=== PATIENT | female | born 1940 ===

== ENCOUNTER 2017-09-24 07:41 | Inpatient (IN) | payer MEDICARE, OTHER ==
[~2017-09-24] VITALS: Ht 167.6 cm; Wt 65.8 kg
[2017-09-24] MEDS ORDERED: ALPRAZOLAM0.25 MG PO (08:02)
[2017-09-24] MEDS ORDERED: PANTOPRAZOLE SO40 MG PO (08:02)
[2017-09-24] MEDS ORDERED: METOPROLOL TART25 MG PO (08:02)
--- NOTE | 2017-09-24 09:11 | NUR ---
MED REC COMPLETE WITH PHARMACY REFILL HISTORY.
--- NOTE | 2017-09-24 11:06 | NUR ---
patient admitted to the medical floor with c/o right foot ulceration stage 3 and reddness to the right leg from the right knee down. patient is alert and oriented and on ra when she arrived. this patient is able to move herself from the stretcher to the bed without any assistance. brennan is intact upon arrival.
--- NOTE | 2017-09-24 11:36 | NUR ---
MRI SCREENING FORM FILLED OUT AND FAXED TO IMAGING AT THIS TIME
--- NOTE | 2017-09-24 12:00 | NUR ---
PATIENT'S RIGHT FOOT DRESSED WITH XEROFOAM AND KERLIX. PATIENT TOLERATED WRAPPING HER FOOT WELL NO C/O PAIN.
--- NOTE | 2017-09-24 12:13 | NUR ---
patient sitting up in bed eating, patient ready for mri, tech waiting for lunch to be finished and will take her for the scan.
--- NOTE | 2017-09-24 14:01 | NUR ---
IV ABX HUNG AND RUNNING, PATIENT ARRIVED BACK FROM MRI, SHE IS SITTING UP IN BED READING SHE DENIES ANY PAIN OR NEEDS AT THIS TIME.
--- NOTE | 2017-09-24 16:03 | EKG ---
[facility] [address] [place], [place] [address] Signed Normal sinus rhythm Right bundle branch block Abnormal ECG No previous ECGs available Confirmed by DOTTY JAY MD ([id number]) on 09/24/2017 4:03:14 PM Electronically Signed By: DOTTY JAY MD 09/24/17 1603 PATIENT NAME: FAY CARRANZA MARIAMA Electrocardiogram DATE OF : 42 PHYSICIAN: DOTTY JAY MD REPORT #: [id number] REPORT IS CONFIDENTIAL AND NOT TO BE RELEASED WITHOUT AUTHORIZATION
--- NOTE | 2017-09-24 16:51 | NUR ---
DALTON Soria/Linda SOCIAL WORK THERAPIST IN TO SPEAK WITH THE PATIENT AT THIS TIME
--- NOTE | 2017-09-24 17:29 | NUR ---
DOCTOR TOBAR IN THE ROOM, DEBRIDMENT OF THE LEFT FOOT DONE AT THIS TIME AT BEDSIDE, PATIENT REPORTS NO PAIN WITH DEBRIDMENT. CMS INTACT AND DRESSING PLACED BACK ON THE FOOT. PATIENT TOLERATED THE DRESSING CHANGE WELL.
--- NOTE | 2017-09-24 17:30 | NUR ---
PATIENT WAS ADMITTED THIS AM FROM THE ER WITH A STAGE 3 PRESSURE SORE TO THE BOTTOM OF HER LEFT FOOT. SHE WAS GIVEN IV ABX FLAGYL AND VANCOMYACIN. 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 SHE HAS A MCNEAL CURRENTLY AND IS ON RA. SHE IS A TWO PERSON ASSIST UP TO THE BEDSIDE COMMODE IF SHE NEEDS TO HAVE A BM. AT HOME SHE USES TWO CANES TO AMBULATE. SHE IS ALERT AND ORIENTED AND COOPERATIVE.
--- NOTE | 2017-09-24 19:10 | NUR ---
RECIEVED BEDSIDE REOPRT FORM DAY SHIFT RN. PT IN BED WITH AT BEDSIDE. D5 1/2NS WITH 20KCL INFUSING AT 100ML/HR. MCNEAL CATH IN PLACE. PT REORTS NO PAIN AT THIS TIME. DRESSING ON LEFT FOOT C/D/I. FOOT PUMP IN PLACE ON RIGHT FOOT. LEGS ELEVATED ON PILLOW. REFRESHED WATER. REPORTS NO OTHER NEEDS AT THIS TIME.
--- NOTE | 2017-09-24 21:20 | NUR ---
PT REQUESTED SLEEPING AIDE. REPORTED TO DR JAY. NEW ORDERS RECIEVED.
--- NOTE | 2017-09-24 22:43 | NUR ---
VITALS AND I&OS DONE AND CHARTED. FRESH WATER GIVEN. HELPED HER FROM THE BSC TO THE BED. CLEANED OUT COMMODE. VERY SMALL BM. BEDSIDE TABLE AND CALL LIGHT WITHIN REACH.
--- NOTE | 2017-09-24 23:58 | NUR ---
PT REPORTED A BURNING FEELING IN EPIGASTRIC REGION. GAVE CRACKERS AND MILK TO SEE IF THAT HELPS. WILL CONT TO MONITOR. CALL LIGHT WITHIN REACH.
--- NOTE | 2017-09-25 01:15 | NUR ---
PATIENT HAD LARGE AMOUNT OF EMESIS X3. CONTACTED. NEW ORDERS FOR PRN ZOFRAN AND PHENERGAN RECEIVED. VERIFIED USING READ BACK METHOD.
--- NOTE | 2017-09-25 01:45 | NUR ---
PT REPORTS EPIGASTRIC 3/10 PAIN AND EMISIS X3 REPORTED FROM RAN LUJAN. 4MG ZOFRAN AND 0.5 MG DILAUDID GIVEN.
--- NOTE | 2017-09-25 02:01 | NUR ---
VITALS AND I&OS DONE AND CHARTED. BEDSIDE TABLE AND CALL LIGHT WITHIN REACH. PT NEEDS NOTHING ELSE AT THIS TIME.
--- NOTE | 2017-09-25 04:36 | NUR ---
PT REPORTED PAIN 3/10 IN EPIGASTRIC REGION. DILAUDID 0.5 GIVENIV. NEW BAG FLUIDS HUNG. CALL LIGHT WITHIN REACH. REPORTS NO OTHER NEEDS AT THIS TIME.
--- NOTE | 2017-09-25 05:19 | NUR ---
PT WOKE MANY TIMES THROUGHOUT THE NIGHT. TESSALON PERLS FOR COUGH. PT REPORTED THIS UPSET HER STOMACH. MAALOX GIVEN @ 0013. PT REPORTED THIS DID NOT RELIEVE SYMPTOMS. LARGE EMISIS X3. ZOFRAN GIVEN @ 0140. PRN DILAUDID FOR WPIGASTRIC PAIN 07/25. LAST GIVEN AT 0430. XRAY SHOWED OSTEOMYLITIS. IN FOOT. VANCO AND FLAGYL. NEW ORDER FOR SONATA FOR SLEEP. SCD ON RIGHT FOOT. PICC LINE CONSULT TODAY. DR TOBAR WILL BE IN TO SEE PT. D5 1/2NS W/ 20KCL INFUSING @ 100ML/HR. PT HAS BEED NPO OF MIDNIGHT. ELIZABET IN PLACE O/U QS. VANCO TROUGH @ 1130 TODAY. PLAN FOR SURGERY TODAY.
--- NOTE | 2017-09-25 06:16 | NUR ---
VITALS AND I&OS DONE AND CHARTED. GARGAGES EMPTIED. ROOM CLEANED UP. BEDSIDE TABLE AND CALL LIGHT WITHIN REACH.
--- NOTE | 2017-09-25 07:10 | NUR ---
BEDSIDE HANDOFF REPORT RECEIVED FROM GLOVE PAIRER RN. PT RESTING INBED. PT REQUESTING ANTI NAUSEA MEDICATIONS. DISCUSSED PLAN OF CARE FOR THE DAY. PT DENIES OTHER NEEDS AT THIS TIME.
--- NOTE | 2017-09-25 07:30 | NUR ---
PATIENT IN BED. BOARD UPDATED, ROOM TIDIED. CALL LIGHT IN REACH. PATIENTS HAS NO NEEDS ATT.
--- NOTE | 2017-09-25 07:45 | NUR ---
PT REQUESTING ANTINAUSEA AND PAIN MEDICATION, GIVEN 4MG IV ZOFRAN AND 0.5 MG IV DILAUDID. PT ON ROOM AIR, LUNG SOUNDS CLEAR. PT NPO FOR PROCEDURE, BOWEL TONES ACTIVE, GIVEN SMALL SIP OF WATER WITH MORNING MEDICATIONS. IV INFUSING AT 100 ML/HR TO LEFT AC, IV FLAGYL INFUSING. PT WITH LEFT FOOT ULCER, DRESSING IN PLACE, REDNESS TO LEFT LOWER LEG, 1+ EDEMA, PULSE FAINT, CAP REFILL 2 SECONDS, LEG ELEVATED. DISCUSSED PLAN OF CARE AND WHAT TO EXPECT FOR SURGERY. PT DENIES OTHER NEEDS AT THIS TIME.
--- NOTE | 2017-09-25 09:23 | NUR ---
PT RESTING IN BED. CONTINUES TO HAVE PAIN TO EPIGASTRIC REGION, GIVEN PEPCID ORDERED. PO POTASSIUM AND IV MAGNESIUM GIVEN. PT OFFERED WARM PACK, DECLINED. DISCUSSED PAIN MEDICATION. PT DENIES OTHER NEEDS AT THIS TIME.
--- NOTE | 2017-09-25 10:45 | NUR ---
PT NAUSEATED, GIVEN 12.5 MG IV PROMETHAZINE. LIFE SCIENCES MANAGER TO BEDSIDE FOR PICC LINE VERIFICATION. PT DNIES OTHER NEEDS AT THIS TIME.
--- NOTE | 2017-09-25 11:20 | NUR ---
VITALS DONE. DEYSI FROM CCU IS IN WITH PATIENT. CALL LIGHT IN REACH
--- NOTE | 2017-09-25 11:30 | NUR ---
VANCO TROUGH DRAWN FROM PICC LINE. PT DENIES OTHER NEEDS AT THSI TIME.
--- NOTE | 2017-09-25 11:36 | NUR ---
PICC INSERTION NOTE: ASKED BY DR. JAY TO EVALUATE PATIENT FOR POTENIAL PICC LINE INSERTION. AFTER DISCUSSING WITH PHYSICAN AND REVIEWING THE CHART, THE PATIENT WAS INTERVIEWED. PATIENT EXPRESSED TO THAT SHE HAS A HISTORY OF LYMPH NODE REMOVAL ON HER RIGHT SIDE AND WISHES TO NOT USE THE RIGHT SIDE FOR ANY IV ACCESS. NO ABSOLUTE CONTRAINDICATIONS WERE IDENTIFIED, OTHER THAN AVOIDING THE RIGHT SIDE. PATIENT WAS ABLE TO SIGN THE CONSENT FORM FOR PICC INSERTION. PATIENT'S LEFT UPPER ARM WAS EVALUTED AND BOTH THE BASILIC AND BRACHIAL VEINS WERE EASILY IDENTIFIED. THEY BOTH APPROXIMATED TO BE GREATER THAN 8 BY [employer]. THE BRACHIAL WAS INDEED THE LARGER OF THE TWO VEINS. AFTER FOLLOWING CDC RECOMMENDED GUIDELINES FOR STERILE TECHNIQUE, THE PATIENT'S BASILIC VEIN WAS ATTEMPTED FIRST. UNABLE TO THREAD AN IV CATHETER INTO THIS VEIN. THE BRACHIAL VEIN WAS THEN ACCESSED WITHOUT DIFFICULTY AND BRISK, DARK, NONPULSATILE BLOOD RETURN WAS EVIDENT. THE GUIDEWIRE, INTRODUCER, AND PICC LINE ALL WERE ADVANCED WITHOUT DIFFICULTY. THE [employer] MAGNET GUIDE WAS UTILIZED AND SHOWED APPROPRIATE TIP LOCATION ON THE SCREEN. A CHEST XRAY WAS TAKEN. AFTER DISCUSSING WITH DR. MATA, THE PICC WAS PULLED BACK 3 CM AND A REPEAT CHEST XRAY WAS OBTAINED. REPORT GIVEN TO LE CARVAJAL. PATIENT TOLERATED THIS PROCEDURE VERY WELL AND ENCOURAGED TO ASK QUESTIONS AT ANY TIME ABOUT HER PICC LINE.
--- NOTE | 2017-09-25 11:40 | NUR ---
ADMINISTERED 4MG ZOFRAN PER RN REQUEST. PT STATES HER ABDOMINAL PAIN IS MAKING HER NAUSEOUS. READJUSTED LEG ON PILLOWS.
--- NOTE | 2017-09-25 11:49 | NUR ---
DR MATA CALLED AND STATED THE PICC LINE PLACEMENT WAS FINE. CALLED CCU TO ALERT ANTONIA JO TELL LE CARVAJAL
--- NOTE | 2017-09-25 13:10 | NUR ---
VANCO INFUSING INTO L PICC LINE. PT CONTINUES TO COMPLAIN OF PAIN AND NAUEAS, SLIGHTLY IMPROVED. PT DENIES OTHER NEEDS AT THIS TIME. UPDATED ON SURGERY AND PLAN OF CARE.
--- NOTE | 2017-09-25 14:00 | NUR ---
PT TO OR WITH RN RADHA. MIGUEL INFUSING ON PUMP, EDD SENT WITH RN.
--- NOTE | 2017-09-25 15:30 | NUR ---
PATIENT IN SURGERY, ROOM TIDIED, GARBAGE EMPTIED
--- NOTE | 2017-09-25 16:23 | NUR ---
09/25/17 1623 Polly Bryson 1613 PATIENT ARRIVES TO PACU AWAKE, BUT DROWSY. RESTING QUIETLY WITH EYES CLOSED OFF/ON. RESP EVEN AND UNLABORED, ROOM AIR ON ARRIVAL. C/O CHRONIC ABD PAIN, NOT UNCHANGED FROM ADMISSION. RT AT BEDSIDE FOR EKG.
--- NOTE | 2017-09-25 17:24 | NUR ---
PT RECEIVED FROM PACU. PT COMPLAINT OF PAIN TO RUQ OF ABD, TENDER TO PALPATE. VSS. PT ON ROOM AIR, LUNG SOUNDS CLEAR, O2 SATS 97%. PT DENIES NAUSEA. PT WITH DRESSING TO LEFT FOOT, CAP REFILL 2 SECONDS, PULSE FAINTLY PALPABLE THROUGH DRESSING. RIGHT FOOT PULSE STRONG. PT WITH MCNEAL, DRAINING LIGHT YELLOW URINE. IV FLUIDS INFUSING D5 1/2NS +20K AT 100 ML/HR. FAMILY AT BEDSIDE. MD CALLED ABOUT RIGHT UPPER QUADRANT PAIN, TELEPHONE ORDER FOR ULTRASOUND, PT TO BE NPO UNTIL AFTER ULTRASOUND IN AM.
--- NOTE | 2017-09-25 18:17 | NUR ---
PT RESTING IN BED. VSS. O2 SATS 99%. CAP REFILL 2 SECONDS TO LEFT FOOT. DISCUSSED PLAN OF CARE FOR TONIGHT AND TOMORROW ULTARSOUND. PT DENIES OTHER NEEDS AT THIS TIME.
--- NOTE | 2017-09-25 18:20 | NUR ---
PT WENT FOR SURGERY ON LEFT FOOT ULCER, RECEIVED BACK TO FLOOR AT 1605. PICC LINE PLACED TO LEFT ARM. PT WITH RUQ PAIN, NAUSEA/VOMITING, ABD ULTRASOUND PLANNED FOR TOMORROW MORNING. PT WITH LEFT FOOT ELEVTAED, DRESSING CDI, CAP REFILL 2 SECONDS. D5 1/2 NS +20K INFUSING AT 100 ML/HR, VANCO AND FLAGYL. MCNEAL CATH, QS.
--- NOTE | 2017-09-25 18:34 | NUR ---
PATIENT BACK FROM SURGERY, SLEEPING IN BED. IN ROOM. MCNEAL EMPTIED. CALL LIGHT IN REACH, DENIES ANY NEEDS AT THI TIME
--- NOTE | 2017-09-25 20:06 | NUR ---
recieved bedside report from day shift. rn. pt is in bed with right foot elevasted on pillow. dressing is c/d/i, scd on right foot. d5 1/2 nc @ 100 infusing in left upper arm picc line. pt reports pain 4/10 in RUQ. dilaudid 0.5 administered. reports no other needs at this time. call light wtihin reach.
--- NOTE | 2017-09-25 21:14 | NUR ---
HOUSE PRINCIPAL REPORTED LOW GRADE TEMP OF 99.5 ORALLY. RECHECKED TEMP. WAS 97.9. NO INTERVENTION NEEDED. CALL LIGHT WITHIN REACH.
--- NOTE | 2017-09-25 22:21 | NUR ---
PT CALLED REPORTING ABD PAIN OF 2/10. PT RESPIRATONS WERE INCREASED TO 20 HEART RATE AT 110. OXYGEN AT 94% ON RA. PT SKIN TEMP FELT WARM. DECIDED TO TAKE AN ORAL TEMP AND IT WAS 99.8. REMOVED PT BLANKETS, GAVE 650MG TYLENOL, DECREASED ROOM TEMP. HELPED REPOSITION PT. CALL LIGHT WITHIN REACH.
--- NOTE | 2017-09-25 22:24 | EKG ---
[facility] [address] [place] [address] Signed Normal sinus rhythm Left axis deviation Right bundle branch block Abnormal ECG When compared with ECG of 24-SEP-2017 08:23, No significant change was found Confirmed by DOTTY JAY MD ([id number]) on 09/25/2017 10:23:59 PM Electronically Signed By: DOTTY JAY MD 09/25/17 2224 PATIENT NAME: FAY CARRANZA MARIAMA Electrocardiogram DATE OF : 42 PHYSICIAN: DOTTY JAY MD REPORT #: [id number] REPORT IS CONFIDENTIAL AND NOT TO BE RELEASED WITHOUT AUTHORIZATION
--- NOTE | 2017-09-25 23:22 | NUR ---
TEMP TAKEN PER REQUEST OF LE MOORE
--- NOTE | 2017-09-25 23:28 | NUR ---
RECHECKED PT TEMP. TEMP WAS 98.0. CALL LIGHT WITHIN REACH. HEART RATE 98. PT APPEARS TO BE SLEEPING WITH EYES CLOSED. RESPIRATIONS ARE EQUAL AND NONLABORED.
--- NOTE | 2017-09-26 01:31 | NUR ---
VITALS AND I&OS DONE AND CHARTED. BEDSIDE TABLE AND CALL LIGHT WITHIN REACH. PT NEEDS NOTHING ELSE AT THIS TIME.
--- NOTE | 2017-09-26 04:00 | NUR ---
PT APPEARS TO BE SLEEPING WITH EYES CLOSED. O2 SATURATIONS 96% ON RA. RESPIRATIONS EQUAL AND NONLABORED. HEART RATE IS 88. FLUIDS INFUSING. ;EFT LEG ELEVATED ON PILLOWS. RIGHT FOOT PUMP IN PLACE. CALL LIGHT WITHIN REACH.
--- NOTE | 2017-09-26 05:00 | NUR ---
PT REPORTS PAIN 3/10 IN ABDOMEN. PRN PAIN MEDICATION GIVEN. PT REPOSITIONED IN BED. LEVELS ELEVATED ON PILLOW. FLUIDS INFUSING. PT IS NPO STATUS AT THIS TIME. RESPIRATIONS ARE EQUAL AND NONLABORED. HEART RATE IS 90 AND O2 SAT 97% ON RA. CALL LIGHT WITHIN REACH.
--- NOTE | 2017-09-26 05:25 | NUR ---
PT SLEPT THROUGHOUT THE NIGHT. CMS INTACT ON LEFT FOOT. CAP REFILL <3 SEC. PT REPORTS EPIGASTRIC PAIN. PRM DILAUDID. D5 1/2 NS W/20K INFUSING. FLAGYL AND VANCO. SONATA FOR BEDTIME. PICC IN LEFT UPPER ARM. ANTIBIOTIC BEADS FOR WOUND. NO N/V. PLAN FOR ULTRASOUND @ 0900. CONT PULSE OX IN PLACE. MCNEAL QS OUTPUT.
--- NOTE | 2017-09-26 06:13 | NUR ---
VITALS AND I&OS DONE AND CHARTED. BEDSIDE TABLE AND CALL LIGHT WITHIN REACH.
--- NOTE | 2017-09-26 08:31 | NUR ---
PATIENT 2 PERSON ASSIST UP TO THE COMMODE TO HAVE A BM.
--- NOTE | 2017-09-26 09:45 | NUR ---
US COMPLETED, OK'D WATER TO BE GIVEN WITH MEDICATION. PATIENT HAS NO C/O PAIN AT THIS TIME. PATIENT IS ALERT AND ORIENTED AT THIS TIME.
--- NOTE | 2017-09-26 09:57 | NUR ---
PT IS RESTING IN BED WITH CALL LIGHT IN REACH PT DID NOT NEED ANYTHING AT THE MOMENT
--- NOTE | 2017-09-26 10:19 | NUR ---
PATIENT'S I AND O COMPLETE, IV ABX HUNG AND RUNNING.
--- NOTE | 2017-09-26 10:20 | NUR ---
Spoke with MD about orders for eval following surgery with pt. Decided it was best to hold at this time due to non-weight bearing status. Will wait for new orders prior to beginning therapy.
--- NOTE | 2017-09-26 12:30 | NUR ---
PATIENT NPO AT THIS TIME FOR MRI TONIGHT AT 1800. PATIENT NOT TOLERATING CLEAR LIQUIDS VERY WELL AT THIS TIME.
--- NOTE | 2017-09-26 14:26 | NUR ---
IV ABX HUNG AND RUNNING, I AND O AND VITALS TAKEN, DOCTOR MISTY NOTIFIED OF LOW URINE OUTPUT AT THIS TIME. PATIENT'S URINE WAS CLOWDY AND DARK BROWN COLORED ONLY 50 MLS OUT IN THE LAST 4 HOURS.
--- NOTE | 2017-09-26 15:00 | NUR ---
PATIENT C/O 3/10 RUQ PAIN, PATIENT GIVEN 0.5MG OF DILAUDID IV AT THIS TIME. NORMAL SALINE BOLUS STARTED AT THIS TIME
--- NOTE | 2017-09-26 17:31 | NUR ---
PATIENT 2 PERSON ASSIST TO THE COMMODE TO ATTEMPT TO HAVE A BM, NO SUCCESS, PATIENT BACK TO BED. SHE REMAINS NPO FOR HER MRI THIS EVENING. SHE HAS RUQ PAIN THAT SHE IS NOT IN NEED OF IV PAIN MEDICATION FOR AT THIS TIME. PATIENT REMAINS ON RA WITH SATURATIONS AT 98%
--- NOTE | 2017-09-26 17:41 | NUR ---
PATIENT HAS C/O RUQ PAIN TODAY WHICH SHE HAS RECEIVED DILAUDID FOR 0.5MG IV. SHE HAS BEEN NPO MOST OF THE DAY DUE TO AN US THIS AM WHICH SHOWED A THICKNING OF THE GALLBLADDER AND GALLSTONES. SHE IS GOING DOWN FOR AN MRI NOW OF THE GALLBLADDER AND THE COMMONBILE DUCT. HER LEFT FOOT DRESSING WAS CHANGED THIS AM BY DOCTOR TOBAR. HE WILL COME IN TOMMORROW TO CHANGE THE DRESSING. SHE IS NON WEIGHT BEARING ON THAT FOOT. THE DRESSING IS CDI AT THIS TIME AND CMS IS INTACT. PATIENT HAS NO C/O PAIN IN THAT FOOT. DOCTOR PUGA IS NOW CONSULTING ON THE PATIENT FOR HER GALLBLADDER PAIN.
--- NOTE | 2017-09-26 19:15 | NUR ---
BEDSIDE REPORT RECEIVED FROM OFFGOING RN. PT LYING IN BED, DENIES NEEDS AT THIS TIME. CALL LIGHT WITHIN REACH.
--- NOTE | 2017-09-26 19:59 | NUR ---
PT ASSESSMENT COMPLETE. PT REPORTS PAIN 3/10 TO RUQ, STATES THAT THIS IS TOLERABLE. DENIES NAUSEA, AND SLIGHT SOB DUE TO STUFFY NOSE. LUNG SOUNDS CLEAR WITH DIMINISHED BASES. DRESSING TO L FOOT C/D/I. CMS INTACT TO BLES. BLE'S ELEVATED ON PILLOWS. PT REQUESTS ICE WATER. PROVIDED. PT DENIES OTHER NEEDS AT THIS TIME. CALL LIGHT WITHIN REACH.
--- NOTE | 2017-09-26 22:14 | NUR ---
SCHEDULED VANCO ADMINISTERED. PT REPORTS HAVING TROUBLE SLEEPING, REQUESTS SLEEP AID. PT ALSO REPORTS PAIN, 4/10 TO ABD. PRN DILAUDID ADMINISTERED. PT SITTING UP IN BED WATCHING TV. DENIES OTHER NEEDS AT THIS TIME. CALL LIGHT WITHIN REACH.
--- NOTE | 2017-09-26 22:58 | NUR ---
PATIENT CALLED WANTS THE DRAPE CLOSE STATED TRYING TO FALL ASLEEP.
--- NOTE | 2017-09-26 23:45 | NUR ---
PT RESTING IN BED WITH EYES CLOSED. RESPIRATIONS EVEN AND UNLABORED. RR 16. PT SNORING AUDIBLY. PT APPEARS TO BE SLEEPING. CALL LIGHT WITHIN REACH.
--- NOTE | 2017-09-27 01:08 | NUR ---
PT UTILIZES CALL LIGHT, REQUESTS MEDICATION FOR PAIN. REPORTS PAIN "GETTING UP TO A 4" IN HER RUQ. PRN DILAUDID ADMINISTERED. PT REQUESTS MORE WATER, PROVIDED. DENIES OTHER NEEDS, CALL LIGHT WITHIN REACH.
--- NOTE | 2017-09-27 02:22 | NUR ---
PT ASSESSMENT COMPLETE. ASSESSMENT UNCHANGED FROM PREVIOUS. DRESSING TO L FOOT C/D/I, CMS INTACT TO BLE'S. PT REPORTS PAIN WELL CONTROLLED AT THIS TIME. CONTINUES TO RATE PAIN 3/10. PT DENIES OTHER NEEDS AT THIS TIME. CALL LIGHT WITHIN REACH.
--- NOTE | 2017-09-27 05:55 | NUR ---
PT AWAKE OFF AND ON THROUGHOUT SHIFT. DILAUDID FOR PAIN X 3 TO RUQ. DRESSING TO L FOOT C/D/I, TO BE CHANGED BY DR. TOBAR TODAY. PT IS TO BE NON-WEIGHT BEARING TO L FOOT. CMS INTACT BILATERALLY. PT HAS BEEN NPO SINCE 030 FOR SURGERY TODAY. CONSENT FORM ON CHART. 2PA TO BSC. PICC LINE. VANCO, FLAGYL AND LEVAQUIN.
--- NOTE | 2017-09-27 07:29 | CONS ---
[facility] [address] [place], [place] [address] Signed DATE OF CONSULTATION: 09/26/2017 REFERRING PHYSICIAN: Merced Mcginnis MD CHIEF COMPLAINT: Right upper quadrant abdominal pain. HISTORY OF PRESENT ILLNESS: Fay is a 77-year-old female, who unfortunately, fell off a horse and had a spinal cord injury when she was in her early 20s. She recovered from that pretty well, but her neurosurgeons told her it could show up later in life. Sure enough 2-1/2 years ago, she started having numbness in her feet, and neurogenic bladder. She is now doing self catheterization. She spends rai in [place] with her , and follows along with a log manager in [place]. She ,apparently, had just a tiny little hole in her foot. When she came back from [place] she talked about buying a new pair of boots to help support her ankles, and now she has significant ulcer on her left foot with osteomyelitis of the metatarsal head. She had to have that debrided, I think it was 2 days ago by our log manager. In the meantime, the nurse tells me she has had right upper quadrant abdominal pain, nausea, and anorexia since admission. It has continued obviously. So, an ultrasound was ordered and it shows gallstones with the gallbladder wall a little bit thick at 3.1 mm and the common bile duct is slightly increased in diameter at 6.7 mm. Consequently, I was asked to see her as a general surgeon on-call. PAST MEDICAL HISTORY: Spinal cord injury after falling from a horse in her early 20s. She has peripheral neuropathy, and a neurogenic bladder the last 2-1/2 years, requiring self catheterization, hypertension, right breast cancer, anxiety, insomnia, peripheral edema, restless legs syndrome, osteoarthritis, and gastroesophageal reflux disease. PAST SURGICAL HISTORY: Bilateral knee and hip replacements with ceramic prostheses. Bilateral tubal ligation. She has some screws I believe in her spine. She had a right breast lumpectomy, and an open appendectomy. SOCIAL HISTORY: She quit smoking back in 1980. She has a drink a couple of times a day. She is to Bill at #[phone]. Her only daughter is a respiratory therapist. They prefer the [facility]. She does use a cane to ambulate Dr. Theo Wick is her primary care provider. Dr. Jonah Leonard is her log manager. FAMILY HISTORY: Dad had an AL. Mom had thyroid disease. Electronically Signed By: POORNIMA PUGA MD 09/27/17 0729 PATIENT NAME: FAY CARRANZA [facility] CONSULTATION DATE OF : 42 REPORT #: [id number] PHYSICIAN: POORNIMA PUGA MD PCP: THEO WICK DO REPORT IS CONFIDENTIAL AND NOT TO BE RELEASED WITHOUT AUTHORIZATION [address] [address] Signed REVIEW OF SYSTEMS: Fay had 10 systems reviewed, and really nothing new to add that I did not include in the above. She seems to have actually a pretty good memory. ALLERGIES: 1. Penicillin. 2. Sulfa. 3. Codeine. 4. Hydrocodone. 5. Hydrocortisone. 6. Oxycodone. 7. Propoxyphene. MEDICATIONS: 1. Metoprolol. 2. Alprazolam. 3. Protonix. 4. Aspirin. 5. Gabapentin. 6. Mometasone. 7. Zofran. 8. Torsemide. 9. Zyrtec. PHYSICAL EXAMINATION: VITAL SIGNS: Her blood pressure is 138/58, heart rate 87, respiratory rate 18, temperature is 98.2. She is 91% on room air. She is 5 feet 6 inches, and weighs 65 kg. GENERAL: On exam Fay is a 77-year-old female, lying supine in her hospital bed. She does not appear systemically ill or toxic. She is not jaundiced. LUNGS: Generally clear to auscultation. HEART: Regular rhythm. ABDOMEN: Generally soft and flat, and she does point to the right upper quadrant, but she had pain medications, so it is hard to know on exam. LABORATORY DATA: Her white count was 6.1, but after surgery went up to 18.1, hemoglobin 11.8, mean cell volume is 100, neutrophils 85. Her sodium was 128, potassium 3.2, BUN 3, creatinine 0.4, glucose 142, magnesium is 1.6, total bilirubin 0.4, AST 24, ALT 42, alkaline phosphatase 63, albumin is 2.7, and her calcium is 8. In the ED, the urine culture shows a lactose ceo & board director, and the wound culture shows gram-positive cocci. The EKG showed normal sinus rhythm. RADIOGRAPHIC STUDIES: Electronically Signed By: POORNIMA PUGA MD 09/27/17 0729 PATIENT NAME: FAY CARRANZA [facility] CONSULTATION DATE OF : 42 REPORT #: [id number] PHYSICIAN: POORNIMA PUGA MD PCP: THEO WICK DO REPORT IS CONFIDENTIAL AND NOT TO BE RELEASED WITHOUT AUTHORIZATION [address], [place] [address] Signed Ultrasound of the right upper quadrant shows the gallstones with a gallbladder wall at 3.1 mm and common bile duct at 6.7 mm. She had an MRI of her foot today that is pending. ASSESSMENT AND PLAN: Fay is a 77-year-old female, who presents with a foot ulcer, and probably some colonization to the urine. She has been on Levaquin, vancomycin and Flagyl. In addition, she probably has some level of [id number] cholecystitis, cholelithiasis. I had a long discussion with Fay, and I have known Fay, and her Felipe for years. She told me if the gallbladder needs to come out, she would rather get it done sooner, or rather than later. Unfortunately, Felipe is not here currently, but he will be here in the morning. I have already got one of the gallbladder surgery, and I think I will be with Fay in the morning. Recheck the sodium, and talk to her , and hopefully we will be able to get her gallbladder out tomorrow. She has expressed understanding and agrees to the above plan. Poornima Puga MD ALB/MODL /[id number] cc: OSMANI Ayala DO Andrew L Bower, MD Copies: JONAH LEONARD DPM, KENT DO BOWER, ANDREW L MD ~ Electronically Signed By: POORNIMA PUGA MD 09/27/17 0729 PATIENT NAME: FAY CARRANZA [facility] CONSULTATION DATE OF : 42 REPORT #: [id number] PHYSICIAN: POORNIMA PUGA MD PCP: THEO WICK DO REPORT IS CONFIDENTIAL AND NOT TO BE RELEASED WITHOUT AUTHORIZATION
--- NOTE | 2017-09-27 07:35 | NUR ---
RECEIVED REPORT FROM NIEVES LUJAN. WHITE BOARD UPDATED. PATIENT AWAKE WITH AT BEDSIDE. PLAN FOR SURGERY TODAY. NPO AFTER 0300 TODAY. VANCO TROUGH PLANNED FOR 1330 THIS AFTERNOON.
--- NOTE | 2017-09-27 08:15 | NUR ---
PATIENT IN BED, READING GALLBLADDER LEAFLET. IN ROOM. ROOM TIDIED, GARBAGE EMPTIED. CALL LIGHT INREACH
--- NOTE | 2017-09-27 09:15 | NUR ---
PATIENT IN BED, IN RM. THIS MID LEVEL DEVELOPER WIPED PATIENT DOWN FOR SURGERY (FRONT AND BACK) GOWN CHANGED, CALL LIGHT IN REACH
--- NOTE | 2017-09-27 10:07 | NUR ---
DR APODACA IN TO ASSESS PATIENT AFTER ORTHOSTATIC VITAL SIGNS TAKEN. RUQ ABDOMINAL PAIN. RR 28. O2 SATS 91-96%. NO LIGHT HEADEDNESS WITH STANDING.
--- NOTE | 2017-09-27 14:02 | NUR ---
PATIENT UP IN BED, FAMILY IN ROOM. PATIENT IN GOOD SPIRITS, VITALS AND I/OS DONE AND RECORDED. MCNEAL EMPTIED, URINE DARK IN COLOR. CALL LIGHT IN REACH NO OHTER NEEDS
--- NOTE | 2017-09-27 16:40 | NUR ---
PATIENT UP IN CHAIR, FAMILY IN ROOM. FRESH ICE WATER GIVEN, CHAIR ALARM ON, CALL LIGHT IN REACH
--- NOTE | 2017-09-27 17:53 | NUR ---
PATIENT SITTING UP IN BED, CLEAR LIQUID DINNER ON TABLE NEXT TO HER. VITALS AND I/OS RECORDED. IS GONE FOR THE NIGHT. PATIENT REPORTS SHE HEARS MUSIC PLAYING EVERY SO OFTEN, UPON FURTHER LISTENING, THIS STILL WORKER HELPER FOUND OUT SHE WAS HEARING THE IV PUMP. PATIENT REPORTS "THIS [facility] HAS A WONDERFUL CREW WORKING HERE, VERY FRIENDLY AND HELPFUL" CALL LIGHT IN REACH, NO OTHER NEEDS
--- NOTE | 2017-09-27 18:28 | NUR ---
LEFT FOOT DRESSING CHANGED BY DR TOBAR THIS MORNING. WILL BE IN TOMORROW MORNING AGAIN. CHRONIC COUGH. TACHYPNEA. AUDITORY WHEEZING HEARD. CLEAR LUNGS. MCNEAL-- LOW UO. 2PA FWW. NWB LEFT FOOT. NS 3% @ 26ML/HR. FLAGYL/CEFEPIME. NA-BICARB RIDER TODAY. NEW LABS TONIGHT AT 2200. CALL DR APODACA WHEN LAB RESULTS BACK. ALSO NOTIFY HIM OF URINE OUTPUT AT THAT TIME. DILAUDID Q3P-- PT LIKE CLOCKWORK TO ASK FOR IT. NPO AT MIDNIGHT. POSSIBLE GALLBLADDER SURGERY TOMORROW. INDRA PICC LINE INFUSING IVF. NS BOLUS TODAY. ENCOURAGE OOB FOR MEALS TOMORROW.
--- NOTE | 2017-09-27 19:31 | NUR ---
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 Aware of NPO status after midnight for am surgery. No c/o pain at this time
--- NOTE | 2017-09-27 21:24 | NUR ---
MEDICATED WITH SONATA 5MG PO C/O INSOMNIA AND DILAUDID 0.5MG C/O ABD PAIN. IN BED WATCHING TV, DRY, NON PRODUCTIVE COUGH NOTED.
--- NOTE | 2017-09-27 22:03 | NUR ---
LAB HERE TO DRAW BLOOD, PROCEDURE EXPLAINED, PT COOPERATIVE. F/C EMPTIED OF 180CC MEDIUM YELLOW COLORED URINE. WILL CALL DR APODACA WHEN LAB RESULTS AVAILABLE
--- NOTE | 2017-09-27 23:07 | NUR ---
DR APODACA NOTIFIED OF LAB RESULTS NA 128 AND THE REST OF ABNORMAL LABS, F/C OUTPUT OF 180CC/4H, PT SOUNDING WHEEZE BUT LUNGS CLEAR BILAT WITH DIMINISHED SOUNDS AT BASES BILAT. "CONTINUE IV FLUID AT SAME RATE OF 26CC/HR, ENCOURAGE PT TO USE INCENTIVE SPIROMETER AND CDB,"
--- NOTE | 2017-09-28 02:05 | NUR ---
PT RESTING COMFORTABLE, EYES CLOSED, SNORING, NO RESP DISTRESS, NO WHEEZING, NO C/O PAIN. LEFT FOOT ELEVATED, DRESSING CDI, IVF-FLAGYL ABX INFUSING W/O PROBLEMS. PICC LINE LEFT ARM INTACT/PATENT
--- NOTE | 2017-09-28 02:48 | NUR ---
AWAKE, C/O ABD PAIN, NO N/V, MEDICATED WITH DILAUDID 0.5MG IV . LEFT LEG ELEVATED WITH PILLOWS, DRESSING CDI. WARM SKIN, ABLE TO GIGLE TOES. F/C EMPTIED OF 250CC, DARK YELLOW URINE, KAVITA CARE DONE. PT NPO FOR AM PROCEDURE
--- NOTE | 2017-09-28 06:05 | NUR ---
PT HAS BEEN MEDICATED X3 WITH DILAUDID 0.5MG IV WITH GOOD PAIN RELIEF. SONATA FOR INSOMNIA GIVEN AT HER REQUESTS, MILDLY EFFECTIVE. SLEPT A TOTAL 3-4 HOUNRS INTERMITENTLY THIS SHIFT. ANXIOUS ABOUT UPCOMING ABD SURGERY. REASSURED. CALMER. LEFT FOOT DRESSING INTACT, ELEVATED WITH PILLOWS, FOOT PUMPS ON R LEG. PT HAS BEEN NPO SINCE MIDNIGHT, IVF INFUSING W/O PROBLEMS. PICC LINE LARM PATENT. HEPARIN FLUSH NOT DONE PT HAS CONTINUES IV FLUID INFUSING. LABS DRAWN LAST NIGHT AT 2200, NA 128, DR APODACA NOTIFIED
--- NOTE | 2017-09-28 07:06 | OR ---
[facility] [address] [place], [place] [address] Signed DATE OF OPERATION: 09/25/2017 SURGEON: Maynor Leonard DPM PREOPERATIVE DIAGNOSES: 1. Diabetic ulcer with infection, left foot. 2. Osteomyelitis, left foot. POSTOPERATIVE DIAGNOSES: 1. Diabetic ulcer with infection, left foot. 2. Osteomyelitis, left foot. OPERATING SURGEON: Maynor Leonard DPM. POWER PLANT MANAGER: Lucy Fuentes CRNA. ANESTHESIA: Local block, left foot with IV sedation. SPECIMEN TO PATHOLOGY: Bone of left 5th metatarsal and aerobic and anaerobic cultures from the bone of left 5th metatarsal. PROCEDURE: Debridement of soft tissue and bone to the ulcer site, left 5th metatarsal base. DESCRIPTION OF PROCEDURE: The patient was brought to the operating room and placed on the table in the supine position. Anesthesia Department administered IV sedation after which a local block was given to the left foot using a total of 10 mL 1:1 mixture 0.5% ropivacaine plain and 2% lidocaine plain. The left leg and foot were then prepped and draped in the usual sterile manner and an Esmarch was used for hemostasis. Attention was then directed to the ulcer site plantar left 5th metatarsal base. An incision was made from the most superior aspect of the ulcer lateral/plantar left foot and extending distally about 2.5 cm and proximally about 1.5 cm. The incisions were full-thickness and extended deep to bone reflecting soft tissues dorsally and plantarly to expose the 5th metatarsal. Using sharp and blunt dissection, soft tissues were freed from the 5th metatarsal and the remaining portion of 5th metatarsal removed in toto. This included about a 3 cm Electronically Signed By: MAYNOR LEONARD DPM 09/28/17 0706 PATIENT NAME: FAY CARRANZA OPERATIVE REPORT DATE OF : 42 REPORT #: [id number] PHYSICIAN: MAYNOR LEONARD DPM PCP: ANNE WICK DO REPORT IS CONFIDENTIAL AND NOT TO BE RELEASED WITHOUT AUTHORIZATION [facility] [address], [place] [address] Signed section of the 5th metatarsal base. The remainder of the 5th metatarsal had been removed several years ago. The bone of the 5th metatarsal base was noted to be soft and mushy and there appeared to be turbid drainage from a crush area to the 5th metatarsal base caused by the forceps. The rongeur was then used to obtain a bone sample for culture from this site. Aerobic and anaerobic cultures were obtained from the bone of the 5th metatarsal base. With the 5th metatarsal base removed, the soft tissues to the area were inspected for necrotic tissue and any necrotic or exposed tendon at this site, which was then resected with hand instrumentation. The surgical site was then irrigated with copious amounts of normal saline. A small amount of additional debridement performed. The incision areas closed with 3-0 nylon monofilament suture. Then, the surgical site dressed with antibiotic beads placed into the wound, which contained vancomycin and tobramycin. Wound was also packed with half-inch plain Nu Gauze soaked in a dilute Betadine solution. Then the wound site dressed with Adaptic, dry gauze, Flexicon, ABD pad, and Coban for mild compression. INTRAOPERATIVE COMPLICATIONS: The patient experienced an intraoperative arrhythmia, which was managed by anesthesia. ESTIMATED BLOOD LOSS: Less than 5 mL. Note, circulation remained intact to the left foot as evidenced by immediate hyperemia with removal of the Esmarch. Maynor Leonard DPM DFB/MODL /[id number] Copies: ~ Electronically Signed By: MAYNOR LEONARD DPM 09/28/17 0706 PATIENT NAME: SHIRA CARRANZAJORIE MARIAMA OPERATIVE REPORT DATE OF : 42 REPORT #: [id number] PHYSICIAN: MAYNOR LEONARD DPM PCP: ANNE WICK DO REPORT IS CONFIDENTIAL AND NOT TO BE RELEASED WITHOUT AUTHORIZATION
--- NOTE | 2017-09-28 07:30 | NUR ---
hand off report taken. pt reports 4/10 pain that is incrasing. see mar for medication given. pt reading book. at bedside. bed rails up. call ligth within reach.
--- NOTE | 2017-09-28 07:42 | NUR ---
PATIENT RESTING IN BED. PATIENT WASHED HANDS AND FACE WITH WARM WASH CLOTH. ORAL CARE SET UP FOR PATIENT, PATIENT STATED SHE DIDN'T NEED TO BRUSH TEETH BECAUSE SHE HASN'T EATEN ANYTHING. CALL LIGHT IN REACH. NO OTHER NEEDS AT THIS TIME.
--- NOTE | 2017-09-28 08:49 | NUR ---
MORNING ASSESSMENT AND MEDICATIONS DUE. THIS RN TO BEDSIDE. 3% NS DC'D, THIS RN SPOKE WITH MD R/T NPO STATUS MORNING MEDICATIONS AND FLUID ORDERS. HOSPITALIST STATES NO IV FLUIDS AT THIS TIME. DR. PUGA STATES GIVE MORNING MEDICATIONS AND THEN RETURN TO NPO STATUS. MEDICATIONS GIVEN ORDERED (SEE MAR). ASSESSMENT DONE. PT ASSISTED UP TO CHAIR, 2 PERSON, FWW ASSIST. PT CALLING TO UPDATE HIM ON PLAN OF CARE. NO ADDITIONAL REQUESTS OR COMPLAINTS AT THIS TIME. CALL LIGHT WITHIN REACH. LEGS ELEVATED.
--- NOTE | 2017-09-28 09:18 | NUR ---
PATIENT SITTING UP IN BEDSIDE RECLINER. LINENS CHANGED. PATIENT DISCUSSED HAVING A BED BATH LATER. CLEAN GOWN AND BED BATH WIPES SET UP IN BATHROOM. CALL LIGHT IN REACH. NO OTHER NEEDS AT THIS TIME.
--- NOTE | 2017-09-28 10:17 | NUR ---
PATIENT SITTING UP IN BEDSIDE RECLINER, FEET ELEVATED WITH PILLOW. CATH CARE PERFORMED BY THIS RESOURCING CONSULTANT. PATIENT REQUESTED TO CHANGE GOWN AFTER SURGERY WIPE DOWN. CALL LIGHT IN REACH. NO OTHER NEEDS AT THIS TIME.
--- NOTE | 2017-09-28 11:00 | NUR ---
2PA FROM CHAIR TO BED. LEGS ELEVATED. SCD ON RIGHT FOOT PUMPING. HEAD ELEVATED. TOLERATED WELL. NON WEIGHT BEARING LEFT LEG DONE FAIRLY WELL.
--- NOTE | 2017-09-28 11:10 | NUR ---
PT CALL LIGHT ON. PT REPORTS 4/10 PAIN AND WOULD LIKE PAIN MEDICATION. PAIN MEDICATION GIVEN ORDERED. PICC LINE CONTINUES TO NOT GIVE BLOOD RETURN. PICC LINE STATES TO ALLOW ABX TO FINISH AND THEN TRY ALTAPLASE. PT VISITING WITH HAND BLOCKER. NO REQUESTS OR COMPLAINTS AT THIS TIME. CALL LIGHT WITHIN REACH.
--- NOTE | 2017-09-28 11:33 | NUR ---
PATIENT RESTING IN BED, REQUESTED TO HAVE CURTAINS CLOSED SO SHE COULD TAKE A NAP PRIOR TO HER OPERATION. CALL LIGHT IN REACH. GLYCERIN SWABS PROVIDED. NO OTHER NEEDS AT THIS TIME.
--- NOTE | 2017-09-28 12:01 | NUR ---
THIS RN TO ROOM TO CHECK ON PT. PT CONTINUES TO REPORT 4/10 PAIN BUT STATES IT IS PROBABLY BECUSE OF "WORRY." PT IS ON PHONE TALKING WITH [employer] WITH HUSBANDS HELP. PT STATE SHE HAS NO ADDITIONAL QUESTIONS OR CONCERNS. PT ADVISED TO TAKE SOME TIME TO REST. LIGHTS DIMMED. DOOR CLOSED FOR MINIMAL SOUND. CALL LIGHT WITHIN REACH.
--- NOTE | 2017-09-28 13:11 | NUR ---
THIS RN TO BEDSIDE. IV ABX COMPLETE. NO BLOOD RETURN NOTED FROM PICC LINE. ALTAPLASE GIVEN. IV FLUIDS HUNG BUT NOT STARTED, WILL START AFTER ALTAPLASE PROTOCOL. PT RESTING IN BED. WANTS TO "TAKE A NAP." NO ADDITIONAL REQUESTS OR COMPLAINTS AT THIS TIME. BED RAILS UP. CALL LIGHT WITHIN REACH.
--- NOTE | 2017-09-28 13:26 | NUR ---
PATIENT RESTING IN BED, EYES CLOSED, LIGHTS OFF. FAMILY IN ROOM. CALL LIGHT IN REACH. NO OTHER NEEDS AT THIS TIME.
--- NOTE | 2017-09-28 13:36 | NUR ---
THIS RN TO BEDSIDE WITH MD FOR ROUNDS. PT CONTINUES TO REST. PICC LINE CHECKED. ALTAPLASE REMOVAL ATTEMPTED. UNSUCESSFUL. PT VERBALIZES UNDERSTANDING OF CONTINUED WAIT TIME. AT BEDSIDE. CALL LIGHT WITHIN REACH. BED RAILS UP.
--- NOTE | 2017-09-28 13:41 | NUR ---
STOPPED BY PT'S RM FOR A MOMENT. SHE INVITED ME IN, AND I FOUND HER TO BE PLEASANT, ORIENTED AND ALERT. SHE SEEMED TO STILL HAVE HER SENSE OF HUMOR IN- TACT. HEADED TO SURGERY LATER TODAY FOR JENNIE SURGERY. EXTENDED A BLESSING, WILL CONTINUE TO FOLLOW NEEDED
--- NOTE | 2017-09-28 14:16 | NUR ---
PATIENT APPEARS SWEATY, RESPIRATIONS HIGH. PATIENT STATES PAIN IS AT A 5. PATIENT SITTING UP IN BED, CALL LIGHT IN REACH. FAMILY IN ROOM. RN NOTIFIED.
--- NOTE | 2017-09-28 14:39 | NUR ---
THIS RN TO ROOM TO ASSESS PICC LINE. 30 MIN EARLY ON CHECK R/T ABX THAT ARE DUE AND PT REPORT OF PAIN AND DESIRE FOR PAIN MEDICATION. PICC LINE ASSESSED, NO BLOOD RETURN NOTED. STATES HE WOULD LIKE TO PROCEED WITH USE OF PICC LINE AFTER CONSULTING PICC LINE RN. LE JO CALLED. DEYSI STATES TO FLUSH ALTAPLASE IN THROUGH LINE AND PROCEED WITH USE STATED BY .
--- NOTE | 2017-09-28 14:51 | NUR ---
THIS RN TO PT ROOM. PICC LINE FLUSHED DIRECTED, NO BLOOD RETURN NOTED. PAIN MEDICATION GIVEN. IV FLUIDS RESTARTED (SEE MAR). MEDICATIONS GIVEN. PT WATCHING TV. NO ADDITIONAL REQUESTS OR COMPLAINTS AT THIS TIME. CALL LIGHT WITHIN REACH. AT BEDSIDE.
--- NOTE | 2017-09-28 15:58 | NUR ---
PATIENT GIVEN ICE PACK WITH RN'S PERMISSION, COLD WASH CLOTH GIVEN TO PATIENT TO HELP WITH PAIN. PATIENT CALL LIGHT IN REACH. NO OTHER NEEDS AT THIS TIME.
--- NOTE | 2017-09-28 16:12 | NUR ---
THIS SOURCE WATER PROTECTION SPECIALIST ASSISTED PATIENT WITH PRE-OPERATION CLEANSE. PATIENT RESTING IN BED. CALL LIGHT IN REACH. NO OTHER NEEDS AT THIS TIME.
--- NOTE | 2017-09-28 16:36 | NUR ---
MD CALLED R/T PTS INCREASE IN PAIN AND RR OF 20-24 BPM. MD STATES TO GIVEN ADDITIONAL 1MG DILAUDID IF NEEDED AND PROCEED WITH PRE-OP ORDERS. NO ADDITIONAL ORDERS AT THIS TIME.
--- NOTE | 2017-09-28 16:49 | NUR ---
PATIENT PREPARING FOR SURGERY, PRE-OPERATIVE CLEANSE ALREADY COMPLETE. CALL LIGHT IN REACH. NO OTHER NEEDS AT THIS TIME.
--- NOTE | 2017-09-28 16:54 | NUR ---
PT OFF FLOOR TO SURGERY AT 1654.
--- NOTE | 2017-09-28 17:57 | NUR ---
PT HERE FOR CELLULITIS OF THE LEFT FOOT. DR OCAMPO INVOLVED. BANDAGE IN PLACE. NON WEIGHT BEARING ON LEFT FOOT. TRANSFERS TO COMODE AND CHAIR WITH FWW AND 1PA. RIGHT UPPER QUADRANT PAIN BEGAN ON THURSDAY, PT TO SURGERY TODAY FOR LAP JENNIE. PAIN DIFFICULT TO CONTROL TODAY. PRN DILAUDID GIVEN. CHRONIC MCNEAL IN PLACE. 3% NS DC'D TODAY, CONTINUE TO MONITOR ELECTORLYTES. PICC LINE NOT GIVEN BLOOD RETURN. ALTAPLASE, CATHFLO DONE PER PROTOCOL. STILL NO BLOOD RETURN. MD AND PICC LINE RN AWARE. SONATA FOR SLEEP. 1200 ML FLUID RESTRICTION. USES CALL LIGHT APPROPRIATLY.
--- NOTE | 2017-09-28 19:33 | NUR ---
09/28/171932 Maria Dolores Shah 1915: PT IS WHEELED INTO PACU ACCOMPANIED BY DON DARLING AND OR NURSES. PT DOES NOT AROUSE TO VERBAL SITMULI. SHE HAS AN ORAL AIRWAY IN PLACE.
--- NOTE | 2017-09-28 21:46 | NUR ---
PT TO ROOM 130 FROM PACU AT 2014. PT AWAKE, DROWSY, CONFUSED TO ALL EXCEPT SELF. REMOVING O2, TRYING TO GET OOB, REQUIRING FREQUENT REMINDERS. 1:1 STAFF AT BEDSIDE UNTIL CURRENTLY. ALSO AT BEDSIDE. O2 OFF AND PT SPO2 GREATER THAN 92%. REINFORCED MILAGRO DRAINS X2 ON RLQ ABD. LEAKING SEROUS FLUID. GOWN CHANGED. ELEVATED L FOOT ON PILLOW, DSG INTACT WRAPPED WITH COBAN. FOOT SCD ON OTHER LEG. BLOOD NOW RETURNING IN PICC LINE IN L ARM. FLUSHED WITH 20ML NS AND STARTED IVF. BED ALARM ON PT. RAILS UP X4. PT UNABLE TO EXPLAIN USE OF CALL LIGHT.
--- NOTE | 2017-09-29 01:17 | NUR ---
REPOSITIONED PT TO R SIDE. PT MORE ALERT, ORIENTED TO PLACE. PT DID HS CARES, BRUSHED TEETH. OFFERED SIPS OF WATER. TOLERATING WELL. NO NAUSEA. SCOPE SITES ON ABD CDI COVERED WITH TAPE. DRESSING REINFORCED WITH GAUZE ON RLQ ABD, SERO-SANGUINOUS DRAINAGE. LEAKING. PT DENIES PAIN. HAD USE I.S. UP TO 1250. DEMONSTRATED CALL LIGHT USE. BED ALARM ON FOR PRECAUTION.
--- NOTE | 2017-09-29 02:54 | NUR ---
PT AWAKES WHEN ENTER ROOM. ASKS WHERE SHE IS. EXPLAINED. NO NEEDS AT THIS TIME.
--- NOTE | 2017-09-29 06:30 | OR ---
[facility] [address], [place] [address] Signed DATE OF OPERATION: 09/28/2017 SURGEON: Poornima Puga MD PREOPERATIVE DIAGNOSIS: Acute cholecystitis with cholelithiasis. POSTOPERATIVE DIAGNOSIS: Acute cholecystitis with cholelithiasis (severe). PROCEDURES: 1. Diagnostic laparoscopy with placement of drains x2, with the lateral drain inside the gallbladder and the medial drain outside the gallbladder. 2. Cultures of the gallbladder bile. ESTIMATED BLOOD LOSS: None. FINDINGS: Fay does have some mild cirrhosis to her liver. It is very stiff and short and high up underneath the rib cage. We were unable to move the liver to any significant degree. In addition, she had an ileus of her colon as it came by her infected gallbladder and the omentum also was quite indurated. Consequently, even with our fan retractor, we could only get down about 2/3r[address] the way down the gallbladder area. The area of the neck in the triangle of Calot was unbelievably inflamed and extremely indurated. We had a very narrow window to work between the transverse colon and the edge of the liver. Also, Fay is moderately sick from her gallbladder and her sodium was low, so she received a large amount of normal saline in the last few days and she basically has anasarca, and her gallbladder wall was very edematous and there was very little room inside her abdomen to work even with pharmacologic paralysis. Consequently, we elected to place a drain through the top of her gallbladder and held in place with 0 Vicryl suture, and a 2nd drain we placed on the inferior area of the gallbladder and brought that out through the lateral side of her abdomen. We did require extra trocars, the fan retractor and an extra nurse. In addition, the procedure went almost 2 full hours. This is more than double to our normal surgery. Consequently, her procedure was prolonged and difficult. INDICATIONS: Fay is a 77-year-old female, who unfortunately had a horse accident when she was in her 20s and had a spinal cord injury. It had healed, but the neurosurgeon told her it Electronically Signed By: POORNIMA PUGA MD 09/29/17 0630 PATIENT NAME: FAY CARRANZA MARIAMA OPERATIVE REPORT DATE OF : 42 REPORT #: [id number] PHYSICIAN: POORNIMA PUGA MD PCP: ANNE WICK DO REPORT IS CONFIDENTIAL AND NOT TO BE RELEASED WITHOUT AUTHORIZATION [facility] [address] [place], [place] [address] Signed could come back later in life and sure enough the last couple of years. She has had trouble with neurogenic bladder and requires self catheterization. In addition, she has developed peripheral neuropathy and really has no feeling in her feet. She had bought some new leather boots to try to help support her ankles and developed an ulcer over the left 5th metatarsal. In addition, she was having upper abdominal pain and her brought her into the emergency room. Our abrasives sales representative had resected the part of the left 5th metatarsal and cleaned up that wound, and she had been on antibiotics. In the meantime, she was having continued right upper quadrant abdominal pain with anorexia and nausea. An ultrasound had been ordered and it showed gallstones with a 3.1 mm gallbladder wall and her common bile duct was ever so slightly dilated at 6.7 mm. In addition, her sodium level was low and she continued to receive normal saline with slow but sure improvement in her sodium levels. She is also mildly anemic. Amazingly, her liver function tests were not particularly concerning. In fact, the total bilirubin was 0.4 and alkaline phosphatase was 63, ALT was 42, and AST was 24. Her white count had taken jump even on antibiotics and so cefepime had been added to her antibiotic regimen. She did have an MRCP of the abdomen and it showed the gallstones and the common bile duct around 9 mm in diameter, but otherwise was negative, particularly no evidence of any stone within the common bile duct. She did have just a little bit of nodularity to the surface of the liver. Again, we continued to resuscitate her and our Anesthesia Team felt her sodium was high enough and we could bring her down to the operating room. I had met with Fay and her multiple times. I have known them actually for quite a few years. I explained to Fay these gallbladders are often extremely difficult and about 3% of the time we have to convert to an open procedure. We were little hesitant for that knowing Fay's overall functional status and her current situation. They do understand there is risk of surgery including, but not limited to, bleeding, infection, scarring, change in contour of the skin, damage to bowel, damage to main bile duct, and incisional hernias, as well other unforeseen comorbidities. She and her expressed understanding and wished to proceed. PROCEDURE NOTE: Fay was taken into the operating room and placed in the supine position under general endotracheal tube anesthesia. It was very clear to all of us in the room that she has basically [id number] full-body anasarca. Even under pharmacologic paralysis, her abdominal wall was firm, very little pliability in her abdominal whatsoever. She was already on preoperative antibiotics and subcutaneous heparin. SCDs were utilized. She had a Briceño catheter in place. She was prepped and draped in the usual sterile fashion. We went ahead and placed our supraumbilical Jorge trocar under direct visualization. We could see immediately we had very little room between the anterior abdominal wall and the rib cage and her bowel. The colon coming past the infected gallbladder showed a localized ileus. It was quite dilated. It took a few minutes with blunt to separate the omentum from the edge of the liver and the gallbladder with our blunt retractor having placed a 5 mm trocar through the subxiphoid Electronically Signed By: POORNIMA PUGA MD 09/29/17 0630 PATIENT NAME: FAY CARRANZA OPERATIVE REPORT DATE OF : 42 REPORT #: [id number] PHYSICIAN: POORNIMA PUGA MD PCP: ANNE WICK DO REPORT IS CONFIDENTIAL AND NOT TO BE RELEASED WITHOUT AUTHORIZATION [facility] [address] [place], [place] [address] Signed area. Her liver did show some nodularity as well. It was also very stiff. We could barely move her liver. We finally introduced an additional 5 mm mid epigastric port and we transferred our camera over to that port and then we placed our 10 mm fan retractor into the abdomen through this on trocar, and we were able to push some of the colon and omentum down and out of the way, but only about 2/3rds of the gallbladder could be exposed. The bottom 1/3rd was unbelievably indurated and firm and inflamed. We did not feel proceeding laparoscopically or through an open procedure was going to be merited. Her gallbladder and liver edge were actually several ribs up underneath the rib costal margin. Consequently, it is a little bit difficult to reach as well. After some consideration, we decided to drain her gallbladder laparoscopically and come back when she is in an unimproved state both physiologically and medically. I went ahead and used our laparoscopic needle drivers and placed #0 Vicryl pursestring suture through the top of the gallbladder. We cauterized a hole through the top of the gallbladder and brought in a 7 mm flat Jorg Ea drain that we cut short, and we were able to place that into the gallbladder itself and then tied down the pursestring suture to help hold it in place. A second 7 mm flat Jorge A drain was cut to length and also brought in the abdomen through our trocars and then placed on the inferior edge of the gallbladder between the gallbladder and the liver and the mesocolon. Both of these drains came out the right side of the abdomen. The drain inside the gallbladder was lateral. The drain outside the gallbladder was medial. They were held in place at the level of the skin with interrupted 2-0 nylon sutures. We had a large amount of green bilious fluid come in with the bulb suction with thick fibrinous material. We went ahead and emptied that, and then took cultures and sent that off to the lab. After this, the area was irrigated and suctioned out until clear. All the trocars were removed along with the Jorge trocar. The fascia of the supraumbilical trocar site was closed with interrupted dijysl-rv-tvsue and simple 0 Vicryl sutures. Even then we had almost no room between her fascia and the omentum and the bowel. We had to hold it down out away with second DeBakey forceps. After this, local anesthetic was injected into all trocar sites. Each trocar site was irrigated and suctioned out until clear. The skin and dermis of each trocar site were then closed with interrupted 3-0 subcuticular Monocryl sutures. Dry gauze and tape were then applied. Fay was then awakened from her anesthesia, extubated in the OR, and taken to recovery room in stable condition. Poornima Puga MD ALB/MODL /[id number] Electronically Signed By: POORNIMA PUGA MD 09/29/17 0630 PATIENT NAME: FAY CARRANZA MARIAMA OPERATIVE REPORT DATE OF : 42 REPORT #: [id number] PHYSICIAN: POORNIMA PUGA MD PCP: ANNE WICK DO REPORT IS CONFIDENTIAL AND NOT TO BE RELEASED WITHOUT AUTHORIZATION [address] [address] Signed cc: MD Maynor Doran DPM Kent Walker, DO Copies: POORNIMA PUGA MD, DANIEL F DPM WALKER, KENT DO ~ Electronically Signed By: POORNIMA PUGA MD 09/29/17 0630 PATIENT NAME: FAY CARRANZA MARIAMA OPERATIVE REPORT DATE OF : 42 REPORT #: [id number] PHYSICIAN: POORNIMA PUGA MD PCP: ANNE WICK DO REPORT IS CONFIDENTIAL AND NOT TO BE RELEASED WITHOUT AUTHORIZATION
--- NOTE | 2017-09-29 08:12 | NUR ---
PATIENT RESTING IN BED, FAMILY IN ROOM. PATIENT GIVEN WARM WASH CLOTH TO WASH HANDS AND FACE. PATIENT CALL LIGHT IN REACH, NO OTHER NEEDS AT THIS TIME.
--- NOTE | 2017-09-29 09:08 | NUR ---
IN TO GIVE PT MORNING MEDICATIONS. PT REFUSED MIRILAX, STATING THAT IT GIVES HER CRAMPS. GIVEN MORE APPLE JUICE
--- NOTE | 2017-09-29 09:56 | NUR ---
CALL TO DR PUGA TO TRANSFER PT TO MED SURG. SPOKE TO OR CHARGE NURSE DR PUGA IN SURGERY, SHE STATES PER DR PUGA WE MAY TRANSFER.
--- NOTE | 2017-09-29 10:15 | NUR ---
REPORT TO ASHLEY RN
--- NOTE | 2017-09-29 10:23 | NUR ---
PT TRANSFERED TO MEDICAL FLOOR IN BED, PT REPORTS FEELING BETTER THAT SHE IS MOVING.
--- NOTE | 2017-09-29 10:35 | NUR ---
PT TRANFERED FROM CCU TO ROOM 113 AT 1020 AM, REPORT OBTAINED FROM RAMSEY LUJAN. PT COOPERATIVE WITH ASSESSMENT. PICC LINE LEFT AC INTACT, PATENT. ABX AND IVF INFUSING. ABD DRESSING CDI, 4 LAP SITES COVERED WITH GAUZE AND SURGICAL TAPE. YENY, TENDER TO TOUCH, BURPING, PASSING GAS, NO BM YET. LEFT FOOT DRESSING CDI, ELEVATED. GENERALIZED +1, NONPITTING EDEMA PRESENT, AA&O . REORINTED TO ROOM, POST OP PROCEDURES, 2PERSON ASSIST AND FWW, NWB LEFT FOOT. NO C/O PAIN OR N/V, ON CLEAR LIQUIDS
--- NOTE | 2017-09-29 11:56 | NUR ---
RN IN ROOM
--- NOTE | 2017-09-29 12:30 | NUR ---
PT AWAKE, ATE 1005 OF CLEAR LIQUID DIET, TOLERATED WELL. VISITING WITH FAMILY, NO C/O PAIN OR N/V AT THIS TIME, F/C PATENT DRAINING DARK YELLOW URINE, 2JP SITES PATENT WITH SANGUINEOUS DRAINAGE
--- NOTE | 2017-09-29 12:57 | NUR ---
C/o 5/10 abd pain abd pain, medicated with Ultram 50mg po. abd dressing cdi. passing gas. no bm. watching tv, at bedside
--- NOTE | 2017-09-29 13:08 | NUR ---
DR APODACA AT BEDSIDE EXAMINING PT, PT COOPERATIVE
--- NOTE | 2017-09-29 13:52 | NUR ---
PT LAYING UP IN BED, ALERT AND APPLYING LOTION TO FACE. PT TRIED TO EXPLAIN TO ME HER SURGERY, SEEMED VERY CONFUSED, GOT A LITTLE FRUSTRATED TRYING TO EXPLAIN. PT MENTIONED ALSO THAT SHE IS TO BE MOVED TO [facility] LATER TODAY. ASKED PT IF SHE WOULD LIKE THE FOREST MANAGEMENT PROFESSOR TO VISIT. SHE SAID SHE IS NOT READY YET. SHE HAS NOT BEEN TO [place]ASS IN QUITE A WHILE DUE TO HER HEALTH. SHE STATED FOR ME TO ASK HER TOMORROW. WILL FOLLOW THROUGH. PT REQUESTED PRAYER FROM ME.
--- NOTE | 2017-09-29 14:13 | NUR ---
- RT here examining pt. Received 30mEq potassium po and dulc supp (r) lbm 09/24, procedure explained . pt cooperative
--- NOTE | 2017-09-29 15:02 | NUR ---
PATIENT RELAXING IN BED. MCNEAL DRAINED. GARBAGE EMPTIED. NO OTHER NEEDS AT THIS TIME.
--- NOTE | 2017-09-29 15:31 | NUR ---
MILAGRO SITES X2 SPONGES SATURATED WITH SANGUINEOUS AND BROWN DRAINAGE, GAUZE CHANGED AND FRESH GAUZE AND ABD APPLIED. MILAGRO#1 PATENT, DRAINING SANGUINEOUS DRAINAGE, #2 DRAINING BROWN DRAINAGE. BOTH EMPTIED OF 20CC DRAINAGE. PROCEDURE EXPLAINED, STATED UNDERSTANDING. BURPING AND PASSING GAS, NO RESULTS FROM SUPPOSSITORY GIVEN EARLIER. F/C PATENT,
--- NOTE | 2017-09-29 18:04 | NUR ---
PT AWAKE, WAS MEDICATED X1 WITH ULTRAM 50MG PO C/O ABD PAIN, EFFECTIVE. ON ROOM AIR, CLEAR LUNGS, ABD SLIGHTLY DISTENDED, TENDER, 4 LAP SITES COVERED WTIH GAUZE AND SURGICAL TAPE, HAS 2 MILAGRO #1 WITH SANGUINEOUS DRAINAGE AND #2 WITH BROWN DRAINAGE, PATENT. F/C PATENT DRAINING DARK YELLOW URINE. LEFT FOOT ELEVATED WITH PILLOWS DRESSING CDI. +1 EDEMA. PICC LINE LEFT ARM PATENT, SL AT THIS TIME, NO C/O N/V, TOLERATING CLEAR LIQUIDS
--- NOTE | 2017-09-29 19:07 | NUR ---
IN ROOM FOR REPORT, PT IS AWAKE IN BED AND DENIES NEEDS AT THIS TIME.
--- NOTE | 2017-09-29 19:56 | NUR ---
PATIENT SITTING UP IN BED. PATIENT STATES PAIN LEVEL IS A 5 OUT OF 10. PATIENT REQUESTING PAIN MEDICATION. RN NOTIFIED. CALL LIGHT WITHIN REACH. NO OTHER NEEDS AT THIS TIME.
--- NOTE | 2017-09-29 21:05 | NUR ---
PT IS AWAKE IN BED, ALL EVENING MEDICATIONS GIVEN. PT STATES HER ABD PAIN IS 5/10 AND ULTRAM WAS GIVEN. SOME DRAINAGE NOTED FROM ABD DRESSING AND EXTRA PAD ADDED AT THIS TIME. PT STATES SHE HAS POOR BALANCE AND USES CANES AT HOME. PT DENIES FURTHER NEEDS AT THIS TIME.
--- NOTE | 2017-09-29 23:24 | NUR ---
PT IS RESTING WITH EYES CLOSED, RESPIRATIONS ARE EVEN AND NONLABORED. CALL LIGHT IS WITHIN REACH.
--- NOTE | 2017-09-30 00:42 | NUR ---
PATIENT HAD LOOSE XL BOWEL MOVEMENT. LE TEIXEIRA AND I CLEANED, DID MCNEAL CARE. PATIENT STATED WILL BE UP FOR A WHILE AND READ. CALL LIGHT IS WITHIN REACH. NO OTHER NEEDS AT THE MOMENT.
--- NOTE | 2017-09-30 01:14 | NUR ---
PT WAS REQESTING MORE SLEEP AIDS, ADVISED PT THAT WE DO NOT HAVE ANYTHING ELSE TO GIVE HER. PT IS AWAKE READING IN BED.
--- NOTE | 2017-09-30 03:02 | NUR ---
PT IS AWAKE IN BED, DENIES NEEDS AT THIS TIME.
--- NOTE | 2017-09-30 03:50 | NUR ---
PT IS RESTING WITH EYES CLOSED, RESPIRATIONS ARE EVEN AND NONLABORED. CALL LIGHT IS WITHIN REACH.
--- NOTE | 2017-09-30 05:55 | NUR ---
IN ROOM TO GIVE PAIN MEDICATIONS AND DRAW BLOOD FOR LAB. PT HAS FRESH ICEWATER AT BEDSIDE AND DENIES FURTHER NEEDS.
--- NOTE | 2017-09-30 07:30 | NUR ---
reinforced abd on arnoldo sites. patient has clear drainage that is draining from sites. active bs. pts lungs are clear. patient does report a consistant productive cough. dr. patel was just in room to dress l foot. patient tolerated dressing change well. currently rating overall pain 3 or 4.
--- NOTE | 2017-09-30 09:44 | NUR ---
nurse student in room to give bed bath and do morning cares. patient tolerating well.
--- NOTE | 2017-09-30 11:09 | NUR ---
pateint requesting pain pill. stating 08/25. one tramadol given po. family at bedside.
--- NOTE | 2017-09-30 13:38 | NUR ---
ROUNDED WITH DR. APODACA. PATIENT THEN ASSISTED BACK TO BED. KAVITA CARE DONE. CHANGED ATTENDS. PATIENT JPS DRAINED. ACTIVE BS. LUNGS CLEAR. PATIENT CONTINUES TO HAVE PRODUCTIVE COUGH.
--- NOTE | 2017-09-30 13:40 | NUR ---
DR. PUGA ROUNDSYBIL IN ROOM.
--- NOTE | 2017-09-30 14:42 | NUR ---
PT SITTING UP IN BED, FILING HER FINGERNAILS. SHE SEEMS ALERT AND ORIENTED. PT MENTIONED THAT DR HAD JUST BEEN IN AND MENTIONED SOON SWELLING GOES DOWN, SURGERY WILL BE SCHEDULED. EXTENDED A BLESSING, WILL FOLLOW NEEDED
--- NOTE | 2017-09-30 15:18 | NUR ---
ROUNDED WITH DR. PUGA. NEW ORDERS PLACED IN COMPUTER.
--- NOTE | 2017-09-30 15:34 | NUR ---
patient had a total of 1850mls out of brennan cath. urine has become a light yellow. patient is talking with brother. tolerating well.
--- NOTE | 2017-09-30 16:35 | NUR ---
PATIENT REQUESTING PAIN PILL. PAIN 4-5/10. TRAMADOL GIVEN. PATIENT SITTING UP IN BED TALKING WITH BROTHER. PLAN TO MOVE TO EDGE OF BED FOR DINNER. PATIENT CONTINUES TO HAVE GREAT UOP. URINE IS LIGHT IN COLOR.
--- NOTE | 2017-09-30 17:25 | NUR ---
REINFORCED MILAGRO DRESSING. PATIENT HAD SIGNIFICANT DRAINAGE AT MILAGRO SITES. SET UP FOR DINNER ON EDGE OF BED. PATIENT HAS LOWER LEGS ELEVATED
--- NOTE | 2017-09-30 17:41 | NUR ---
DRESSING ON L LOWER LEG CHANGED BY DR. OCAMPO THIS AM. JPS X 2 ON ABD. PATIENTS HAVING SIGNIFICANT DRAINAGE AT SITES. ABD/ DRESSING APPLIED TO EACH SITE TO ASSIST WITH DRAINAGE. PATIENT HAS HAD LOOSE STOOL. HOLD STOOL SOFTENERS. WORKED WITH PT TODAY. NON WT BEARING ON L LEG. TWO ASSIST WITH WALKER. TRAMADOL FOR PAIN MEDICATION. PLAN TO KEEP MILAGRO FOR 4-6 WEEKS.
--- NOTE | 2017-09-30 19:50 | NUR ---
LEFT FOOT DRESSING DCI, ELEVATED WITH PILLOWS, PT HAS NEUROPATHY, TOES PINK, WARM, ABLE TO GIGGLE TOES. UNABLE TO ASSESS SENSATION. ABD LAP SITES, WITH DERMABOND, EDGES WELL APPROX, PINK-RED EDGES, 2 MILAGRO SITES DRAINING SS AND BROWN DRAINAGE. L ARM PICC LINE PATENT. F/C PATENT. PT DENIES C/O PAIN A THIS TIME. USING IS, TOLERATING FULL LIQUID DIET
--- NOTE | 2017-09-30 20:18 | NUR ---
ALBINA WALDEN CHARGE. ASHLEY RN IN THE ROOM. PATIENT IS RESTING IN BED. PATIENT DENIES ANY COMMENTS, QUESTIONS, OR CONCERNS. CALL LIGHT IN REACH.
--- NOTE | 2017-09-30 22:35 | NUR ---
WATCHING TV, NO C/O PAIN, LEFT LEG ELEVATED, NO C/O ABD PAIN
--- NOTE | 2017-09-30 22:41 | NUR ---
APPLIED LOTION ON RIGHT FOOT PER PATIENT'S REQUEST.
--- NOTE | 2017-09-30 23:09 | NUR ---
medicated with sonata 5mg po c/o insomnia, awake reading a book
--- NOTE | 2017-10-01 01:58 | NUR ---
up to bsc, had m size dark brown bm. f/c patent. [id number] patent, serous drainage at insertion site x2 present. medicated with Ultram 50mg c/o 5/10 abd pain. Coop with assessment, used 2 person assist and fww, weak gait, pivot to tranfer. L foot dressing cdi.
--- NOTE | 2017-10-01 04:26 | NUR ---
Currently resting, eyes closed, snoring lightly, no s/sx distress, Left foot elevated with pillows, f/c patent, [email or web address] patent. Insertions site dressing saturated wtih serous drainage. Dressing changed
--- NOTE | 2017-10-01 06:05 | NUR ---
Pt currently resting, eyes closed, PICC line left arm intact. Abd lap incision edges well approx, dry, [address], patent, draining serous drainage at insertions site, dressing changed 3x this shift. procedure explained, pt cooperative. f/c patent. Pt received 1x Lasiz 20mg IV. Left foot dressing intact. Pt is NWB Left foot. Pt up to bsc x1, has m liquid/soft bm. red jaamal area, lotion applied. Back to bed, using 2SBA and FWW. tolerated fair, unsteady gait present. Medicated 1X with Sonata for insomnia and with Ultram 50mg per c/o abd pain. passing gas, had bm. Tolerating full liquid diet w/o problems
--- NOTE | 2017-10-01 08:53 | NUR ---
PATIENT UP IN BED, PATIENT IN GOOD SPIRITS THIS MORNING. PATIENT SET UP FOR AM CARE, WASHCLOTH AND TOOTHBRUSH SUPPLIES. CALLL IGHT IN REACH
--- NOTE | 2017-10-01 09:00 | NUR ---
PATIENT SITTING UP IN BED, APPEARS TO HAVE GREENISH/BROWN DRAINAGE FROM MILGARO TUBES. DR. PUGA AWARE. ADMINISTERED ULTRAM SECONDARY TO PATIENT ANTICIPATION OF WORKING WITH PHYSICAL THERAPY. BOWEL TONES ACTIVE THROUGHOUT, CONTINUES TO HAVE LOOSE STOOL. NO COMPLAINTS OF N/V. LUNG SOUND CLEAR PATIENT USING IS WELL. MCNEAL DRAINING WELL, CATHETER CARE PROVIDED.
--- NOTE | 2017-10-01 10:30 | NUR ---
PATIENT WATCHING TV N BED, VITALS AND I/OS RECORDED. MCNEAL EMPTIED, GARBAGE EMPTIED. CALL LIGHT IN REACH
--- NOTE | 2017-10-01 11:52 | NUR ---
DOCTOR AMADOU LEFT A NOTE TODAY FOR D/C PLANNING TO HAVE HOME HEALTH FOLLOW UP WITH THE PATIENT AT THE TIME OF D/C FOR WOUND CARE OF THE LEFT FOOT. SHE IS FROM [facility] [place] AND HE WAS NOT SURE WHAT WAS AVAILABLE THERE?
--- NOTE | 2017-10-01 13:00 | NUR ---
NEW ORDERS FOR MAG RIDERS AND PO POTASSIUM. PATIENT TOLERATING WELL. UP WORKING WITH PHYSICAL THERAPY. CONTINUES TO HAVE LOOSE STOOL, 2 PERSON ASSIST TO BSC. PICC LINE DRAWING BACK BLOOD, AND FLUSHING WELL.
--- NOTE | 2017-10-01 13:37 | NUR ---
JUST WANTED TO TOUCH BASES WITH PT. SHE WAS SITTING UP IN BED, WAVED AND TOLD ME SHE WAS OK. WILL CONTINUE TO FOLLOW
--- NOTE | 2017-10-01 15:26 | NUR ---
PATIENT BACK FROM PT, SITTING IN CHAIR. VITALS AND I/OS RECORDED. DIETARY IN FOR DINNER AND BREAKFAST ORDER. MCNEAL EMPTIED. LINENS CHANGED. CALL LIGHT IN REACH
--- NOTE | 2017-10-01 17:54 | NUR ---
PATIENT IN CHAIR, FINISHED WITH DINNER. MCNEAL EMPTIED, URINE WAS LIGHT YELLOW IN COLOR. VITALS AND I/OS RECORDED CALL LIGHT IN REACH NO OHTER NEEDS
--- NOTE | 2017-10-01 18:05 | NUR ---
PATIENT UP WITH PHYSICAL THERAPY TODAY. DR. PUGA ROUNDED, NOTED DRAINS MUST STAY SECONDARY TO GREENISH/BROWNISH FLUID IN JPS AND TO CONTINUE TO MONITOR. K RIDER AND MAG RIDER ADMINISTERED TODAY. PICC LINE DRAWS BACK BLOOD AND FLUSHES WELL. PAIN WELL CONTROLLED WITH ULTRAM. DR. GUNTER IN TO DO DRSG CHANGES DAILY. VS STABLE. AFEBRILE.
--- NOTE | 2017-10-01 19:01 | NUR ---
2 PERSON ASSIST WITH LE LEONARD FROM CHAIR TO BED, USING FWW. CALL LIGHT AND PHONE IN REACH
--- NOTE | 2017-10-01 20:00 | NUR ---
RECEIVED REPORT AT 1900, FOUND PTIN BED WITH AT BEDSIDE. PT SEEMED TO BE IN GOOD SPIRITS. PT DENIED PAIN OR OTHER NEEDS AT THAT TIME.
--- NOTE | 2017-10-01 20:00 | NUR ---
V/S ARE WDL, PICC-LINE DRAWS BACK BLOOD WITHOUT ANY DIFFICULTY, PT STILL DENIES PAIN, DRESSING ON LEFT FOOT IS C/D/I, CAP-REFILL IS <3SEC ON BOTH FEET. URINE OUTPUT IS ADEQUATE, PO INTAKE IS ADEQUATE. LAP- SITES ARE WDL, MILAGRO DRAINS #1 AND #2 STILL HAVE SOME DRAINAGE PRESENT. PT IS TOLERATING REGULAR DIET WELL. ALL LOBES ARE CLEAR, ABD SOUNDS ARE PRESENT. NO NEW COCNERNS AT THIS TIME.
--- NOTE | 2017-10-02 | NUR ---
PT IS SLEEPING AT THIS TIME.
--- NOTE | 2017-10-02 01:47 | NUR ---
LE MOORE AND I HELPED PT TO THE BSC. SHE WILL SIT FOR AWHILE AND CALL WHEN SHE IS READY. CALL LIGHT WITHIN REACH.
--- NOTE | 2017-10-02 02:03 | NUR ---
PT AT THIS TIME IS SITTING ON BSC. PT REQUESTED TRAMADOL WHICH WILL BE GIVEN SHORTLY. ALL LOBES ARE CLEAR, ABD SOUNDS ARE PRESENT. FOOT DRESSING IS C/D/I. THERE ARE NO CHANGES IN STATUS FOR THIS PT. WILL LOOK AT MILAGRO DRAINS SHORTLY.
--- NOTE | 2017-10-02 03:01 | NUR ---
PICC-LINE DRESSING HAS BEEN CHANGED AT 0250.
--- NOTE | 2017-10-02 04:00 | NUR ---
PT IS SLEEPING AT THIS TIME.
--- NOTE | 2017-10-02 06:02 | NUR ---
V/S ARE WDL, PICC-LINE DRESSING CHANGE WAS DONE AT 0350 APPROX. PICC-LINE HAS BLOOD RETURN AND AT THIS TIME IS HEPARIN LOCKED. PT IS NPO SINCE 0600. LAP SITED ON ABD ARE WDL, MILAGRO DRAINS ARE WDL, #1 HAD 20ML SEROUSSANG. OUT THIS SHIFT. DRAIN #2 HAD 25ML BILE OUT THIS SHIFT. DRESSING ON LEFT FOOT IS C/D/I, CMS IS < 3SEC. PT ALSO HAD A BM. URINE OUTPUT IS ADEQUATE AND SO IS PO INTAKE. PT ONLY NEEDED TRAMADOL 50MG PRN X1 THIS SHIFT.
--- NOTE | 2017-10-02 06:26 | NUR ---
VITALS DONE AND CHARTED. BEDSIDE TABLE AND CALL LIGHT WITHIN REACH. PT NEEDS NOTHING AT THIS TIME.
--- NOTE | 2017-10-02 07:40 | NUR ---
PATIENT UP IN BED, IN ROOM. BREAKFAST BROUGHT IN. ROOM TIDIED, GARBAGE EMPTIED. IN EARLY TO VISIT WITH DR. ASHLIE SWEENEY IN REACH
--- NOTE | 2017-10-02 09:42 | NUR ---
PATIENT SITTING UP IN BED BRUSHING TEETH, IV ANTIBIOTICS INFUSING. PICC LINE FLUSHES WELL AND DRAWS BACK BLOOD. PATIENT CONFUSED WITH POC, WILL ADVOCATE FOR PATIENT TO HAVE CARE CONFERENCE. NO COMPLAINTS OF PAIN AT THIS TIME, PATIENT DOING LEG EXERCISES IN BED, STATES " I WANT BE READY TO WORK HARD WHEN THEY COME". FULL BODY ASSESMENT DONE.
--- NOTE | 2017-10-02 09:57 | NUR ---
PATIENT UP IN BED, VITALS AND I/OS RECORDED. MCNEAL EMPTIED, GOWN CHANGED. P/T IN TO DISCUSS THERAPY. CALL LIGHT IN REACH
--- NOTE | 2017-10-02 10:08 | NUR ---
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 PER CONCERNS OF LIVING ENVIRONMENT WITH PATIENT MEDICAL CONDITION, PATIENT STATES " I HAVE NO PLANS TO GO TO A [facility]".
--- NOTE | 2017-10-02 10:46 | NUR ---
PATIENT DOING THERAPY WITH PT MONTY IN ROOM. THIS CARDIOVASCULAR OR NURSE USED WIPES AND CHANGD ATTENDS. PATEINT STOOD WITH FWW FOR 5+ MIN AND THEN TO CHAIR, LEGS ELEVATED. PARTIAL LINEN CHANGE. CALL LIGHT IN REACH
--- NOTE | 2017-10-02 14:03 | NUR ---
PATIENT SITTING UP IN CHAIR, IN ROOM. VITALS AND I/OS CHARTED. DALTON IN TO TALK WITH PATIENT AND . MCNEAL EMPTIED. CALL LIGHT IN REACH
--- NOTE | 2017-10-02 16:10 | NUR ---
PATIENT IN BED VISITING WITH AND FRIEND, FRIEND HAS HER INFANT GREAT GRANSON IN WELL NO NEEDS AT THIS TIME
--- NOTE | 2017-10-02 17:07 | NUR ---
GOT PATIENT MORE ICE WATER.
--- NOTE | 2017-10-02 18:00 | NUR ---
PATIENT UP IN RECLINER THROUGHOUT DAY, WORKED WITH PHYSICAL THERAPY TRANSFERING. PATIENT TOLERATED ACTIVIEY WELL. PLAN FOR DR. TOBAR TO MAKE A FOAM PLATFORM SO PATIENT CAN BARE WEIGHT. PLAN TO SWINGBED TOMORROW AND WHEN CLAUDY ARRIVES FROM [place] TO GO HOME WITH HER. DRSG TO FOOT C/D/I. MILAGRO DRAINS HAVE DECREASED OUTPUT. VS STABLE. PAIN WELL CONTROLLED WITH ULTRAM.
--- NOTE | 2017-10-02 18:52 | NUR ---
2 PERSON ASSIST WITH LE LEONARD FROM CHAIR TO BED. PATIENT TOLLERATED WELL. DRAINS AND MCNEAL EMPTIED. VITALS AND I/OS CHARTED. CALL LIGHT IN REACH PATIENT DENIES ANY NEEDS AT THIS TIME
--- NOTE | 2017-10-02 20:00 | NUR ---
RECEIVED REPORT AT 1900, FOUND PT IN BED ON THE PHONE WITH FAMILY. PT SEEMED IN GOOD SPIRITS OVERALL.
--- NOTE | 2017-10-02 20:31 | NUR ---
ROUNDED CHARGE. PATIENT IS RESTING IN BED READING. PATIENT DENIES ANY COMMENTS, QUESTIONS, OR CONCERNS. NO NEEDS NOTED. CALL LIGHT IN REACH.
--- NOTE | 2017-10-02 22:00 | NUR ---
V/S ARE WDL, PT DENIES PAIN, LEFT FOOT DRESSING IS C/D/I. LAP-SITES ARE C/D, MILAGRO DRAINS X2 WITH NO OUTPUT SO FAR. ABD SOUNDS ARE PRESENT. URINE OUTPUT IS ADEQUATE. PICC-LINE DRAWS BACH BLOOD.
--- NOTE | 2017-10-03 | NUR ---
PT AT THIS TIME IS SLEEPING. NO NEW CONCERNS AT THIS TIME.
--- NOTE | 2017-10-03 02:00 | NUR ---
AT THIS TIME PT IS AWAKE IN BED READING HER BOOK. PT DENIES PAIN AND N/V, ABD SOUNDS ARE PRESENT, CMS ON LEFT FOOT IS INTACT, DRESSING ON LEFT FOOT IS C/D/I. BOTH MILAGRO DRAINS SO FAR HAVE NO SIGNIFICANT OUTPUT. URINE OUTPUT IS ADEQUATE. NO NEW CONCERNS AT THIS TIME.
--- NOTE | 2017-10-03 02:45 | NUR ---
PT AT THIS TIME IS HEP-LOCKED. PT HAS EDEMA BELOW HER PICC LINE INSERTION SITE. INSERTION SITE ITSELF IS STILL 28 INCHES WHICH IS THE SAME ON INSERTION DATE. PICC-LINE ALSO HAS GOOD BLOOD RETURN. I WILL KEEP MONITORING THE EDEMA. PT AT THIS TIME IS AWAKE IN BED READING.
--- NOTE | 2017-10-03 04:04 | NUR ---
PT IS SLEEPING AT THIS TIME.
--- NOTE | 2017-10-03 06:16 | NUR ---
V/S ARE WDL, PT DENIED PAIN ALL NIGHT. ABD SOUNDS ARE PRESENT. BOTH MILAGRO DRAINS HAD NO OUTPUT THIS SHIFT. LAP-SITES ARE WDL. LEFT FOOT DRESSING IS C/D/I, CMS IS INTACT WELL. INTAKE AND OUTPUT ARE ADEQUATE. AT AROUND 0345 I NOTICED THAT HER LEFT ARM HAD EDEMA PRESENT BELOW PICC-LINE SITE. PICC DOES DRAW BACK BLOOD AND IS CURRENTLY HEP-LOCKED. INSERTION-SITE CIRCUMFERENCE IS STILL 28 INCHES WHICH IS THE SAME AT TIME OF INSERTION. WILL CALL IN REGARDS TO TIS ISSUE.
--- NOTE | 2017-10-03 06:38 | NUR ---
MD APODACA WAS CALLED IN REGARDS TO EDEMA BELOW PICC-LINE INSERTION SITE. HE WILL EXAMEN HER ARM.
--- NOTE | 2017-10-03 09:02 | NUR ---
PT IN BED AWAKE. SET UP FOR BRK. AM CARE. PICKED UP ROOM
--- NOTE | 2017-10-03 14:16 | NUR ---
PATIENT DISCHARGED TO SWINGBED INPATIENT.
== END 2017-10-03 13:40 | disposition swing bed (61) | DRG 504 ==
LOC: ED 07:41 → CCU 09:02 → MS 09:02 → CCU 09-28 19:18 → MS 09-28 19:18 → CCU 09-28 19:18 → MS 09-29 10:20
PROVIDERS: Podiatrist Foot Surgery; ADMIT Internal Medicine
PROC: 02HV33Z Insertion of Infusion Device into Superior Vena Cava, Percutaneous Approach (ICD-10-PCS; 2017-09-25)
PROC: 0QBP0ZZ Excision of Left Metatarsal, Open Approach (ICD-10-PCS; principal; 2017-09-25 10:30)
PROC: 0F9440Z Drainage of Gallbladder with Drainage Device, Percutaneous Endoscopic Approach (ICD-10-PCS; 2017-09-28)
DX: M86.8X7 Other osteomyelitis, ankle and foot (principal); L97.422 Non-pressure chronic ulcer of left heel and midfoot with fat layer exposed; L03.116 Cellulitis of left lower limb; K80.00 Calculus of gallbladder with acute cholecystitis without obstruction; E87.2 Acidosis; K56.7 Ileus, unspecified; E87.1 Hypo-osmolality and hyponatremia; B95.61 Methicillin susceptible Staphylococcus aureus infection as the cause of diseases classified elsewhere; Z16.35 Resistance to multiple antimicrobial drugs; I49.9 Cardiac arrhythmia, unspecified; N31.9 Neuromuscular dysfunction of bladder, unspecified; G62.9 Polyneuropathy, unspecified; B95.2 Enterococcus as the cause of diseases classified elsewhere; K21.9 Gastro-esophageal reflux disease without esophagitis; E83.42 Hypomagnesemia; E87.6 Hypokalemia; K74.60 Unspecified cirrhosis of liver; V80.010S Animal-rider injured by fall from or being thrown from horse in noncollision accident, sequela; T14.8XXS Other injury of unspecified body region, sequela; I10 Essential (primary) hypertension; F41.9 Anxiety disorder, unspecified; G47.00 Insomnia, unspecified; G25.81 Restless legs syndrome; R60.0 Localized edema; Z87.891 Personal history of nicotine dependence; Z79.82 Long term (current) use of aspirin; Z79.899 Other long term (current) drug therapy; Z88.5 Allergy status to narcotic agent; Z88.0 Allergy status to penicillin; Z88.2 Allergy status to sulfonamides; Z88.8 Allergy status to other drugs, medicaments and biological substances
CPT/HCPCS: 00840; 01482; 36415; 36569; 71045; 73630; 73723; 74181; 76705; 80048; 80053; 80076; 80202; 81001; 83036; 83605; 83735; 83930; 83935; 84100; 84484; 84550; 85025; 85610; 85730; 87040; 87070; 87075; 87077; 87088; 87184; 87186; 87205; 88304; 88311; 93005; 93010; 94762; 97110; 97162; 97163; 97166; 97530; 97535; A9579; C1713; C1751; J0330; J0360; J0692; J1100; J1170; J1650; J1885; J1956; J2250; J2405; J2550; J2704; J2710; J2795; J2997; J3010; J3370; J3475; J7030; J7040; J7050; J7120

== ENCOUNTER 2017-10-03 13:40 | Inpatient (IN) | payer MEDICARE, OTHER ==
[~2017-10-03] VITALS: Ht 167.6 cm; Wt 145.0 kg
[~2017-10-03 13:40] MED LIST: ALPRAZOLAM0.25 MG PO; METOPROLOL TART25 MG PO; PANTOPRAZOLE SO40 MG PO
--- NOTE | 2017-10-03 15:32 | NUR ---
PATIENT DISCHARGED TO [facility]. IS NOW ABLE TO BEAR WEIGHT ON LEFT SIDE WITH TRANSFERS. PATIENT STANDING STRONG. NEW ORDER TO DC PICC LINE, AND PLAN TO REMOVE MCNEAL CATHETER IN THE MORNING. CALL LIGHT IN REACH. PATIENT VERBALIZES UNDERSTANDING WITH POC.
--- NOTE | 2017-10-03 19:04 | NUR ---
PICC LINE DC'D, PRESSURE DRESSING APPLIED. PATIENT TOLERATED WELL. CATH INTACT. UP TO [facility] [place], HAS HAD 2 LARGE BM THIS EVENING. PATIENT REFUSED SEN[place]OT. NOW SWING BED. PLAN TO DISCHARGE ON POSSIBLY THURSDAY.
--- NOTE | 2017-10-03 19:31 | NUR ---
IN ROOM FOR REPORT, PT IS AWAKE IN BED. SHE DENIES ANY NEEDS AT THIS TIME. CALL LIGHT IS WITHIN REACH.
--- NOTE | 2017-10-03 20:19 | NUR ---
CALLED DR APODACA BECAUSE PT STATES THAT TYLENOL DOES NOT HELP WITH PAIN. RECEIVED VERBAL ORDERS FOR TRAMADOL.
--- NOTE | 2017-10-03 21:50 | NUR ---
IN ROOM TO ASSESS PT AND GIVE EVENING MEDICATIONS. PT REPORTS PAIN AT 3/10 BT WOULD LIKE TO HOLD OFF ON ULTRAM AT THIS TIME. BOTH JPS ARE STILL DRAINING FLUIDS. PT'S INCISIONS ARE WELL APROXIMATED. PT DENIES FURTHER NEEDS AT THIS TIME.
--- NOTE | 2017-10-04 00:17 | NUR ---
PT IS RESTING WITH EYES CLOSED, REPIRATIONS ARE EVEN AND NONLABORED. CALL LIGHT IS WITHIN REACH.
--- NOTE | 2017-10-04 01:56 | NUR ---
PT IS RESTING WITH EYES CLOSED, RESPIRATIONS ARE EVEN AND NONLABORED. CALL LIGHT IS WITHIN REACH.
--- NOTE | 2017-10-04 03:12 | NUR ---
PT IS RESTING WITH EYES CLOSED, RESPIRATIONS ARE EVEN AND NONLABORED. CALL LIGHT IS WITHIN REACH.
--- NOTE | 2017-10-04 05:46 | NUR ---
HELPED PT TO THE COMMODE AND BACK TO BED.
--- NOTE | 2017-10-04 05:54 | NUR ---
PT SLEPT WELL THROUGH THE NIGHT. SHE IS A 2PA WITH FWW, NONWEIGHT BEARING MUCH POSSIBLE ON LEFT FOOT. SHE ENDED UP NOT REQUIRING ULTRAM LAST NIGHT SHE SLEPT AFTER HS SONATA. IV IS ELIZABET GILL DC THIS AM AND SHE WILL STRAIGHT CATH.
--- NOTE | 2017-10-04 09:45 | NUR ---
PATIENT TRANSFERING BSC WELL. NO COMPLAINTS OF PAIN, STANDING STRONG WITH WALKER. PATIENT STATES " I AM READY TO GO HOME AND DETERMINED TO DO THIS" BACK TO BED, READING BOOK. FULL BODY ASSESMENT DONT. NO COMPLAINTS OF PAIN. VS STABLE.
--- NOTE | 2017-10-04 10:38 | NUR ---
PATIENT RESTING IN BED WATCHING TV. PATIENT WASHED HANDS AND FACE AND ORAL CARE. PATIENT REFUSED A SHOWER AT THIS TIME BUT AGREED TO SHOWER TOMORROW. CALL BUTTON IN REACH. NO OTHER NEEDS AT THIS TIME.
--- NOTE | 2017-10-04 13:00 | NUR ---
BLADDER SCANED PATIENT AT 345ML. ORDER TO STRAIGHT CATH PATIENT. USING STERILE TECHNIQUE STRAIGHT CATH PATIENT. RN IN ROOM TO ASSIST. PATIENT TOLERATED WELL. 250CC DARK URINE DRAINED. WHILE STRAIGHT CATHING PATIENT NOTICED REDDNESS TO KAVITA AREA WHITE DISCHARGE PRESENT WHILE PLACING STRAIGHT CATH. NOTIFIED PATIENTS PRIMARY RN.
--- NOTE | 2017-10-04 18:36 | NUR ---
CHANGED DRESSING TO LEFT FOOT PER DR. TOBAR'S WRITTEN ORDER. WOUND APPEARS TO BE IMPROVING, SMALL AMOUNT OF SEROSANGUINIOUS DRAINAGE TO ABD PAD. ELIZABET BAIG'Yang THIS MORNING, PATIENT STRAIGHT CATH WITH SOME ASSISTANCE. BROUGHT IN HOME SUPPLIES, PLANS TO STRAIGHT CATH AGAIN AT 1930. LARGE LOOSE BMS THROUGHOUT DAY, HOLD STOOL SOFTENERS. PATIENT STBY TO BSC, STANDING STRONG. PLAN TO DISCHARGE HOME OR THURSDAY.
--- NOTE | 2017-10-04 19:07 | NUR ---
IN ROOM FOR REPORT, PT IS AWAKE IN BED AND DENIES NEEDS AT THIS TIME. CALL LIGHT IS WITHIN REACH.
--- NOTE | 2017-10-04 19:10 | NUR ---
IN ROOM FOR REPORT, PT IS AWAKE IN BED AND DENIES NEEDS AT THIS TIME. CALL LIGHT IS WITHIN REACH.
--- NOTE | 2017-10-04 20:51 | NUR ---
VITALS DONE AND CHARTED. BEDSIDE TABLE AND CALL LIGHT WITHIN REACH. PT NEEDS NOTHING ELSE AT THIS TIME.
--- NOTE | 2017-10-04 21:33 | NUR ---
ASSESSED PT AND ADMINISTERED MEDICATIONS. HELPED PT GET SET UP TO SELF CATH AND SHE VOIDED, PT ALSO HAD A BM. WAS NOT ABLE TO VISUALIZE ANY VAGINAL DISCHARGE AT THIS TIME BECAUSE PT JUST WIPED HERSELF. WILL CHECK LATER TO SEE IF SHE NEEDS A YEAST SUPPOSITORY. PT STATES WHEN SHE GETS YEAST INFECTIONS SHE TAKES A PILL BUT COULD NOT TELL ME THE NAME OF IT. SHE ALSO STATES HER LEFT ARM ITCHES AND SHE USES A CREAM AT HOME THAT STARTS WITH CA BUT COULD NOT REMEMBER THE NAME. PT STATE HYDROCORTISONE CREAM MAKES HER RASHES WORSE.
--- NOTE | 2017-10-04 23:41 | NUR ---
SPOKE WITH DR APODACA ABOUT PT'S RASH AND THAT THE PT STATES HYDROCORTISONE MAKES HER RASHES WORSE. PT IS NOT COMPLAINING OF ITCHING AT THIS TIME SO WE WILL DEAL WITH IT TOMORROW. ALSO ADVISED HIM THAT I WAS NOT ABLE TO VISUALIZE ANY VAGINAL DC. PT IS RESTING AT THIS TIME WITH EYES CLOSED, CALL LIGHT IS WITHIN REACH.
--- NOTE | 2017-10-05 01:30 | NUR ---
PT IS RESTING WITH EYES CLOSED, RESPIRATIONS ARE EVEN AND NONLABORED. CALL LIGHT IS WITHIN REACH.
--- NOTE | 2017-10-05 03:05 | NUR ---
PT IS RESTING WITH EYES CLOSED, RESPIRATIONS ARE EVEN AND NONLABORED. CALL LIGHT IS WITHIN REACH.
--- NOTE | 2017-10-05 05:00 | NUR ---
HELPED PT TO THE COMMODE TO ATTEMPT A BM AND STRAIGHT CATH. ALSO EMPTIED MILAGRO DRAINS. PT DENIES FURTHER NEEDS AT THIS TIME.
--- NOTE | 2017-10-05 06:29 | NUR ---
PT SLEPT WELL THROUGH MOST OF THE NIGHT AND HAS VOIDED QS VIA STRAIGHT CATH. SHE PIVOTS TO THE COMMODE WITH 1PA AND FWW. THE DRESSING ON HER LEFT FOOT IS CDI. PT REPORTED NO PAIN THROUGH THE NIGHT. MILAGRO DRAIN 1 PUT OUT 5 MLS SEROSANGUINOUS FLUID AND MILAGRO 2 DRAINED 10 MLS OF GREEN FLUID. PLAN IS TO DC ON OR .
--- NOTE | 2017-10-05 06:51 | NUR ---
IN ROOM TO ADMINISTER PROTONIX, PT WOULD LIKE THE TIME CHANGED TO 5AM AND HAS NOT BEEN ABLE TO GET IT CORRECTED. WILL PASS ALONG TO DAY SHIFT TO SEE IF IT CAN GET CORRECTED.
--- NOTE | 2017-10-05 08:20 | NUR ---
PATIENT SITTING UP ON BEDSIDE. PATIENT PERFORMED ORAL CARE AND STATES SHE ALREADY WASHED HER HANDS AND FACE. PATIENT AGREED TO A SHOWER AT A LATER TIME. PATIENT RESTING IN BED. SCD ON, FEET ELEVATED, CALL LIGHT IN REACH. NO OTHER NEEDS AT THIS TIME.
--- NOTE | 2017-10-05 08:49 | NUR ---
MORNING ASSESSMENT AND MEDICATIONS DUE. THIS RN TO BEDSIDE. PT RESTING IN BED WATCHING TV. PT REPORTS EATING 1/2 HER BREAKFAST. ENSURE PROVIDED. PT REPORTS 4/10 PAIN AND WOULD LIKE HER PAIN MEDICATIONS. MEDICATIONS GIVEN (SEE MAR). ASSESSMENT DONE. PT STATES SHE WOULD LIKE TO SHOWER TODAY. DRESSING CHANGE PLANNED FOR AFTER SHOWER. PT CONTINUES WATCHING TV. CALL LIGHT WITHIN REACH. BED RAILS UP.
--- NOTE | 2017-10-05 10:42 | NUR ---
NOTIFICATION FAX SENT TO [facility] OP FOR SWG BED IN ROOM 113.
--- NOTE | 2017-10-05 11:40 | NUR ---
PT FINISHED WITH SHOWER. UPPER CUTTER OUT CALLED THIS RN TO ROOM TO EXAMINE SKIN, FEET, AND WOUND. DRESSING REMOVED FROM FOOT WOUND. 3CM CIRCULAR SERIOUS ANGUNOUS DRAINAGE NOTED ON ABD PAD. WOUND MEASURES 2.5CM FROM 12'OCLOCK TO 6 O'CLOCK POSITIONS AND 1.5 CM FROM 3-9 O'CLOCK POSISITONS. WOUND CLEANED WITH CLORAHEXADINE. FOOT NOTED TO BE PLEELING DRY SKIN FROM TOES TO MID ANKLE. CAPILARY REFILL IS GREATER THAN 3 SECONDS. NEW DRESSING APPLIED PER MD ORDER ADAPTIC, DRY GUZE AND KERLIXAND COBAN. PT STATES DRESSING DOES NOT FEEL TOO TIGHT. RIGHT FOOT NOTED TO HAVE CAPILLARY REFILL ALSO GREATER THAN 3 SECONDS. PT RESTING IN CHAIR. NO REQUESTS OR COMPLAINTS. PT REPORTS 2/10 PAIN THAT IS "GETTING BETTER." DRAINS RESECURED TO GOWN, MINIMAL DRAINAGE NOTED AT THIS TIME. PT RESTING IN CHAIR. CALL LIGHT WITHIN REACH. PT STATES SHE HAS NO ADDITIONAL REQUESTS OR COMPLAINTS AT THIS TIME.
--- NOTE | 2017-10-05 11:49 | NUR ---
THIS CHURN OPERATOR ASSISTED PATIENT UP TO BEDSIDE COMMODE. PATIENT PERFORMED STRAIGHT CATHETER PROCEDURE. THIS CHURN OPERATOR ASSISTED PATIENT UP TO SHOWER CHAIR AND IN TO SHOWER. PATIENT COMPLAINS OF ITCHINESS IN GROIN AREA. THIS CHURN OPERATOR NOTICED A RASH IN AREA, RN NOTIFIED. PATIENT PERFORMED PERICARE AND SKINCARE, THIS CHURN OPERATOR ASSISTED WHEN NECESSARY. PATIENT CONCERNED ABOUT ADHESIVE TAPE CAUSING A SKIN BREAKDOWN. ADHESIVE TAPE REMOVED AND AREA THOROUGHLY CLEANED. PATIENT BACK IN BEDSIDE RECLINER WITH CLEAN GOWN. LINENS CHANGED. THIS CHURN OPERATOR NOTICED POOR CIRCULATION ON PATIENTS RIGHT FOOT, RN NOTIFIED. RN IN ROOM CHANGING WOUND DRESSING. PATIENTS FEET ELEVATED. PATIENTS LUNCH ON BEDSIDE TABLE. CALL LIGHT IN REACH. NO OTHER NEEDS AT THIS TIME.
--- NOTE | 2017-10-05 13:31 | NUR ---
ENTERED PT'S RM TO FIND P.T. IN CONSULTING WITH PT. SHE WAS SITTING IN CHAIR, LEGS UP. PT WAS PLEASANT, APPEARED TO BE COMFORTABLE. I EXTENDED A BLESSING, WILL CONTINUE TO FOLLOW
--- NOTE | 2017-10-05 17:40 | NUR ---
EVENING MEDICATIONS DUE. THIS RN TO BEDSIDE. PT FINSIHING WITH DINNER. ENSURE PROVIDED FOR PT. MEDICATION GIVEN. PT RATES PAIN AT 3/10 AND STATES THAT IT IS TOLERABLE FOR HER AT THIS TIME. PT STATES SHE HAS NO REQUESTS OR COMPLAINTS AT THIS TIME. PT ASKED IF SHE NEEDS ANY ASSISTANCE WITH HER STRAIGHT CATH. PT STATES "NO" AND THAT SHE DOES NOT NEED TO USE THE CATHERTER AT THIS TIME. SHE PLANS TO USE CATHETER "ONE MORE TIME THIS EVENING, A LITTLE LATER." BED RAILS UP. CALL [facility] WITHIN REACH.
--- NOTE | 2017-10-05 18:30 | NUR ---
PT HERE ON SWING BED TO REGAIN STRENGH. 1-2P/SBA, FWW. REGULAR DIET, POOR APPITITE, PROVIDE ENSURE WITH MEALS. KERRIE ARAUJO FOR KAVITA AREA. NEUROGENIC BLADDER, PT STRAIGHT CATH'S HER SELF WITH SUPPLIES FROM HOME. NON WEIGHT BEARING ON THE LEFT FOOT. DAILY DRESSING CHANGES. USES CALL LIGHT APPROPRIATLY.
--- NOTE | 2017-10-05 18:52 | NUR ---
HONING MACHINE OPERATOR TOOL NOTIFED THIS RN THAT PT HAS SMALL REDDENED AREA AT TOP OF GLUETEAL CLEFT. THIS RN TO BEDSIDE. AREA ASSESSED. AREA RED WITH SMALL START OF SKIN BREAKDOWN. ALLEVYN APPLIED. PT STATES SHE IS TIRED AND READY FOR BED SOON. PT STATES SHE HAS NO REQUESTS OR COMPLAINTS AT THIS TIME. CALL LIGHT WITHIN REACH.
--- NOTE | 2017-10-05 21:06 | NUR ---
PT IS AWAKE IN BED, DENIES NEEDS AT THIS TIME.
--- NOTE | 2017-10-05 23:10 | NUR ---
ADMINISTERED MEDICATIONS AND ASSESSED PT. THE DRESSING ON HER LEFT FOOT IS CDI. NYSTATIN WAS APPLIED TO PERIAREA AND RIGHT INNER THIGH. NEW ALLEVYN WAS APPLIED TO SMALL SPOT ON GLUTEOUS. PT REPORTS THAT ANOTHER NURSE HELPED HER TO THE COMMODE AND SHE STRAIGHT CATHED TO URINATE. SHE IS READY FOR BED WITH A WARM BLANKET AND DENIES FURTHER NEEDS AT THIS TIME.
--- NOTE | 2017-10-06 00:29 | NUR ---
PT IS RESTING WITH EYES CLOSED, RESPIRATIONS ARE EVEN AND NONLABORED. CALL LIGHT IS WITHIN REACH.
--- NOTE | 2017-10-06 00:46 | NUR ---
PATIENT CALLED TO USE THE BEDSIDE COMMODE. 1 PA USING WALKER. PATIENT IS BACK IN BED. CALL LIGHT WITHIN REACH.
--- NOTE | 2017-10-06 03:18 | NUR ---
PT IS RESTING WITH EYES CLOSED, RESPIRATIONS ARE EVEN AND NONLABORED. CALL LIGHT IS WITHIN REACH.
--- NOTE | 2017-10-06 05:30 | NUR ---
PT WOKE AND CALLED, HELPED HER TO THE COMMODE SO SHE COULD STRAIGHT CATH. ADMINISTERED PROTONIX. PT WILL CALL WHEN SHE IS READY TO GET OFF THE COMMODE.
--- NOTE | 2017-10-06 08:58 | NUR ---
MORNING ASSESSMENT AND MEDICATIONS DUE. THIS RN TO BEDSIDE. PT UP AT EDGE OF BED FINISHING BREAKFAST. PT REPORTS NEEDING A NEW "BANDAGE ON HER BOTTOM." PT UP WITH FWW. GLUTEAL CLEFT ASSESSED. ALLEVYN APPLIED. PT NOTED TO BE INCONTONANT OF STOOL. PT TRANFERED TO COMODE. DEPENDS CHANGED. GLUTEAL CLEFT CLEANSED AND BARRIER CREAM APPLIED. PT UP TO CHAIR. WARM BLANKET PROVIDED. ASSESSMENT DONE. MEDICATION GIVEN (SEE MAR), STOOL SOFTENER HELED. NYSTATIN POWDER APPLIED. PT BELONGINGS AT BEDSIDE. PT STATES SHE HAS NO REQUESTS OR COMPLAINTS AT THIS TIME. CALL LIGHT WITHIN REACH.
--- NOTE | 2017-10-06 10:12 | NUR ---
THIS RN CALLED DR. TOBAR REGARDING DRESSING CHANGE ORDER AND STATE OF PACKING MATERIAL IN WOUND. MD STATES TO REMOVE PACKING AT THIS TIME AND DRESS WOUND ORDERED WITHOUT PACKING MATERIAL. DR TOBAR WOULD LIKE A FOLLOW UP APPOINTMENT UPON DISCHARGE OF PT AND STATE IF PT IS NOT DISCHARGED BY THURSDAY THEN TO CALL HIM BACK AT WHICH TIME HE WILL UPDATE DRESSING CHANGE ORDERS. CHARGE NURSE NOTIFIED OF CHANGES.
--- NOTE | 2017-10-06 10:30 | NUR ---
THIS RN TO BEDSIDE FOR DRESSING CHANGE. OLD DRESSING REMOVED. 3CM BY 2CM BROWN YELLOW DRAINAGE NOTED ON ABD PAD. PACKING NOTED TO BE SATURATED AND RED/BROWN IN COLOR. MD CALLED REGARDING PACKING (SEE OTHER NURESE NOTED). PACKING REMOVED PER MD ORDER. WOUND BED SLOUGH REMOVED WITH DEBRISOFT PAD. AFTER DEBRIESOFT 1CM MARGIN OF WOUND FROM 5 O'CLOCK TO 2 O'CLOCK NOTED TO HAVE GRANULATING TISSUE. 2-5'OCLOCK NOTED TO BE BROWN/BLACK. CENTER OF WOUND REMAINS WHITE WITH SLOUGH THAT DID NOT REMOVE WITH DEBRISOFT. WOUND MEASURED 3.5CM FROM 12-9 O'CLOCK AND 2.5 CM FROM 3-9 O'CLOCK. 0.5 CM MARGAIN AROUND WOUND CLEAR/WHITE IN APPEARANCE AND DRY, EDGES CURLED IN TOWARD WOUND. WOUND CLEANSED WITH CHLORAHEXADINE GLUCONATE. DRESSING APPLIED PER MD ORDER WITH ADAPTIC, DRY GAZUE, ABD PAD, KERLIX AND COBAN. PT STATES DRESSING "FEELS GOOD." FOAM PAD LEFT IN PLACE DURING DRESSING CHANGE. PT DENIES PAIN WITH DRESSING CHANGE AND NOW REPORTS 2/10 PAIN IN HER ABDOMEN. PHYSICAL THERAPY ARRIVED AT BEDSIDE. PT WORKING WITH PHYSICAL THERAPY. NO REQUESTS OR COMPLAINTS AT THIS TIME.
--- NOTE | 2017-10-06 11:10 | NUR ---
PATIENT SITTING ON EDGE OF BED FOR LUNCH. FRESH ICE WATER GIVEN. NO OTHER NEEDS AT THIS TIME.
--- NOTE | 2017-10-06 15:30 | NUR ---
PT CALL LIGHT ON. PT REQUESTS ASSISTANCE OFF OF COMODE. PT ABLE TO VOID 400 ML OF MIXED LIQUID STOOL AND URINE. PT TRANSFERED BACK TO BED WITH FWW AND 1 PERSON STAND BY ASSIST. PT TOLEARATED TRANSFER WELL. PT REPORTS 2/10 PAIN THAT IS TOLERABLE. CALL LIGHT WITHIN REACH. BED RAILS UP.
--- NOTE | 2017-10-06 16:37 | NUR ---
THIS RN TO ROOM TO CHECK ON PT. PT WORKING WITH OCCUPATIONAL THERAPY. PT REPORTS "GETTING BETTER." NO REQUESTS OR COMPLAINTS AT THIS TIME.
--- NOTE | 2017-10-06 17:17 | NUR ---
THIS RN TO BEDSIDE TO CHECK ON PT. DINNER ARRIVES. PT REPORTS 4/10 PAIN AND REQUESTS PAIN MEDICATION. SEE MAR FOR MEDICATION GIVEN. PT REFUESE SENNA R/T CONTINUED LOOSE BOWEL MOVEMENTS. PT ASSISTED UP TO EDGE OF BED FOR DINNER. PT STATE SHE HAS NO ADDITIONAL REQUESTS OR COMPLAINTS AT THIS TIME. CALL LIGHT WITHIN REACH.
--- NOTE | 2017-10-06 17:45 | NUR ---
PT HERE ON SWING BED FOR DECONDITIONING. REGULAR DIET WITH STRAWBERRY ENSURES TO ENHANCE NUTRITION. 1P/SBA, FWW. LOOSE BMS TODAY, SENNA AND MIRALAX HELD. MILAGRO DRAINS REMAIN IN PLACE AFTER LAP JENNIE, DRAINAGE DECREASING. PT STRAIGHT CATHS SELF PRN. NON WT BEARING ON LEFT SIDE R/T FOOT ULCER. DAILY DRESSING CHANGES, DONE TODAY. PRN TRAMADOL FOR PAIN. ALLEVYN ON GLUTEAL CLEFT FOR SKIN BREAKDOWN. PHYSICAL THERAPY AND OT INVOLVED.
--- NOTE | 2017-10-06 19:15 | NUR ---
RECEIVED REPORT FROM CHARITY CARTER RN. PT AWAKE, READING BOOK WITH CALL LIGHT WITHIN REACH.
--- NOTE | 2017-10-06 21:00 | NUR ---
PT UP TO COMMODE TO STRAIGHT CATH WITH EMT ASSISTANCE. PT REQUESTED A SLEEPING PILL TO COME NEAR 2200. CALL LIGHT WITH REACH.
--- NOTE | 2017-10-06 21:32 | NUR ---
ASSISTED PATIENT FROM BEDSIDE COMMODE TO BED USING WALKER. SCD ON. CALL LIGHT WITHIN REACH. ICE WATER REFILLED. NO OTHER NEEDS AT THIS TIME.
--- NOTE | 2017-10-06 22:20 | NUR ---
ASSESSMENT COMPLETED. LEFT FOOT DRESSING CDI, CMS ADEQUATE. VFP ON R FOOT, LT ELEVATED. SONATA GIVEN, PT HAS NO OTHER NEEDS AT THIS TIME. CALL [facility] WITHIN REACH.
--- NOTE | 2017-10-07 02:00 | NUR ---
PT LAYING ON BACK, EYES CLOSED, RESP EVEN UNLABORED.
--- NOTE | 2017-10-07 07:43 | NUR ---
PATIENT RESTING IN BED. PATIENT STATES SHE ALREADY WASHED HER HANDS AND FACE AND WOULD LIKE A SHOWER AFTER BREAKFAST. PATIENT CALL LIGHT IN REACH. NO OTHER NEEDS AT THIS TIME.
--- NOTE | 2017-10-07 08:04 | NUR ---
PT SITTING ON BEDSIDE FROM BEDSIDE COMMODE 1PA W/FWW. TOLERATED MOVEMENT WELL. BREAKFAST SETUP. CALL LIGHT IN REACH.
--- NOTE | 2017-10-07 08:30 | NUR ---
PT AWAKE IN BED WORKING ON AM CARES. STATES SHE ATE ALL OF HER BREAKFAST ALREADY AND IS "DOING GOOD." DENIES PAIN AT THIS TIME BUT STATES SHE WOULD LIKE SOME PAIN MEDICATION BEFORE SHE GETS UP TO SHOWER AND DO PHYSICAL THERAPY. DENIES NAUSEA OR OTHER CONCERNS. MILAGRO DRAINS IN PLACE, SITES WNL. LEFT FOOT DRESSING CDI, GOOD CMS. NO IV SITE. PT ALERT AND ORIENTED. CALL LIGHT WITHIN REACH.
--- NOTE | 2017-10-07 09:38 | NUR ---
THIS ADULT EDUCATION PROFESSIONAL ASSISTED PATIENT UP TO SHOWER. PAATIENT PERFORMED PERICARE AND SKINCARE. THIS ADULT EDUCATION PROFESSIONAL NOTICED PATIENT HAS RED IRRITATION AND ITCHINESS JUST ABOVE BELLY BUTTON. RN NOTIFIED. PATIENTS RIGHT FOOT APPEARS TO HAVE POOR CIRCULATION, PATIENT STATES YESTERDAY THE SCD'S WERE NOT APPLIED FREQUENTLY. RN NOTIFIED. SCDS ON RIGHT FOOT. PATIENTS FEET ELEVATED. PATIENT CALL LGIHT IN REACH. NO OTHER NEEDS AT THIS TIME.
--- NOTE | 2017-10-07 10:10 | NUR ---
PT WORKING WITH OCCUPATIONAL THERAPIST, ALBERTA WELL. NO NEEDS OR CONCERNS AT THIS TIME.
--- NOTE | 2017-10-07 10:53 | NUR ---
PATIENT WORKING WITH OCCUPATIONAL THERAPIST. CALL LIGHT IN REACH, FAMILY IN ROOM. NO OTHER NEEDS AT THIS TIME.
--- NOTE | 2017-10-07 12:23 | NUR ---
PATIENT SITTING UP ON SIDE OF BED, EATING LUNCH. CALL LIGHT IN REACH. NO OTHER NEEDS AT THIS TIME.
--- NOTE | 2017-10-07 12:57 | NUR ---
PT RESTING IN BED. STATES SHE JUST GOT BACK TO BED AFTER EATING LUNCH. DENIES PAIN OR OTHER NEEDS OR CONCERNS AT THIS TIME. STATES "I'M GONNA TRY TO TAKE A NAP." CALL LIGHT WITHIN REACH.
--- NOTE | 2017-10-07 13:45 | NUR ---
THIS UTILITY AGENT ASSISTED PATIENT TO SET UP FOR STRAIGHT CATHETER. PATIENT PERFOREMD STRAIGHT CATH. PATIENT BACK IN BED, FEET ELVATED, SCDS ON. CALL LIGHT IN REACH. NO OTHER NEEDS AT THIS TIME.
--- NOTE | 2017-10-07 13:53 | NUR ---
PT RESTING IN BED, EYES CLOSED, RESP EVEN AND UNLABORED.
--- NOTE | 2017-10-07 16:25 | NUR ---
PT SITTING UP IN BED AWAKE, VISITING WITH AND DAUGHTER. DENIES NEEDS OR CONCERNS AT THIS TIME. CALL LIGHT WITHIN REACH.
--- NOTE | 2017-10-07 17:04 | NUR ---
PATIENT RESTING IN BED VISITING WITH FAMILY. CALL LIGHT IN REACH, NO OTHER NEEDS AT THIS TIME.
--- NOTE | 2017-10-07 18:21 | NUR ---
THIS MILITARY SOURCE OPERATIONS SPECIALIST ASSISTED PATIENT UP TO BEDSIDE COMMODE, PATIENT DID A STRAIGHT CATH HERSELF. THIS MILITARY SOURCE OPERATIONS SPECIALIST NOTICED REDNESS ON PATIENTS BOTTOM, BARRIER CREAM AND SKINCARE APPLIED. PATIENT BACK TO BED, RESTING, LEGS ELEVATED, SCD ON RIGHT FOOT. FRESH ICEWATER AT BEDSIDE TABLE. NO OTHER NEEDS AT THIS TIME.
--- NOTE | 2017-10-07 18:30 | NUR ---
PT IN BED RESTING AT THIS TIME. STATES "THE AID HELPED ME USE THE TOILET A LITTLE WHILE AGO, I'M DOING FINE." MARK LIGHT WITHIN REACH.
--- NOTE | 2017-10-07 19:05 | NUR ---
SHIFT REPORT RECEIVED. PATIENT APPEARED TO BE SLEEPING BUT WAS WOKEN BY A PHONE CALL. SHE DENIED NEEDS AT THIS TIME. CALL LIGHT IN REACH.
--- NOTE | 2017-10-07 21:00 | NUR ---
EVENING MEDS GIVEN PER ORDER. PATIENT IS AAOX4. DENIES PAIN. APPETITE IMPROVING. NO NAUSEA. ABD MILDLY DISTENDED, PATIENT STATES NORMAL. BOWEL SOUNDS ACTIVE. LUNGS ARE CLEAR. PATIENT HAS PRODUCTIVE COUHG WITH YELLOW/WHITE SPUTUM. DRESSING ON LEFT FOOT IS C/D/I. CHANGED ON DAYSHIFT. FOOT PUMP ON RIGHT FOOT. SKIN IS DRY. LOTION APPLIED. NYSTATIN APPLIED TO INNER THIGHS, AREA IS RED WITH TOP LAYER OF SKIN MISSING IN SOME AREAS. ALYVEN ON RIGHT BUTTOCK CHANGED TO BIGGER SIZE. COCCYX AREA IS RED. EDUCATED PATIENT ON REPOSITIONING FREQUENTLY TO RELIEVE PRESSURE. PLACED PILLOW UNDER LEFT HIP FOR NOW.
--- NOTE | 2017-10-07 21:30 | NUR ---
ASSISTED PATIENT UP TO THE BS, 1PA W/FWW. PATIENT TOLERATED WELL, TOE TOUCH ON LEFT SIDE. PATIENT SELF-CATHED AND HAD MEDIUM SOFT/LOOSE BM. MILAGRO DRAINS WERE EMPITED, VERBAL EDUCATION DEMONSTRATED ON DRAIN CARE. DRAIN 1 HAS MINIMAL SEROSANGUENOUS DRAINAGE. DRAIN 2 HAD MODERATE AMOUNT OF BILE GREEN DRAINAGE. PATIENT ASSISTED BACK TO BED. ENSURE AND WARM BLANKET PROVIDED. TURNED PATIENT TO ONE SIDE TO REDUCE PRESSURE. CALL LIGHT IN REACH.
--- NOTE | 2017-10-07 23:00 | NUR ---
PATIENT RESTING IN BED. APPEARS TO BE SLEEPING SOUNDLY. RR 16. CALL LIGHT IN REACH.
--- NOTE | 2017-10-08 05:17 | NUR ---
PATIENT SLEPT MOST OF THE SHIFT. INCONTINENT OF STOOL X1. SELF CATH, OUTPUT QS. NO PAIN. DRESSING ON LEFT FOOT CDI. LOWER EXTREMITIES ELEVATED WHILE IN BED. TURN Q2H TO REDUCE PRESSURE ON COCCYX. AREA APPEARS RED, BUT BLANCHABLE. SMALL OPEN AREA ON RIGHT GLUTE COVERED BY ALYVEN. PATIENT TRANSFERED TO [facility] [facility] W/FWW. NO IV. APPETITE IMPROVED, DRINKING ENSURES.
--- NOTE | 2017-10-08 08:10 | NUR ---
UPON INITIAL ASSESSMENT THE PATIENT IS SITTING AT THE SIDE OF THE BED EATING BREAKFAST. PT STATES HER DAUGHTER WILL BE HERE TODAY AND SHE WILL BE THE ONE HELPING HER AT HOME. CALL LIGHT IS WITHIN REACH, NO FURTHER REQUEST AT THIS TIME.
--- NOTE | 2017-10-08 08:52 | NUR ---
0745 THIS MORNING REMOVED THE PILLOWS BEHIND HER BACK. GOT HER NEW ICE WATER. NOW IS SITTING UP ON SIDE OF HER BED EATING HER BREAKFAST.
--- NOTE | 2017-10-08 08:54 | NUR ---
PT HAD LARGE LOOSE BOWEL MOVEMENT, HELD SENNA AND MIRLAX.
--- NOTE | 2017-10-08 09:04 | NUR ---
DRESSING ON PT'S COCCYX WAS SOILED, REDRESSED WITH SMALLER ALLEVYN ON SKIN TEAR ON LEFT SIDE AND APPLIED BARRIER CREAM TO REDDENED AREAS. PT ENCOURAGED TO TURN REGULARLY IN BED.
[2017-10-08] MEDS ORDERED: METRONIDAZOLE500 MG PO (09:57)
[2017-10-08] MEDS ORDERED: DOXYCYCLINE HY100 MG PO (09:59)
--- NOTE | 2017-10-08 10:00 | NUR ---
IN ROOM TO CHECK ON PATIENT, LAYING COMFORTABLY IN BED, STATES SHE IS "SO HAPPY TO GO HOME." RESTING COMFORTABLY. CALL LIGHT WITHIN REACH. NO FURTHER NEEDS AT THIS TIME.
--- NOTE | 2017-10-08 12:05 | NUR ---
PATIENT IN BED, FAMILY IN ROOM. LE LUI AND YOVANNY IN DISCUSSING D/C ORDERS. VITALS AND I/OS CHARTED. CALL LIGHT IN REACH
--- NOTE | 2017-10-08 12:56 | NUR ---
CHART NOTES INCLUDING FACESHEET, ORDERS AND DIRECTIONS ON WOUND CARE BY DR TOBAR, H AND P, DC SUMMARY AND PACKET, WOUND ASSESSMENT, PT AND OT EVAL AND NOTES SENT TO [facility]. TALKED WITH DUDLEY REGARDING THIS. RECIEVED A FAX CONFIRMATION.
--- NOTE | 2017-10-08 13:06 | NUR ---
DC'D INSTRUCTIONS GIVEN TO PATIENT AND FAMILY MEMBER. ALL QUESTIONS GIVEN AT THIS TIME. PATIENT AND FAMILY UNDERSTAND AT THIS POINT. PT IS TO BE NWB ON LEFT FOOT, TO TAKE ABX'S DIRECTED, TO CAMP COUNSELOR MEDICATIONS AT [facility], AND ALL OF THE PT MANY FOLLOW-UP APPOINTMENTS. ALSO PT WAS GIVEN NUMBER FOR HOME HEALTH AND PHYSICAL THERAPY DUE TO THEY WILL ALSO BE FOLLOWING UP WITH THE PATIENT.
--- NOTE | 2017-10-08 13:16 | NUR ---
PT LEFT VIA W/C WITH ALL PERSONAL BELONGINGS AND FAMILY, AND NEICE.
== END 2017-10-08 13:26 | disposition home health service (06) | DRG 556 ==
LOC: MS 13:40
PROVIDERS: ADMIT Internal Medicine
DX: M62.81 Muscle weakness (generalized) (principal); L97.929 Non-pressure chronic ulcer of unspecified part of left lower leg with unspecified severity; K21.9 Gastro-esophageal reflux disease without esophagitis; I10 Essential (primary) hypertension; N31.9 Neuromuscular dysfunction of bladder, unspecified; T14.8XXS Other injury of unspecified body region, sequela; Z79.899 Other long term (current) drug therapy; Z88.5 Allergy status to narcotic agent; Z88.0 Allergy status to penicillin; Z88.2 Allergy status to sulfonamides; Z88.8 Allergy status to other drugs, medicaments and biological substances; Z98.890 Other specified postprocedural states
CPT/HCPCS: 97110; 97162; 97165; 97530; 97535; J1650

== ENCOUNTER 2019-03-30 07:45 | Observation (INO) | payer MEDICARE, OTHER ==
[~2019-03-30] VITALS: Ht 167.6 cm; Wt 65.8 kg
--- OUTSIDE RECORDS SUMMARY | ~2019-03-30 | XMS | Encounter Summary ---
Demographics + + + | Address | [address] | | | [place] [address] | + + + | Home Phone | | + + + | Preferred Language | Unknown | + + + | Marital Status | | + + + | Synagogue Affiliation | CAT | + + + | Race | White | + + + | Ethnic Group | Not or | + + + Author + + + | Author | [facility] | + + + | Organization | [facility] | + + + | Address | Unknown | + + + | Phone | Unavailable | + + + Support + + +---------+ + | Name | Relationship | Address | Phone | + + +---------+ + | Jeronimo Ortega | ECON | Unknown | | + + +---------+ + Care Team Providers + +------+ + | Care Firer Helper Name | Role | Phone | + +------+ + PCP | Unavailable | + +------+ + Encounter Details +--------+ + + + + | Date | Type | Department | Care Team | Description | +--------+ + + + + | 10/08/ | Procedure - | UNKNOWN DEPARTMENT | Other, Faculty | EEG | | 1999 | | [facility] | [phone] | | | | Transcribed | [address] | | | | | | [place], [place] | | | | | | [address] | | | +--------+ + + + + Social History + +-------+ +--------+------+ | Tobacco Use | Types | Packs/Day | Years | Date | | | | | Used | | + +-------+ +--------+------+ | Never Assessed | | | | | + +-------+ +--------+------+ + + + | Sex Assigned at | Date Recorded | | | | + + + | Not on file | | + + + + + + + | Job Start Date | Occupation | Industry | + + + + | Not on file | Not on file | Not on file | + + + + + + + + | Travel History | Travel Start | Travel End | + + + + + + | No recent travel history available. | + + documented as of this encounter Progress Notes Other, Faculty - 10/09/1999 12:00 AM PDTAssociated Order(s): EEG ROUTINE CLINICAL NEUROPHYSIOLOGY INTRAOPERATIVE EVOKED POTENTIAL REPORT DATE OR RECORDING: October 09, 1999 NEUROPHYSIOLOGY NUMBER: [id number] DETAIL: Intraoperative somatosensory evoked potentials were performed during spine surgery for kyphosis. Induction anesthesia included sufentanil, sodium thiopental, and cisatracurium. Maintenance anesthesia was begun with 0.8% isoflurane, intermittent boluses of fentanyl, and nitrous oxide. Following 7 Hz, approximately 40-mA stimulation of the posterior tibial nerves at the ankles, there were reproducible popliteal fossa potentials with latencies of approximately 10 ms. The cervical spine wave forms were often not present due to somewhat high electrical noise level. Cortical wave forms were low in amplitude, with low signal/noise ratios with latencies ranging from approximately 47-50 ms. The wave forms are definitely better following the administration of neuromuscular-blocking agents which were done intermittently during the case. There were no significant changes in the evoke potentials during the surgical procedure. IMPRESSION: Normal intraoperative posterior tibial nerve somatosensory evoked potentials bilaterally. Alfred Keene M.D. MELVI YODER [id number] / [id number] / [id number] / [id number] documented in this encou er Plan of Treatment Not on filedocumented as of this encounter Procedures + +--------+ + + + | Procedure Name | Priori | Date/Time | Associated Diagnosis | Comments | | | ty | | | | + +--------+ + + + | EEG ROUTINE | | 10/09/1999 | | Results for this | | | | 12:00 AM | | procedure are in the | | | | PDT | | results section. | + +--------+ + + + documented in this encounter Results EEG ROUTINE (10/09/1999 12:00 AM PDT) + + | Procedure Note | + + | Other, Faculty - 10/09/1999 12:00 AM PDT | | CLINICAL NEUROPHYSIOLOGY | | | | INTRAOPERATIVE EVOKED POTENTIAL REPORT | | | | DATE OR RECORDING: October 09, 1999 | | | | NEUROPHYSIOLOGY NUMBER: [id number] | | | | DETAIL: Intraoperative somatosensory evoked potentials were performed | | during spine surgery for kyphosis. Induction anesthesia included | | sufentanil, sodium thiopental, and cisatracurium. Maintenance anesthesia | | was begun with 0.8% isoflurane, intermittent boluses of fentanyl, and | | nitrous oxide. Following 7 Hz, approximately 40-mA stimulation of the | | posterior tibial nerves at the ankles, there were reproducible popliteal | | fossa potentials with latencies of approximately 10 ms. The cervical spine | | wave forms were often not present due to somewhat high electrical noise | | level. Cortical wave forms were low in amplitude, with low signal/noise | | ratios with latencies ranging from approximately 47-50 ms. The wave forms | | are definitely better following the administration of | | neuromuscular-blocking agents which were done intermittently during the | | case. There were no significant changes in the evoke potentials during the | | surgical procedure. | | | | IMPRESSION: Normal intraoperative posterior tibial nerve somatosensory | | evoked potentials bilaterally. | | | | | | | | | | Alfred Keene M.D. | | | | MELVI / HS | | [id number] / [id number] / [id number] / [id number] | | | | | | | | [id number] | | | + + documented in this encounter Visit Diagnoses Not on filedocumented in this encounter"
--- OUTSIDE RECORDS SUMMARY | ~2019-03-30 | XMS | Encounter Summary ---
Demographics + + + | Address | [address] | | | [place] [address] | + + + | Home Phone | | + + + | Preferred Language | Unknown | + + + | Marital Status | | + + + | Sikh Affiliation | CAT | + + + | Race | White | + + + | Ethnic Group | Not or | + + + Author + + + | Organization | Unknown | + + + | Address | Unknown | + + + | Phone | Unavailable | + + + Support + + +---------+ + | Name | Relationship | Address | Phone | + + +---------+ + | Jeronimo Ortega | ECON | Unknown | | + + +---------+ + Care Team Providers + +------+ + | Care Sorting Machine Operator Name | Role | Phone | + +------+ + PCP | Unavailable | + +------+ + Encounter Details +--------+ + + + + | Date | Type | Department | Care Team | Description | +--------+ + + + + | 08/19/ | Results | | Other, Faculty | | | 2000 | Only | | [phone] | | +--------+ + + + + [...] + + documented as of this encounter Plan of Treatment Not on filedocumented as of this encounter Procedures + +--------+ + + + | Procedure Name | Priori | Date/Time | Associated Diagnosis | Comments | | | ty | | | | + +--------+ + + + | BLOOD GASES, VENOUS | Urgent | 10/12/1999 | | Results for this | | - LAB | | 6:20 AM | | procedure are in the | | | | PDT | | results section. | + +--------+ + + + | CHEST, 1 VIEW, | Routin | 10/12/1999 | | Results for this | | PORTABLE | e | 5:21 AM | | procedure are in the | | | | PDT | | results section. | + +--------+ + + + | CALCIUM, IONIZED, | Routin | 10/11/1999 | | Results for this | | WHOLE BLOOD | e | 4:30 AM | | procedure are in the | | | | PDT | | results section. | + +--------+ + + + | BLOOD GASES, | Urgent | 10/11/1999 | | Results for this | | ARTERIAL - LAB | | 4:30 AM | | procedure are in the | | | | PDT | | results section. | + +--------+ + + + | COAG MASTER PANEL | Urgent | 10/10/1999 | | Results for this | | | | 12:00 PM | | procedure are in the | | | | PDT | | results section. | + +--------+ + + + | INR | Urgent | 10/10/1999 | | Results for this | | | | 12:00 PM | | procedure are in the | | | | PDT | | results section. | + +--------+ + + + | APTT (ACT. PART. | Urgent | 10/10/1999 | | Results for this | | THROMBO TIME) | | 12:00 PM | | procedure are in the | | | | PDT | | results section. | + +--------+ + + + | COAG MASTER PANEL | Urgent | 10/09/1999 | | Results for this | | | | 10:32 PM | | procedure are in the | | | | PDT | | results section. | + +--------+ + + + | COAGULOPATHY PANEL | Urgent | 10/09/1999 | | Results for this | | (INR,APTT,FIBRINOGEN | | 10:32 PM | | procedure are in the | | ) | | PDT | | results section. | + +--------+ + + + | BLOOD GASES, VENOUS | Urgent | 10/09/1999 | | Results for this | | - LAB | | 10:32 PM | | procedure are in the | | | | PDT | | results section. | + +--------+ + + + | CALCIUM, IONIZED, | Urgent | 10/09/1999 | | Results for this | | WHOLE BLOOD | | 6:46 PM | | procedure are in the | | | | PDT | | results section. | + +--------+ + + + | BLOOD GASES, VENOUS | Urgent | 10/09/1999 | | Results for this | | - LAB | | 6:46 PM | | procedure are in the | | | | PDT | | results section. | + +--------+ + + + | COAG MASTER PANEL | Urgent | 10/09/1999 | | Results for this | | | | 4:10 PM | | procedure are in the | | | | PDT | | results section. | + +--------+ + + + | COAGULOPATHY PANEL | Urgent | 10/09/1999 | | Results for this | | (INR,APTT,FIBRINOGEN | | 4:10 PM | | procedure are in the | | ) | | PDT | | results section. | + +--------+ + + + | MRI L-SPINE, 3 SEQ, | Routin | 08/20/1999 | | Results for this | | [facility] | e | 8:00 AM | | procedure are in the | | | | PDT | | results section. | + +--------+ + + + documented in this encounter Results BLOOD GASES, VENOUS (10/12/1999 6:20 AM PDT) + +-------+ + + + | Component | Value | Ref Range | Performed | Pathologist | | | | | At | Signature | + +-------+ + + + | PAT TEMP | 37.4 | Degree C | [facility] | | | VENOUS | | | DEPARTMENT | | | | | | OF | | | | | | PATHOLOGY | | + +-------+ + + + | FIO2 VENOUS | .25 | | [facility] | | | | | | DEPARTMENT | | | | | | OF | | | | | | PATHOLOGY | | + +-------+ + + + | PH VENOUS | 7.39 | 7.35 - 7.45 | [facility] | | | | | | DEPARTMENT | | | | | | OF | | | | | | PATHOLOGY | | + +-------+ + + + | PCO2 VENOUS | 43 | 35 - 50 mmHg | [facility] | | | | | | DEPARTMENT | | | | | | OF | | | | | | PATHOLOGY | | + +-------+ + + + | PO2 VENOUS | 40 | 30 - 55 mmHg | [facility] | | | | | | DEPARTMENT | | | | | | OF | | | | | | PATHOLOGY | | + +-------+ + + + | BASE EXCESS | 0.6 | | [facility] | | | VENOUS | | | DEPARTMENT | | | | | | OF | | | | | | PATHOLOGY | | + +-------+ + + + | HCO3 VENOUS | 25 | 22 - 28 mmol/L | [facility] | | | | | | DEPARTMENT | | | | | | OF | | | | | | PATHOLOGY | | + +-------+ + + + | TOTAL CO2 | 26 | 23 - 29 mmol/L | [facility] | | | VENOUS | | | DEPARTMENT | | | | | | OF | | | | | | PATHOLOGY | | + +-------+ + + + | O2 SAT, | 73.4 | % | [facility] | | | VENOUS | | | DEPARTMENT | | | | | | OF | | | | | | PATHOLOGY | | + +-------+ + + + + + | Specimen | + + | | + + + + + | Narrative | Performed At | + + + | Ordered by BRUCE BENITEZ Venous Blood Gas Blood Gas | [facility] | | results corrected for patient's temp when available | DEPARTMENT OF | | | PATHOLOGY | + + + + + + + + | Performing | Address | City/State/Zipcode | Phone Number | | Organization | | | | + + + + + | [facility] DEPARTMENT OF | [address] | [place] [address] | | | PATHOLOGY | [address] | | | + + + + + | [facility] | [address] | [place] [address] | | | PATHOLOGY | [address] | | | + + + + + CHEST, 1 VIEW, PORTABLE (10/12/1999 5:21 AM PDT) + + + + + + | Component | Value | Ref Range | Performed | Pathologist | | | | | At | Signature | + + + + + + | CHEST, 1 | Radiologist 1: JAMAL | | | | | Dina BINGHAM, | | | | | PORTABLE | M.D.-Radiologist 2: | | | | | | ANANT LI | | | | | | M.DBuddyPORTABLE CHEST: | | | | | | 10/12/1999 at 0500 | | | | | | Dictated 10/12/1999 | | | | | | COMPARISON: Comparison | | | | | | is made with prior | | | | | | study of 10/11/1999 | | | | | | [id number]. FINDINGS: | | | | | | Posterior | | | | | | thoracolumbar spine | | | | | | fusion hardware is noted | | | | | | andappears intact. | | | | | | There has been | | | | | | interval improvement in | | | | | | the bilateralpleural | | | | | | effusions with | | | | | | persistence of a minimal | | | | | | basilar | | | | | | leftatelectasis. The | | | | | | endotracheal tube, right | | | | | | internal jugular | | | | | | centralvenous catheter, | | | | | | and feeding tube are | | | | | | unchanged in position. | | | | | | IMPRESSION: Interval | | | | | | improvement in the | | | | | | bibasilar pleural | | | | | | effusions anddevelopment | | | | | | of minimal left basilar | | | | | | linear atelectasis. | | | | | | END OF IMPRESSION: | | | | + + + + + + + + | Specimen | + + | | + + + + + | Narrative | Performed At | + + + | Ordered by ONEL BE | | + + + + +---------+ + + | Performing | Address | City/State/Zipcode | Phone Number | | Organization | | | | + +---------+ + + | [facility] DEPARTMENT OF | | | | | RADIOLOGY | | | | + +---------+ + + CALCIUM, IONIZED, WHOLE BLOOD (10/11/1999 4:30 AM PDT) + + + + + + | Component | Value | Ref Range | Performed | Pathologist | | | | | At | Signature | + + + + + + | DUANE ICA, | 1.08 (L) | 1.14 - 1.32 | [facility] | | | WHOLE BLD | | mmol/L | DEPARTMENT | | | | | | OF | | | | | | PATHOLOGY | | + + + + + + | PH, WHOLE | 7.42 | | [facility] | | | BLOOD | | | DEPARTMENT | | | | | | OF | | | | | | PATHOLOGY | | + + + + + + | CALC ICA, | 1.10 (L) | 1.14 - 1.28 | [facility] | | | WHOLE BLD | | mmol/L | DEPARTMENT | | | | | | OF | | | | | | PATHOLOGY | | + + + + + + + + | Specimen | + + | | + + + + + | Narrative | Performed At | + + + | Ordered by OLGA MARTIN JR. Ionized Calcium, Whole Blood | [facility] | | | DEPARTMENT OF | | | PATHOLOGY | + + + + + + + + | Performing | Address | City/State/Zipcode | Phone Number | | Organization | | | | + + + + + | [facility] DEPARTMENT OF | [address] [place] [address] | [place] [address] | | | PATHOLOGY | [address] | | | + + + + + | [facility] DEPARTMENT OF | [address] [facility] | [place] [address] | | | PATHOLOGY | [address] | | | + + + + + BLOOD GASES, ARTERIAL (10/11/1999 4:30 AM PDT) + + + + + + | Component | Value | Ref Range | Performed | Pathologist | | | | | At | Signature | + + + + + + | PAT TEMP | 38.3 | Degree C | [facility] | | | ARTERIAL | | | DEPARTMENT | | | | | | OF | | | | | | PATHOLOGY | | + + + + + + | FIO2 | .25 | | [facility] | | | ARTERIAL | | | DEPARTMENT | | | | | | OF | | | | | | PATHOLOGY | | + + + + + + | PH ARTERIAL | 7.42 | 7.37 - 7.44 | [facility] | | | | | | DEPARTMENT | | | | | | OF | | | | | | PATHOLOGY | | + + + + + + | PCO2 | 32 | 32 - 43 mmHg | [facility] | | | ARTERIAL | | | DEPARTMENT | | | | | | OF | | | | | | PATHOLOGY | | + + + + + + | PO2 | 120 (H) | 72 - 104 mmHg | [facility] | | | ARTERIAL | | | DEPARTMENT | | | | | | OF | | | | | | PATHOLOGY | | + + + + + + | BASE EXCESS | -2.9 | | [facility] | | | ARTERIAL | | | DEPARTMENT | | | | | | OF | | | | | | PATHOLOGY | | + + + + + + | HCO3 | 20 (L) | 21 - 27 mmol/L | [facility] | | | ARTERIAL | | | DEPARTMENT | | | | | | OF | | | | | | PATHOLOGY | | + + + + + + | TOTAL CO2 | 21 (L) | 22 - 28 mmol/L | [facility] | | | ARTERIAL | | | DEPARTMENT | | | | | | OF | | | | | | PATHOLOGY | | + + + + + + | O2 SAT, | 99.1 (H) | 92.0 - 98.0 % | [facility] | | | ARTERIAL | | | DEPARTMENT | | | | | | OF | | | | | | PATHOLOGY | | + + + + + + + + | Specimen | + + | | + + + + + | Narrative | Performed At | + + + | Ordered by OLGA MARTIN JR. Arterial Blood Gas | [facility] | | Blood Gas results corrected for patient's temp when available | DEPARTMENT OF | | | PATHOLOGY | + + + + + + + + | Performing | Address | City/State/Zipcode | Phone Number | | Organization | | | | + + + + + | [facility] | [address] [facility] | [place] [address] | | | PATHOLOGY | [address] | | | + + + + + | [facility] | [address] [facility] | [place] [address] | | | PATHOLOGY | [address] | | | + + + + + PROTHROMBIN TIME (10/10/1999 12:00 PM PDT) + + + + + + | Component | Value | Ref Range | Performed | Pathologist | | | | | At | Signature | + + + + + + | INR | 1.16 (H)Comment: | 0.98 - 1.08 INR | [facility] | | | | PT INR Therapeutic | | DEPARTMENT | | | | ranges for full | | OF | | | | anticoagulation: | | PATHOLOGY | | | | INR for | | | | | | Venous Thromboembolism | | | | | | | | | | | | (2.0-3.0)INR | | | | | | INR for most | | | | | | patients with mech. | | | | | | valves (2.5-3.5)INR | | | | + + + + + + + + | Specimen | + + | | + + + + + | Narrative | Performed At | + + + | Ordered by BRUCE BENITEZ | [facility] | | | DEPARTMENT OF | | | PATHOLOGY | + + + + + + + + | Performing | Address | City/State/Zipcode | Phone Number | | Organization | | | | + + + + + | [facility] DEPARTMENT OF | [address] | [place] [address] | | | PATHOLOGY | [address] | | | + + + + + | [facility] DEPARTMENT OF | [address] | [place] [address] | | | PATHOLOGY | [address] | | | + + + + + APTT (ACT. PART. THROMBO TIME) (10/10/1999 12:00 PM PDT) + + + + + + | Component | Value | Ref Range | Performed | Pathologist | | | | | At | Signature | + + + + + + | APTT | 28.8Comment: | 27.0 - 35.0 | [facility] | | | | APTT Therapeutic Range | seconds | DEPARTMENT | | | | | | OF | | | | | | PATHOLOGY | | | | (70-110)sec | | | | | | Heparin levels | | | | | | of 0.35-0.7 U/mL | | | | + + + + + + + + | Specimen | + + | | + + + + + | Narrative | Performed At | + + + | Ordered by BRUCE BENITEZ | [facility] | | | DEPARTMENT OF | | | PATHOLOGY | + + + + + + + + | Performing | Address | City/State/Zipcode | Phone Number | | Organization | | | | + + + + + | [facility] DEPARTMENT OF | [facility] [facility] | [place] [address] | | | PATHOLOGY | [address] | | | + + + + + | [facility] DEPARTMENT OF | [address] [facility] | [place] [address] | | | PATHOLOGY | [address] | | | + + + + + COAG MASTER PANEL (10/10/1999 12:00 PM PDT) + + + + + + | Component | Value | Ref Range | Performed | Pathologist | | | | | At | Signature | + + + + + + | INR | 1.16 (H)Comment: | 0.98 - 1.08 INR | [facility] | | | | PT INR Therapeutic | | DEPARTMENT | | | | ranges for full | | OF | | | | anticoagulation: | | PATHOLOGY | | | | INR for | | | | | | Venous Thromboembolism | | | | | | | | | | | | (2.0-3.0)INR | | | | | | INR for most | | | | | | patients with mech. | | | | | | valves (2.5-3.5)INR | | | | + + + + + + | APTT | 28.8Comment: | 27.0 - 35.0 | [facility] | | | | APTT Therapeutic Range | seconds | DEPARTMENT | | | | | | OF | | | | | | PATHOLOGY | | | | (70-110)sec | | | | | | Heparin levels | | | | | | of 0.35-0.7 U/mL | | | | + + + + + + + + | Specimen | + + | | + + + + + | Narrative | Performed At | + + + | Ordered by BRUCE BENITEZ | [facility] | | | DEPARTMENT OF | | | PATHOLOGY | + + + + + + + + | Performing | Address | City/State/Zipcode | Phone Number | | Organization | | | | + + + + + | [facility] DEPARTMENT OF | [address] | [place] [address] | | | PATHOLOGY | [address] | | | + + + + + | [facility] DEPARTMENT OF | [address] | [place] [address] | | | PATHOLOGY | [address] | | | + + + + + COAGULOPATHY PANEL (10/09/1999 10:32 PM PDT) + + + + + + | Component | Value | Ref Range | Performed | Pathologist | | | | | At | Signature | + + + + + + | INR | 1.02Comment: | 0.98 - 1.08 INR | [facility] | | | | PT INR Therapeutic | | DEPARTMENT | | | | ranges for full | | OF | | | | anticoagulation: | | PATHOLOGY | | | | INR for | | | | | | Venous Thromboembolism | | | | | | | | | | | | (2.0-3.0)INR | | | | | | INR for most | | | | | | patients with mech. | | | | | | valves (2.5-3.5)INR | | | | + + + + + + | APTT | 20.3 (L)Comment: | 27.0 - 35.0 | [facility] | | | | APTT Therapeutic | seconds | DEPARTMENT | | | | Range | | OF | | | | | | PATHOLOGY | | | | (70-110)sec | | | | | | Heparin levels | | | | | | of 0.35-0.7 U/mL | | | | + + + + + + | FIBRINOGEN | 145 (L) | 180 - 380 mg/dL | [facility] | | | LEVEL | | | DEPARTMENT | | | | | | OF | | | | | | PATHOLOGY | | + + + + + + + + | Specimen | + + | | + + + + + | Narrative | Performed At | + + + | Ordered by BRUCE BENITEZ | [facility] | | | DEPARTMENT OF | | | PATHOLOGY | + + + + + + + + | Performing | Address | City/State/Zipcode | Phone Number | | Organization | | | | + + + + + | [facility] DEPARTMENT OF | [address] | [place] [address] | | | PATHOLOGY | [address] | | | + + + + + | [facility] DEPARTMENT OF | [address] | [place] [address] | | | PATHOLOGY | [address] | | | + + + + + [employer] MASTER PANEL (10/09/1999 10:32 PM PDT) + + + + + + | Component | Value | Ref Range | Performed | Pathologist | | | | | At | Signature | + + + + + + | INR | 1.02Comment: | 0.98 - 1.08 INR | [facility] | | | | PT INR Therapeutic | | DEPARTMENT | | | | ranges for full | | OF | | | | anticoagulation: | | PATHOLOGY | | | | INR for | | | | | | Venous Thromboembolism | | | | | | | | | | | | (2.0-3.0)INR | | | | | | INR for most | | | | | | patients with mech. | | | | | | valves (2.5-3.5)INR | | | | + + + + + + | APTT | 20.3 (L)Comment: | 27.0 - 35.0 | [facility] | | | | APTT Therapeutic | seconds | DEPARTMENT | | | | Range | | OF | | | | | | PATHOLOGY | | | | (70-110)sec | | | | | | Heparin levels | | | | | | of 0.35-0.7 U/mL | | | | + + + + + + | FIBRINOGEN | 145 (L) | 180 - 380 mg/dL | [facility] | | | LEVEL | | | DEPARTMENT | | | | | | OF | | | | | | PATHOLOGY | | + + + + + + + + | Specimen | + + | | + + + + + | Narrative | Performed At | + + + | Ordered by BRUCE BENITEZ | [facility] | | | DEPARTMENT OF | | | PATHOLOGY | + + + + + + + + | Performing | Address | City/State/Zipcode | Phone Number | | Organization | | | | + + + + + | [facility] DEPARTMENT OF | [facility] | [place] [address] | | | PATHOLOGY | [address] | | | + + + + + | [facility] DEPARTMENT OF | [facility] | [place] [address] | | | PATHOLOGY | [address] | | | + + + + + BLOOD GASES, VENOUS (10/09/1999 10:32 PM PDT) + + + + + + | Component | Value | Ref Range | Performed | Pathologist | | | | | At | Signature | + + + + + + | PAT TEMP | See cmnt | Degree C | [facility] | | | VENOUS | | | DEPARTMENT | | | | | | OF | | | | | | PATHOLOGY | | + + + + + + | FIO2 VENOUS | See cmnt | | [facility] | | | | | | DEPARTMENT | | | | | | OF | | | | | | PATHOLOGY | | + + + + + + | PH VENOUS | See cmnt | 7.35 - 7.45 | [facility] | | | | | | DEPARTMENT | | | | | | OF | | | | | | PATHOLOGY | | + + + + + + | PCO2 VENOUS | See cmnt | 35 - 50 mmHg | [facility] | | | | | | DEPARTMENT | | | | | | OF | | | | | | PATHOLOGY | | + + + + + + | PO2 VENOUS | See cmnt | 30 - 55 mmHg | [facility] | | | | | | DEPARTMENT | | | | | | OF | | | | | | PATHOLOGY | | + + + + + + | BASE EXCESS | See cmnt | | [facility] | | | VENOUS | | | DEPARTMENT | | | | | | OF | | | | | | PATHOLOGY | | + + + + + + | HCO3 VENOUS | See cmnt | 22 - 28 mmol/L | [facility] | | | | | | DEPARTMENT | | | | | | OF | | | | | | PATHOLOGY | | + + + + + + | TOTAL CO2 | See cmnt | 23 - 29 mmol/L | [facility] | | | VENOUS | | | DEPARTMENT | | | | | | OF | | | | | | PATHOLOGY | | + + + + + + | O2 SAT, | See cmnt | % | [facility] | | | VENOUS | | | DEPARTMENT | | | | | | OF | | | | | | PATHOLOGY | | + + + + + + + + | Specimen | + + | | + + + + + | Narrative | Performed At | + + + | Ordered by BRUCE BENITEZ Venous Blood Gas Blood Gas | [facility] | | results corrected for patient's temp when available CLOTTED | DEPARTMENT OF | | *Corrected* 10/09/99 22:41 PATIENT TEMP.,VENOUS: 36.5 >> | PATHOLOGY | | see cmnt *Corrected* 10/09/99 22:41 FIO2,VENOUS: .30 >> | | | see cmnt | | + + + + + + + + | Performing | Address | City/State/Zipcode | Phone Number | | Organization | | | | + + + + + | [facility] DEPARTMENT OF | [address] | [place] [address] | | | PATHOLOGY | [address] | | | + + + + + | [facility] DEPARTMENT OF | [address] | [place] [address] | | | PATHOLOGY | [address] | | | + + + + + BLOOD GASES, VENOUS (10/09/1999 6:46 PM PDT) + + + + + + | Component | Value | Ref Range | Performed | Pathologist | | | | | At | Signature | + + + + + + | PAT TEMP | 35.6 | Degree C | [facility] | | | VENOUS | | | DEPARTMENT | | | | | | OF | | | | | | PATHOLOGY | | + + + + + + | FIO2 VENOUS | .30 | | [facility] | | | | | | DEPARTMENT | | | | | | OF | | | | | | PATHOLOGY | | + + + + + + | PH VENOUS | 7.26 (L) | 7.35 - 7.45 | [facility] | | | | | | DEPARTMENT | | | | | | OF | | | | | | PATHOLOGY | | + + + + + + | PCO2 VENOUS | 39 | 35 - 50 mmHg | [facility] | | | | | | DEPARTMENT | | | | | | OF | | | | | | PATHOLOGY | | + + + + + + | PO2 VENOUS | 33 | 30 - 55 mmHg | [facility] | | | | | | DEPARTMENT | | | | | | OF | | | | | | PATHOLOGY | | + + + + + + | BASE EXCESS | -8.9 | | [facility] | | | VENOUS | | | DEPARTMENT | | | | | | OF | | | | | | PATHOLOGY | | + + + + + + | HCO3 VENOUS | 18 (L) | 22 - 28 mmol/L | [facility] | | | | | | DEPARTMENT | | | | | | OF | | | | | | PATHOLOGY | | + + + + + + | TOTAL CO2 | 19 (L) | 23 - 29 mmol/L | [facility] | | | VENOUS | | | DEPARTMENT | | | | | | OF | | | | | | PATHOLOGY | | + + + + + + | O2 SAT, | 67.5 | % | [facility] | | | VENOUS | | | DEPARTMENT | | | | | | OF | | | | | | PATHOLOGY | | + + + + + + + + | Specimen | + + | | + + + + + | Narrative | Performed At | + + + | Ordered by BRUCE BENITEZ Venous Blood Gas Blood Gas | [facility] | | results corrected for patient's temp when available | DEPARTMENT OF | | | PATHOLOGY | + + + + + + + + | Performing | Address | City/State/Zipcode | Phone Number | | Organization | | | | + + + + + | [facility] DEPARTMENT OF | [address] [facility] | [place] [address] | | | PATHOLOGY | [address] | | | + + + + + | [facility] OF | [address] [facility] | [place] [address] | | | PATHOLOGY | [address] | | | + + + + + CALCIUM, IONIZED, WHOLE BLOOD (10/09/1999 6:46 PM PDT) + + + + + + | Component | Value | Ref Range | Performed | Pathologist | | | | | At | Signature | + + + + + + | DUANE ICA, | 1.10 (L) | 1.14 - 1.32 | [facility] | | | WHOLE BLD | | mmol/L | DEPARTMENT | | | | | | OF | | | | | | PATHOLOGY | | + + + + + + | PH, WHOLE | 7.26 | | [facility] | | | BLOOD | | | DEPARTMENT | | | | | | OF | | | | | | PATHOLOGY | | + + + + + + | CALC ICA, | 1.00 (L) | 1.14 - 1.28 | [facility] | | | WHOLE BLD | | mmol/L | DEPARTMENT | | | | | | OF | | | | | | PATHOLOGY | | + + + + + + + + | Specimen | + + | | + + + + + | Narrative | Performed At | + + + | Ordered by BRUCE BEINTEZ Ionized Calcium, Whole Blood | [facility] | | | DEPARTMENT OF | | | PATHOLOGY | + + + + + + + + | Performing | Address | City/State/Zipcode | Phone Number | | Organization | | | | + + + + + | [facility] DEPARTMENT OF | [address] | [place] [address] | | | PATHOLOGY | [address] | | | + + + + + | [facility] DEPARTMENT OF | [address] [facility] | [place] [address] | | | PATHOLOGY | [address] | | | + + + + + COAGULOPATHY PANEL (10/09/1999 4:10 PM PDT) + + + + + + | Component | Value | Ref Range | Performed | Pathologist | | | | | At | Signature | + + + + + + | INR | 1.30 (H)Comment: | 0.98 - 1.08 INR | [facility] | | | | PT INR Therapeutic | | DEPARTMENT | | | | ranges for full | | OF | | | | anticoagulation: | | PATHOLOGY | | | | INR for | | | | | | Venous Thromboembolism | | | | | | | | | | | | (2.0-3.0)INR | | | | | | INR for most | | | | | | patients with mech. | | | | | | valves (2.5-3.5)INR | | | | + + + + + + | APTT | 27.2Comment: | 27.0 - 35.0 | [facility] | | | | APTT Therapeutic Range | seconds | DEPARTMENT | | | | | | OF | | | | | | PATHOLOGY | | | | (70-110)sec | | | | | | Heparin levels | | | | | | of 0.35-0.7 U/mL | | | | + + + + + + | FIBRINOGEN | 117 (*) | 180 - 380 mg/dL | [facility] | | | LEVEL | | | DEPARTMENT | | | | | | OF | | | | | | PATHOLOGY | | + + + + + + + + | Specimen | + + | | + + + + + | Narrative | Performed At | + + + | Ordered by BRUCE ELI [id number] fib Phoned | [facility] | | | DEPARTMENT OF | | | PATHOLOGY | + + + + + + + + | Performing | Address | City/State/Zipcode | Phone Number | | Organization | | | | + + + + + | [facility] DEPARTMENT OF | [address] | [place] [address] | | | PATHOLOGY | [address] | | | + + + + + | [facility] DEPARTMENT OF | [address] | [place] [address] | | | PATHOLOGY | [address] | | | + + + + + COAG MASTER PANEL (10/09/1999 4:10 PM PDT) + + + + + + | Component | Value | Ref Range | Performed | Pathologist | | | | | At | Signature | + + + + + + | INR | 1.30 (H)Comment: | 0.98 - 1.08 INR | [facility] | | | | PT INR Therapeutic | | DEPARTMENT | | | | ranges for full | | OF | | | | anticoagulation: | | PATHOLOGY | | | | INR for | | | | | | Venous Thromboembolism | | | | | | | | | | | | (2.0-3.0)INR | | | | | | INR for most | | | | | | patients with mech. | | | | | | valves (2.5-3.5)INR | | | | + + + + + + | APTT | 27.2Comment: | 27.0 - 35.0 | [facility] | | | | APTT Therapeutic Range | seconds | DEPARTMENT | | | | | | OF | | | | | | PATHOLOGY | | | | (70-110)sec | | | | | | Heparin levels | | | | | | of 0.35-0.7 U/mL | | | | + + + + + + | FIBRINOGEN | 117 (*) | 180 - 380 mg/dL | [facility] | | | LEVEL | | | DEPARTMENT | | | | | | OF | | | | | | PATHOLOGY | | + + + + + + + + | Specimen | + + | | + + + + + | Narrative | Performed At | + + + | Ordered by BRUCE BENITEZ [id number] fib Phoned | [facility] | | | DEPARTMENT OF | | | PATHOLOGY | + + + + + + + + | Performing | Address | City/State/Zipcode | Phone Number | | Organization | | | | + + + + + | [facility] DEPARTMENT OF | [address] [facility] | [place] [address] | | | PATHOLOGY | [address] | | | + + + + + | [facility] DEPARTMENT OF | [address] [facility] | [place] [address] | | | PATHOLOGY | [address] | | | + + + + + MRI L-SPINE, 3 SEQ, (08/20/1999 8:00 AM PDT) + + + + + + | Component | Value | Ref Range | Performed | Pathologist | | | | | At | Signature | + + + + + + | MRI | Radiologist 1: ETHAN, | | | | | L-SPINE, 3 | MELANIE Sifuentes, | | | | | KANE, | M.D.-Radiologist 2: [facility] | | | | | | [facility] HUFFLUMBAR SPINE | | | | | | MAGNETIC RESONANCE | | | | | | IMAGIN08/20/1999 | | | | | | Dictated 08/21/1999 | | | | | | CLINICAL HISTORY: | | | | | | "Rule out compression | | | | | | or radiculopathy." | | | | | | Thepatient with mid | | | | | | and lower back pain, and | | | | | | bilateral thigh pain | | | | | | andweakness. Past | | | | | | medical history includes | | | | | | treated breast cancer | | | | | | andspinal cord injury in | | | | | | 1963. COMPARISON: | | | | | | Correlation was made | | | | | | with computerized | | | | | | tomographymyelogram of | | | | | | the thoracic and lumbar | | | | | | spine (08/02/1999). | | | | | | TECHNIQUE: Noncontrast | | | | | | sagittal and axial T1 | | | | | | and fast spin echo | | | | | | [id number] sequences were | | | | | | applied. FINDINGS: As | | | | | | observed on prior study, | | | | | | there is a | | | | | | wedge-shapedcompression | | | | | | fracture of the L1 | | | | | | vertebral body without | | | | | | significantincreased T2 | | | | | | signal. The L1 | | | | | | vertebral displaying 70% | | | | | | loss of anteriorheight | | | | | | and approximately 25% | | | | | | loss of posterior | | | | | | height. | | | | | | Minimaldisplacement of | | | | | | the L1 posterior | | | | | | vertebral body wall into | | | | | | the centralspinal canal | | | | | | is noted, though this | | | | | | does not result in | | | | | | significantcentral | | | | | | spinal canal stenosis. | | | | | | The lumbar spine | | | | | | curvature andalignment | | | | | | remain within normal | | | | | | limits. The bone | | | | | | marrow signal | | | | | | isdiffusely | | | | | | heterogeneous, though | | | | | | within normal limits for | | | | | | the patient'dorothy. The | | | | | | conus medullaris ends | | | | | | at the T12-L1 level. | | | | | | No abnormalintrathecal | | | | | | or epidural mass is | | | | | | identified on the | | | | | | non-enhanced study. The | | | | | | patient is status post | | | | | | laminectomy and | | | | | | posterior fusion from | | | | | | theT12 level to the L2 | | | | | | level. There is no | | | | | | significant disc bulge | | | | | | orspinal stenosis at the | | | | | | L1-2 and L2-3 levels. | | | | | | At the L3-4 level, there | | | | | | is a mild broad-based | | | | | | right posterolateraldisc | | | | | | bulge, which does not | | | | | | result in significant | | | | | | spinal stenosis. As on | | | | | | prior study, bilateral | | | | | | facet degenerative | | | | | | changes are present | | | | | | atthe L4-5 and L5-S1 | | | | | | levels without | | | | | | significant central | | | | | | spinal canalcompromise | | | | | | of neural foraminal | | | | | | stenosis. No definite | | | | | | neural foraminalstenosis | | | | | | is identified from the | | | | | | L1-2 level to the L5-S1 | | | | | | level. IMPRESSION: 1. | | | | | | Previous L1 vertebral | | | | | | body compression | | | | | | fracture, | | | | | | withoutsignificant | | | | | | narrowing of the central | | | | | | spinal canal. 2. No | | | | | | significant neural | | | | | | foraminal stenosis or | | | | | | central spinal | | | | | | canalnarrowing in the | | | | | | lumbar spine. Mild | | | | | | degenerative changes are | | | | | | noted atthe lower | | | | | | lumbar spine. 3. | | | | | | Status post | | | | | | laminectomy and | | | | | | posterior fusion from | | | | | | the T12 level toL2 | | | | | | level. END OF | | | | | | IMPRESSION: | | | | + + + + + + + + | Specimen | + + | | + + + + + | Narrative | Performed At | + + + | Ordered by ROBB MONACO M.D. | | + + + + +---------+ + + | Performing | Address | City/State/Zipcode | Phone Number | | Organization | | | | + +---------+ + + | [facility] DEPARTMENT OF | | | | | RADIOLOGY | | | | + +---------+ + + documented in this encounter Visit Diagnoses Not on filedocumented in this encounter
--- OUTSIDE RECORDS SUMMARY | ~2019-03-30 | XMS | Encounter Summary ---
Demographics + + + | Address | [address] | | | [place] [address] | + + + | Home Phone | | + + + | Preferred Language | Unknown | + + + | Marital Status | | + + + | Pentecostal Affiliation | CAT | + + + | Race | White | + + + | Ethnic Group | Not or | + + + Author + + + | Author | [facility] | + + + | Organization | [facility] | + + + | Address | Unknown | + + + | Phone | Unavailable | + + + Support + + +---------+ + | Name | Relationship | Address | Phone | + + +---------+ + | Jeronimo Ortega | ECON | Unknown | | + + +---------+ + Care Team Providers + +------+ + | Care Keypunch Operator Name | Role | Phone | + +------+ + PCP | Unavailable | + +------+ + Encounter Details +--------+ + + + + | Date | Type | Department | Care Team | Description | +--------+ + + + + | 02/18/ | Results | Orthopaedics at | Marc Granados MD | | | 2003 | Only | [facility] [address] | [address] | | | | | [address] | [place], | | | | | Mailcode: PV430 | [place] [address] | | | | | [facility] | | | | | | [place], [place] | | | | | | [address] | | | | | | [phone] | | | +--------+ + + + [...] | + +--------+ + + + | X-RAY KNEE 3 VIEWS | Routin | 02/19/2004 | | Results for this | | LEFT | e | 1:37 PM | | procedure are in the | | | | PDT | | results section. | + +--------+ + + + documented in this encounter Results KNEE 3 VIEWS LEFT (02/19/2004 1:37 PM PDT) + + + + + + | Component | Value | Ref Range | Performed | Pathologist | | | | | At | Signature | + + + + + + | KNEE 3 | Radiologist 1: STEFANIE, | | | | | VIEWS LEFT | Williams NEGROLEFT KNEE - | | | | | | THREE VIEWS INCLUDING | | | | | | PATELLAR VIEWS: | | | | | | 02/19/2004 Dictated | | | | | | 02/19/2004 FINDINGS: | | | | | | There is moderate | | | | | | narrowing of the medial, | | | | | | lateral, | | | | | | andpatellofemoral | | | | | | compartments. Spurring | | | | | | is present on the | | | | | | tibial spineand the | | | | | | patella. No definite | | | | | | joint effusion is seen. | | | | | | Mild spurring is seen on | | | | | | the medial and lateral | | | | | | margins of the | | | | | | rightpatella on the | | | | | | patellar views. | | | | | | IMPRESSION: 1. | | | | | | Moderately severe | | | | | | arthropathy involving | | | | | | all three compartments | | | | | | ofthe left knee. This | | | | | | has the appearance of | | | | | | degenerative joint | | | | | | disease. 2. Mild right | | | | | | patellofemoral | | | | | | degenerative change on | | | | | | the patellarview. | | | | | | END OF IMPRESSION: | | | | + + + + + + + + | Specimen | + + | | + + + +---------+ + + | Performing | Address | City/State/Zipcode | Phone Number | | Organization | | | | + +---------+ + + | [facility] DEPARTMENT OF | | | | | RADIOLOGY | | | | + +---------+ + + documented in this encounter Visit Diagnoses Not on filedocumented in this encounter"
--- OUTSIDE RECORDS SUMMARY | ~2019-03-30 | XMS | Encounter Summary ---
Demographics + + + | Address | [address] | | | [place] [address] | + + + | Home Phone | | + + + | Preferred Language | Unknown | + + + | Marital Status | | + + + | Cheondoism Affiliation | 1041 | + + + | Race | Unknown | + + + | Ethnic Group | Unknown | + + + Author + + + | Author | [facility] | | | and [place] | + + + | Organization | [facility] | | | and [place] | + + + | Address | Unknown | + + + | Phone | Unavailable | + + + Support + + +---------+ + | Name | Relationship | Address | Phone | + + +---------+ + | Jeronimo Ortega | ECON | Unknown | | + + +---------+ + Care Team Providers + +------+ + | Care Apprentice Jockey Name | Role | Phone | + +------+ + PCP | Unavailable | + +------+ + Encounter Details +--------+ + + + + | Date | Type | Department | Care Team | Description | +--------+ + + + + | 04/06/ | Hospital | [facility] | | | | 1991 - | Encounter | [facility] | | | | | | [facility] [address] | | | | 05/15/ | | [place] | | | | 1991 | | [address] | | | | | | [phone] | | | +--------+ + + + [...] Not on filedocumented as of this encounter Visit Diagnoses Not on filedocumented in this encounter"
--- OUTSIDE RECORDS SUMMARY | ~2019-03-30 | XMS | Encounter Summary ---
Demographics + + + | Address | [address] | | | [place] [address] | + + + | Home Phone | | + + + | Preferred Language | Unknown | + + + | Marital Status | | + + + | Alevism Affiliation | CAT | + + + | Race | White | + + + | Ethnic Group | Not or | + + + Author + + + | Author | [facility] | + + + | Organization | [facility] | + + + | Address | Unknown | + + + | Phone | Unavailable | + + + Support + + +---------+ + | Name | Relationship | Address | Phone | + + +---------+ + | Jeronimo Ortega | ECON | Unknown | | + + +---------+ + Care Team Providers + +------+ + | Care Learning Developer Name | Role | Phone | + +------+ + PCP | Unavailable | + +------+ + Encounter Details +--------+ + + + + | Date | Type | Department | Care Team | Description | +--------+ + + + + | 11/02/ | Procedure - | [facility] | Record, Operation | Operative Report | | 1997 | | [place] [address] [address] | | | | | Transcribed | [address] | | | | | | Mailcode: [place] | | | | | | [facility] | | | | | | [facility]aling, [address] | | | | | | [place], [place] | | | | | | [address] | | | | | | [phone] | | | +--------+ + + + [...] | + +--------+ + + + | OPERATION RECORD | | 11/02/1997 | | Results for this | | | | 12:00 AM | | procedure are in the | | | | PDT | | results section. | + +--------+ + + + documented in this encounter Results OPERATION RECORD (11/02/1997 12:00 AM PDT) + + | Procedure Note | + + | 11/02/1997 12:00 AM [facility] | | [facility] | | [address] [place] [id number] | | [facility] | | | | OPERATION RECORD | | | | Med Rec No.: [id number] Date: 11/02/97 | | | | Name: Lindsey Ortega | | | | | | ATTENDING SURGEON: | | Marc Granados M.D. | | Professor, Department of | | Orthopaedics and Rehabilitation | | CRM DEVELOPER(S): | | Sathya Ramirez M.D. | | Resident, Orthopedics | | PREOPERATIVE DIAGNOSIS: Degenerative arthritis, right hip. | | | | POSTOPERATIVE DIAGNOSIS(ES): Degenerative arthritis, right hip. | | | | OPERATION(S) PERFORMED: Total hip arthroplasty, right. | | | | SPECIMEN(S) REMOVED: None. | | | | ANESTHESIA: General endotracheal anesthesia. | | | | INDICATIONS: Lindsey is a 59-year-old female who is | | status post a left total hip arthroplasty | | and has developed [id number] | | medial joint space narrowing on the right side over the last year. She is | | quite incapacitated by this pain and has been indicated for total hip | | arthroplasty. | | | | PROCEDURE: The patient was placed supine on the | | operating table where a general anesthetic | | was given. She was then placed in a | | lateral decubitus position with the [facility] patient positioner, holding her | | pelvis rigidly in place. An axillary roll was placed under her left axilla | | and all of her bony prominences were padded. The right hip was prepped and | | draped in the usual sterile fashion. A posterior Isa Langenbeck approach | | was taken to the hip, down to the capsule. The sciatic nerve was palpated | | and was retracted out of the way by tagging the insertion of the piriformis | | tendon and retracting this posteriorly. The capsule was then exposed and a | | T-type incision was made into the capsule, with the base of the T being at | | the neck of the femur. The hip was then dislocated. The head of the femur | | was then reflected approximately 1-1/2 fingerbreadths above the lesser | | trochanter. This was done using a template cutting guide. A small cut was | | made in the anterior capsule and a cobra was placed through this in order to | | retract the proximal femur anteriorly. A second cobra was placed just below | | the transverse acetabular ligament to expose the acetabulum. The capsule | | was debrided from the rim of the acetabulum. The acetabulum was then reamed | | successively up from a 53 mm reamer up to a 57. This exposed good punctate | | bleeding just below the subchondral bone in the acetabulum. Approximately | | 30 degrees of anteversion and about 60 degrees of hooding was placed into | | the reaming and also into the cup when this was placed. The spiked porous | | coated up was used to place into the acetabulum. A trial liner was placed | | and then attention was turned | | to the femur. | | | | The [employer] wheel shop supervisor was used to make the starting hole, followed by the | | canal seeker. Care was taken to stay as lateral as possible in order to | | prevent placing them stem into the varus position. The motorized reamers | | were then used to ream up to a 13 mm diameter reamer, and this was followed | | by broaching. An 18.5 fully porous coated end-grooved stem was inserted | | with just a slight amount of anteversion to the stem itself, though there is | | 15 degrees of built-in anteversion as well. The trial head and neck were | | placed and the hip was reduced and placed to full range of motion. | | | | At this point, it was noted that there was no external rotation, either in | | full extension or in flexion. Dissection was then taken anteriorly just | | below the insertion of the gluteus medius along the anterior femoral neck to | | expose the anterior joint capsule. Bovie was then used to cut through the | | joint capsule and release this completely anteriorly in order to provide | | more external rotation range of motion. There was a strong cord within the | | undersurface of the gluteus medius and this was also cut with the Bovie. | | The iliopsoas tendon was palpated and this was left intact, inserting into | | the lesser trochanter. This gave more adequate external rotation with about | | 10 degrees of external rotation in full extension and about 40 degrees of | | external rotation with the hip flexed at 90 degrees. She was able to | | internally rotate to about 70 degrees before she attempted to dislocate | | posteriorly, and this was with a neutral liner in the acetabular cup. There | | was no impingement anteriorly. A rim of bone was removed with an osteotome | | posteriorly to prevent impingement and anterior dislocation. | | | | The hip was then dislocated and the polyethylene liner and 28 mm + 5 head | | were placed and the hip was then relocated and placed through a full range | | of motion with the same exact results as above noted. The wound was then | | thoroughly irrigated. The piriformis tendon was reapproximated. A large | | Hemovac drain was placed. The wound was then closed in layers using #1 | | Vicryl for the iliotibial band and deep fascia of the gluteus followed by | | 2-0 Vicryl for subcutaneous and miranda for skin. Sterile dressing was | | applied and an abductor pillow was applied. The patient was then awakened | | and sent to Recovery in stable condition. He appeared to tolerate the | | procedure well. There were no complications evident at the time of surgery. | | Postoperative plan: The patient will be touch-down weight-bearing on that | | side postoperatively for approximately 6-8 weeks. She will receive 24 hours | | of intravenous antibiotics and physical therapy for instruction on total hip | | arthroplasty protocol. | | | | | | | | | | Sathya Ramirez M.D. | | Resident, Orthopedics | | Marc Granados M.D. | | Professor, Department of | | Orthopaedics and Rehabilitation | | DE/lv | | | | P | | | | cc: | | | + + documented in this encounter Visit Diagnoses Not on filedocumented in this encounter"
--- OUTSIDE RECORDS SUMMARY | ~2019-03-30 | XMS | Encounter Summary ---
Demographics + + + | Address | [address] | | | [place] [address] | + + + | Home Phone | | + + + | Preferred Language | Unknown | + + + | Marital Status | | + + + | Sikhism Affiliation | CAT | + + + [...] Team Providers + +------+ + | Care Manager Hotel Name | Role | Phone | + +------+ + PCP | Unavailable | + +------+ + Encounter Details +--------+ + + + + | Date | Type | Department | Care Team | Description | +--------+ + + + + | 10/06/ | H&P-Transcr | | Physical, History | Hstry & Physical | | 2000 | ibed | | & | | +--------+ + + + + [...]
--- OUTSIDE RECORDS SUMMARY | ~2019-03-30 | XMS | Encounter Summary ---
Demographics + + + | Address | [address] | | | [place] [address] | + + + | Home Phone | | + + + | Preferred Language | Unknown | + + + | Marital Status | | + + + | Methodist Affiliation | CAT | + + + [...] Team Providers + +------+ + | Care Pole Cutter Name | Role | Phone | + +------+ + PCP | Unavailable | + +------+ + Encounter Details +--------+ + + + + | Date | Type | Department | Care Team | Description | +--------+ + + + + | 08/14/ | Results | | Other, Faculty | | | 1999 | Only | | [phone] | | +--------+ + + + + [...] | + +--------+ + + + | KQC-[id number]-GXTO,SER | Routin | 08/15/1999 | | Results for this | | [facility] | e | 1:42 PM | | procedure are in the | | | | PST | | results section. | + +--------+ + + + | HOMOCYSTEINE TOTAL, | Routin | 08/15/1999 | | Results for this | | PLASMA | e | 1:42 PM | | procedure are in the | | | | PST | | results section. | + +--------+ + + + | SEDIMENTATION RATE | Routin | 08/15/1999 | | Results for this | | | e | 1:42 PM | | procedure are in the | | | | PST | | results section. | + +--------+ + + + | TSH | Routin | 08/15/1999 | | Results for this | | | e | 1:42 PM | | procedure are in the | | | | PST | | results section. | + +--------+ + + + | PROTEIN | Routin | 08/15/1999 | | Results for this | | ELECTROPHORESIS, | e | 1:42 PM | | procedure are in the | | URINE, WITH REFLEX | | PST | | results section. | | TO IMMUNOFIXATION | | | | | + +--------+ + + + | PROTEIN | Routin | 08/15/1999 | | Results for this | | ELECTROPHORESIS, | e | 1:42 PM | | procedure are in the | | SERUM, WITH REFLEX | | PST | | results section. | | TO IMMUNOFIXATION | | | | | + +--------+ + + + documented in this encounter Results PROTEIN ELECTROPHORESIS, URINE, WITH REFLEX TO IMMUNOFIXATION (08/15/1999 1:42 PM PST) + +--------+ + + + | Component | Value | Ref Range | Performed | Pathologist | | | | | At | Signature | + +--------+ + + + | REF URINE | RANDOM | hrs | | | | TIME | | | | | + +--------+ + + + | REF URINE | Spot | mL | | | | VOLUME | | | | | + +--------+ + + + | UR PROT | 14 | mg/dL | | | | CONC-UPEP | | | | | + +--------+ + + + + + | Specimen | + + | | + + + + + | Narrative | Performed At | + + + | Ordered by HAI BURT Protein Electrophoresis, Urine | | | Protein concentration <30, Test not indicated. | | + + + + + + + + | Performing | Address | City/State/Zipcode | Phone Number | | Organization | | | | + + + + + | [facility] | [address] | [place] [address] | | | LABORATORY | | | | + + + + + TSH-THYROID STIM HORMONE (08/15/1999 1:42 PM PST) + +-------+ + + + | Component | Value | Ref Range | Performed | Pathologist | | | | | At | Signature | + +-------+ + + + | TSH | 1.40 | 0.23 - 4.00 | | | | | | uIU/ml | | | + +-------+ + + + + + | Specimen | + + | | + + + + + | Narrative | Performed At | + + + | Ordered sis BURT | | + + + + + + + + | Performing | Address | City/State/Zipcode | Phone Number | | Organization | | | | + + + + + | [facility] | [address] | [place] [address] | | | LABORATORY | | | | + + + + + HOMOCYSTEINE, PLASMA, TOTAL (08/15/1999 1:42 PM PST) + + + + + + | Component | Value | Ref Range | Performed | Pathologist | | | | | At | Signature | + + + + + + | HOMOCYSTEIN | 9.6Comment: Plasma | 4.0 - 10.0 | | | | E,PLASMA,TO | total homocysteine | umol/L | | | | YAIMA | (tHcy) is a graded risk | | | | | | factor forcardiovasc- | | | | | | ular disease. The risk | | | | | | increases progressively | | | | | | with homocysteineconcen- | | | | | | tration. Maintenance of | | | | | | homocysteine levels | | | | | | below 10 umol/L | | | | | | isrecommended plasma is | | | | | | not properly | | | | | | from the cells at the | | | | | | time ofcollection. This | | | | | | test is performed | | | | | | pursuant to a licensing | | | | | | agreement | | | | | | withCompetitive | | | | | | [employer], [employer]. | | | | + + + + + + + + | Specimen | + + | | + + + + + | Narrative | Performed At | + + + | Ordered by HAI MAY | | + + + + + + + + | Performing | Address | City/State/Zipcode | Phone Number | | Organization | | | | + + + + + | [facility] | [address] | [place], [place] | | | [facility] | | [address] | | + + + + + IMC-[id number],SERUM (08/15/1999 1:42 PM PST) + +-------+ + + + | Component | Value | Ref Range | Performed | Pathologist | | | | | At | Signature | + +-------+ + + + | TOTAL | 6.9 | 6.4 - 8.0 g/dL | | | | PROTEIN, | | | | | | SERUM - | | | | | | SPEP | | | | | + +-------+ + + + + + | Specimen | + + | | + + + + + | Narrative | Performed At | + + + | Ordered by HAI BURT Protein Electrophoresis, Serum | | + + + + + + + + | Performing | Address | City/State/Zipcode | Phone Number | | Organization | | | | + + + + + | [facility] | [address] | [place] [address] | | | LABORATORY | | | | + + + + + SERUM PROTEIN ELEC (08/15/1999 1:42 PM PST) + + + + + + | Component | Value | Ref Range | Performed | Pathologist | | | | | At | Signature | + + + + + + | ALBUMIN,SER | 3.7 | 3.5 - 5.0 g/dL | | | | UM - SPEP | | | | | + + + + + + | ALPHA-1, | 0.3 | 0.2 - 0.4 g/dL | | | | SERUM - | | | | | | SPEP | | | | | + + + + + + | ALPHA-2, | 0.8 | 0.5 - 0.9 g/dL | | | | SERUM - | | | | | | SPEP | | | | | + + + + + + | BETA, SERUM | 1.1 | 0.7 - 1.3 g/dL | | | | - SPEP | | | | | + + + + + + | GAMMA, | 1.0 | 0.7 - 1.6 g/dL | | | | SERUM - | | | | | | SPEP | | | | | + + + + + + | SPEP | Normal scan. | | | | | COMMENTS | | | | | + + + + + + + + | Specimen | + + | | + + + + + | Narrative | Performed At | + + + | Ordered sis BURT Protein Electrophoresis, Serum | | + + + + + + + + | Performing | Address | City/State/Zipcode | Phone Number | | Organization | | | | + + + + + | [facility] | [address] | [place] [address] | | | LABORATORY | | | | + + + + + SEDIMENTATION RATE (08/15/1999 1:42 PM PST) + +-------+ + + + | Component | Value | Ref Range | Performed | Pathologist | | | | | At | Signature | + +-------+ + + + | SEDIMENTATI | 25 | mm/hr | [facility] | | | ON RATE | | | DEPARTMENT | | | | | | OF | | | | | | PATHOLOGY | | + +-------+ + + + + + | Specimen | + + | | + + + + + | Narrative | Performed At | + + + | Ordered by HAI BURT | [facility] | | | DEPARTMENT OF | | | PATHOLOGY | + + + + + + + + | Performing | Address | City/State/Zipcode | Phone Number | | Organization | | | | + + + + + | [facility] DEPARTMENT [facility] | [address] | [place] [address] | | | PATHOLOGY | [address] | | | + + + + + | [facility] DEPARTMENT OF | [address] | [place] [address] | | | PATHOLOGY | [address] | | | + + + + + documented in this encounter Visit Diagnoses Not on filedocumented in this encounter"
--- OUTSIDE RECORDS SUMMARY | ~2019-03-30 | XMS | Encounter Summary ---
Demographics + + + | Address | [address] | | | [place] [address] | + + + | Home Phone | | + + + | Preferred Language | Unknown | + + + | Marital Status | | + + + | Adventism Affiliation | CAT | + + + | Race | White | + + + | Ethnic Group | Not or | + + + Author + + + | Author | [facility] | + + + | Organization | [facility] | + + + | Address | Unknown | + + + | Phone | Unavailable | + + + Support + + +---------+ + | Name | Relationship | Address | Phone | + + +---------+ + | Jeronimo Ortega | ECON | Unknown | | + + +---------+ + Care Team Providers + +------+ + | Care Supervisor [employer] Name | Role | Phone | + +------+ + PCP | Unavailable | + +------+ + Encounter Details +--------+ + + + + | Date | Type | Department | Care Team | Description | +--------+ + + + + | 04/07/ | Office | [facility] | Note, Orthopedics | Progress Note | | 2004 | Visit-Trans | | Clinic | | | | cribed | | | | +--------+ + + + [...] documented as of this encounter Progress Notes Interface, Supervisor Weaving In - 12/15/2004 8:47 AM PDT [id number] 03/07/2004 04/07/2004 [id number] [facility] Clinic Date: 04/07/2004 Addendum: I spoke with Ms. Ortega today. We are going to go ahead and proceed with an MRI of the lumbosacral spine to evaluate for any possible lumbosacral radiculopathy as cause for left lateral leg pain. We will try to get that on a clinic day in the morning, then follow up with myself, and then with Dr. Granados to discuss the potential causes of her pain and what treatment options may be available. She is agreeable with this plan. Jordan Eller M.D. GRACIELA/neha P [phone] cc: documented i n this encounter Plan of Treatment Not on filedocumented as of this encounter Visit Diagnoses Not on filedocumented in this encounter"
--- OUTSIDE RECORDS SUMMARY | ~2019-03-30 | XMS | Encounter Summary ---
Demographics + + + | Address | [address] | | | [place] [address] | + + + | Home Phone | | + + + | Preferred Language | Unknown | + + + | Marital Status | | + + + | Lutheran Affiliation | CAT | + + + | Race | White | + + + | Ethnic Group | Not or | + + + Author + + + | Author | [facility] | + + + | Organization | [facility] | + + + | Address | Unknown | + + + | Phone | Unavailable | + + + Support + + +---------+ + | Name | Relationship | Address | Phone | + + +---------+ + | Jeronimo Ortega | ECON | Unknown | | + + +---------+ + Care Team Providers + +------+ + | Care Hypnotherapist Name | Role | Phone | + +------+ + PCP | Unavailable | + +------+ + Encounter Details +--------+ + + + + | Date | Type | Department | Care Team | Description | +--------+ + + + + | 11/21/ | Results | Registration [id number] | | | | 1996 | Only | [address] | | | | | | [address] Mailcode: [id number] | | | | | | [place], [place] | | | | | | [address] | | | | | | [phone] | | | +--------+ + + + [...] | + +--------+ + + + | CHEMISTRY TESTS 4 | Routin | 11/25/1996 | | Results for this | | | e | 6:00 AM | | procedure are in the | | | | PDT | | results section. | + +--------+ + + + | CBC TESTS 2 | Routin | 11/25/1996 | | Results for this | | | e | 6:00 AM | | procedure are in the | | | | PDT | | results section. | + +--------+ + + + | CHEMISTRY TESTS 4 | Routin | 11/24/1996 | | Results for this | | | e | 10:00 PM | | procedure are in the | | | | PDT | | results section. | + +--------+ + + + | CHEMISTRY TESTS 4 | Routin | 11/24/1996 | | Results for this | | | e | 6:00 AM | | procedure are in the | | | | PDT | | results section. | + +--------+ + + + | CBC TESTS 2 | Routin | 11/24/1996 | | Results for this | | | e | 6:00 AM | | procedure are in the | | | | PDT | | results section. | + +--------+ + + + | CBC TESTS 2 | Routin | 11/24/1996 | | Results for this | | | e | 5:30 AM | | procedure are in the | | | | PDT | | results section. | + +--------+ + + + | CHEMISTRY TESTS 4 | Routin | 11/23/1996 | | Results for this | | | e | 6:00 AM | | procedure are in the | | | | PDT | | results section. | + +--------+ + + + | CBC TESTS 2 | Routin | 11/23/1996 | | Results for this | | | e | 6:00 AM | | procedure are in the | | | | PDT | | results section. | + +--------+ + + + | CBC TESTS 2 | Routin | 11/21/1996 | | Results for this | | | e | 3:52 PM | | procedure are in the | | | | PDT | | results section. | + +--------+ + + + | TRANSFUSION MEDICINE | Routin | 11/21/1996 | | Results for this | | TESTS | e | 3:52 PM | | procedure are in the | | | | PDT | | results section. | + +--------+ + + + | URINALYSIS TESTS | Routin | 11/21/1996 | | Results for this | | | e | 3:52 PM | | procedure are in the | | | | PDT | | results section. | + +--------+ + + + documented in this encounter Results CBC TESTS 2 (11/25/1996 6:00 AM PDT) + + + + + + | Component | Value | Ref Range | Performed | Pathologist | | | | | At | Signature | + + + + + + | WHITE CELL | 8.3 | K/CU MM | | | | COUNT | | | | | + + + + + + | RED CELL | 2.89 (L) | M/CU MM | | | | COUNT | | | | | + + + + + + | HEMOGLOBIN | 9.8 (L) | GM/DL | | | + + + + + + | HEMATOCRIT | 28.6 (L) | % | | | + + + + + + | MCV | 98.9 (H) | FL | | | + + + + + + | MCH | 33.9 (H) | PG | | | + + + + + + | MCHC | 34.2 (H) | GM/DL | | | + + + + + + | RDW | 14.8 | % | | | + + + + + + | PLATELET | 121. (L) | K/CU MM | | | | COUNT | | | | | + + + + + + | MPV | 7.5 | FL | | | + + + + + + + + | Specimen | + + | | + + + + + + + | Performing | Address | City/State/Zipcode | Phone Number | | Organization | | | | + + + + + | [facility] | [address] | [place] [address] | | | PATHOLOGY | [address] | | | + + + + + CHEMISTRY TESTS 4 (11/25/1996 6:00 AM PDT) + + + + + + | Component | Value | Ref Range | Performed | Pathologist | | | | | At | Signature | + + + + + + | SODIUM, | 139. | mmol/l | | | | PLASMA | | | | | | (LAB) | | | | | + + + + + + | POTASSIUM, | 3.3 (L) | mmol/l | | | | PLASMA | | | | | | (LAB) | | | | | + + + + + + | CHLORIDE, | 107. | mmol/l | | | | PLASMA | | | | | | (LAB) | | | | | + + + + + + | TOTAL CO2, | 28. | mmol/l | | | | PLASMA | | | | | | (LAB) | | | | | + + + + + + | BUN, PLASMA | 5. (L) | mg/dL | | | | (LAB) | | | | | + + + + + + | CREATININE | 0.6 (L) | mg/dL | | | | PLASMA | | | | | | (LAB) | | | | | + + + + + + | GLUCOSE, | 98. | mg/dL | | | | PLASMA | | | | | | (LAB) | | | | | + + + + + + + + | Specimen | + + | | + + + + + + + | Performing | Address | City/State/Zipcode | Phone Number | | Organization | | | | + + + + + | [facility] | [address] | [place] [address] | | | PATHOLOGY | [address] | | | + + + + + CHEMISTRY TESTS 4 (11/24/1996 10:00 PM PDT) + + + + + + | Component | Value | Ref Range | Performed | Pathologist | | | | | At | Signature | + + + + + + | POTASSIUM, | 3.3 (L) | mmol/l | | | | PLASMA | | | | | | (LAB) | | | | | + + + + + + + + | Specimen | + + | | + + + + + + + | Performing | Address | City/State/Zipcode | Phone Number | | Organization | | | | + + + + + | [facility] | [address] | [place] [address] | | | PATHOLOGY | [address] | | | + + + + + CBC TESTS 2 (11/24/1996 6:00 AM PDT) + + + + + + | Component | Value | Ref Range | Performed | Pathologist | | | | | At | Signature | + + + + + + | WHITE CELL | 12.3 (H) | K/CU MM | | | | COUNT | | | | | + + + + + + | RED CELL | 2.89 (L) | M/CU MM | | | | COUNT | | | | | + + + + + + | HEMOGLOBIN | 10. (L) | GM/DL | | | + + + + + + | HEMATOCRIT | 28.3 (L) | % | | | + + + + + + | MCV | 97.7 (H) | FL | | | + + + + + + | MCH | 34.5 (H) | PG | | | + + + + + + | MCHC | 35.3 (H) | GM/DL | | | + + + + + + | RDW | 14.7 | % | | | + + + + + + | PLATELET | 104. (L) | K/CU MM | | | | COUNT | | | | | + + + + + + | MPV | 7.6 | FL | | | + + + + + + + + | Specimen | + + | | + + + + + + + | Performing | Address | City/State/Zipcode | Phone Number | | Organization | | | | + + + + + | [facility] | [address] | [place] [address] | | | PATHOLOGY | [address] | | | + + + + + CHEMISTRY TESTS 4 (11/24/1996 6:00 AM PDT) + + + + + + | Component | Value | Ref Range | Performed | Pathologist | | | | | At | Signature | + + + + + + | SODIUM, | 136. | mmol/l | | | | PLASMA | | | | | | (LAB) | | | | | + + + + + + | POTASSIUM, | 2.9 (L) | mmol/l | | | | PLASMA | | | | | | (LAB) | | | | | + + + + + + | CHLORIDE, | 104. | mmol/l | | | | PLASMA | | | | | | (LAB) | | | | | + + + + + + | TOTAL CO2, | 29. | mmol/l | | | | PLASMA | | | | | | (LAB) | | | | | + + + + + + | BUN, PLASMA | 6. | mg/dL | | | | (LAB) | | | | | + + + + + + | CREATININE | 0.6 (L) | mg/dL | | | | PLASMA | | | | | | (LAB) | | | | | + + + + + + | GLUCOSE, | 108. | mg/dL | | | | PLASMA | | | | | | (LAB) | | | | | + + + + + + + + | Specimen | + + | | + + + + + + + | Performing | Address | City/State/Zipcode | Phone Number | | Organization | | | | + + + + + | [facility] | [address] | [place] [address] | | | PATHOLOGY | [address] | | | + + + + + CBC TESTS 2 (11/24/1996 5:30 AM PDT) + + + + + + | Component | Value | Ref Range | Performed | Pathologist | | | | | At | Signature | + + + + + + | HEMATOCRIT | 29. (L) | % | | | + + + + + + + + | Specimen | + + | | + + + + + + + | Performing | Address | City/State/Zipcode | Phone Number | | Organization | | | | + + + + + | [facility] | [address] | [place] [address] | | | PATHOLOGY | [address] | | | + + + + + CBC TESTS 2 (11/23/1996 6:00 AM PDT) + + + + + + | Component | Value | Ref Range | Performed | Pathologist | | | | | At | Signature | + + + + + + | WHITE CELL | 8.2 | K/CU MM | | | | COUNT | | | | | + + + + + + | RED CELL | 2.09 (L) | M/CU MM | | | | COUNT | | | | | + + + + + + | HEMOGLOBIN | 7.5 (L) | GM/DL | | | + + + + + + | HEMATOCRIT | 21.4 (L) | % | | | + + + + + + | MCV | 102.2 (H) | FL | | | + + + + + + | MCH | 36. (H) | PG | | | + + + + + + | MCHC | 35.2 (H) | GM/DL | | | + + + + + + | RDW | 10.8 (L) | % | | | + + + + + + | PLATELET | 113. (L) | K/CU MM | | | | COUNT | | | | | + + + + + + | MPV | 7.5 | FL | | | + + + + + + + + | Specimen | + + | | + + + + + + + | Performing | Address | City/State/Zipcode | Phone Number | | Organization | | | | + + + + + | [facility] | [address] | [place] [address] | | | PATHOLOGY | [address] | | | + + + + + CHEMISTRY TESTS 4 (11/23/1996 6:00 AM PDT) + + + + + + | Component | Value | Ref Range | Performed | Pathologist | | | | | At | Signature | + + + + + + | SODIUM, | 136. | mmol/l | | | | PLASMA | | | | | | (LAB) | | | | | + + + + + + | POTASSIUM, | 3.4 (L) | mmol/l | | | | PLASMA | | | | | | (LAB) | | | | | + + + + + + | CHLORIDE, | 102. | mmol/l | | | | PLASMA | | | | | | (LAB) | | | | | + + + + + + | TOTAL CO2, | 30. (H) | mmol/l | | | | PLASMA | | | | | | (LAB) | | | | | + + + + + + | BUN, PLASMA | 5. (L) | mg/dL | | | | (LAB) | | | | | + + + + + + | CREATININE | 0.6 (L) | mg/dL | | | | PLASMA | | | | | | (LAB) | | | | | + + + + + + | GLUCOSE, | 116. (H) | mg/dL | | | | PLASMA | | | | | | (LAB) | | | | | + + + + + + + + | Specimen | + + | | + + + + + + + | Performing | Address | City/State/Zipcode | Phone Number | | Organization | | | | + + + + + | [facility] | [address] | [place] [address] | | | PATHOLOGY | [address] | | | + + + + + TRANSFUSION MEDICINE TESTS (11/21/1996 3:52 PM PDT) + + + + + + | Component | Value | Ref Range | Performed | Pathologist | | | | | At | Signature | + + + + + + | ABO GROUP | O | | | | + + + + + + | RH TYPE | POS | | | | + + + + + + | ANTIBODY | NEGATIVE | | | | | SCREEN | | | | | + + + + + + + + | Specimen | + + | | + + + + + + + | Performing | Address | City/State/Zipcode | Phone Number | | Organization | | | | + + + + + | [facility] | [address] | [place] [address] | | | PATHOLOGY | [address] | | | + + + + + URINALYSIS TESTS (11/21/1996 3:52 PM PDT) + + + + + + | Component | Value | Ref Range | Performed | Pathologist | | | | | At | Signature | + + + + + + | UA, DIPSTK | PATIENT UNABLE TO LEAVE | | | | | ONLY - | SPECIMEN | | | | | HEADER | | | | | + + + + + + + + | Specimen | + + | | + + + + + + + | Performing | Address | City/State/Zipcode | Phone Number | | Organization | | | | + + + + + | [facility] | [address] | [place] [address] | | | PATHOLOGY | [address] | | | + + + + + CBC TESTS 2 (11/21/1996 3:52 PM PDT) + + + + + + | Component | Value | Ref Range | Performed | Pathologist | | | | | At | Signature | + + + + + + | WHITE CELL | 7.1 | K/CU MM | | | | COUNT | | | | | + + + + + + | RED CELL | 4.03 | M/CU MM | | | | COUNT | | | | | + + + + + + | HEMOGLOBIN | 14.2 | GM/DL | | | + + + + + + | HEMATOCRIT | 41.7 | % | | | + + + + + + | MCV | 103.5 (H) | FL | | | + + + + + + | MCH | 35.3 (H) | PG | | | + + + + + + | MCHC | 34.1 (H) | GM/DL | | | + + + + + + | RDW | 11.1 (L) | % | | | + + + + + + | PLATELET | 200. | K/CU MM | | | | COUNT | | | | | + + + + + + | MPV | 7.2 (L) | FL | | | + + + + + + + + | Specimen | + + | | + + + + + + + | Performing | Address | City/State/Zipcode | Phone Number | | Organization | | | | + + + + + | [facility] | [address] | [place] [address] | | | PATHOLOGY | [address] | | | + + + + + documented in this encounter Visit Diagnoses Not on filedocumented in this encounter"
--- OUTSIDE RECORDS SUMMARY | ~2019-03-30 | XMS | Encounter Summary ---
Demographics + + + | Address | [address] | | | [place] [address] | + + + | Home Phone | | + + + | Preferred Language | Unknown | + + + | Marital Status | | + + + | Pentecostalism Affiliation | CAT | + + + | Race | White | + + + | Ethnic Group | Not or | + + + Author + + + | Author | [facility] | + + + | Organization | [facility] | + + + | Address | Unknown | + + + | Phone | Unavailable | + + + Support + + +---------+ + | Name | Relationship | Address | Phone | + + +---------+ + | Jeronimo Ortega | ECON | Unknown | | + + +---------+ + Care Team Providers + +------+ + | Care Pool Lifeguard Name | Role | Phone | + +------+ + PCP | Unavailable | + +------+ + Encounter Details +--------+ + + + + | Date | Type | Department | Care Team | Description | +--------+ + + + + | 07/16/ | Results | Orthopaedics at | Marc Granados MD | | | 1998 | Only | [facility] [address] | [address] | | | | | [address] | [place], | | | | | Mailcode: [id number] | [place] [address] | | | | | [facility] | | | | | | [place], [place] | | | | | | [address] | | | | | | [phone] | | | +--------+ + + + [...] | + +--------+ + + + | HIP, 2 VIEWS | Routin | 07/16/1998 | | Results for this | | | e | 9:50 AM | | procedure are in the | | | | PST | | results section. | + +--------+ + + + documented in this encounter Results HIP, 2 VIEWS (07/16/1998 9:50 AM PST) + + + + + + | Component | Value | Ref Range | Performed | Pathologist | | | | | At | Signature | + + + + + + | HIP, 2 | Radiologist 1: | | | | | VIEWS | HANK SUH, | | | | | | M.D.FRONTAL AND ROLLOUT | | | | | | LATERAL VIEWS OF THE | | | | | | BILATERAL HIPS: | | | | | | 07/16/98 [id number] hours. | | | | | | Dictated: | | | | | | 07/18/98 HISTORY: | | | | | | Pain. COMPARISON: | | | | | | Comparison is made with | | | | | | frontal view of the | | | | | | pelvis done 1997 | | | | | | and two views of the | | | | | | right hip done | | | | | | January 1998. | | | | | | FINDINGS: The patient is | | | | | | seen to be status post | | | | | | bilateral total | | | | | | hiparthroplasty | | | | | | previously. No change | | | | | | in alignment is seen of | | | | | | the righthip prosthesis | | | | | | (which is approximately | | | | | | 20 percent | | | | | | uncoveredsuperolaterally | | | | | | ). No new lucency is | | | | | | seen surrounding the | | | | | | prosthesisto suggest | | | | | | loosening or infection. 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 The | | | | | | left total hip | | | | | | arthroplasty is | | | | | | unchanged in appearance | | | | | | also, withno evidence of | | | | | | loosening, infection or | | | | | | acute bony | | | | | | fracture.Heterotopic | | | | | | ossification is seen | | | | | | lateral to the hip | | | | | | joint. Old | | | | | | healedfracture is seen | | | | | | of the inferior pubic | | | | | | ramus on the left./ | | | | | | IMPRESSION: 1. No | | | | | | interval change in | | | | | | alignment of bilateral | | | | | | total hiparthroplasties | | | | | | with no evidence of | | | | | | hardware failure seen. | | | | | | 2. Mild interval | | | | | | development of | | | | | | heterotopic ossification | | | | | | seen in bothhips. END | | | | | | OF IMPRESSION: | | | | + + + + + + + + | Specimen | + + | | + + + +---------+ + + | Performing | Address | City/State/Zipcode | Phone Number | | Organization | | | | + +---------+ + + | [facility]PARTMENT OF | | | | | RADIOLOGY | | | | + +---------+ + + documented in this encounter Visit Diagnoses Not on filedocumented in this encounter"
--- OUTSIDE RECORDS SUMMARY | ~2019-03-30 | XMS | Encounter Summary ---
Demographics + + + | Address | [address] | | | [place] [address] | + + + | Home Phone | | + + + | Preferred Language | Unknown | + + + | Marital Status | | + + + | Jain Affiliation | CAT | + + + | Race | White | + + + | Ethnic Group | Not or | + + + Author + + + | Author | [facility] | + + + | Organization | [facility] | + + + | Address | Unknown | + + + | Phone | Unavailable | + + + Support + + +---------+ + | Name | Relationship | Address | Phone | + + +---------+ + | Jeronimo Ortega | ECON | Unknown | | + + +---------+ + Care Team Providers + +------+ + | Care Web Services Professional Name | Role | Phone | + +------+ + PCP | Unavailable | + +------+ + Encounter Details +--------+ + + + + | Date | Type | Department | Care Team | Description | +--------+ + + + + | 11/28/ | Discharge | Allergy Clinic at | Summary, Discharge | D/C Summary ODDS | | 1996 | Summary-Tra | [facility] [address] | | | | | nscribed | [address] | | | | | | Mailcode: [id number] | | | | | | [address] | | | | | | [place], | | | | | | [place] [address] | | | | | | [phone] | | | +--------+ + + + [...] + + documented as of this encounter Discharge Summaries Interface, Coronary Care Unit Nurse In - 07/10/2006 5:07 AM PST [address] [address] [facility] MEDICAL SUMMARY OF HOSPITALIZATION Med Rec No.: [id number] Admission Date: 11/22/96 Name: Lindsey Ortega Discharge Date: 11/28/96 STAFF PHYSICIAN: Marc Granados M.D. Professor, Orthopedics and Rehabilitation PRINCIPAL FINAL DIAGNOSIS: Degenerative joint disease, bilateral hips. ADDITIONAL DIAGNOSIS(ES): None. PRINCIPAL PROCEDURE: Left total hip replacement. ADDITIONAL PROCEDURE(S): None. 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 She has had progressing osteoarthritis in both hips, left greater than right, increasing especially over the last year, with a pain now limiting her daily activities significantly. She presents for total hip arthroplasty at this time of her left hip. PAST MEDICAL HISTORY: Significant for: 1. Spinal injury in 1963. 2. Breast carcinoma in 1993. HOSPITAL COURSE: The patient was admitted to the hospital on 11/22/96, to the Orthopedic Service, where she was taken to the operative suite and underwent a left total hip arthroplasty by Dr. Granados. She tolerated this procedure well, without complication. She was transferred to the floor in a stable condition. The patient had an uncomplicated hospital stay, notable only for a small amount of persistent serosanguinous drainage from the left hip incision on postoperative day six. The impression was that this was minimal and the patient was felt safe to be discharged to home. CONDITION ON DISCHARGE: Stable. DISPOSITION: The patient was discharged to home. DISCHARGE MEDICATION(S): Vicodin 1-2 PO q.4-6 h. p.r.n. DISCHARGE INSTRUCTION(S): Activity: Weight bear as tolerated on left lower extremity. Total hip precautions. Diet: Normal. Follow-up: Patient to follow up with Dr. Granados in the Orthopedic Outpatient Clinic in one week. Giovanni Polanco M.D. Ski Tow Operator, Surgery Marc Granados M.D. Professor, Orthopedics and Rehabilitation GMS/mdm A cc: CRISELDA KRUEGER M.D. [address] [id number] documented in this encounter Plan of Treatment Not on filedocumented as of this encounter Visit Diagnoses Not on filedocumented in this encounter"
--- OUTSIDE RECORDS SUMMARY | ~2019-03-30 | XMS | Encounter Summary ---
Demographics + + + | Address | [address] | | | [place] [address] | + + + | Home Phone | | + + + | Preferred Language | Unknown | + + + | Marital Status | | + + + | Episcopal Affiliation | CAT | + + + | Race | White | + + + | Ethnic Group | Not or | + + + Author + + + | Author | [facility] | + + + | Organization | [facility] | + + + | Address | Unknown | + + + | Phone | Unavailable | + + + Support + + +---------+ + | Name | Relationship | Address | Phone | + + +---------+ + | Jeronimo Ortega | ECON | Unknown | | + + +---------+ + Care Team Providers + +------+ + | Care Bilingual Spanish Inbound Sales Name | Role | Phone | + +------+ + PCP | Unavailable | + +------+ + Encounter Details +--------+ + + + + | Date | Type | Department | Care Team | Description | +--------+ + + + + | 02/18/ | Office | [facility] | Note, [...] as of this encounter Progress Notes Interface, Cell Tester In - 12/15/2004 7:58 AM PDT [id number] 02/19/2004 02/19/2004 [id number] [facility] Clinic Date: 02/19/2004 Fay returns, indicating that she has a recurrence of pain in the distal left femur area. In the past, I put total hips in her bilaterally, and I have done bilateral iliotibial band releases. She actually got good results from each of these procedures. She has also had surgery by Dr. James for effusion in her back. The pain that she is now reporting is on the lateral side of the distal thigh, around the knee. She reports that it is associated with some pain across her low back and some pain in her buttock area on the left side. Her virtual pathology was that of a spinal cord injury associated with fracture and she has had increased motor tone in her lower extremities, such that she walks with an abducted gait and malrotation. She now complains of tightness in her muscles, particularly her quadriceps. On examination, she has some left leg swelling that occurs on the ankle as well as the leg up to at least the knee. She, in the past, was evaluated for DVT and none was found. She has been advised to wear elastic stockings to deal with the swelling issue. Examination shows that she has good range of motion of her hips when they are flexed, and I get no sense that she is having pain coming from either hip joint. Her straight leg raising is pretty normal, and I do not get the sense that she has sciatica or sciatic nerve irritation. She has deep tendon reflexes at the knees but not at the ankles, and they are symmetrical. When she lies on her stomach and her knees are flexed, her pelvis tilts, indicating that her quadriceps are quite tight on the left side. When she lies supine, the muscles on her quadriceps are quite tight and it is very difficult to get them to loosen up. This is true bilaterally, but only on the left side does it seem to be real troublesome. When she lies on her side, I do not believe that her tensor fascia hyun is tight, as it was originally and I do not think that I can attribute her pain to a recurrence of tightness in that area. I got x-rays of her left knee and they demonstrate no abnormality, except for slight elevation of the patella that is probably due to the spasm in her left quadriceps. I do not know what the problem is, and I suggested to her that we have her see Dr. Jordan Eller to see if he has any ideas in regard to the source of her pain. It could be emanating from her back because she does have some back pain, whereas after her surgery by Dr. James, she was doing very well for a time. I do not know whether there is another explanation for her pain around the knee from a local standpoint, but I rather doubt it. In any event, I would like to have Dr. Eller evaluate her and he might consider having Dr. James take a look at her as well to see if we can sort out the cause of her discomfort. ERICK/marylin P [phone] cc: documented i n this encounter Plan of Treatment Not on filedocumented as of this encounter Visit Diagnoses Not on filedocumented in this encounter"
--- OUTSIDE RECORDS SUMMARY | ~2019-03-30 | XMS | Encounter Summary ---
Demographics + + + | Address | [address] | | | [place] [address] | + + + | Home Phone | | + + + | Preferred Language | Unknown | + + + | Marital Status | | + + + | Anabaptism Affiliation | CAT | + + + | Race | White | + + + | Ethnic Group | Not or | + + + Author + + + | Author | [facility] | + + + | Organization | [facility] | + + + | Address | Unknown | + + + | Phone | Unavailable | + + + Support + + +---------+ + | Name | Relationship | Address | Phone | + + +---------+ + | Jeronimo Ortega | ECON | Unknown | | + + +---------+ + Care Team Providers + +------+ + | Care Hand I Cutter Name | Role | Phone | + +------+ + PCP | Unavailable | + +------+ + Encounter Details +--------+ + + + + | Date | Type | Department | Care Team | Description | +--------+ + + + + | 08/11/ | Office | [facility] | Note, Outpatient | Progress Note | | 2000 | Visit-Trans | MEDICINE | Clinic | | | | cribed [...] of this encounter Progress Notes Interface, Supervisor Labor Gang In - 04/09/2006 1:09 AM PSTCLINIC DATE: 08/12/1999 [facility]TH[facility]IC CLINIC SUBJECTIVE: The patient returns. She has had persistent back pain as well as bilateral lower extremity numbness and pain. She has a sense of increased lower extremity weakness bilaterally. The numbness extends into both feet. She has undergone her EMG. There are no other new complaints of note. PHYSICAL EXAMINATION: Unchanged. 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 ASSESSMENT: Mrs. Ortega has progressive neurologic symptoms despite what should be a fixed deficit. The EMG demonstrating lower extremity radiculopathy may be due to her original fracture at the L1 level. RECOMMENDATIONS: My recommendation is for several avenues of workup. I think she needs to see a neurologist to rule out a viral or other metabolic or infectious etiology for a peripheral radiculopathy. In addition, I think she needs to undergo further evaluation of her mechanical spine. This would be in the form of a CT with reconstructions of the sacral spine including fine cuts in order to delineate the presence of the sacral fracture. Following these studies, I will have her return to clinic. She will call if further concerns arises. Roque James M.D. / [id number] / [id number] / [id number] / [id number] cc: Marc Granados M.D. [facility] A M PSTdocumented in this encounter Plan of Treatment Not on filedocumented as of this encounter Visit Diagnoses Not on filedocumented in this encounter"
--- OUTSIDE RECORDS SUMMARY | ~2019-03-30 | XMS | Encounter Summary ---
Demographics + + + | Address | [address] | | | [place] [address] | + + + | Home Phone | | + + + | Preferred Language | Unknown | + + + | Marital Status | | + + + | Sabianist Affiliation | CAT | + + + | Race | White | + + + | Ethnic Group | Not or | + + + Author + + + | Author | [facility] | + + + | Organization | [facility] | + + + | Address | Unknown | + + + | Phone | Unavailable | + + + Support + + +---------+ + | Name | Relationship | Address | Phone | + + +---------+ + | Jeronimo Ortega | ECON | Unknown | | + + +---------+ + Care Team Providers + +------+ + | Care Manager Inventory Control Name | Role | Phone | + +------+ + PCP | Unavailable | + +------+ + Encounter Details +--------+ + + + + | Date | Type | Department | Care Team | Description | +--------+ + + + + | 05/17/ | Results | Orthopaedics at | Marc Granados MD | | | 2001 | Only | [facility] [address] | [address] | | | | | [address] | [address] [place], | | | | | Mailcode: [id number] | [place] [address] | | | | | [facility] | | | | | | [place], [place] | | | | | | [address] | | | | | | [phone] | | | +--------+ + + + [...] + +--------+ + + + | X-RAY PELVIS 1 VIEW | Routin | 07/14/2002 | | Results for this | | | e | 10:51 AM | | procedure are in the | | | | PST | | results section. | + +--------+ + + + | BASIC METABOLIC SET | Routin | 05/19/2002 | | Results for this | | (NA, K, CL, TCO2, | e | 7:00 AM | | procedure are in the | | BUN, CR, GLU, CA) | | PST | | results section. | + +--------+ + + + | MAGNESIUM, PLASMA | Routin | 05/19/2002 | | Results for this | | | e | 7:00 AM | | procedure are in the | | | | PST | | results section. | + +--------+ + + + | BASIC METABOLIC SET | Routin | 05/18/2002 | | Results for this | | (NA, K, CL, TCO2, | e | 8:22 AM | | procedure are in the | | BUN, CR, GLU, CA) | | PST | | results section. | + +--------+ + + + | X-RAY PELVIS 1 VIEW | Urgent | 05/17/2002 | | Results for this | | | | 4:54 PM | | procedure are in the | | | | PST | | results section. | + +--------+ + + + | CULTURE, WOUND BACTI | Routin | 05/17/2002 | | Results for this | | & GS | e | 2:30 PM | | procedure are in the | | | | PST | | results section. | + +--------+ + + + | COAG MASTER PANEL | Urgent | 05/17/2002 | | Results for this | | | | 2:15 PM | | procedure are in the | | | | PST | | results section. | + +--------+ + + + | INR | Urgent | 05/17/2002 | | Results for this | | | | 2:15 PM | | procedure are in the | | | | PST | | results section. | + +--------+ + + + | APTT (ACT. PART. | Urgent | 05/17/2002 | | Results for this | | THROMBO TIME) | | 2:15 PM | | procedure are in the | | | | PST | | results section. | + +--------+ + + + | SURGICAL PATHOLOGY | Routin | 05/17/2002 | | Results for this | | | e | | | procedure are in the | | | | | | results section. | + +--------+ + + + | BLOOD BANK PRODUCT | Routin | 05/16/2002 | | Results for this | | | e | 3:05 PM | | procedure are in the | | | | PST | | results section. | + +--------+ + + + | BLOOD BANK PRODUCT | Routin | 05/16/2002 | | Results for this | | | e | 3:05 PM | | procedure are in the | | | | PST | | results section. | + +--------+ + + + | TYPE AND CROSSMATCH | Routin | 05/16/2002 | | Results for this | | | e | 3:05 PM | | procedure are in the | | | | PST | | results section. | + +--------+ + + + | COMPLETE METABOLIC | Routin | 05/16/2002 | | Results for this | | SET | e | 2:05 PM | | procedure are in the | | (NA,K,CL,CO2,BUN,CRE | | PST | | results section. | | AT,GLUC,CA,AST,ALT,B | | | | | | MEDHAT TOTAL,ALK | | | | | | PHOS,ALB,PROT TOTAL) | | | | | + +--------+ + + + documented in this encounter Results PELVIS 1 VIEW (07/14/2002 10:51 AM PST) + + + + + + | Component | Value | Ref Range | Performed | Pathologist | | | | | At | Signature | + + + + + + | PELVIS 1 | Radiologist 1: | | | | | VIEW | ADRIEN JONES, | | | | | | M.D.-Radiologist 2: | | | | | | ADRIEN JONES, | | | | | | M.D.PELVIS 1 VIEW: | | | | | | 07/14/2002 Dictated | | | | | | 07/14/2002 CLINICAL | | | | | | HISTORY: Follow-up | | | | | | total hip. COMPARISON: | | | | | | 05/17/2002. FINDINGS: | | | | | | A noncemented bipolar | | | | | | right hip arthroplasty | | | | | | is in | | | | | | normalpostoperative | | | | | | alignment. The overlying | | | | | | miranda and soft tissue | | | | | | drainhave been removed. | | | | | | Periosteal reaction is | | | | | | noted adjacen ttothe | | | | | | rightquadrilateral | | | | | | plate. A noncemented | | | | | | left total hip | | | | | | arthroplasty is | | | | | | alsopresent with no | | | | | | interval change in | | | | | | alignment. A healed | | | | | | left inferiorpubic ramus | | | | | | fracture is unchanged. | | | | | | There remains diffuse | | | | | | osteopenia.The | | | | | | visualized midlumbar | | | | | | fusion is incompletely | | | | | | visualized. Nohardware | | | | | | failure or loosening is | | | | | | identified. IMPRESSION: | | | | | | 1. Noncemented right | | | | | | bipolar hip arthroplasty | | | | | | in normal | | | | | | postoperativealignment. | | | | | | No hardware | | | | | | complications. 2. | | | | | | Noncemented left total | | | | | | hip arthroplasty in | | | | | | normal | | | | | | postoperativealignemnt. | | | | | | No hardware | | | | | | complications. 3. | | | | | | Healed left inferior | | | | | | pubic ramus fracture. 3. | | | | | | Midlumbar fusion | | | | | | incompletely visualized. | | | | | | END OF IMPRESSION: | | | | + + + + + + + + | Specimen | + + | | + + + +---------+ + + | Performing | Address | City/State/Zipcode | Phone Number | | Organization | | | | + +---------+ + + | [facility] | | | | | RADIOLOGY | | | | + +---------+ + + BASIC METABOLIC SET (05/19/2002 7:00 AM PST) + +---------+ + + + | Component | Value | Ref Range | Performed | Pathologist | | | | | At | Signature | + +---------+ + + + | GLUCOSE, | 150 (H) | 65 - 110 mg/dL | [facility] | | | PLASMA | | | DEPARTMENT | | | (LAB) | | | OF | | | | | | PATHOLOGY | | + +---------+ + + + | BUN, PLASMA | 4 (L) | 6 - 20 mg/dL | [facility] | | | (LAB) | | | DEPARTMENT | | | | | | OF | | | | | | PATHOLOGY | | + +---------+ + + + | CREATININE | 0.5 (L) | 0.6 - 1.1 mg/dL | [facility] | | | PLASMA | | | DEPARTMENT | | | (LAB) | | | OF | | | | | | PATHOLOGY | | + +---------+ + + + | SODIUM, | 135 (L) | 136 - 145 | [facility] | | | PLASMA | | mmol/L | DEPARTMENT | | | (LAB) | | | OF | | | | | | PATHOLOGY | | + +---------+ + + + | POTASSIUM, | 3.6 | 3.5 - 5.1 | [facility] | | | PLASMA | | mmol/L | DEPARTMENT | | | (LAB) | | | OF | | | | | | PATHOLOGY | | + +---------+ + + + | CHLORIDE, | 108 (H) | 98 - 107 mmol/L | [facility] | | | PLASMA | | | DEPARTMENT | | | (LAB) | | | OF | | | | | | PATHOLOGY | | + +---------+ + + + | TOTAL CO2, | 25 | 23 - 29 mmol/L | [facility] | | | PLASMA | | | DEPARTMENT | | | (LAB) | | | OF | | | | | | PATHOLOGY | | + +---------+ + + + | CALCIUM, | 8.0 (L) | 8.5 - 10.5 | [facility] | | | PLASMA | | mg/dL | DEPARTMENT | | | (LAB) | | | OF | | | | | | PATHOLOGY | | + +---------+ + + + + + | Specimen | + + | | + + + + + + + | Performing | Address | City/State/Zipcode | Phone Number | | Organization | | | | + + + + + | [facility] DE[facility]MENT [facility] | [address] | [place] [address] | | | PATHOLOGY | [address] | | | + + + + + | [facility] DEPARTMENT OF | [address] | [place] [address] | | | PATHOLOGY | [address] | | | + + + + + MAGNESIUM, PLASMA (05/19/2002 7:00 AM PST) + +-------+ + + + | Component | Value | Ref Range | Performed | Pathologist | | | | | At | Signature | + +-------+ + + + | MAGNESIUM,P | 2.1 | 1.8 - 2.5 mg/dL | [facility] | | | LASMA | | | DEPARTMENT | | | | | | OF | | | | | | PATHOLOGY | | + +-------+ + + + + + | Specimen | + + | | + + + + + + + | Performing | Address | City/State/Zipcode | Phone Number | | Organization | | | | + + + + + | [facility] DEPARTMENT OF | [address] | [place] [address] | | | PATHOLOGY | [address] | | | + + + + + | [facility] DEPARTMENT OF | [address] | [place] [address] | | | PATHOLOGY | [address] | | | + + + + + BASIC METABOLIC SET (05/18/2002 8:22 AM PST) + +---------+ + + + | Component | Value | Ref Range | Performed | Pathologist | | | | | At | Signature | + +---------+ + + + | GLUCOSE, | 177 (H) | 65 - 110 mg/dL | [facility] | | | PLASMA | | | DEPARTMENT | | | (LAB) | | | OF | | | | | | PATHOLOGY | | + +---------+ + + + | BUN, PLASMA | 4 (L) | 6 - 20 mg/dL | [facility] | | | (LAB) | | | DEPARTMENT | | | | | | OF | | | | | | PATHOLOGY | | + +---------+ + + + | CREATININE | 0.5 (L) | 0.6 - 1.1 mg/dL | [facility] | | | PLASMA | | | DEPARTMENT | | | (LAB) | | | OF | | | | | | PATHOLOGY | | + +---------+ + + + | SODIUM, | 135 (L) | 136 - 145 | [facility] | | | PLASMA | | mmol/L | DEPARTMENT | | | (LAB) | | | OF | | | | | | PATHOLOGY | | + +---------+ + + + | POTASSIUM, | 3.9 | 3.5 - 5.1 | [facility] | | | PLASMA | | mmol/L | DEPARTMENT | | | (LAB) | | | OF | | | | | | PATHOLOGY | | + +---------+ + + + | CHLORIDE, | 104 | 98 - 107 mmol/L | [facility] | | | PLASMA | | | DEPARTMENT | | | (LAB) | | | OF | | | | | | PATHOLOGY | | + +---------+ + + + | TOTAL CO2, | 26 | 23 - 29 mmol/L | [facility] | | | PLASMA | | | DEPARTMENT | | | (LAB) | | | OF | | | | | | PATHOLOGY | | + +---------+ + + + | CALCIUM, | 7.7 (L) | 8.5 - 10.5 | [facility] | | | PLASMA | | mg/dL | DEPARTMENT | | | (LAB) | | | OF | | | | | | PATHOLOGY | | + +---------+ + + + + + | Specimen | + + | | + + + + + + + | Performing | Address | City/State/Zipcode | Phone Number | | Organization | | | | + + + + + | [facility] | [address] | [place] [address] | | | PATHOLOGY | [address] | | | + + + + + | [facility] | [address] [place] [address] [address] | [place] [address] | | | PATHOLOGY | [address] | | | + + + + + PELVIS 1 VIEW (05/17/2002 4:54 PM PST) + + + + + + | Component | Value | Ref Range | Performed | Pathologist | | | | | At | Signature | + + + + + + | PELVIS 1 | Radiologist 1: | | | | | VIEW | ADRIEN JONES, | | | | | | M.D.-Radiologist 2: | | | | | | ADRIEN JONES, | | | | | | M.D.SINGLE VIEW OF THE | | | | | | PELVIS: 05/17/2002 | | | | | | Dictated 05/19/2002 | | | | | | COMPARISON: | | | | | | 09/06/2001. FINDINGS: | | | | | | Since the prior study, | | | | | | the right total hip | | | | | | arthroplasty hasbeen | | | | | | revised, and a bipolar | | | | | | acetabular cup has been | | | | | | placed. The | | | | | | rightfemoral component | | | | | | is unchanged. Normal | | | | | | postoperative alignment | | | | | | isnoted, and there is no | | | | | | loosening. Skin | | | | | | miranda are present. | | | | | | The lefttotal hip | | | | | | arthroplasty is | | | | | | unchanged. A healed | | | | | | left inferior pubicramus | | | | | | fracture is identified. | | | | | | IMPRESSION: 1. | | | | | | Status post revision | | | | | | of right total hip | | | | | | arthroplasty | | | | | | withplacement of bipolar | | | | | | acetabular cup in | | | | | | normal postoperative | | | | | | alignment.No hardware | | | | | | complications. 2. | | | | | | Unchanged left total | | | | | | hip arthroplasty. END | | | | | | OF IMPRESSION: | | | | + + + + + + + + | Specimen | + + | | + + + +---------+ + + | Performing | Address | City/State/Zipcode | Phone Number | | Organization | | | | + +---------+ + + | [facility] DEPARTMENT OF | | | | | RADIOLOGY | | | | + +---------+ + + CULT, WOUND BACTI & GS (05/17/2002 2:30 PM PST) + + + + + + | Component | Value | Ref Range | Performed | Pathologist | | | | | At | Signature | + + + + + + | SOURCE BODY | Right Hip | | | | | SITE | | | | | + + + + + + | CULTURE | Wound Culture | | | | | RESULT | | | | | | | Source...............: | | | | | | Right Hip RLB Gram | | | | | | Stain...........: 4+ Red | | | | | | blood cells | | | | | | | | | | | | Rare PMN's | | | | | | | | | | | | No organisms | | | | | | seen. Culture: | | | | | | Preliminary Report: | | | | | | Culture Received, No | | | | | | growth to date. | | | | | | Final Report: No | | | | | | growth after 72 hours | | | | | | Final Report | | | | + + + + + + + + | Specimen | + + | | + + + + + + + | Performing | Address | City/State/Zipcode | Phone Number | | Organization | | | | + + + + + | [facility] | [address] | [place] [address] | | | LAB-MICRO | | | | + + + + + PROTHROMBIN TIME (05/17/2002 2:15 PM PST) + + + + + + | Component | Value | Ref Range | Performed | Pathologist | | | | | At | Signature | + + + + + + | INR | 1.03Comment: | INR | [facility] | | | | [...] | valves (2.5-3.5)INR | | | | | | New INR | | | | | | Reference Ranges in | | | | | | effect 03/09/02 | | | | + + + + + + + + | Specimen | + + | | + + + + + + + | Performing | Address | City/State/Zipcode | Phone Number | | Organization | | | | + + + + + | [facility] DEPARTMENT OF | [address] | [place] [address] | | | PATHOLOGY | [address] | | | + + + + + | [facility] DEPARTMENT | [address] | [place] [address] | | | PATHOLOGY | [address] | | | + + + + + APTT (ACT. PART. THROMBO TIME) (05/17/2002 2:15 PM PST) + + + + + + | Component | Value | Ref Range | Performed | Pathologist | | | | | At | Signature | + + + + + + | APTT | 25.6 (L)Comment: | 27.0 - 35.0 | [facility] [...] | + + + + + | [facility] | [address] | [place] [address] | | | PATHOLOGY | [address] | | | + + + + + | [facility] | [facility] | [place] [address] | | | PATHOLOGY | [address] | | | + + + + + COAG MASTER PANEL (05/17/2002 2:15 PM PST) + + + + + + | Component | Value | Ref Range | Performed | Pathologist | | | | | At | Signature | + + + + + + | INR | 1.03Comment: | INR | [facility] | | | | [...] | valves (2.5-3.5)INR | | | | | | New INR | | | | | | Reference Ranges in | | | | | | effect 03/09/02 | | | | + + + + + + | APTT | 25.6 (L)Comment: | 27.0 - 35.0 | [facility] [...] | + + + + + | [facility] DEPARTMENT OF | [address] | [place] [address] | | | PATHOLOGY | [address] | | | + + + + + | [facility] DEPARTMENT OF | [address] | [place] [address] | | | PATHOLOGY | [address] | | | + + + + + SURGICAL PATHOLOGY (05/17/2002) + + + + + + | Component | Value | Ref Range | Performed | Pathologist | | | | | At | Signature | + + + + + + | SURGICAL | SOURCE OF SPECIMEN:A | | [facility] | | | PATHOLOGY | Right Hip Hardware Final | | DEPARTMENT | | | | Pathologic | | OF | | | | Diagnosis:Right hip | | PATHOLOGY | | | | hardware, excision: | | | | | | - Orthopedic | | | | | | hardware, grossly | | | | | | identified Case reviewed | | | | | | by:Angelique Celis | | | | | | /Student Danielle | | | | | | Williams Machado | | | | | | /PathologistT:05/[birth year]02/f | | | | | | I have reviewed all | | | | | | diagnostic slides and | | | | | | have edited the gross | | | | | | and/ormicroscopic | | | | | | portion of this report | | | | | | as part of my pathologic | | | | | | assessment andfinal | | | | | | diagnosis. Clinical | | | | | | History:The patient is a | | | | | | 62 year old female with | | | | | | a dislocated right hip | | | | | | prosthesis. Gross | | | | | | Description:Received is | | | | | | one specimen fresh, | | | | | | labeled | | | | | | | | | | | | right hip hardware. | | | | | | Received aretwo | | | | | | pieces of hardware. | | | | | | One fragment is a | | | | | | dome-shaped piece of | | | | | | plasticcovered with a | | | | | | layer of steel, | | | | | | measuring 5.5 x 5.5 x | | | | | | 3.5 cm. The | | | | | | secondpiece of hardware | | | | | | is a steel ball, | | | | | | measuring 2.6 cm in | | | | | | diameter. | | | | | | Togetherthese are | | | | | | grossly consistent with | | | | | | a hip prosthesis. No | | | | | | tissue issubmitted. | | | | | | Cassette Index:No tissue | | | | | | is | | | | | | submitted/BARBI/Marisol | | | | | | g Diagnostician: Prema | | | | | | Carter | | | | | | M.MissyPathologistArleni | | | | | | jairo Signed | | | | | | 05/23/2002Comment: | | | | | | SOURCE OF SPECIMEN: | | | | | | Right Hip Hardware | | | | + + + + + + + + | Specimen | + + | | + + + + + + + | Performing | Address | City/State/Zipcode | Phone Number | | Organization | | | | + + + + + | [facility] DEPARTMENT OF | [address] | [place] [address] | | | PATHOLOGY | [address] | | | + + + + + | [facility] | [address] | [place] [address] | | | PATHOLOGY | [address] | | | + + + + + BLOOD BANK PRODUCT (05/16/2002 3:05 PM PST) + + + + + + | Component | Value | Ref Range | Performed | Pathologist | | | | | At | Signature | + + + + + + | PRODUCT | WASHED LR RED CELLS | | [facility] | | | DESCRIPTION | | | DEPARTMENT | | | | | | OF | | | | | | PATHOLOGY | | + + + + + + | PRODUCT | [id number] | | [facility] | | | UNIT # | | | DEPARTMENT | | | | | | OF | | | | | | PATHOLOGY | | + + + + + + | UNIT ABO | O | | [facility] | | | | | | DEPARTMENT | | | | | | OF | | | | | | PATHOLOGY | | + + + + + + | UNIT RH | POS | | [facility] | | | | | | DEPARTMENT | | | | | | OF | | | | | | PATHOLOGY | | + + + + + + | STATUS OF | Transfused | | [facility] | | | UNIT | | | DEPARTMENT | | | [...] | + + + + + | [facility] DEPARTMENT OF | [address] | [place] [address] | | | PATHOLOGY | [address] | | | + + + + + | [facility] DEPARTMENT OF | [address] | [place] [address] | | | PATHOLOGY | [address] | | | + + + + + BLOOD BANK PRODUCT (05/16/2002 3:05 PM PST) + + + + + + | Component | Value | Ref Range | Performed | Pathologist | | | | | At | Signature | + + + + + + | PRODUCT | WASHED LR RED CELLS | | [facility] | | | DESCRIPTION | | | DEPARTMENT | | | | | | OF | | | | | | PATHOLOGY | | + + + + + + | PRODUCT | [id number] | | [facility] | | | UNIT # | | | DEPARTMENT | | | | | | OF | | | | | | PATHOLOGY | | + + + + + + | UNIT ABO | O | | [facility] | | | | | | DEPARTMENT | | | | | | OF | | | | | | PATHOLOGY | | + + + + + + | UNIT RH | POS | | [facility] | | | | | | DEPARTMENT | | | | | | OF | | | | | | PATHOLOGY | | + + + + + + | STATUS OF | Transfused | | [facility] | | | UNIT | | | DEPARTMENT | | | [...] | + + + + + | [facility] | [address] | [place] [address] | | | PATHOLOGY | [address] | | | + + + + + | [facility] | [address] | [place] [address] | | | PATHOLOGY | [address] | | | + + + + + ANTIBODY SCREEN & CROSSMATCH (05/16/2002 3:05 PM PST) + +-------+ + + + | Component | Value | Ref Range | Performed | Pathologist | | | | | At | Signature | + +-------+ + + + | ABO GROUP | O | | [facility] | | | | | | DEPARTMENT | | | | | | OF | | | | | | PATHOLOGY | | + +-------+ + + + | RH TYPE | POS | | [facility] | | | | | | DEPARTMENT | | | | | | OF | | | | | | PATHOLOGY | | + +-------+ + + + | ANTIBODY | NEG | | [facility] | | | SCREEN | | | DEPARTMENT | | | | | | OF | | | | | | PATHOLOGY | | + +-------+ + + + + + | Specimen | + + | | + + + + + | Narrative | Performed At | + + + | EXP 05/20/01 @ 0700 | [facility] | | | DEPARTMENT OF | | | PATHOLOGY | + + + + + + + + | Performing | Address | City/State/Zipcode | Phone Number | | Organization | | | | + + + + + | [facility] | [address] | [place] [address] | | | PATHOLOGY | [address] | | | + + + + + | [facility] | [address] | [place] [address] | | | PATHOLOGY | [address] | | | + + + + + COMP METABOLIC SET (05/16/2002 2:05 PM PST) + +---------+ + + + | Component | Value | Ref Range | Performed | Pathologist | | | | | At | Signature | + +---------+ + + + | GLUCOSE, | 115 (H) | 65 - 110 mg/dL | [facility] | | | PLASMA | | | DEPARTMENT | | | (LAB) | | | OF | | | | | | PATHOLOGY | | + +---------+ + + + | BUN, PLASMA | 18 | 6 - 20 mg/dL | [facility] | | | (LAB) | | | DEPARTMENT | | | | | | OF | | | | | | PATHOLOGY | | + +---------+ + + + | CREATININE | 0.8 | 0.6 - 1.1 mg/dL | [facility] | | | PLASMA | | | DEPARTMENT | | | (LAB) | | | OF | | | | | | PATHOLOGY | | + +---------+ + + + | TOTAL | 6.5 | 6.1 - 7.9 g/dL | [facility] | | | PROTEIN, | | | DEPARTMENT | | | PLASMA | | | OF | | | (LAB) | | | PATHOLOGY | | + +---------+ + + + | ALBUMIN, | 3.9 | 3.5 - 4.7 g/dL | [facility] | | | PLASMA | | | DEPARTMENT | | | (LAB) | | | OF | | | | | | PATHOLOGY | | + +---------+ + + + | CALCIUM, | 9.3 | 8.5 - 10.5 | [facility] | | | PLASMA | | mg/dL | DEPARTMENT | | | (LAB) | | | OF | | | | | | PATHOLOGY | | + +---------+ + + + | BILIRUBIN | 0.9 | 0.3 - 1.2 mg/dL | [facility] | | | TOTAL | | | DEPARTMENT | | | | | | OF | | | | | | PATHOLOGY | | + +---------+ + + + | ALK PHOS | 61 | 53 - 141 U/L | [facility] | | | | | | DEPARTMENT | | | | | | OF | | | | | | PATHOLOGY | | + +---------+ + + + | AST(SGOT) | 38 | 15 - 41 U/L | [facility] | | | | | | DEPARTMENT | | | | | | OF | | | | | | PATHOLOGY | | + +---------+ + + + | SODIUM, | 139 | 136 - 145 | [facility] | | | PLASMA | | mmol/L | DEPARTMENT | | | (LAB) | | | OF | | | | | | PATHOLOGY | | + +---------+ + + + | POTASSIUM, | 3.5 | 3.5 - 5.1 | [facility] | | | PLASMA | | mmol/L | DEPARTMENT | | | (LAB) | | | OF | | | | | | PATHOLOGY | | + +---------+ + + + | CHLORIDE, | 105 | 98 - 107 mmol/L | [facility] | | | PLASMA | | | DEPARTMENT | | | (LAB) | | | OF | | | | | | PATHOLOGY | | + +---------+ + + + | TOTAL CO2, | 26 | 23 - 29 mmol/L | [facility] | | | PLASMA | | | DEPARTMENT | | | (LAB) | | | OF | | | | | | PATHOLOGY | | + +---------+ + + + | ALT (SGPT) | 24 | 13 - 48 U/L | [facility] | | | | | | DEPARTMENT | | | | | | OF | | | | | | PATHOLOGY | | + +---------+ + + + + + | Specimen | + + | | + + + + + + + | Performing | Address | City/State/Zipcode | Phone Number | | Organization | | | | + + + + + | [facility] | [address] | [place] [address] | | | PATHOLOGY | [address] | | | + + + + + | [facility] | [address] | [place] [address] | | | PATHOLOGY | [address] | | | + + + + + documented in this encounter Visit Diagnoses Not on filedocumented in this encounter"
--- OUTSIDE RECORDS SUMMARY | ~2019-03-30 | XMS | Encounter Summary ---
Demographics + + + | Address | [address] | | | [place] [address] | + + + | Home Phone [...] | + + +---------+ + | Jeronimo Carranza | ECON | Unknown | | + + +---------+ + Care Team Providers + +------+ + | Care Barber Or Beauty Shop Manager Name | Role | Phone | + +------+ + PCP | Unavailable | + +------+ + Encounter Details +--------+ + + + + | Date | Type | Department | Care Team | Description | +--------+ + + + + | 04/17/ | Transcribed | | Dictation, Other | Transcribed | | 2000 | | | | | +--------+ + + [...] as of this encounter Progress Notes Interface, Staffing Recruiter In - 03/23/2006 5:10 AM PST [place] [address] [address] FAX [facility] [id number] April 17, 2000 Theo Atwood M.D. [address] [place] [address] RE: FAY CARRANZA MR #: [id number] DOS: 04/17/2000 Dear Theo: Thank you again for sending Ms. Carranza my way and for helping her with her postoperative course. If you would not mind seeing her on an every year or two basis, I would greatly appreciate it. At her next visit, if you could obtain AP and lateral x-rays and send them my way, I can review them and let you know how she is doing. This would save her a great deal of travel, and I think is really sufficient as she seems to be quite stable. I hope everything continues to go well for you. I greatly appreciate your help with Ms. Carranza and the other patients we have been taking care of. Sincerely, Roque James M.D. / BEBA [id number] / [id number] / [id number] / Tdocumented in this encounter Plan of Treatment Not on filedocumented as of this encounter Visit Diagnoses Not on filedocumented in this encounter"
--- OUTSIDE RECORDS SUMMARY | ~2019-03-30 | XMS | Encounter Summary ---
Demographics + + + | Address | [address] | | | [place] [address] | + + + | Home Phone | | + + + | Preferred Language | Unknown | + + + | Marital Status | | + + + | Faith Affiliation | CAT | + + + [...] Team Providers + +------+ + | Care Physical Optics Teacher Name | Role | Phone | + +------+ + PCP | Unavailable | + +------+ + Encounter Details +--------+ + + + + | Date | Type | Department | Care Team | Description | +--------+ + + + + | 11/22/ | Results | [facility] [address] | Other, Faculty | | | 1996 | Only | [address] | [phone] | | | | | [place], [place] | | | | | | [address] | | | | | | [phone] | | | +--------+ + + + [...] + | SURGICAL PATHOLOGY | Routin | 11/22/1996 | | Results for this | | | e | | | procedure are in the | | | | | | results section. | + +--------+ + + + documented in this encounter Results SURGICAL PATHOLOGY (11/22/1996) + + + + + + | Component | Value | Ref Range | Performed | Pathologist | | | | | At | Signature | + + + + + + | SURGICAL | SOURCE OF SPECIMEN: SEE | | [facility] | | | PATHOLOGY | RESULTS | | DEPARTMENT | | | | Preliminary | | OF | | | | History:CLINICAL HISTORY | | PATHOLOGY | | | | Patient Age: 56 | | | | | | year old female | | | | | | Patient with NO | | | | | | HISTORY PROVIDED | | | | | | GROSS DESCRIPTION | | | | | | Specimens received: 1 | | | | | | in formalin #1 | | | | | | LEFT HIP JOINT: | | | | | | Present is a 4.4 cm. | | | | | | in diameter femoral head | | | | | | and anadditional | | | | | | disarticulated, 1.5 cm. | | | | | | in length x 3.0 cm. in | | | | | | diameterunoriented piece | | | | | | of the femoral stem. | | | | | | The cartilaginous | | | | | | surface of thefemoral | | | | | | head is saini, smooth and | | | | | | glistening except in a | | | | | | 2.0 cm. indiameter area | | | | | | with the center at the | | | | | | tip of the femoral head | | | | | | at whichthe cartilage | | | | | | appears ulcerated and | | | | | | roughened to palpation. | | | | | | The femoralhead is | | | | | | serially sectioned and a | | | | | | sales service representative section, | | | | | | including thearea of | | | | | | roughened cartilage is | | | | | | submitted for | | | | | | decalcification in | | | | | | cassetteA. The | | | | | | disarticulated piece of | | | | | | femoral shaft is | | | | | | serially sectioned [place] | | | | | | sales service representative section | | | | | | is submitted for | | | | | | decalcification in | | | | | | cassette B. All | | | | | | tissue sections taken | | | | | | are submitted for | | | | | | microscopic | | | | | | evaluation.SML:cc | | | | | | FINAL DIAGNOSISLEFT HIP | | | | | | JOINT: CHANGES | | | | | | CONSISTENT WITH | | | | | | OSTEOARTHRITIS | | | | | | Note: In the absence | | | | | | of clinical history, the | | | | | | diagnosis is based | | | | | | ongross and/or | | | | | | histologic findings | | | | | | only. Case | | | | | | reviewed by: Eh Melissa | | | | | | Nannette Aldridge seen by: | | | | | | Gemma Fontana, | | | | | | M.D. I have reviewed | | | | | | the baca findingsof this | | | | | | case with the fellow and | | | | | | agree with the | | | | | | interpretation | | | | | | provided. / | | | | | | My electronic | | | | | | signature indicates that | | | | | | I have personally | | | | | | reviewed alldiagnostic | | | | | | slides, the gross and/or | | | | | | microscopic portion of | | | | | | thisreport and | | | | | | formulated the final | | | | | | diagnosis. | | | | + + + + + + + + | Specimen | + + | Other | + + + + + + + | Performing | Address | City/State/Zipcode | Phone Number | | Organization | | | | + + + + + | [facility] | [address] | [place] [address] | | | PATHOLOGY | [address] | | | + + + + + documented in this encounter Visit Diagnoses Not on filedocumented in this encounter"
--- OUTSIDE RECORDS SUMMARY | ~2019-03-30 | XMS | Encounter Summary ---
Demographics + + + | Address | [address] | | | [place] [address] | + + + | Home Phone | | + + + | Preferred Language | Unknown | + + + | Marital Status | | + + + | Adventist Affiliation | CAT | + + + | Race | White | + + + | Ethnic Group | Not or | + + + Author + + + | Author | [facility] | + + + | Organization | [facility] | + + + | Address | Unknown | + + + | Phone | Unavailable | + + + Support + + +---------+ + | Name | Relationship | Address | Phone | + + +---------+ + | Jeronimo Ortega | ECON | Unknown | | + + +---------+ + Care Team Providers + +------+ + | Care Assistant Athletic Trainer Name | Role | Phone | + +------+ + PCP | Unavailable | + +------+ + Encounter Details +--------+ + + + + | Date | Type | Department | Care Team | Description | +--------+ + + + + | 08/01/ | Results | Orthopaedics at | Roque James MD | | | 1999 | Only | [facility] [address] | [address] | | | | | [address] | [address] [place], [place] | | | | | Mailcode: [id number] | [address] | | | | | [facility] | | | | | | [place], [place] | | | | | | [address] | | | | | | [phone] | | | +--------+ + + + [...] + +--------+ + + + | TRANSFUSION REACTION | Routin | 10/10/1999 | | Results for this | | | e | 4:31 PM | | procedure are in the | | | | PDT | | results section. | + +--------+ + + + | COAG MASTER PANEL | Urgent | 10/10/1999 | | Results for this | | | | 3:42 AM | | procedure are in the | | | | PDT | | results section. | + +--------+ + + + | COAGULOPATHY PANEL | Urgent | 10/10/1999 | | Results for this | | (INR,APTT,FIBRINOGEN | | 3:42 AM | | procedure are in the | | ) | | PDT | | results section. | + +--------+ + + + | BLOOD GASES, VENOUS | Urgent | 10/10/1999 | | Results for this | | - LAB | | 3:42 AM | | procedure are in the | | | | PDT | | results section. | + +--------+ + + + | BLOOD GASES, | Routin | 10/09/1999 | | Results for this | | ARTERIAL - LAB | e | 10:57 PM | | procedure are in the | | | | PDT | | results section. | + +--------+ + + + | BLOOD GASES, VENOUS | Routin | 10/09/1999 | | Results for this | | - LAB | e | 10:57 PM | | procedure are in the | | | | PDT | | results section. | + +--------+ + + + | COAG MASTER PANEL | Extrem | 10/09/1999 | | Results for this | | | e | 1:00 PM | | procedure are in the | | | Emerge | PDT | | results section. | | | ncy | | | | + +--------+ + + + | INR | Extrem | 10/09/1999 | | Results for this | | | e | 1:00 PM | | procedure are in the | | | Emerge | PDT | | results section. | | | ncy | | | | + +--------+ + + + | APTT (ACT. PART. | Extrem | 10/09/1999 | | Results for this | | THROMBO TIME) | e | 1:00 PM | | procedure are in the | | | Emerge | PDT | | results section. | | | ncy | | | | + +--------+ + + + | FLUOROSCOPY, | Routin | 10/09/1999 | | Results for this | | INDEPENDENT PORT. | e | 12:40 PM | | procedure are in the | | | | PDT | | results section. | + +--------+ + + + | BLOOD BANK PRODUCT | Routin | 10/07/1999 | | Results for this | | | e | 1:30 PM | | procedure are in the | | | | PDT | | results section. | + +--------+ + + + | BLOOD BANK PRODUCT | Routin | 10/07/1999 | | Results for this | | | e | 1:30 PM | | procedure are in the | | | | PDT | | results section. | + +--------+ + + + | BLOOD BANK PRODUCT | Routin | 10/07/1999 | | Results for this | | | e | 1:30 PM | | procedure are in the | | | | PDT | | results section. | + +--------+ + + + | BLOOD BANK PRODUCT | Routin | 10/07/1999 | | Results for this | | | e | 1:30 PM | | procedure are in the | | | | PDT | | results section. | + +--------+ + + + | BLOOD BANK PRODUCT | Routin | 10/07/1999 | | Results for this | | | e | 1:30 PM | | procedure are in the | | | | PDT | | results section. | + +--------+ + + + | BLOOD BANK PRODUCT | Routin | 10/07/1999 | | Results for this | | | e | 1:30 PM | | procedure are in the | | | | PDT | | results section. | + +--------+ + + + | BLOOD BANK PRODUCT | Routin | 10/07/1999 | | Results for this | | | e | 1:30 PM | | procedure are in the | | | | PDT | | results section. | + +--------+ + + + | BLOOD BANK PRODUCT | Routin | 10/07/1999 | | Results for this | | | e | 1:30 PM | | procedure are in the | | | | PDT | | results section. | + +--------+ + + + | BLOOD BANK PRODUCT | Routin | 10/07/1999 | | Results for this | | | e | 1:30 PM | | procedure are in the | | | | PDT | | results section. | + +--------+ + + + | BLOOD BANK PRODUCT | Routin | 10/07/1999 | | Results for this | | | e | 1:30 PM | | procedure are in the | | | | PDT | | results section. | + +--------+ + + + | BLOOD BANK PRODUCT | Routin | 10/07/1999 | | Results for this | | | e | 1:30 PM | | procedure are in the | | | | PDT | | results section. | + +--------+ + + + | BLOOD BANK PRODUCT | Routin | 10/07/1999 | | Results for this | | | e | 1:30 PM | | procedure are in the | | | | PDT | | results section. | + +--------+ + + + | BLOOD BANK PRODUCT | Routin | 10/07/1999 | | Results for this | | | e | 1:30 PM | | procedure are in the | | | | PDT | | results section. | + +--------+ + + + | TYPE AND CROSSMATCH | Routin | 10/07/1999 | | Results for this | | | e | 1:30 PM | | procedure are in the | | | | PDT | | results section. | + +--------+ + + + | X-RAY SCOLI SPINE | Routin | 08/19/1999 | | Results for this | | ENTIRE 36 1 VIEW | e | 11:30 AM | | procedure are in the | | | | PDT | | results section. | + +--------+ + + + | CT T SPINE W/PRIOR | Routin | 08/02/1999 | | Results for this | | CONTRAST | e | 12:15 PM | | procedure are in the | | | | PST | | results section. | + +--------+ + + + | CT L SPINE W/PRIOR | Routin | 08/02/1999 | | Results for this | | CONTRAST | e | 12:15 PM | | procedure are in the | | | | PST | | results section. | + +--------+ + + + | X-RAY MYELOGRAM | Routin | 08/02/1999 | | Results for this | | LUMBOSACRAL | e | 11:10 AM | | procedure are in the | | | | PST | | results section. | + +--------+ + + + | X-RAY MYELOGRAM | Routin | 08/02/1999 | | Results for this | | THORACIC | e | 10:00 AM | | procedure are in the | | | | PST | | results section. | + +--------+ + + + documented in this encounter Results TRANSFUSION REACTION (10/10/1999 4:31 PM PDT) + + + + + + | Component | Value | Ref Range | Performed | Pathologist | | | | | At | Signature | + + + + + + | DATE | 10/09/99 | | [facility] | | | | | | DEPARTMENT | | | | | | OF | | | | | | PATHOLOGY | | + + + + + + | PRODUCT | Packed Red Cells Frozen | | [facility] | | | | Plasma | | DEPARTMENT | | | | | | OF | | | | | | PATHOLOGY | | + + + + + + | DONOR # | MULTIPLE UNITS | | [facility] | | | | | | DEPARTMENT | | | | | | OF | | | | | | PATHOLOGY | | + + + + + + | SYMPTOMS | Urticaria/rash | | [facility] | | | | Shock | | DEPARTMENT | | | | Swelling | | OF | | | | | | PATHOLOGY | | + + + + + + | FINDINGS | No evidence of | | [facility] | | | | hemolysisPost reaction | | DEPARTMENT | | | | ETHAN negative | | OF | | | | | | PATHOLOGY | | + + + + + + | INTERPRETAT | Probable anaphylactoid | | [facility] | | | ION | (generalized allergic) | | DEPARTMENT | | | | reaction to one or | | OF | | | | moreblood pruducts. | | PATHOLOGY | | | | Patient with atopic | | | | | | history (Pen,Sulfa | | | | | | allergic) andhistory of | | | | | | mutiple apparently | | | | | | uneventful transfusions | | | | | | in past | | | | | | underwentextensive back | | | | | | surgery 10/09/99 in the | | | | | | course of which she | | | | | | received 1500cc of blood | | | | | | from the cell saver, 4 | | | | | | units of red cells and 2 | | | | | | units of FFP. At the | | | | | | end of surgery | | | | | | generalized rash and | | | | | | edema with marked | | | | | | facialswelling and bp | | | | | | 84/42 noted--treated | | | | | | with hydro- cortisone, | | | | | | benadryl | | | | | | andphenylephrine drip. | | | | | | No abrupt decrease in bp | | | | | | intra-op and no | | | | | | majordifficulties with | | | | | | oxygenation or wheezing | | | | | | noted. Due to active | | | | | | post-opbleeding and | | | | | | thrombocytopenia | | | | | | received one apheresis | | | | | | platelet unitpost-op | | | | | | with no worsening of | | | | | | condition. Had | | | | | | received ancef | | | | | | (anti-Penantibodies | | | | | | sometimes cross-react) | | | | | | pre-op which may also | | | | | | have beenresponsible for | | | | | | her symptoms but also | | | | | | got a dose of this | | | | | | post-op with noworsening | | | | | | of symptoms. | | | | | | Likeliest diagnosis is | | | | | | of an | | | | | | idiosyncraticgeneralized | | | | | | allergic | | | | | | (anaphylactoid) reaction | | | | | | to a blood product. | | | | + + + + + + | TRANSFUSION | Subsequent red cell | | [facility] | | | RXN | products administered to | | DEPARTMENT | | | RECOMMENDAT | the patient were | | OF | | | ION | washedwithout recurrent | | PATHOLOGY | | | | reaction and would | | | | | | advise a) washing of | | | | | | cellular bloodproducts | | | | | | (red cells, platelets) | | | | | | in the future b) | | | | | | avoidance of | | | | | | bloodproducts containing | | | | | | plasma (FFP, | | | | | | cryoprecipitate, | | | | | | albumin) c) | | | | | | carefulweighing of | | | | | | risk/benefit prior to | | | | | | subseqeunt transfusion | | | | | | and d) iftransfusion | | | | | | must be given would | | | | | | premedicate with both | | | | | | benadryl (20 - 30mins | | | | | | prior) and | | | | | | corticosteroids (best | | | | | | given 3-4 hours prior) | | | | | | and haveresuscitation | | | | | | equipment available. | | | | | | Patient recovered | | | | | | fully from incidentin | | | | | | question with no | | | | | | long-term sequelae. | | | | + + + + + + | SEE | 10/09/99 | | [facility] | | | PROGRESS | | | DEPARTMENT | | | NOTES | | | OF | | | | | | PATHOLOGY | | + + + + + + | REVIEWED | Dr. Marilin Recio MD | | [facility] | | | BY: | | | DEPARTMENT | | | [...] | + + + + + | [facility] DEPARTMENT OF | [address] | [place] [address] | | | PATHOLOGY | [address] | | | + + + + + | [facility] DEPARTMENT OF | [facility] | [place] [address] | | | PATHOLOGY | [address] | | | + + + + + COAGULOPATHY PANEL (10/10/1999 3:42 AM PDT) + + + + + + | Component | Value | Ref Range | Performed | Pathologist | | | | | At | Signature | + + + + + + | INR | 1.17 (H)Comment: | 0.98 - 1.08 INR | [...] + + + + | APTT | 28.9Comment: | 27.0 - 35.0 | [facility] | [...] + + + + | FIBRINOGEN | 143 (L) | 180 - 380 mg/dL | [...] DEPARTMENT OF | [address] | [place] [address] | | | PATHOLOGY | [address] | | | + + + + + | [facility] DEPARTMENT OF | [address] | [place] [address] | | | PATHOLOGY | [address] | | | + + + + + ESN MASTER PANEL (10/10/1999 3:42 AM PDT) + + + + + + | Component | Value | Ref Range | Performed | Pathologist | | | | | At | Signature | + + + + + + | INR | 1.17 (H)Comment: | 0.98 - 1.08 INR | [facility] | | | | PT INR Therapeutic [...] + + + + | APTT | 28.9Comment: | 27.0 - 35.0 | [facility] | [...] + + + + | FIBRINOGEN | 143 (L) | 180 - 380 mg/dL | [...] | + + + + + | [facility] DEPARTMENT OF | [address] | [place] [address] | | | PATHOLOGY | [address] | | | + + + + + | [facility] | [address] | [place] [address] | | | PATHOLOGY | [address] | | | + + + + + BLOOD GASES, VENOUS (10/10/1999 3:42 AM PDT) + +--------+ + + + | Component | Value | Ref Range | Performed | Pathologist | | | | | At | Signature | + +--------+ + + + | PAT TEMP | 37.5 | Degree C | [facility] | | | VENOUS | | | DEPARTMENT | | | | | | OF | | | | | | PATHOLOGY | | + +--------+ + + + | FIO2 VENOUS | 0.30 | | [facility] | | | | | | DEPARTMENT | | | | | | OF | | | | | | PATHOLOGY | | + +--------+ + + + | PH VENOUS | 7.39 | 7.35 - 7.45 | [facility] | | | | | | DEPARTMENT | | | | | | OF | | | | | | PATHOLOGY | | + +--------+ + + + | PCO2 VENOUS | 32 (L) | 35 - 50 mmHg | [facility] | | | | | | DEPARTMENT | | | | | | OF | | | | | | PATHOLOGY | | + +--------+ + + + | PO2 VENOUS | 43 | 30 - 55 mmHg | [facility] | | | | | | DEPARTMENT | | | | | | OF | | | | | | PATHOLOGY | | + +--------+ + + + | BASE EXCESS | -5.3 | | [facility] | | | VENOUS | | | DEPARTMENT | | | | | | OF | | | | | | PATHOLOGY | | + +--------+ + + + | HCO3 VENOUS | 18 (L) | 22 - 28 mmol/L | [facility] | | | | | | DEPARTMENT | | | | | | OF | | | | | | PATHOLOGY | | + +--------+ + + + | TOTAL CO2 | 19 (L) | 23 - 29 mmol/L | [facility] | | | VENOUS | | | DEPARTMENT | | | | | | OF | | | | | | PATHOLOGY | | + +--------+ + + + | O2 SAT, | 80.4 | % | [facility] | | | VENOUS | | | DEPARTMENT | | | | | | OF | | | | | | PATHOLOGY | | + +--------+ + + + + + | Specimen | + + | | + + + + + | Narrative | Performed At | + + + | Venous Blood Gas Blood Gas results corrected for | [facility] | | patient's temp when available | DEPARTMENT OF | | | PATHOLOGY | + + + + + + + + | Performing | Address | City/State/Zipcode | Phone Number | | Organization | | | | + + + + + | [facility] DEPARTMENT OF | [address] | [place] [address] | | | PATHOLOGY | [address] | | | + + + + + | [facility] DEPARTMENT OF | [address] | [place] [address] | | | PATHOLOGY | [address] | | | + + + + + BLOOD GASES, VENOUS (10/09/1999 10:57 PM PDT) + +--------+ + + + | Component | Value | Ref Range | Performed | Pathologist | | | | | At | Signature | + +--------+ + + + | PAT TEMP | 36.5 | Degree C | [facility] | | | VENOUS | | | DEPARTMENT | | | | | | OF | | | | | | PATHOLOGY | | + +--------+ + + + | FIO2 VENOUS | .30 | | [facility] | | | | | | DEPARTMENT | | | | | | OF | | | | | | PATHOLOGY | | + +--------+ + + + | PH VENOUS | 7.36 | 7.35 - 7.45 | [facility] | | | | | | DEPARTMENT | | | | | | OF | | | | | | PATHOLOGY | | + +--------+ + + + | PCO2 VENOUS | 32 (L) | 35 - 50 mmHg | [facility] | | | | | | DEPARTMENT | | | | | | OF | | | | | | PATHOLOGY | | + +--------+ + + + | PO2 VENOUS | 32 | 30 - 55 mmHg | [facility] | | | | | | DEPARTMENT | | | | | | OF | | | | | | PATHOLOGY | | + +--------+ + + + | BASE EXCESS | -6.2 | | [facility] | | | VENOUS | | | DEPARTMENT | | | | | | OF | | | | | | PATHOLOGY | | + +--------+ + + + | HCO3 VENOUS | 18 (L) | 22 - 28 mmol/L | [facility] | | | | | | DEPARTMENT | | | | | | OF | | | | | | PATHOLOGY | | + +--------+ + + + | TOTAL CO2 | 19 (L) | 23 - 29 mmol/L | [facility] | | | VENOUS | | | DEPARTMENT | | | | | | OF | | | | | | PATHOLOGY | | + +--------+ + + + | O2 SAT, | 66.8 | % | [facility] | | | VENOUS | | | DEPARTMENT | | | | | | OF | | | | | | PATHOLOGY | | + +--------+ + + + + + | Specimen | + + | | + + + + + | Narrative | Performed At | + + + | Venous Blood Gas Blood Gas results corrected for | [facility] | | patient's temp when available | DEPARTMENT OF | | | PATHOLOGY | + + + + + + + + | Performing | Address | City/State/Zipcode | Phone Number | | Organization | | | | + + + + + | [facility] DEPARTMENT OF | [address] | [place] [address] | | | PATHOLOGY | [address] | | | + + + + + | [facility] DEPARTMENT OF | [address] | [place] [address] | | | PATHOLOGY | [address] | | | + + + + + BLOOD GASES, ARTERIAL (10/09/1999 10:57 PM PDT) + + + + + [...] + + + + | FIO2 | See cmnt | | [facility] | | | ARTERIAL | | | DEPARTMENT | | | | | | OF | | | | | | PATHOLOGY | | + + + + + + | PH ARTERIAL | See cmnt | 7.37 - 7.44 | [facility] | | | | | | DEPARTMENT | | | | | | OF | | | | | | PATHOLOGY | | + + + + + + | PCO2 | See cmnt | 32 - 43 mmHg | [facility] | | | ARTERIAL | | | DEPARTMENT | | | | | | OF | | | | | | PATHOLOGY | | + + + + + + | PO2 | See cmnt | 72 - 104 mmHg | [facility] | | | ARTERIAL | | | DEPARTMENT | | | | | | OF | | | | | | PATHOLOGY | | + + + + + + | BASE EXCESS | See cmnt | | [facility] | | | ARTERIAL | | | DEPARTMENT | | | | | | OF | | | | | | PATHOLOGY | | + + + + + + | HCO3 | See cmnt | 21 - 27 mmol/L | [facility] | | | ARTERIAL | | | DEPARTMENT | | | | | | OF | | | | | | PATHOLOGY | | + + + + + + | TOTAL CO2 | See cmnt | 22 - 28 mmol/L | [facility] | | | ARTERIAL | | | DEPARTMENT | | | | | | OF | | | | | | PATHOLOGY | | + + + + + + | O2 SAT, | See cmnt | 92.0 - 98.0 % | [facility] | | | ARTERIAL | | | DEPARTMENT | | | | | | OF | | | | | | PATHOLOGY | | + + + + + + + + | Specimen | + + | | + + + + + | Narrative | Performed At | + + + | Arterial Blood Gas Blood Gas results corrected for | [facility] | | patient's temp when available [phone] Erroneous request. | DEPARTMENT OF | | | PATHOLOGY | + + + + + + + + | Performing | Address | City/State/Zipcode | Phone Number | | Organization | | | | + + + + + | [facility] DEPARTMENT OF | [address] | [place] [address] | | | PATHOLOGY | [address] | | | + + + + + | [facility] DEPARTMENT OF | [address] | [place] [address] | | | PATHOLOGY | [address] | | | + + + + + PROTHROMBIN TIME (10/09/1999 1:00 PM PDT) + + + + + + | Component | Value | Ref Range | Performed | Pathologist | | | | | At | Signature | + + + + + + | INR | 1.34 (H)Comment: | 0.98 - 1.08 INR | [facility] | | | | PT INR Therapeutic [...] | + + + + + | [facility] DEPARTMENT OF | [address] | [place] [address] | | | PATHOLOGY | [address] | | | + + + + + | [facility] DEPARTMENT OF | [address] | [place] [address] | | | PATHOLOGY | [address] | | | + + + + + APTT (ACT. PART. THROMBO TIME) (10/09/1999 1:00 PM PDT) + + + + + [...] | + + + + + | [facility] | [address] [facility] [address] [facility] | [place] [address] | | | PATHOLOGY | [address] | | | + + + + + | [facility] | [address] [facility] [address] [facility] [address] | [place] [address] | | | PATHOLOGY | [address] | | | + + + + + PEREZ MASTER PANEL (10/09/1999 1:00 PM PDT) + + + + + + | Component | Value | Ref Range | Performed | Pathologist | | | | | At | Signature | + + + + + + | INR | 1.34 (H)Comment: | 0.98 - 1.08 INR | [...] | + + + + + | [facility] DEPARTMENT OF | [address] | [place] [address] | | | PATHOLOGY | [address] | | | + + + + + | [facility] | [address] [place] [address] [address] | [place] [address] | | | PATHOLOGY | [address] | | | + + + + + INGRIS JALLOH (10/09/1999 12:40 PM PDT) + + + + + + | Component | Value | Ref Range | Performed | Pathologist | | | | | At | Signature | + + + + + + | FLUOROSCOPY | Radiologist 1: STEFANIE, | | | | | , | Williams NEGRO IMPRESSION: | | | | | INDEPENDENT | FLUOROSCOPY SERVICES | | | | | PORT. | WERE PERFORMED UNDER THE | | | | | | DIRECTION OF | | | | | | THEORDERING PHYSICIAN. | | | | | | END OF IMPRESSION: | | | | | | | | | | | | | | | | | |END OF IMPRESSION: | | | | | | | | | | | | | | | | | | | | | | + + + + + + + + | Specimen | + + | | + + + +---------+ + + | Performing | Address | City/State/Zipcode | Phone Number | | Organization | | | | + +---------+ + + | [facility] DEPARTMENT OF | | | | | RADIOLOGY | | | | + +---------+ + + BLOOD BANK PRODUCT (10/07/1999 1:30 PM PDT) + + + + + + | Component | Value | Ref Range | Performed | Pathologist | | | | | At | Signature | + + + + + + | PRODUCT | WASHED CELLS | | [facility] | | | DESCRIPTION | | | DEPARTMENT | | | | | | OF | | | | | | PATHOLOGY | | + + + + + + | PRODUCT | [id number] | | [facility] | | | UNIT [...] DEPARTMENT OF | [address] | [place] [address] | | | PATHOLOGY | [address] | | | + + + + + | [facility] DEPARTMENT OF | [address] | [place] [address] | | | PATHOLOGY | [address] | | | + + + + + BLOOD BANK PRODUCT (10/07/1999 1:30 PM PDT) + + + + + + | Component | Value | Ref Range | Performed | Pathologist | | | | | At | Signature | + + + + + + | PRODUCT | LEUKORCD PHERESIS H | | [facility] | | | DESCRIPTION | [id number] | | DEPARTMENT | | | | | | OF | | | | | | PATHOLOGY | | + + + + + + | PRODUCT | [id number] | | [facility] | | | UNIT [...] | + + + + + | [facility] | [address] [place] [address] | [place] [address] | | | PATHOLOGY | [address] | | | + + + + + | [facility] | [address] [place] [address] | [place] [address] | | | PATHOLOGY | [address] | | | + + + + + BLOOD BANK PRODUCT (10/07/1999 1:30 PM PDT) + + + + + + | Component | Value | Ref Range | Performed | Pathologist | | | | | At | Signature | + + + + + + | PRODUCT | PLASMA FROZEN W/IN 24HRS | | [facility] | | | DESCRIPTION | | | DEPARTMENT | | | | | | OF | | | | | | PATHOLOGY | | + + + + + + | PRODUCT | [id number] | | [facility] | | | UNIT [...] + + + | STATUS OF | Released | | [facility] | | | UNIT [...] DEPARTMENT OF | [address] | [place] [address] | | | PATHOLOGY | [address] | | | + + + + + | [facility] | [address] | [place] [address] | | | PATHOLOGY | [address] | | | + + + + + BLOOD BANK PRODUCT (10/07/1999 1:30 PM PDT) + + + + + + | Component | Value | Ref Range | Performed | Pathologist | | | | | At | Signature | + + + + + + | PRODUCT | PLASMA FROZEN W/IN 24HRS | | [facility] | | | DESCRIPTION | | | DEPARTMENT | | | | | | OF | | | | | | PATHOLOGY | | + + + + + + | PRODUCT | [id number] | | [facility] | | | UNIT [...] + + + | STATUS OF | Released | | [facility] | | | UNIT [...] | + + + + + | [facility] | [address] | [place] [address] | | | PATHOLOGY | [address] | | | + + + + + | [facility] | [address] [place] [address] [address] | [place] [address] | | | PATHOLOGY | [address] | | | + + + + + BLOOD BANK PRODUCT (10/07/1999 1:30 PM PDT) + + + + + + | Component | Value | Ref Range | Performed | Pathologist | | | | | At | Signature | + + + + + + | PRODUCT | WASHED CELLS | | [facility] | | | DESCRIPTION | | | DEPARTMENT | | | | | | OF | | | | | | PATHOLOGY | | + + + + + + | PRODUCT | [id number] | | [facility] | | | UNIT [...] DEPARTMENT OF | [address] | [place] [address] | | | PATHOLOGY | [address] | | | + + + + + | [facility] DEPARTMENT OF | [address] | [place] [address] | | | PATHOLOGY | [address] | | | + + + + + BLOOD BANK PRODUCT (10/07/1999 1:30 PM PDT) + + + + + + | Component | Value | Ref Range | Performed | Pathologist | | | | | At | Signature | + + + + + + | PRODUCT | WASHED CELLS | | [facility] | | | DESCRIPTION | | | DEPARTMENT | | | | | | OF | | | | | | PATHOLOGY | | + + + + + + | PRODUCT | [id number] | | [facility] | | | UNIT [...] DEPARTMENT OF | [address] | [place] [address] | | | PATHOLOGY | [address] | | | + + + + + | [facility] DEPARTMENT OF | [address] | [place] [address] | | | PATHOLOGY | [address] | | | + + + + + BLOOD BANK PRODUCT (10/07/1999 1:30 PM PDT) + + + + + + | Component | Value | Ref Range | Performed | Pathologist | | | | | At | Signature | + + + + + + | PRODUCT | WASHED CELLS | | [facility] | | | DESCRIPTION | | | DEPARTMENT | | | | | | OF | | | | | | PATHOLOGY | | + + + + + + | PRODUCT | [id number] | | [facility] | | | UNIT [...] | + + + + + | [facility] DEPARTMENT OF | [address] [facility] | [place] [address] | | | PATHOLOGY | [address] | | | + + + + + | [facility] | [address] [facility] | [place] [address] | | | PATHOLOGY | [address] | | | + + + + + BLOOD BANK PRODUCT (10/07/1999 1:30 PM PDT) + + + + + + | Component | Value | Ref Range | Performed | Pathologist | | | | | At | Signature | + + + + + + | PRODUCT | PLASMA FROZEN W/IN 24HRS | | [facility] | | | DESCRIPTION | | | DEPARTMENT | | | | | | OF | | | | | | PATHOLOGY | | + + + + + + | PRODUCT | [id number] | | [facility] | | | UNIT [...] + + + | UNIT RH | NEG | | [facility] | | | | [...] DEPARTMENT OF | [address] | [place] [address] | | | PATHOLOGY | [address] | | | + + + + + | [facility] DEPARTMENT | [address] | [place] [address] | | | PATHOLOGY | [address] | | | + + + + + BLOOD BANK PRODUCT (10/07/1999 1:30 PM PDT) + + + + + + | Component | Value | Ref Range | Performed | Pathologist | | | | | At | Signature | + + + + + + | PRODUCT | PLASMA FROZEN W/IN 24HRS | | [facility] | | | DESCRIPTION | | | DEPARTMENT | | | | | | OF | | | | | | PATHOLOGY | | + + + + + + | PRODUCT | [id number] | | [facility] | | | UNIT [...] + + + | UNIT RH | NEG | | [facility] | | | | [...] | + + + + + | [facility] | [address] [facility] | [place] [address] | | | PATHOLOGY | MESSI MICHEL | | | + + + + + [facility] | [address] [place] [address] | [place] [address] | | | PATHOLOGY | MESSI MICHEL | | | + + + + + BLOOD BANK PRODUCT (10/07/1999 1:30 PM PDT) + + + + + + | Component | Value | Ref Range | Performed | Pathologist | | | | | At | Signature | + + + + + + | PRODUCT | PACKED CELLS | | [facility] | | | DESCRIPTION | | | DEPARTMENT | | | | | | OF | | | | | | PATHOLOGY | | + + + + + + | PRODUCT | [id number] | | [facility] | | | UNIT [...] | + + + + + | [facility] DEPARTMENT [facility] | [address] | [place] [address] | | | PATHOLOGY | [address] | | | + + + + + | [facility] DEPARTMENT OF | [address] | [place] [address] | | | PATHOLOGY | [address] | | | + + + + + BLOOD BANK PRODUCT (10/07/1999 1:30 PM PDT) + + + + + + | Component | Value | Ref Range | Performed | Pathologist | | | | | At | Signature | + + + + + + | PRODUCT | PACKED CELLS | | [facility] | | | DESCRIPTION | | | DEPARTMENT | | | | | | OF | | | | | | PATHOLOGY | | + + + + + + | PRODUCT | [id number] | | [facility] | | | UNIT [...] DEPARTMENT OF | [address] | [place] [address] | | | PATHOLOGY | [address] | | | + + + + + | [facility] DEPARTMENT OF | [address] | [place] [address] | | | PATHOLOGY | [address] | | | + + + + + BLOOD BANK PRODUCT (10/07/1999 1:30 PM PDT) + + + + + + | Component | Value | Ref Range | Performed | Pathologist | | | | | At | Signature | + + + + + + | PRODUCT | PACKED CELLS | | [facility] | | | DESCRIPTION | | | DEPARTMENT | | | | | | OF | | | | | | PATHOLOGY | | + + + + + + | PRODUCT | [id number] | | [facility] | | | UNIT [...] | + + + + + | [facility] DEPARTMENT OF | [address] | [place] [address] | | | PATHOLOGY | [address] | | | + + + + + | [facility] DEPARTMENT OF | [address] | [place] [address] | | | PATHOLOGY | [address] | | | + + + + + BLOOD BANK PRODUCT (10/07/1999 1:30 PM PDT) + + + + + + | Component | Value | Ref Range | Performed | Pathologist | | | | | At | Signature | + + + + + + | PRODUCT | PACKED CELLS | | [facility] | | | DESCRIPTION | | | DEPARTMENT | | | | | | OF | | | | | | PATHOLOGY | | + + + + + + | PRODUCT | [id number] | | [facility] | | | UNIT [...] | + + + + + | [facility] | [address] | [place] [address] | | | PATHOLOGY | [address] | | | + + + + + | [facility] DE[facility] | [address] | [place] [address] | | | PATHOLOGY | [address] | | | + + + + + ANTIBODY SCREEN & CROSSMATCH (10/07/1999 1:30 PM PDT) + +-------+ + + + | [...] Performed At | + + + | SPEC OUTDATES 10/11/99 @ 0700 | [facility] | | | DEPARTMENT OF | | | PATHOLOGY | + + + + + + + + | Performing | Address | City/State/Zipcode | Phone Number | | Organization | | | | + + + + + | [facility] DEPARTMENT OF | [address] | [place] [address] | | | PATHOLOGY | [address] | | | + + + + + | [facility] | [address] | [place] [address] | | | PATHOLOGY | [address] | | | + + + + + SCOLI SPINE ENTIRE 36 1 VIEW (08/19/1999 11:30 AM PDT) + + + + + + | Component | Value | Ref Range | Performed | Pathologist | | | | | At | Signature | + + + + + + | SCOLI SPINE | Radiologist 1: STEFANIE | | | | | ENTIRE 36 | Williams NEGROLATERAL 36" | | | | | 1 VIEW | FILM OF THE THORACIC AND | | | | | | LUMBAR SPINE: | | | | | | 08/19/99 at 1130hours. | | | | | | Dictated 08/20/99. | | | | | | FINDINGS: There is | | | | | | compression with | | | | | | anterior wedging in the | | | | | | body ofL1. There is | | | | | | loss of approximately | | | | | | 60% of the vertical | | | | | | height of thebody of L1 | | | | | | anteriorly with | | | | | | associated increase in | | | | | | the | | | | | | thoracolumbarkyphosis. | | | | | | There has also been a | | | | | | fracture through the | | | | | | body of S2 withanterior | | | | | | displacement of the | | | | | | cephalad fragment. | | | | | | There is increase | | | | | | inthe lumbar lordosis. | | | | | | Degenerative change is | | | | | | present at the L4-5 | | | | | | andL5-S1 facet joints. | | | | | | Spurring is present | | | | | | throughout the lumbar | | | | | | spine.No change is seen | | | | | | in the alignment of the | | | | | | thoracolumbar or | | | | | | lumbosacralspine since | | | | | | 05/27/99. IMPRESSION: 1. | | | | | | Chronic compression | | | | | | with anterior wedging in | | | | | | the body of L1 | | | | | | andincrease in the | | | | | | thoracic kyphosis. 2. | | | | | | Degenerative change at | | | | | | the L4-5 and L5-S1 | | | | | | facet joints. 3. | | | | | | Increase in the lumbar | | | | | | lordosis. 4. Previous | | | | | | fracture through the | | | | | | upper sacrum with | | | | | | anteriordisplacement of | | | | | | the cephalad fragment. | | | | | | 5. No change in | | | | | | alignment since | | | | | | 05/27/99. END OF | | | | | [...] | | | + +---------+ + + CT L SPINE W/PRIOR CONTRAST (08/02/1999 12:15 PM PST) + + + + + + | Component | Value | Ref Range | Performed | Pathologist | | | | | At | Signature | + + + + + + | CT L SPINE | Radiologist 1: HEBER, | | | | | W/PRIOR | ZACHARY LOVELL, | | | | | CONTRAST | MReyes-Radiologist 2: BROOKLYN, | | | | | | TYE HUFF, | | | | | | FAY | | | | | | | | | | | | THE | | | | | | FINDINGS AND | | | | | | INTERPRETATIONS HAVE | | | | | | BEEN REPORTED ON | | | | | | THEMYELOGRAM THORACIC, | | | | | | ACC# [id number], DONE ON | | | | | | 02-AUG-1999 AT 10:00. | | | | + + + + + + + + | Specimen | + + | | + + + +---------+ + + | Performing | Address | City/State/Zipcode | Phone Number | | Organization | | | | + +---------+ + + | [facility] DEPARTMENT OF | | | | | RADIOLOGY | | | | + +---------+ + + CT T SPINE W/PRIOR CONTRAST (08/02/1999 12:15 PM PST) + + + + + + | Component | Value | Ref Range | Performed | Pathologist | | | | | At | Signature | + + + + + + | CT T SPINE | Radiologist 1: HEBER, | | | | | W/PRIOR | ZACHARY LOVELL | | | | | MOISES | M.DBuddy-Radiologist 2: BROOKLYN | | | | | | TYE HUFF, | | | | | | FAY | | | | | | | | | | | | THE | | | | | | FINDINGS AND | | | | | | INTERPRETATIONS HAVE | | | | | | BEEN REPORTED ON | | | | | | THEMYELOGRAM THORACIC, | | | | | | ACC# [id number], DONE ON | | | | | | 02-AUG-1999 AT 10:00. | | | | + + + + + + + + | Specimen | + + | | + + + +---------+ + + | Performing | Address | City/State/Zipcode | Phone Number | | Organization | | | | + +---------+ + + | [facility] DEPARTMENT OF | | | | | RADIOLOGY | | | | + +---------+ + + MYELOGRAPHY LUMBOSACRAL (08/02/1999 11:10 AM PST) + + + + + + | Component | Value | Ref Range | Performed | Pathologist | | | | | At | Signature | + + + + + + | MYELOGRAPHY | Radiologist 1: HEBER, | | | | | | ZACHARY LOVELL | | | | | LUMBOSACRAL | M.D.-Radiologist 2: BROOKLYN, | | | | | | TYE HUFF, | | | | | | FAY | | | | | | | | | | | | THE | | | | | | FINDINGS AND | | | | | | INTERPRETATIONS HAVE | | | | | | BEEN REPORTED ON | | | | | | THEMYELOGRAM THORACIC, | | | | | | ACC# [id number], DONE ON | | | | | | 02-AUG-1999 AT 10:00. | | | | + + + + + + + + | Specimen | + + | | + + + +---------+ + + | Performing | Address | City/State/Zipcode | Phone Number | | Organization | | | | + +---------+ + + | [facility] | | | | | RADIOLOGY | | | | + +---------+ + + MYELOGRAPHY THORACIC (08/02/1999 10:00 AM PST) + + + + + + | Component | Value | Ref Range | Performed | Pathologist | | | | | At | Signature | + + + + + + | MYELOGRAPHY | Radiologist 1: HEBER | | | | | THORACIC | ZACHARY LOVELL | | | | | | Williams-Radiologist 2: BROOKLYN | | | | | | Williams HUFFCOMBINED | | | | | | THORACIC AND LUMBAR | | | | | | COMPUTERIZED TOMOGRAPHY | | | | | | MYELOGRAM:08/02/99 | | | | | | Dictated: 08/02/99 | | | | | | CLINICAL HISTORY: | | | | | | Osyum[age]zlyxw[age]daee[age]old | | | | | | patient who complains of | | | | | | midand lower back pain, | | | | | | with bilateral thigh | | | | | | pain and weakness. She | | | | | | alsodescribes a | | | | | | numbness radiating into | | | | | | bilateral buttocks and | | | | | | both thighs.The patient | | | | | | past medical history | | | | | | includes treated breast | | | | | | cancer,spinal cord | | | | | | injury (1963) with motor | | | | | | recovery, lumbar spine | | | | | | fusion,and bilateral | | | | | | total hip replacement | | | | | | surgeries. TECHNIQUE: | | | | | | Informed consent was | | | | | | obtained after the | | | | | | potential | | | | | | risks,benefits, and | | | | | | alternatives were | | | | | | discussed with the | | | | | | patient, whoindicated | | | | | | that she understood and | | | | | | directed us to proceed. | | | | | | Allquestions were | | | | | | answered. In the | | | | | | fluoroscopy suite, the | | | | | | patient'slower back was | | | | | | prepped and draped in | | | | | | the usual sterile | | | | | | fashion.Following | | | | | | administration of local | | | | | | Lidocaine anesthesia at | | | | | | the L4-5level, a 22 | | | | | | gauge spinal needle was | | | | | | advanced under | | | | | | fluoroscopicguidance | | | | | | into the patient thecal | | | | | | sac. This intrathecal | | | | | | location wasconfirmed | | | | | | flouroscopically. A | | | | | | total of 15 ml of | | | | | | Omnipaque 180 wasinfused | | | | | | into the spinal needle | | | | | | apparatus. The needle | | | | | | was thenremoved, and | | | | | | multiple plain film | | | | | | myelogram images were | | | | | | performed ofthe lumbar | | | | | | spine and lower thoracic | | | | | | spine. There were no | | | | | | immediatecomplications. | | | | | | The patient tolerated | | | | | | the procedure well. The | | | | | | patient was then brought | | | | | | by stretcher to the | | | | | | computerizedtomography | | | | | | imaging suite, where | | | | | | contiguous 3 mm axial | | | | | | images wereperformed | | | | | | from the T10 level to | | | | | | the S1 level, with | | | | | | sagittal andcoronal | | | | | | reconstructions. | | | | | | Additional 1 mm | | | | | | contiguous axial images | | | | | | wereperformed from the | | | | | | mid T11 level to the | | | | | | L1-2 interspace level. | | | | | | FINDINGS: Preliminary | | | | | | shaping machine tender film of the lumbar | | | | | | spine shows | | | | | | diffuseosteopenia. | | | | | | There is a | | | | | | wedge-shaped compression | | | | | | fracture of the | | | | | | P1qqpuhkxel body, with | | | | | | 70% loss of anterior | | | | | | height and 25% loss | | | | | | ofposterior height. | | | | | | There is minimal | | | | | | displacement of the | | | | | | posterior wallof the L1 | | | | | | vertebral body into the | | | | | | central spinal canal, | | | | | | although thereis no | | | | | | significant compromise | | | | | | of the central spinal | | | | | | canal at thislevel. | | | | | | The lumbar spine | | | | | | curvature and alignment | | | | | | remain within | | | | | | normallimits. At the | | | | | | T10-11 and T11-12 | | | | | | levels, there is no | | | | | | neural | | | | | | foraminalstenosis, | | | | | | central spinal canal | | | | | | narrowing, or | | | | | | significant disc bulge. | | | | | | Again, there is | | | | | | compression fracture of | | | | | | the L1 vertebral level, | | | | | | withminimal displacement | | | | | | of the posterior wall | | | | | | of the vertebral body | | | | | | intothe central canal, | | | | | | although without | | | | | | producing significant | | | | | | compromiseof the central | | | | | | spinal canal. There | | | | | | is no significant neural | | | | | | foraminalstenosis or | | | | | | central spinal canal | | | | | | narrowing at the T12-L1 | | | | | | level. Thecauda equina | | | | | | drapes over this level, | | | | | | without compression. | | | | | | Thepatient is status | | | | | | post laminectomy and | | | | | | posterior fusion from | | | | | | the [id number] to the L2 | | | | | | level. The L1-2 and the | | | | | | L2-3 levels are without | | | | | | neural foraminal | | | | | | stenosis,central spinal | | | | | | canal narrowing, or | | | | | | significant disc bulge. | | | | | | There is no significant | | | | | | osseous neural foraminal | | | | | | stenosis at theL3-4, | | | | | | L4-5, or L5-S1 levels. | | | | | | There is a mild | | | | | | broad-based | | | | | | rightposterolateral disc | | | | | | bulge at the L3-4 | | | | | | level, which does not | | | | | | result insignificant | | | | | | central spinal canal | | | | | | narrowing or neural | | | | | | foraminalstenosis. | | | | | | Bilateral facet | | | | | | degenerative changes are | | | | | | noted at the L4-5 and | | | | | | at theL5-S1 levels. | | | | | | There is no | | | | | | significant central | | | | | | spinal canal narrowingat | | | | | | the L4-5 and the L5-S1 | | | | | | level. The conus | | | | | | medullaris terminates at | | | | | | the L1-2 level, and is | | | | | | unremarkablein size and | | | | | | contour. There is no | | | | | | evidence of | | | | | | intraduralextramedullary | | | | | | mass. No epidural | | | | | | mass or fluid collection | | | | | | isidentified. Patient | | | | | | is status post | | | | | | bilateral total hip | | | | | | replacement. On image | | | | | | #66, there is | | | | | | discontinuity of the | | | | | | left lateral cortex of | | | | | | thepelvis (ilium), near | | | | | | a calcified enthsopathy | | | | | | of gluteal muscle, | | | | | | likelyrelated to | | | | | | combined osteopenia and | | | | | | degenerative change. | | | | | | IMPRESSION: 1. L1 | | | | | | vertebral body | | | | | | compression fracture, | | | | | | without | | | | | | significantcentral canal | | | | | | compromise. 2. | | | | | | Diffuse osteopenia. 3. | | | | | | Status post | | | | | | laminectomy and | | | | | | posterior fusion from | | | | | | the T12 level tothe L2 | | | | | | level. 4. Facet | | | | | | degenerative changes at | | | | | | the lower lumbar spine. | | | | | | Nosignificant neural | | | | | | foraminal stenosis or | | | | | | central spinal | | | | | | canalnarrowing. END OF | | | | | | IMPRESSION: | | | | + + + + + + + + | Specimen | + + | | + + + +---------+ + + | Performing | Address | City/State/Zipcode | Phone Number | | Organization | | | | + +---------+ + + | [facility]MENT [facility] | | | | | RADIOLOGY | | | | + +---------+ + + documented in this encounter Visit Diagnoses Not on filedocumented in this encounter
--- OUTSIDE RECORDS SUMMARY | ~2019-03-30 | XMS | Encounter Summary ---
Demographics + + + | Address | [address] | | | [place] [address] | + + + | Home Phone | | + + + | Preferred Language | Unknown | + + + | Marital Status | | + + + | Confucianist Affiliation | CAT | + + + | Race | White | + + + | Ethnic Group | Not or | + + + Author + + + | Author | [facility] | + + + | Organization | [facility] | + + + | Address | Unknown | + + + | Phone | Unavailable | + + + Support + + +---------+ + | Name | Relationship | Address | Phone | + + +---------+ + | Jeronimo Ortega | ECON | Unknown | | + + +---------+ + Care Team Providers + +------+ + | Care Grinder Setup Operator Name | Role | Phone | + +------+ + PCP | Unavailable | + +------+ + Encounter Details +--------+ + + + + | Date | Type | Department | Care Team | Description | +--------+ + + + + | 09/20/ | Office | General Internal | Note, Outpatient | Progress Note | | 1996 | Visit-Trans | Medicine [address] | Clinic | | | | [address] | [address] | | | | | | Mailcode: [id number] | | | | | | Outpatient Clinic | | | | | | [facility], [address] | | | | | | [place], [place] | | | | | | [address] | | | | | | [phone] | | | +--------+ + + + [...] as of this encounter Progress Notes Interface, Wash House Supervisor In - 07/16/2006 3:00 AM PST CLINIC DATE: 09/20/96 Dr. Gonzalez has dictated her evaluation, but a few comments are in order. Mrs. Ortega is a 56-year-old woman seen on referral from Dr. Roque Flor in [place]. She has significant neurological problems associated with spine trauma in 1965. She has had an abnormal gait pattern since that time, and is seen because of marked osteoarthritic changes in her hips. On physical examination, she has some increase in tone in her lower extremities, with very brisk reflexes at the knees. She does not have overt spasticity or clonus. The range of motion of her hips is quite unusual, with abnormality in rotation. She has mild hip flexion contractures bilaterally. She has very poor control of bowel and bladder, has some sensory changes in her feet. All of her neurologic abnormalities appear to be below the level of her trauma. She believes that her upper extremities and upper spine function perfectly normally, and the clinical findings confirm that. She has had a spine fusion by Dr. Peter Kebede, and she believes that her spine fusion is solid. She still has some back pain, but that apparently is not changing. What is changing is her ability to function and the pain around her hips. RECOMMENDATIONS: After reviewing the situation, I believe that total joint replacement is advisable A neurological evaluation will be arrnaged. There is no strong indication to do them at the same time, and one hip is much more symptomatic than the other, so we will plan to do them one at a time. She will need some additional neurologic work-up ahead of time, and will also need to be managed carefully post-op in regard to her bowel and bladder control, etc. Marc Granados M.D. Professor, Orthopedics and Rehabilitation ERICK/vanna P cc: Roque Martin M.D. [address] [place] [id number] documented in this encounter Plan of Treatment Not on filedocumented as of this encounter Visit Diagnoses Not on filedocumented in this encounter"
--- OUTSIDE RECORDS SUMMARY | ~2019-03-30 | XMS | Encounter Summary ---
Demographics + + + | Address | [address] | | | [place] [address] | + + + | Home Phone | | + + + | Preferred Language | Unknown | + + + | Marital Status | | + + + | Buddhism Affiliation | CAT | + + + [...] Team Providers + +------+ + | Care Field Producer Name | Role | Phone | + +------+ + PCP | Unavailable | + +------+ + Encounter Details +--------+ + + + + | Date | Type | Department | Care Team | Description | +--------+ + + + + | 03/07/ | Orders Only | | Lab, Vascular | | | 2004 | | | | | +--------+ + [...] | + +--------+ + + + | VASCULAR FLOW | | 03/07/2004 | | | | IMAGING, NONCARDIAC | | | | | | - VASC LAB | | | | | + +--------+ + + + documented in this encounter Visit Diagnoses Not on filedocumented in this encounter"
--- OUTSIDE RECORDS SUMMARY | ~2019-03-30 | XMS | Encounter Summary ---
Demographics + + + | Address | [address] | | | [place] [address] | + + + | Home Phone | | + + + | Preferred Language | Unknown | + + + | Marital Status | | + + + | Catholic Affiliation | CAT | + + + [...] Team Providers + +------+ + | Care Instructional Support Specialist Name | Role | Phone | + +------+ + PCP | Unavailable | + +------+ + Encounter Details +--------+ + + + + | Date | Type | Department | Care Team | Description | +--------+ + + + + | 09/19/ | Results | Orthopaedics at | Marc Granados MD | | | 1996 | Only | [facility] [address] | [address] | | | | | [address] | [address] [place] [place], | | | | | Mailcode: PV430 | [place] [address] | | | | | [facility] | | | | | | [place], [place] | | | | | | [address] | | | | | | [phone] | | | +--------+ + + + [...] | HIP, 2 VIEWS | Routin | 09/19/1996 | | Results for this | | | e | 12:41 PM | | procedure are in the | | | | PDT | | results section. | + +--------+ + + + documented in this encounter Results HIP, 2 VIEWS (09/19/1996 12:41 PM PDT) + + + + + + | Component | Value | Ref Range | Performed | Pathologist | | | | | At | Signature | + + + + + + | HIP, 2 | Radiologist 1: LEEANNE, | | | | | VIEWS | AMIE-Radiologist 2: | | | | | | ROGELIO WARD | | | | | | FAY ESTEBAN | | | | | | | | | | | | | | | | | | TWO VIEWS | | | | | | OF THE HIPS: 09/19/96 | | | | | | Dictated: 09/20/96 | | | | | | COMPARISON FILMS: | | | | | | There are no prior | | | | | | films available for | | | | | | comparison. FINDINGS: | | | | | | There is an old healed | | | | | | fracture of the left | | | | | | inferior pubicramus. | | | | | | There is bilateral | | | | | | symmetric medial joint | | | | | | space narrowing.There is | | | | | | associated acetabular | | | | | | and femoral head | | | | | | spurring andsclerosis. | | | | | | There are no other | | | | | | bony abnormalities. | | | | | | The sacroiliacjoints | | | | | | are normal. There are | | | | | | no soft tissue | | | | | | abnormalities. | | | | | | IMPRESSION: 1. | | | | | | Bilateral medial hip | | | | | | joint osteoarthritis. 2. | | | | | | Old left inferior | | | | | | pubic ramus fracture. | | | | | | END OF IMPRESSION: | | | | + + + + + + + + | Specimen | + + | | + + + +---------+ + + | Performing | Address | City/State/Zipcode | Phone Number | | Organization | | | | + +---------+ + + | [facility] | | | | | RADIOLOGY | | | | + +---------+ + + documented in this encounter Visit Diagnoses Not on filedocumented in this encounter"
--- OUTSIDE RECORDS SUMMARY | ~2019-03-30 | XMS | Encounter Summary ---
Demographics + + + | Address | [address] | | | [place] [address] | + + + | Home Phone | | + + + | Preferred Language | Unknown | + + + | Marital Status | | + + + | Latter Day Affiliation | CAT | + + + | Race | White | + + + | Ethnic Group | Not or | + + + Author + + + | Author | [facility] | + + + | Organization | [facility] | + + + | Address | Unknown | + + + | Phone | Unavailable | + + + Support + + +---------+ + | Name | Relationship | Address | Phone | + + +---------+ + | Jeronimo Ortega | ECON | Unknown | | + + +---------+ + Care Team Providers + +------+ + | Care Utilization Review Specialist Name | Role | Phone | + +------+ + PCP | Unavailable | + +------+ + Encounter Details +--------+ + + + + | Date | Type | Department | Care Team | Description | +--------+ + + + + | 05/27/ | Office | [facility] | Note, Outpatient | Progress Note | | 1999 | Visit-Trans | MEDICINE | Clinic | [...] as of this encounter Progress Notes Interface, Actuarial Science Teacher In - 04/17/2006 1:08 AM PSTCLINIC DATE: 05/27/1999 ORTHOPEDIC CLINIC SUBJECTIVE: Amanda has had bilateral hip replacements, and she is very pleased that she does not have hip pain any more. The problem is her gait. She had a traumatic injury to her spine in 1962 at which time she had a fracture she was paralyzed for a time and then gradually got better. She has had surgery on her spine. Since that time, she has had difficulty with motor control in her lower extremities, and she always has walked with her toes pointing inward. She does have pain in her back that goes into her buttocks and goes down her legs. She can walk about one block. When she develops this discomfort, she has to sit down. She has been doing some physical therapy to improve her gait and finds that if she keeps stretched out that she can walk better but she still tends to toe in to some extent. X-rays of her spine indicate that she has a fusion in the upper lumbar spine. She also has a deformity. DIAGNOSIS: Uncertain. I think she clearly has some nerve damage relating to her original injury. It would be nice to be able to document the extend of her nerve damage. I think that she may also have spinal stenosis and this is something that may be treatable. RECOMMENDATION: It is my recommendation that arrangements be made for her to see for his evaluation of her neurological and motor loss and for Dr. James to see in regard to the possibility of spinal stenosis. They live some distance away and hopefully this could be arranged on the same day. The family are very interested in pursuing this. Once those consultations have been obtain, I can then readdress the question about her gait and management of her total hips. Marc Granados M.D. ERICK / BEBA [id number] / [id number] / [id number] / C: 05/29/1999 john cc: Williams Andrade M.D. John McBee, MD [address] [place] [address], [address] [place], [place] [address]Aewshfqyweiswy signed by Interface, Actuarial Science Teacher In at 04/17/2006 1:08 AM PSTdocumented in this encounter Plan of Treatment Not on filedocumented as of this encounter Visit Diagnoses Not on filedocumented in this encounter"
--- OUTSIDE RECORDS SUMMARY | ~2019-03-30 | XMS | Encounter Summary ---
Demographics + + + | Address | [address] | | | [place] [address] | + + + | Home Phone | | + + + | Preferred Language | Unknown | + + + | Marital Status | | + + + | Mandaen Affiliation | CAT | + + + | Race | White | + + + | Ethnic Group | Not or | + + + Author + + + | Author | [facility] | + + + | Organization | [facility] | + + + | Address | Unknown | + + + | Phone | Unavailable | + + + Support + + +---------+ + | Name | Relationship | Address | Phone | + + +---------+ + | Jeronimo Ortega | ECON | Unknown | | + + +---------+ + Care Team Providers + +------+ + | Care Hat Block Bench Hand Name | Role | Phone | + +------+ + PCP | Unavailable | + +------+ + Encounter Details +--------+ + + + + | Date | Type | Department | Care Team | Description | +--------+ + + + + | 06/14/ | Office | [facility] | Note, Orthopedics | Progress Note | | 2003 | Visit-Trans | | Clinic | | [...] as of this encounter Progress Notes Interface, Pulmonary Function Technician In - 11/21/2005 1:06 AM PDTCLINIC DATE: 06/14/2002 ORTHOPEDIC CLINIC The patient called in requesting a refill of her morphine sulfate 10 mg. This was okayed per Dr. Granados, #60, 1 tablet b.i.d. p.r.n. for pain. Actually, this was mailed to the patient at home address, [address] [place] [address]. Ally Santana M.D. CB / BEBA [id number] / [id number] / [id number] / [id number] Tdocumented in this encounter Plan of Treatment Not on filedocumented as of this encounter Visit Diagnoses Not on filedocumented in this encounter"
--- OUTSIDE RECORDS SUMMARY | ~2019-03-30 | XMS | Encounter Summary ---
Demographics + + + | Address | [address] | | | [place] [address] | + + + | Home Phone | | + + + | Preferred Language | Unknown | + + + | Marital Status | | + + + | Scientologist Affiliation | CAT | + + + | Race | White | + + + | Ethnic Group | Not or | + + + Author + + + | Author | [facility] | + + + | Organization | [facility] | + + + | Address | Unknown | + + + | Phone | Unavailable | + + + Support + + +---------+ + | Name | Relationship | Address | Phone | + + +---------+ + | Jeronimo Ortega | ECON | Unknown | | + + +---------+ + Care Team Providers + +------+ + | Care Eligibility Analyst Name | Role | Phone | + +------+ + PCP | Unavailable | + +------+ + Encounter Details +--------+ + + + + | Date | Type | Department | Care Team | Description | +--------+ + + + + | 12/22/ | Office | [facility] | Note, [...] as of this encounter Progress Notes Interface, Sweatband Perforator In - 11/08/2005 1:09 AM PDTCLINIC DATE: 12/22/2002 ORTHOPEDIC CLINIC SUBJECTIVE: The patient is here for preop and consent signing. Left tight iliotibial band, she had the right done and is very happy with the results. She is otherwise relatively healthy. She has had bilateral hips done, back surgery, and a surgery for breast cancer. ALLERGIES: PENICILLIN, SULFA, OXYCODONE, ENDOCET, CODEINE, HYDROCODONE, AND PROPOXY/APAP. PREVIOUS ILLNESSES: Denied bleeding disorders. She has had past blood transfusion. She has multiple drug allergies obviously to pain medications, but she is okay for morphine sulfate and diazepam, that has been a good pain regimen for her. PHYSICAL EXAMINATION GENERAL: She is a well-developed and well-nourished female in no acute distress. LUNGS: She has clear to auscultate lungs bilaterally. HEART: Regular rate and rhythm. ABDOMEN: Soft. EXTREMITIES: Left lower extremity with intact skin. Right side with a well-healed scar at the distal lateral knee. NEUROLOGIC: Grossly intact neurologically. ASSESSMENT: A PARQ conference was held, consent was freely signed. They are staying with their [id number], . She was given instructions to the [facility] and plans on undertaking a day surgery. Again, consent was freely signed after a PARQ conference. Zaki Chandra. Marc Granados M.D. DONIS / BEBA [id number] / [id number] / [id number] / [id number] signed by Interface, Sweatband Perforator In at 11/08/2005 1:09 AM PDTdoc umented in this encounter Plan of Treatment Not on filedocumented as of this encounter Visit Diagnoses Not on filedocumented in this encounter"
--- OUTSIDE RECORDS SUMMARY | ~2019-03-30 | XMS | Encounter Summary ---
Demographics + + + | Address | [address] | | | [place] [address] | + + + | Home Phone | | + + + | Preferred Language | Unknown | + + + | Marital Status | | + + + | Episcopalian Affiliation | CAT | + + + | Race | White | + + + | Ethnic Group | Not or | + + + Author + + + | Author | [facility] | + + + | Organization | [facility] | + + + | Address | Unknown | + + + | Phone | Unavailable | + + + Support + + +---------+ + | Name | Relationship | Address | Phone | + + +---------+ + | Jeronimo aCrranza | ECON | Unknown | | + + +---------+ + Care Team Providers + +------+ + | Care Drywall Boardhanger Name | Role | Phone | + +------+ + PCP | Unavailable | + +------+ + Encounter Details +--------+ + + + + | Date | Type | Department | Care Team | Description | +--------+ + + + + | 11/21/ | Results | Orthopaedics at | Marc Granados MD | | | 1996 | Only | [facility] [address] | [address] | | | | | [address] | [place], | | | | | Mailcode: PV430 | [place] [address] | | | | | Physician's [place] | | | | | | [place], [place] | | | | | | [address] | | | | | | [phone] | | | +--------+ + + + [...] | + +--------+ + + + | FEMUR, 2 VIEWS | Routin | 01/30/1997 | | Results for this | | | e | 1:31 PM | | procedure are in the | | | | PDT | | results section. | + +--------+ + + + | PELVIS, 1 VIEW, | Urgent | 11/22/1996 | | Results for this | | PORTABLE | | 11:45 AM | | procedure are in the | | | | PDT | | results section. | + +--------+ + + + | X-RAY CHEST 2 VIEW | Priori | 11/21/1996 | | Results for this | | | ty | 4:14 PM | | procedure are in the | | | | PDT | | results section. | + +--------+ + + + documented in this encounter Results FEMUR, 2 VIEWS (01/30/1997 1:31 PM PDT) + + + + + + | Component | Value | Ref Range | Performed | Pathologist | | | | | At | Signature | + + + + + + | FEMUR, 2 | Radiologist 1: HAFSA, | | | | | VIEWS | ALEJANDRO Newman M.D. | | | | | | FAY CARRANZA | | | | | | | | | | | | | | | | | | 32 AP AND | | | | | | LATERAL VIEWS OF THE | | | | | | LEFT PROXIMAL FEMUR: | | | | | | 01/30/97 AT 1331HOURS | | | | | | Dictated: 01/31/97 | | | | | | COMPARISON: 11/22/96 | | | | | | FINDINGS: There is a | | | | | | left cementless total | | | | | | hip arthroplasty, | | | | | | theacetabular component | | | | | | is secured by at least | | | | | | two screws. | | | | | | Thecomponents are in | | | | | | expected position with | | | | | | no evidence of | | | | | | loosening. Again noted | | | | | | is a fracture of the | | | | | | left inferior pubic | | | | | | ramus. Overall, there | | | | | | has been no significant | | | | | | change since 11/22/96. | | | | | | IMPRESSION: 1. Left | | | | | | total hip arthroplasty. | | | | | | No change in alignment | | | | | | or looseningsince | | | | | | 11/22/96. 2. Left | | | | | | inferior pubic ramus | | | | | | fracture unchanged. END | | | | | | OF IMPRESSION: | | | | + + + + + + + + | Specimen | + + | | + + + +---------+ + + | Performing | Address | City/State/Zipcode | Phone Number | | Organization | | | | + +---------+ + + | [facility]MENT OF | | | | | RADIOLOGY | | | | + +---------+ + + PELVIS, 1 VIEW, PORTABLE (11/22/1996 11:45 AM PDT) + + + + + + | Component | Value | Ref Range | Performed | Pathologist | | | | | At | Signature | + + + + + + | PELVIS, 1 | Radiologist 1: JAMAL | | | | | Dina BINGHAM | | | | | PORTABLE | MReyes-Radiologist 2: | | | | | | ALEJANDRO PEREYRA M.D. | | | | | | FAY CARRANZA | | | | | | | | | | | | | | | | | | AP VIEW OF | | | | | | THE PELVIS PERFORMED ON | | | | | | 11/22/96 AT 1145 HOURS | | | | | | DICTATED ON 11/29/96 | | | | | | COMPARISON: 09/19/96 | | | | | | CLINICAL HISTORY: | | | | | | Post-surgical | | | | | | follow-up. FINDINGS: | | | | | | There has been interval | | | | | | left total hip | | | | | | arthroplasty | | | | | | withnon-cemented | | | | | | acetabular and femoral | | | | | | components. The | | | | | | componentsappear in | | | | | | expected position | | | | | | without evidence of | | | | | | loosening. Again | | | | | | demonstrated are | | | | | | degenerative changes of | | | | | | the right hip. | | | | | | IMPRESSION: 1. Left | | | | | | total hip arthroplasty | | | | | | with components in | | | | | | expected position. 2. | | | | | | Right hip | | | | | | osteoarthritis. END OF | | | | | | IMPRESSION: | | | | + + + + + + + + | Specimen | + + | | + + + +---------+ + + | Performing | Address | City/State/Zipcode | Phone Number | | Organization | | | | + +---------+ + + | [facility] DEPARTMENT OF | | | | | RADIOLOGY | | | | + +---------+ + + CHEST 2 VIEW (11/21/1996 4:14 PM PDT) + + + + + + | Component | Value | Ref Range | Performed | Pathologist | | | | | At | Signature | + + + + + + | CHEST, 2 | Radiologist 1: STEFANIE, | | | | | [place] | Williams NEGRO-Radiologist | | | | | STEREO | 2: SRUTHI WATTS | | | | | | FAY GAMBLE | | | | | | | | | | | | | | | | | | CHEST: | | | | | | 11/21/96 at 1614 hours | | | | | | Dictated: | | | | | | 11/23/96 COMPARISON | | | | | | FILMS: There are no | | | | | | prior studies available | | | | | | forcomparison. FINDINGS: | | | | | | Lungs are clear. No | | | | | | pleural effusions are | | | | | | seen.The | | | | | | cardiomediastinal | | | | | | silhouette and pulmonary | | | | | | vascularity are | | | | | | normal.Scoliosis is | | | | | | present in the thoracic | | | | | | spine. IMPRESSION: No | | | | | | active process seen. | | | | | | END OF IMPRESSION: | | | | + + + + + + + + | Specimen | + + | | + + + +---------+ + + | Performing | Address | City/State/Zipcode | Phone Number | | Organization | | | | + +---------+ + + | [facility] DE[facility]MENT OF | | | | | RADIOLOGY | | | | + +---------+ + + documented in this encounter Visit Diagnoses Not on filedocumented in this encounter"
--- OUTSIDE RECORDS SUMMARY | ~2019-03-30 | XMS | Encounter Summary ---
Demographics + + + | Address | [address] | | | [place] [address] | + + + | Home Phone | | + + + | Preferred Language | Unknown | + + + | Marital Status | | + + + | Muslim Affiliation | CAT | + + + [...] Team Providers + +------+ + | Care Qa Consultant Name | Role | Phone | + +------+ + PCP | Unavailable | + +------+ + Encounter Details +--------+ + + + + | Date | Type | Department | Care Team | Description | +--------+ + + + + | 09/06/ | Office | [facility] | Note, Outpatient | Progress Note | | 2001 | Visit-Trans | MEDICINE | Clinic | [...] as of this encounter Progress Notes Interface, Production Support Developer In - 01/22/2006 3:07 AM PDTCLINIC DATE: 09/06/2001 ORTHOPEDIC CLINIC Lindsey is seen along with her in regard to dislocation of her right hip. About 4 years ago, she had a right total hip done. About 4 years ago, she had her left total hip put in. About 3 years ago, she had her right total hip put in. It dislocated for the first time in February 2001, and she went to the hospital in [place] where Dr. Abbott replaced it. It dislocated the second time in August 2001, and it was again reduced in the Emergency Room by Dr. Farah in [place]. At the present time, she states she has a "uneasy feeling" about her hip from time to time, but she actually assumes the function pretty well most of the time. The question arises as to why she has been dislocating. The original pathology is associated with significant muscle imbalance around the hip because of her previous spine problems. She has more recently had spine surgery and has achieved a good result from that although she still has the same muscle imbalance around her hip joint that she had. Torsional features were significant problem originally. Review of x-rays were taken today show that the basic alignment of her acetabulum on the AP pelvis view is satisfactory. Shoot-through laterals were obtained, and she appears to have roughly neutral anteversion of the acetabulum within the pelvis. The femoral necks are long, and I do not think that there is any problem of impingement causing dislocation. The best explanation I can offer is that she has some muscle imbalance. She indicates that when she dislocated it was associated with significant flexion of the hip and with some internal rotation, so I think it is reasonable to believe she has been dislocating posteriorly. She has recently had a abduction brace ordered by Dr. Michele Abbott in [place] which she will be getting shortly. It is my suggestion that she wear the brace prescribed by Dr. Abbott and see how things go. Over time if she has continued episodes of dislocations, she may ask to have some kind of revision, but I think this should be followed expectantly for a time before proceeding with any further surgery. I have told her I will be pleased to see her anytime depending on their wishes. Marc Granados M.D. ERICK / [id number] / [id number] / [id number] / cc: Michele Abbott M.D. [place] [facility] Theo Atwood M.D. [address] [place] [id number] signed by Interface, Production Support Developer In at 01/22/2006 3:07 AM PDTdocumented in this encounter Plan of Treatment Not on filedocumented as of this encounter Visit Diagnoses Not on filedocumented in this encounter
--- OUTSIDE RECORDS SUMMARY | ~2019-03-30 | XMS | Encounter Summary ---
Demographics + + + | Address | [address] | | | [place] [address] | + + + | Home Phone [...] Team Providers + +------+ + | Care Resistance Brazer Name | Role | Phone | + +------+ + PCP | Unavailable | + +------+ + Encounter Details +--------+ + + + + | Date | Type | Department | Care Team | Description | +--------+ + + + + | 10/14/ | Results | | Other, Faculty | | | 1999 | Only | | [phone] | | +--------+ + + + + [...] + +--------+ + + + | X-RAY SPINE | Routin | 10/15/1999 | | Results for this | | THORACOLUMBAR 2 | e | 11:25 AM | | procedure are in the | | VIEWS | | PDT | | results section. | + +--------+ + + + | CT LUMBAR SPINE | Priori | 10/14/1999 | | Results for this | | | ty | 11:55 AM | | procedure are in the | | | | PDT | | results section. | + +--------+ + + + documented in this encounter Results SPINE THORACOLUMBAR 2 VIEWS (10/15/1999 11:25 AM PDT) + + + + + + | Component | Value | Ref Range | Performed | Pathologist | | | | | At | Signature | + + + + + + | SPINE | Radiologist 1: JAMAL, | | | | | THORACOLUMB | Quintin CARPENTER M.D. AP AND | | | | | AR 2 VIEWS | LATERAL T SPINE WITH | | | | | | BRACE: 10/15/1999 | | | | | | Dictated 07/20/2001 | | | | | | NOTE: Films are | | | | | | re-submitted for | | | | | | dictation at this time | | | | | | as a report isnot | | | | | | available in [facility]. | | | | | | HISTORY: L1 fracture. | | | | | | COMPARISON: | | | | | | Preoperative film, | | | | | | 05/27/99. FINDINGS: The | | | | | | patient is now | | | | | | postoperative posterior | | | | | | spinal fixationwith | | | | | | pedicle screws and | | | | | | paraspinal rods at T11, | | | | | | T12, L2 and L3. | | | | | | Thereare associated | | | | | | laminectomies. 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 Thehardware is | | | | | | intact. Again noted | | | | | | are degenerative facet | | | | | | changes in thelower | | | | | | lumbar spine. AP AND | | | | | | LATERAL SPINE UPRIGHT | | | | | | OUT OF BRACE: | | | | | | 11/22/1999 COMPARISON: | | | | | | 10/15/99. FINDINGS: I | | | | | | see no change in | | | | | | posterior fixation | | | | | | hardware from [id number] | | | | | | no signs of loosening | | | | | | or loss in spinal | | | | | | fixation. There | | | | | | issclerosis at the site | | | | | | of the prior L1 fracture | | | | | | consistent withhealing. | | | | | | I see no further loss | | | | | | in height or change in | | | | | | spinalalignment compared | | | | | | to the exam of | | | | | | 10/15/99. IMPRESSION: 1. | | | | | | Laminectomies and | | | | | | posterior fusion, T11-L2 | | | | | | with improved | | | | | | kyphoticdeformity at the | | | | | | level of the L1 | | | | | | compression fracture. 2. | | | | | | Initial postoperative | | | | | | films show mosque | | | | | | in height of the bodyand | | | | | | disc spaces. 3. | | | | | | Follow-up film shows | | | | | | no hardware loosening or | | | | | | change in alignment. | | | | | | END OF IMPRESSION: | | | | + + + + + + + + | Specimen | + + | | + + + + + | Narrative | Performed At | + + + | Ordered by RAKAN BIRD | | + + + + +---------+ + + | Performing | Address | City/State/Zipcode | Phone Number | | Organization | | | | + +---------+ + + | [facility] DEPARTMENT OF | | | | | RADIOLOGY | | | | + +---------+ + + CT LUMBAR SPINE (10/14/1999 11:55 AM PDT) + + + + + + | Component | Value | Ref Range | Performed | Pathologist | | | | | At | Signature | + + + + + + | CT LUMBAR | Radiologist 1: HEBER, | | | | | SPINE | ZACHARY LOVELL, | | | | | | M.DBuddy-Radiologist 2: BROOKLYN, | | | | | | DARIA M.DBuddyCT OF THE LUMBAR | | | | | | SPINE, NONCONTRAST: | | | | | | 10/14/99 Dictated: | | | | | | 10/15/99 CLINICAL | | | | | | HISTORY: Postoperative | | | | | | study in a patient with | | | | | | prior [id number] | | | | | | fracture. COMPARISON: | | | | | | Correlation was made to | | | | | | prior lumbar spine MRI | | | | | | study of08/20/99 and | | | | | | lumbar myelogram of | | | | | | 08/02/99. TECHNIQUE: | | | | | | Noncontrast 3 mm axial | | | | | | images were performed | | | | | | from the midT10 level to | | | | | | the upper L4 level. | | | | | | Sagittal and coronal | | | | | | reformattedimages were | | | | | | performed. FINDINGS: | | | | | | Metal artifacts degrade | | | | | | several images. Since | | | | | | prior studiesof | | | | | | and , there has | | | | | | been interval placement | | | | | | of orthopedicfixation | | | | | | rods and surgical screws | | | | | | at the T11, T12, L2 and | | | | | | L3 levels.The | | | | | | previously reported L1 | | | | | | compression fracture is | | | | | | still present,though the | | | | | | lumbar spine alignment | | | | | | kyphosis has been | | | | | | corrected sinceprevious | | | | | | myelogram. There has | | | | | | been surgical fusion of | | | | | | the posteriorvertebral | | | | | | elements from the T11 | | | | | | level to the L4 level. | | | | | | The surgicalscrews and | | | | | | fixation rods are | | | | | | intact, without evidence | | | | | | of adjacentlucency or | | | | | | bony erosions. There | | | | | | is no evidence of acute | | | | | | fracture. IMPRESSION: 1. 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 2. | | | | | | Prior L1 compression | | | | | | fracture, stable. END | | | | | | OF IMPRESSION: | | | | + + + + + + + + | Specimen | + + | | + + + + + | Narrative | Performed At | + + + | Ordered by RAKAN BIRD | | + + + + +---------+ [...]
--- OUTSIDE RECORDS SUMMARY | ~2019-03-30 | XMS | Encounter Summary ---
Demographics + + + | Address | [address] | | | [place] [address] | + + + | Home Phone | | + + + | Preferred Language | Unknown | + + + | Marital Status | | + + + | Hoahaoism Affiliation | CAT | + + + | Race | White | + + + | Ethnic Group | Not or | + + + Author + + + | Author | [facility] | + + + | Organization | [facility] | + + + | Address | Unknown | + + + | Phone | Unavailable | + + + Support + + +---------+ + | Name | Relationship | Address | Phone | + + +---------+ + | Jeronimo Ortega | ECON | Unknown | | + + +---------+ + Care Team Providers + +------+ + | Care Electrician Journeyman Wireman Name | Role | Phone | + +------+ + PCP | Unavailable | + +------+ + Encounter Details +--------+ + + + + | Date | Type | Department | Care Team | Description | +--------+ + + + + | 07/01/ | Office | [facility] | Note, [...] as of this encounter Progress Notes Interface, Agricultural Real Estate Agent In - 04/14/2006 3:09 AM [facility]: [facility] Mrs. Ortega is a new patient to me. She is referred by Dr. Marc Granados. In brief, I feel that the patient demonstrates symptoms and complaints consistent with lumbar spinal stenosis. These involve lower extremity pain. She also has a quite complicated history of a remote lumbar spine fracture with resulting spinal cord injury. This has partially resolved and indeed she has minimal weakness in the lower extremities, although she has had some atrophy of the right lower extremity in comparison to the left. She also has a recent history of approximately three years ago with a fall in which she suffered a pelvic fracture. It is not clear what the location of the fracture was, although this was eventually diagnosed and treated, and based on the radiographic evidence appears to have involved the pubic rami on the right. However, she does have demonstration of what appears to be a sacral burst fracture between S1 and S2 which is healed in a position of kyphosis. In addition to her lower extremity pain complaints, Amanda does demonstrate the evidence of kyphosis involving both the thoracolumbar spine as well as the upper sacral spine. The results of these kyphoses at two different levels are that she is unable to attain spinal balance in the sagittal plane. She has a sense of being thrust forward, and indeed on physical examination this is clearly the case. She does compensate with slight flexion of her hips in order to center her head over her pelvis. The balance of her neurologic exam actually demonstrates what appears to me to be 5/5 muscle strength in all motor groups of the lower extremities. Her sensory exam does demonstrate diminished sensation which is not in a clearly dermatomal pattern involving the lower extremities. However, it does seem that it is primarily a radicular pattern involving the lower lumbar and sacral nerve roots as she does have perirectal sensory loss as well. She is currently scheduled to be evaluated by Jordan Eller M.D., as well as by myself today. 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 My recommendation is for evaluation with a CT myelogram. This should extend above the fracture in the thoracic spine to approximately the T6 or T8 level to rule out the lower thoracic herniation. In addition, it should extend distally to include the entire sacrum so that we can evaluate potential compression of nerve roots at what appears to be an S1-S2 fracture as well. In addition, on her return I would like to obtain a standing AP and lateral scoliosis view to evaluate her spinal alignment, particularly in the sagittal plane. Following these studies we will reevaluate her in the clinic and determine the appropriate treatment course. Roque James M.D. / [id number] / [id number] / [id number] / [id number] cc: Vadim Zepeda M.D. [address] [place] [id number] signed by Interface, Agricultural Real Estate Agent In at 04/14/2006 3:0 9 AM PSTInterface, Agricultural Real Estate Agent In - 04/14/2006 3:09 AM PSTCLINIC DATE: 07/01/1999 ORTHOPEDIC CLINIC This is a patient of Roque James M.D. CHIEF COMPLAINT: Bilateral lower extremity numbness and ache. HISTORY OF PRESENT ILLNESS: The patient is a 59-year-old female who was injured in a horseback riding accident in 1962. She states that she landed on her tailbone and developed a spinal injury as well as paralysis. She did have paralysis of her lower extremities lasting approximately three months. She continues to have numbness of her feet bilaterally in the medial, lateral, dorsal, plantar surfaces. This has been the case since her injury in 1962. The patient underwent laminectomy and spinal fusion in 1964. She was doing well up until 1996 when she tripped over her cat and developed a pelvic fracture that was diagnosed three months later as the patient did not present to a medical facility until three months after the injury. More recently, Ms. Ortega has undergone bilateral total hip arthroplasties in 1996 and 1997. It was following the rehabilitation of her bilateral total hips that she started developing some low back pain and bilateral lower extremity numbness. This numbness starts in the lower back and goes to both gluteal regions down the lateral aspects of both the thighs to the proximal calves laterally on both sides. She reports that she has past problems with balance. She feels uncoordinated. She states that she is weak more in the right lower extremity than the left lower extremity, however, it is more than just a weakness, but rather a sense of incoordination that is most bothersome. She can walk approximately one block until she develops low back pain and the radiculopathy. She has undergone physical therapy and received instructions on back and abdominal exercises that helped with her gait, stride length, and her ability to ambulate, however have not decreased low back pain or offered a change in her lower extremity paresthesias. She has not tried chiropractic, and has not use injections. She currently uses no medications to treat her pain. She is referred by Dr. Granados for workup of possible spinal stenosis. PAST MEDICAL HISTORY 1. Neurogenic bladder. The patient has had difficulty with bladder control since her horseback riding injury in 1962. She does not require catheterization and gets brief warning prior to need to void. 2. History of breast cancer for which she underwent right lumpectomy and lymph node excision in the past. 3. History of spinal trauma as noted above. 4. History of pelvic fracture as noted above. PAST SURGICAL HISTORY 1. Spinal laminectomy and fusion in 1964. 2. Bilateral total hip arthroplasties in 1996 and 1997. 3. Breast lumpectomy and lymph node excision as noted above. CURRENT MEDICATIONS: None ALLERGIES: SULFA AND PENICILLIN WHICH RESULT IN RASH AND SHORTNESS OF BREATH. SOCIAL HISTORY: The patient lives in [place] with her , and they both are retired. The patient uses no tobacco, drinks approximately one to two drinks per day, and uses no illicit drugs. FAMILY HISTORY: Unremarkable. PHYSICAL EXAMINATION: GENERAL: Ms. Boyer is comfortable throughout her examination and does not demonstrate overt antalgic signs. BACK: Well-healed surgical scar. GENERAL POSTURE: A degree of kyphosis in forward flexion and in the lumbar/thoracolumbar region. Lumbar curve itself demonstrates increased lordosis to palpation. There is gross atrophy of the right lower extremity when compared to the left. MOTOR: Weakness in the dorsiflexion on the right compared to the left. There is weakness in bilateral hip abduction and hip adduction. Otherwise motor exam demonstrates 5/5 in all major muscle groups of bilateral lower extremities. Light touch sensation is decreased to the ankle and bilateral feet in medial, lateral, dorsal, and plantar surfaces. sensation is described as normal and symmetric bilaterally above the ankle. Straight leg raise is negative bilaterally. FEET: Clawing of lessor toes on bilateral feet. There is no clonus elicited. Toes are downgoing bilaterally. There is a degree of equinus deformity of bilateral feet. Right foot can be passively dorsiflexed to approximately neutral compared to the left foot which can be dorsiflexed 5 degrees past neutral. Radiographic examination demonstrates question of iliosacral fracture. There is an L1 compression fracture with 33 degrees of kyphosis of surrounding segments. Evidence of past laminectomy L1-L3 with fusion is noted. ASSESSMENT: This is a 56-year-old female with history of traumatic spinal and spinal cord injury approximately 37 years ago with continued neurologic problem as well as low back pain and exacerbation/new onset radiculopathy. PLAN 1. We will obtain a CT myelogram of the patient's thoracic lumbosacral spine. This would be from T10 through the sacrum. 2. We will obtain scoliosis views full spine, both AP and lateral, on next clinic visit. 3. We will followup in [facility] following aquisition of above mentioned CT myelogram. 4. A definitive plan will made at that time. 5. The patient will be seen by Dr. Jordan Eller, as well as, Dr. Granados regarding her orthopedic health. Gia Shields M.D. [facility] / [id number] / [id number] / [id number] / [id number] C: 07/15/1999 [facility] cc: Willimas Andrade M.D. John M. McBee, M.D. [address] [place] [id number] signed by Interface, Agricultural Real Estate Agent In at 04/14/2006 3:0 9 AM PSTInterface, Agricultural Real Estate Agent In - 04/14/2006 3:09 AM PSTCLINIC DATE: 07/01/1999 ORTHOPEDIC CLINIC SUBJECTIVE: Ms. Foster is referred by Dr. Granados today for evaluation of lower extremity sensory and motor deficits. She is a 59-year-old female who apparently complains of 6/10 mid back and low back pain with 4/10 right and left predominantly thigh pain and weakness. She describes a constant numbness radiating from the low back into the bilateral buttocks, lateral thighs, and the medial thighs. She states that this began approximately in 1997 and 1998, and around the time of her hip surgeries. The patient feels that the right leg is weaker than the left. She notes a "toe-in gait" which began in approximately 1996. The patient also complains of ankle and feet numbness which is also constant. This began in approximately 1963 after a spinal cord injury. The patient has complaints of urinary urgency with some stress incontinence if she cannot make it to the bathroom in time since 1962. She notes no changes in these symptoms and denies any urinary retention. Onset of the patient's symptoms is somewhat complex. The patient states that she broke the pelvis in January 1997. At that time, she noted that she began to walk "incorrectly" with the right leg turning in. She was not treated for this pelvic fracture until she was seen in approximately May,, by Dr. Granados. At that point, apparently the fracture was stable and did not need fixation. The patient had left total hip replacement in 1997, and right in 1998. At around that time, the patient states that she began to note bilateral thigh numbness. The patient states that in 1962, while horse back riding she fell off, "broke her tailbone", and was paralyzed for approximately three months. The patient notes that the strength in the lower extremity returned but the ankles and feet have been numb since that time, and in approximately 1962, the patient had what appears to be a lumbar fusion at what she thinks was theL4-L5 level. The patient was seen this morning by Dr. James. A CT myelogram has been scheduled for August 02, 1999. Diagnostically, the patient has had plain films of the lumbosacral spine. We do not have these films in the clinic today. She has not had MRI or other imaging studies. The patient has not had nerve conduction study or EMG either. Therapeutically, the patient is not currently taking any medications for her symptoms. She has been in physical therapy and is currently receiving therapy in [place] for her hip replacements. Regarding activities, in an average, week the patient is doing lower extremity resistance training and stretching exercises approximately three times per week. She also walks the stairs approximately three times per week and stretches five times per week. 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 PAST MEDICAL HISTORY 1. History of breast cancer, treated with radiation approximately 7-8 years ago. 2. Status post appendectomy. 3. Spinal cord injury 1962, with paraplegia and subsequent motor recovery. 4. Lumbar spine fusion in approximately 1965. 5. Status post left total hip replacement in 1997. 6. Status post right total hip replacement in 1998. CURRENT MEDICATIONS: None except [id number] vitamins. ALLERGIES 1. PENICILLIN WHICH CAUSES RASH AND SHORTNESS OF BREATH. 2. SULFA WHICH CAUSES PRURITUS. FAMILY HISTORY: The patient denies any significant that run in the family. REVIEW OF SYSTEMS: The patient has completed review of systems checklist which is negative except for occasional difficulty sleeping. PHYSICAL EXAMINATION: GENERAL: The patient is alert, pleasant, cooperative, and oriented. VITAL SIGNS: Blood pressure 136/70, pulse 64, respiratory rate of 14, and temperature of 98.4. Gait is markedly abnormal with knee valgus upon weightbearing and toeing in right greater than left side. She does not appear to have an antalgic gait. She does note, however, a clear Trendelenburg gait. On the right side, the patient is able to clear the foot during the spring phase although there does appear to be limited ankle dorsiflexion although not patrick footdrop. Pulses are 2+ for bilateral dorsal pedalis, 1+ for bilateral posterior tibialis. No clubbing or cyanosis is noted in the upper or lower extremities. There is no kyphosis or scoliosis present. SKIN: Within normal limits over the bilateral upper and lower extremities. There is a mid-volume and well-healed scar over the lumbar spine. Range of motion is within normal limits for the cervical spine and for the bilateral shoulders and elbows actively. No instability is noted. In the lower extremities, there is normal range of motion for passive hip and knee bilaterally. There is no varus or valgus instability at the bilateral knee joints. Lumbosacral flexibility is measured by a single inclinometer is 40 degrees of flexion, 5 degrees of extension, and 5 degrees of right and left side flexion. Strength is intact and graded at 5/5 throughout the bilateral upper extremities. Sensation is intact to pinprick throughout the bilateral upper extremities. Reflexes are 2+ for bilateral biceps, triceps, and brachioradialis. In the lower extremities, the strength is 5/5 in the left leg for ankle dorsiflexion,, great toe extension, knee extension, ankle inversion, ankle eversion, hip flexion, and hip adduction. The exception in the left lower extremity is 4/5 ankle plantar flexion. Bilateral hip abduction is graded at 4+/5. On the right lower extremity, the patient has 5/5 hip flexion, hip adduction, and knee extension. Right ankle dorsiflexion, ankle plantar flexion, great toe extension, ankle inversion, and ankle eversion are all graded at 4/5. In the bilateral lower extremities, the patient has impaired but intact sensation to pinprick over the proximal, medial, anterolateral, and posterior thighs. At approximately the level of the knees, the patient has intact sensation to pinprick circumferentially. Sensation is intact to pinprick throughout the bilateral calves. In the bilateral feet, the patient has impaired sensation to pinprick over the dorsal, medial, and lateral surfaces. Reflexes are 2+ for knee jerks in the bilateral lower extremities and absent for bilateral ankle jerks. Plantar responses are mute bilaterally. [id number] is within normal limits in the bilateral lower extremities, wvjolt-xn-ntsa is within normal limits in the bilateral upper extremities. ASSESSMENT: Impaired sensation in the bilateral lower extremities with right distal lower extremity weakness greater than left. This is complex and somewhat unclear presentation of sensory deficits. The distal lower extremity impaired sensation appears to be chronic and unchanged since the spinal cord injury of 1962; however, this stocking-type distribution is more consistent with a presentation of polyneuropathy than spinal level. These findings could represent L5-S1 chronic lesion, although the posterior calves which are S1 have intact sensation. The newer findings of bilateral proximal upper extremity impaired sensation again did not fit a specific nerve or nerveroot distribution. The weakness in the distal right lower extremity which the patient feels is new and which has altered her gait since the pelvic fracture in 1996, what appeared to be most consisted with a polyradiculopathy involving L5-S1 myotomes versus a lumbosacral plexopathy. The patient has had no reported changes in bowel or bladder function or sensation and this has been stable for many years. PLAN: At this point, I have discussed with the patient that since they are having imaging studies done on August 02, 1999, with CT myelogram, I think it would also be appropriate at that time to obtain a EMG/nerve conduction study to evaluate possible plexopathy versus polyradiculopathy versus multiple peripheral nerve entrapments or polyneuropathy. I have also discussed with the patient that depending the results of these tests and her discussions with Dr. James, her gait difficulties, and distal right lower extremity weakness may be addressed with the use of a custom ankle-foot orthosis. This can be evaluated in the future after workup is done. The patient and her appear to understand and are agreeable with the plan for EMG on the same day as CT myelogram. I will plan on seeing the patient back on August 02, 1999, for the EMG. Jordan Eller M.D. [facility] / [id number] / [id number] / [id number] / cc: Marc Granados M.D. [facility] Orthopedics and Rehabilitation Roque James M.D. [facility] Orthopedics and Rehabilitation documented in this encounter Plan of Treatment Not on filedocumented as of this encounter Visit Diagnoses Not on filedocumented in this encounter
--- OUTSIDE RECORDS SUMMARY | ~2019-03-30 | XMS | Encounter Summary ---
Demographics + + + | Address | [address] | | | [place] [address] | + + + | Home Phone | | + + + | Preferred Language | Unknown | + + + | Marital Status | | + + + | Voodoo Affiliation | CAT | + + + [...] Team Providers + +------+ + | Care Certified Respiratory Therapist Name | Role | Phone | + +------+ + PCP | Unavailable | + +------+ + Encounter Details +--------+ + + + + | Date | Type | Department | Care Team | Description | +--------+ + + + + | 01/19/ | Office | [facility] | Note, [...] documented as of this encounter Progress Notes Nannette, Production Internship In - 11/04/2005 1:08 AM PDTCLINIC DATE: 2003 ORTHOPEDIC CLINIC Lindsey is doing well following her release of the iliotibial band. Her leg is still swollen, but she finds that she can function much better, and she is delighted with her operation. I think all is well, and I will plan to see her again in about 3 months. Her wound is nicely healed. Williams Ferguson / BEBA [id number] / [id number] / [id number] / [id number] cc: Vadim Zepeda M.D. [id number] signed by Interface, Production Internship In at 11/04/2005 1:08 AM PDTHolly wright, Production Internship In - 10/31/2005 1:05 AM PDTCLINIC DATE: 2003 NON-VISIT NOTE Lindsey Ortega was in the hospital recently. She had a release of the lateral iliotibial band. This is normally a day patient-type surgery, and there is minimal blood loss associated with it. She was charged for 2 pints of blood. She indicates she actually only received part of 1 pint, and it is almost absolutely certain that she did not receive 2 pints of blood. I hope this misunderstanding can be cleared up. Williams Ferguson / BEBA [id number] / [id number] / [id number] / C: 03/10/2003 [facility] [id number] signed by Interface, Production Internship In at 10/31/2005 1:05 AM PDTdo umented in this encounter Plan of Treatment Not on filedocumented as of this encounter Visit Diagnoses Not on filedocumented in this encounter"
--- OUTSIDE RECORDS SUMMARY | ~2019-03-30 | XMS | Encounter Summary ---
Demographics + + + | Address | [address] | | | [place] [address] | + + + | Home Phone | | + + + | Preferred Language | Unknown | + + + | Marital Status | | + + + | Anabaptist Affiliation | CAT | + + + | Race | White | + + + | Ethnic Group | Not or | + + + Author + + + | Author | [facility] | + + + | Organization | [facility] | + + + | Address | Unknown | + + + | Phone | Unavailable | + + + Support + + +---------+ + | Name | Relationship | Address | Phone | + + +---------+ + | Jeronimo Ortega | ECON | Unknown | | + + +---------+ + Care Team Providers + +------+ + | Care Environmental Program Manager Name | Role | Phone | + +------+ + PCP | Unavailable | + +------+ + Encounter Details +--------+ + + + + | Date | Type | Department | Care Team | Description | +--------+ + + + + | 10/06/ | Office | [facility] | Note, [...] as of this encounter Progress Notes Interface, Rn Patient Care In - 04/04/2006 5:07 AM PSTCLINIC DATE: 10/07/1999 ORTHOPEDIC CLINIC SUBJECTIVE: Ms. Ortega returns for a preoperative workup. She is currently scheduled for osteotomy through the L1 vertebra. She is status post an L1 burst fracture with secondary neurologic injury from which she largely recovered. Subsequently, she suffered a sacral fracture and now is kyphotic at both sacrum and L1 with a secondary need for hip flexion and knee flexion to obtain upright stance. She has been quite exhausted with the muscular effort required. She desires correction of her sagittal plane alignment to allow upright stance more readily. There are no other complaints of note. I have discussed the nature of the operation as well as the indications and the risks of surgery with her in clinic today extensively. She understands the potential risk of neurologic injury, malunion, loss of correction, hardware failure, instability, as well as anesthetic risks such as heart attacks, strokes, seizure, blood clot and pulmonary embolus. We have also discussed the risk of infection, hematoma, or need for a wound exploration. She understands the nature of the operation and advised us to proceed as described. Roque James M.D. / BBEA [id number] / [id number] / [id number] / [id number] Tdocumented in this encounter Plan of Treatment Not on filedocumented as of this encounter Visit Diagnoses Not on filedocumented in this encounter"
--- OUTSIDE RECORDS SUMMARY | ~2019-03-30 | XMS | Encounter Summary ---
Demographics + + + | Address | [address] | | | [place] [address] | + + + | Home Phone | | + + + | Preferred Language | Unknown | + + + | Marital Status | | + + + | Congregation Affiliation | CAT | + + + | Race | White | + + + | Ethnic Group | Not or | + + + Author + + + | Author | [facility] | + + + | Organization | [facility] | + + + | Address | Unknown | + + + | Phone | Unavailable | + + + Support + + +---------+ + | Name | Relationship | Address | Phone | + + +---------+ + | Jeronimo Ortega | ECON | Unknown | | + + +---------+ + Care Team Providers + +------+ + | Care Assistant Professor Sculpture Name | Role | Phone | + +------+ + PCP | Unavailable | + +------+ + Encounter Details +--------+ + + + + | Date | Type | Department | Care Team | Description | +--------+ + + + + | 11/01/ | Office | General Internal | Note, Outpatient | Progress Note | | 1997 | Visit-Trans | Medicine [address] | Clinic | | | | [address] | [address] | | | | | | Mailcode: L475 | | | | | | Outpatient Clinic | | | | | | [facility], [address] | | | | | | [place], [place] | | | | | | [address] | | | | | | [phone] | | | +--------+ + + + [...] of this encounter Progress Notes Interface, Production Technologist In - 06/06/2006 7:43 AM PST CLINIC DATE: 11/01/97 Lindsey Ortega is here for pre-op meeting before surgery tomorrow. She is going to have a right total hip replacement. I anticipate putting in a small Prodigy prosthesis. We have measured the x-rays and all seems well. I discussed the plan with her and her , and I think they are all comfortable with it. She will return later today for her preop evaluation. Marc Granados M.D. Professor, Department of Orthopaedics and Rehabilitation ERICK/vanna A documented in this encounter Plan of Treatment Not on filedocumented as of this encounter Visit Diagnoses Not on filedocumented in this encounter"
--- OUTSIDE RECORDS SUMMARY | ~2019-03-30 | XMS | Encounter Summary ---
Demographics + + + | Address | [address] | | | [place] [address] | + + + | Home Phone | | + + + | Preferred Language | Unknown | + + + | Marital Status | | + + + | Confucianism Affiliation | CAT | + + + | Race | White | + + + | Ethnic Group | Not or | + + + Author + + + | Author | [facility] | + + + | Organization | [facility] | + + + | Address | Unknown | + + + | Phone | Unavailable | + + + Support + + +---------+ + | Name | Relationship | Address | Phone | + + +---------+ + | Jeronimo Carranza | ECON | Unknown | | + + +---------+ + Care Team Providers + +------+ + | Care Bodybuilder Name | Role | Phone | + +------+ + PCP | Unavailable | + +------+ + Encounter Details +--------+ + + + + | Date | Type | Department | Care Team | Description | +--------+ + + + + | 05/19/ | Documentati | Anesthesiology | Unknown . | | | 2002 | on | [address] | | | | | | [place], | | | | | | [place] [address] | | | +--------+ + + + [...] | + +--------+ + + + | ANESTHESIA/SEDATION | | 05/19/2002 | | Results for this | | | | 11:19 AM | | procedure are in the | | | | PST | | results section. | + +--------+ + + + documented in this encounter Results ANESTHESIA/SEDATION (05/19/2002 11:19 AM PST) + + + | Narrative | Performed At | + + + | Ordered by an unspecified provider. | | + + + + + | Transcriptions | + + | 05/19/2002 11:[address] [facility] Anesthesia PostOp Report | | | | Patient: FAY CARRANZA Med Rec: [id number] Sex F Bdate: 1940 | | Date/Time Data | | Entered Into [facility] | | Anesth PostOp | | Surgery Date [id number] 05/19/02 11:19 | | [id number] 10/10/99 11:04 | | Anesthesiologist ELIGIO MARTINEZ 05/19/02 11:19 | | LIANE CASTREJON 10/10/99 11:04 | | Resident Anesthesiolog ROGELIO KILPATRICK 05/19/02 11:19 | | SAPPHIRE MCKEON 10/10/99 11:04 | | Complications | | None/None Reported YES 05/24/02 16:01 | | Outcomes Information | | Satisfied with care YES 05/24/02 16:01 | | Info obtained from PATIENT 05/24/02 16:01 | | Outcome of Anesthesia NO CHANGE IN HOSPITAL COURSE 05/24/02 16:01 | | | + + documented in this encounter Visit Diagnoses Not on filedocumented in this encounter"
--- OUTSIDE RECORDS SUMMARY | ~2019-03-30 | XMS | Encounter Summary ---
Demographics + + + | Address | [address] | | | [place] [address] | + + + | Home Phone [...] Team Providers + +------+ + | Care Sled Maker Name | Role | Phone | + +------+ + PCP | Unavailable | + +------+ + Encounter Details +--------+ + + + + | Date | Type | Department | Care Team | Description | +--------+ + + + + | 05/25/ | Discharge | | Summary, Discharge | D/C Summary ODDS | | 2002 | Summary-Tra | | | | | | nscribed | | | | +--------+ + + [...] as of this encounter Discharge Summaries Interface, Acupressurist In - 11/16/2005 3:11 AM PDT [place] [address] [place] [address], [place] [address] [facility] MEDICAL SUMMARY OF HOSPITALIZATION Med Rec No: [id number] Admission Date: 05/17/2002 Name: Lindsey Ortega Discharge Date: 05/25/2002 ATTENDING PHYSICIAN:Marc Granados M.D. 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 ADDITIONAL DIAGNOSES: Not dictated. PRINCIPAL PROCEDURE: Right revision of total hip arthroplasty to bipolar prosthesis. ADDITIONAL PROCEDURES: Not dictated. REASON FOR ADMISSION: Qing Ortega is a 62-year-old female who had a total hip arthroplasty placed on the right side. She had three dislocations[address] Dr[address] Granados saw her in clinic and felt she was indicated for a revision of her total hip possibly to a bipolar prosthesis for increased stability. ALLERGIES: PENICILLIN, PROXY, CODEINE, SULFA, OXYCODONE, HYDROCODONE. MEDICATIONS: Her medications included guml-ebc-eqokofp vitamins. HOSPITAL COURSE: Patient was admitted to the hospital on May 17, 2002. She was taken to the operating room by Dr. Gomez and Dr. Granados who performed a revision of her right total hip arthroplasty to a bipolar prosthesis. This was done with a lumbosacral block with a retained catheter for pain control, and an general endotracheal anesthetic. Her blood loss was about 150 cc. There was a large bursa and scar, and her hip easily dislocated. She was stable once she was revised to the bipolar. Her postoperative plan included partial weightbearing of the right hip with a walker, posterior hip precautions and an abduction pillow. Aspirin, SCDs and early mobilization for DVT prophylaxis. She received a preoperative dose of antibiotics and antibiotics for 24 hours until her Hemovac was removed. The lumbosacral catheter was monitored by anesthesia. Her postoperative stay was uncomplicated. She was able to switch from IV pain medication to oxycodone with good pain relief and mobilized well with physical therapy. On May 21, 2002 her wound still had some mild drainage; therefore she was kept in the hospital until her wound was dry and she was mobilizing with less difficulty. On May 25, 2002, it was felt that she was stable for discharge. CONDITION ON DISCHARGE: Stable. DISPOSITION: Discharged to home. MEDICATIONS: 1. Aspirin 325 mg q.d. p.o. for three months for DVT prophylaxis. 2. MSContin for pain control. 3. MS Immediate Release for pain control. 4. Senokot for management of constipation. DISCHARGE INSTRUCTIONS: Diet: Not dictated. Activity: Posterior hip precautions, partial weightbearing. Follow up: Followup is to be with Dr. Granados in the orthopedic clinic in two weeks. Nica Gomez M.D. Marc Granados M.D. Fellow Orthopedic Surgery [id number] cc: RJ PEÑA MD [address] [place] [address] [id number] signed by Interface, Acupressurist In at 11/16/2005 3:11 AM PDTdoc umented in this encounter Plan of Treatment Not on filedocumented as of this encounter Visit Diagnoses Not on filedocumented in this encounter"
--- OUTSIDE RECORDS SUMMARY | ~2019-03-30 | XMS | Encounter Summary ---
Demographics + + + | Address | [address] | | | [place] [address] | + + + | Home Phone | | + + + | Preferred Language | Unknown | + + + | Marital Status | | + + + | Latter-Day Affiliation | CAT | + + + | Race | White | + + + | Ethnic Group | Not or | + + + Author + + + | Author | [facility] | + + + | Organization | [facility] | + + + | Address | Unknown | + + + | Phone | Unavailable | + + + Support + + +---------+ + | Name | Relationship | Address | Phone | + + +---------+ + | Jeronimo Ortega | ECON | Unknown | | + + +---------+ + Care Team Providers + +------+ + | Care Entry Level Paralegal Name | Role | Phone | + +------+ + PCP | Unavailable | + +------+ + Encounter Details +--------+ + + + + | Date | Type | Department | Care Team | Description | +--------+ + + + + | 01/30/ | Office | General Internal | Note, Outpatient | Progress Note | | 1996 | Visit-Trans | Medicine [address] | Clinic | | | | [address] | [address] | | | | | | Mailcode: L475 | | | | | | Outpatient Clinic | | | | | | [facility], [address] | | | | | | [place], [place] | | | | | | [address] | | | | | | [phone] | | | +--------+ + + + [...] as of this encounter Progress Notes Interface, Health Outcomes Liaison In - 07/04/2006 5:08 AM PST CLINIC DATE: 01/30/97 Lindsey is doing well two months since her total hip replacement. She is walking better, having less pain. She is now allowed to increase her activity level to include driving, etc. Her right hip is bothering her daily. She has occasional night pain. She takes Ultram because of the right hip. She can walk two to three blocks using her walker, and feels she could walk further if her right hip didn't hurt. I anticipate that we may replace her right hip, but I would like to wait a time. I plan to see her again in four months. We will re-x-ray her at that time in regard to both hips, and then decide whether to pursue the right hip. Up to this point her left hip has done well. She has flexion to 100 degrees, abduction of about 40 degrees, good rotation when her hip is flexed, and when her hip is extended she doesn't externally rotate well, but does internally rotate. Her gait is a very unusual gait in which she rolls her knees in as she goes through the swing phase of gait. This seems to be related to her muscle imbalance associated with her neurological problem. She feels her gait is significantly improved since her surgery, and she is very happy that the pain is gone. I will see her in four months. Marc Granados M.D. Professor, Orthopedics and Rehabilitation ERICK/vanna P cc: Roque Martin MD [address] [facility] [address] documented in this encounter Plan of Treatment Not on filedocumented as of this encounter Visit Diagnoses Not on filedocumented in this encounter"
--- OUTSIDE RECORDS SUMMARY | ~2019-03-30 | XMS | Encounter Summary ---
Demographics + + + | Address | [address] | | | [place] [address] | + + + | Home Phone | | + + + | Preferred Language | Unknown | + + + | Marital Status | | + + + | Jewish Affiliation | CAT | + + + | Race | White | + + + | Ethnic Group | Not or | + + + Author + + + | Author | [facility] | + + + | Organization | [facility] | + + + | Address | Unknown | + + + | Phone | Unavailable | + + + Support + + +---------+ + | Name | Relationship | Address | Phone | + + +---------+ + | Jeronimo Ortega | ECON | Unknown | | + + +---------+ + Care Team Providers + +------+ + | Care Grades 1 Through 5 Teacher Name | Role | Phone | + +------+ + PCP | Unavailable | + +------+ + Encounter Details +--------+ + + + + | Date | Type | Department | Care Team | Description | +--------+ + + + + | 09/19/ | Office | [facility] | Note, [...] as of this encounter Progress Notes Interface, Junior Sales Assistant In - 12/04/2005 3:06 AM PDTCLINIC DATE: 09/19/2002 ORTHOPEDIC CLINIC PREOPERATIVE HISTORY AND PHYSICAL This is a patient of Dr. Granados. SUBJECTIVE: The patient is a 62-year-old female with a history of right hip replacement with recurrent dislocation, which was apparently fixed last April 2002. She has been having pain in the right leg and palpable increased motor tone with a tight iliotibial band which was diagnosed. She is here for paperwork and consent signing to have a release of her right iliotibial band. She has had back and hip surgery bilaterally. SHE IS ALLERGIC TO PENICILLIN, SULFA, PROPOXY OXYCODONE, HYDROCODONE, AND ENDOCET. Denies previous illnesses, denies bleeding disorders, denies family history of medical problems. She takes no medications. She does not have diabetes, does not have high blood pressure, does not have asthma, no cold, flu, or temperatures recently. She was a smoker multiple years ago in the 1980s, occasional alcohol. PHYSICAL EXAMINATION GENERAL: She is a well-developed, well-nourished, thin female in no acute distress. EXTREMITIES: She does have full range of motion in the right lower extremity with intact sensation and a palpable hardness with hip flexion and knee flexion in the distal femur on the lateral aspect. NEUROLOGIC: Grossly, she is neurologically intact. DIAGNOSTIC DATA: She had no lab work done. Her EKG was done back in April 2002. Dr. Granados and Dr. Damon answered all of the patient's questions today while she was in the clinic, and she freely signed her consent after a PARQ conference was held. The patient will present to the [facility] tomorrow. She was given n.p.o. instructions and to be there at 9 a.m. for the above mentioned procedure. Zaki Chandra. Marc Granados M.D. / [id number] / [id number] / [id number] / [id number] Tdocumented in this encounter Plan of Treatment Not on filedocumented as of this encounter Visit Diagnoses Not on filedocumented in this encounter"
--- OUTSIDE RECORDS SUMMARY | ~2019-03-30 | XMS | Encounter Summary ---
Demographics + + + | Address | [address] | | | [place] [address] | + + + | Home Phone [...] Team Providers + +------+ + | Care Automobile Radio Repairer Name | Role | Phone | + +------+ + PCP | Unavailable | + +------+ + Encounter Details +--------+ + + + + | Date | Type | Department | Care Team | Description | +--------+ + + + + | 08/01/ | Office | [facility] | Note, [...] as of this encounter Progress Notes Interface, Body Sander In - 04/11/2006 5:10 AM PSTCLINIC DATE: 08/02/1999 ORTHOPEDIC CLINIC REASON FOR REFERRAL: Lower extremity strength and sensory deficit. Evaluate lumbosacral radiculopathy versus plexopathy. SUMMARY Motor nerve conduction studies: The right tibial response is normal. The right peroneal response to extensor digitorum brevis is absent. The right peroneal response to tibialis anterior is normal. The left tibial response is normal. The left peroneal response to extensor digitorum brevis is slightly low amplitude. The left peroneal response to tibialis anterior is normal. Sensory nerve conduction studies: The right sural response is normal. The right superficial peroneal response is normal. The left sural response is normal. The left superficial peroneal response is normal. Late responses: The right and left tibial F waves are normal. The left peroneal F wave is normal. Electromyography: There is no abnormal spontaneous activity. Motor unit action potential morphology, activation, and recruitment are normal in the left medial gastrocnemius. No motor unit action potentials activate the right medial gastrocnemius. Large duration, amplitude, and/or polyphasic motor unit action potentials are seen in the remainder of the muscles examined. Decreased recruitment is seen in most of the muscles examined in the right and left lower extremity. Activation is fair in the left medial gastrocnemius, which is of central origin and maybe due to pain and poor volitional effort. IMPRESSION: This is an abnormal study. 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 The asymmetrically smaller, although normal, left sural response is electrophysiologically suggestive of a left lumbosacral plexopathy. Williams Andrade / [id number] / [id number] / [id number] / [id number] cc: Roque James M.D. Orthopedics and Rehabilitation Marc Granados M.D. Orthopedics and RehabilitationElectronically signed by Interface, Body Sander In at 04/11 5:10 AM PSTdocumented in this encounter Plan of Treatment Not on filedocumented as of this encounter Visit Diagnoses Not on filedocumented in this encounter"
--- OUTSIDE RECORDS SUMMARY | ~2019-03-30 | XMS | Encounter Summary ---
Demographics + + + | Address | [address] | | | [place] [address] | + + + | Home Phone [...] + + + | Author | [facility] | + + + | Organization | [facility] | + + + | Address | Unknown | + + + | Phone | Unavailable | + + + Support + + +---------+ + | Name | Relationship | Address | Phone | + + +---------+ + | Jeronimo Ortega | ECON | Unknown | | + + +---------+ + Care Team Providers + +------+ + | Care Resource Manager Name | Role | Phone | + +------+ + PCP | Unavailable | + +------+ + Encounter Details +--------+ + + + + | Date | Type | Department | Care Team | Description | +--------+ + + + + | 11/21/ | Results | Orthopaedics at | Roque James MD | | | 1999 | Only | [facility] [address] | | | | | [address] | [address] [place], [place] | | | | | Mailcode: [id number] | [address] | | | | | [facility] | | | | | | [place], [place] | | | | | | [address] | | | | | | [phone] | | | +--------+ + + + [...] + | X-RAY SPINE | Routin | 01/17/2000 | | Results for this | | LUMBOSACRAL 4 VIEWS | e | 1:35 PM | | procedure are in the | | | | PDT | | results section. | + +--------+ + + + | X-RAY SPINE | Routin | 11/22/1999 | | Results for this | | THORACOLUMBAR 2 | e | 2:50 PM | | procedure are in the | | VIEWS | | PDT | | results section. | + +--------+ + + + documented in this encounter Results SPINE LUMBOSACRAL 4 VIEWS (01/17/2000 1:35 PM PDT) + + + + + + | Component | Value | Ref Range | Performed | Pathologist | | | | | At | Signature | + + + + + + | SPINE, | Radiologist 1: SAURABH, | | | | | LUMBOSACRAL | [facility] ALDRIDGELUMBAR SPINE, | | | | | , 4 VIEW | AP AND LATERAL | | | | | | FLEXION-EXTENSION VIEWS: | | | | | | 01/16/2001 | | | | | | Dictated 03/13/2001 | | | | | | COMPARISON: None | | | | | | available. FINDINGS: | | | | | | There is a severe | | | | | | compression deformity if | | | | | | the L1 vertebraewith | | | | | | approximately 80 percent | | | | | | loss of height. There | | | | | | is diffuseosteopenia. | | | | | | There has been a | | | | | | posterior spinal fusion | | | | | | from T11 to L3with | | | | | | paired posterior spinal | | | | | | rods spaced with pedicle | | | | | | screws at T11,T12, L2, | | | | | | and L3. There is | | | | | | degenerative disc space | | | | | | narrowing at the T10 | | | | | | through L3 disclevels. | | | | | | There are marginal | | | | | | osteophytes at these | | | | | | levels with | | | | | | bridgingosteophyte | | | | | | anteriorly at L2-3. | | | | | | The L4 and L5 disc | | | | | | spaces arerelatively | | | | | | maintained. There are | | | | | | sclerotic hypertrophic | | | | | | facet jointchanges L3 | | | | | | through S1. This | | | | | | probably narrows the | | | | | | neuroforamen at L4-5and | | | | | | L5-S1. There appears to | | | | | | have been a laminectomy | | | | | | at L2, but this is not | | | | | | adefinite finding. There | | | | | | is no evidence of | | | | | | instability of with | | | | | | flexion or extension. | | | | | | IMPRESSION: 1. Severe | | | | | | compression deformity L1 | | | | | | vertebra with posterior | | | | | | spinal rodfusion, T11 | | | | | | to L3, showing no | | | | | | evidence of instability | | | | | | with flexion | | | | | | orextension. 2. | | | | | | Degenerative disc | | | | | | space narrowing T10 | | | | | | through L3 disc levels. | | | | | | 3. Sclerotic facet | | | | | | arthropathy L3 to S1. 4. | | | | | | Diffuse osteopenia. | | | | | | END OF IMPRESSION: | | | | + + + + + + + + | Specimen | + + | | + + + +---------+ + + | Performing | Address | City/State/Zipcode | Phone Number | | Organization | | | | + +---------+ + + | [facility] DEPARTMENT OF | | | | | RADIOLOGY | | | | + +---------+ + + SPINE THORACOLUMBAR 2 VIEWS (11/22/1999 2:50 PM PDT) + + + + + [...] some | | | | | | episcopalian in height as | | | | [...] | | | | | hardware from [id number] | | | | | | no [...] | | | | | films show episcopalian | | | | | | in [...] | | + +---------+ + + | [facility] DEPARTMENT OF | | | | | RADIOLOGY | | | | + +---------+ + + documented in this encounter Visit Diagnoses Not on filedocumented in this encounter"
--- OUTSIDE RECORDS SUMMARY | ~2019-03-30 | XMS | Encounter Summary ---
Demographics + + + | Address | [address] [facility] | | | [place] [address] | + + + | Home Phone | | + + + | Preferred Language | Unknown | + + + | Marital Status | | + + + | Evangelical Affiliation | CAT | + + + | Race | White | + + + | Ethnic Group | Not or | + + + Author + + + | Author | [facility] | + + + | Organization | [facility] | + + + | Address | Unknown | + + + | Phone | Unavailable | + + + Support + + +---------+ + | Name | Relationship | Address | Phone | + + +---------+ + | Jeronimo Ortega | ECON | Unknown | | + + +---------+ + Care Team Providers + +------+ + | Care Inventory Management Specialist Name | Role | Phone | + +------+ + PCP | Unavailable | + +------+ + Encounter Details +--------+ + + + + | Date | Type | Department | Care Team | Description | +--------+ + + + + | 04/17/ | Results | Orthopaedics at | Roque James MD | | | 1999 | Only | [facility] [address] | [address] | | | | | [address] | [address] [place], [place] | | | | | Mailcode: [id number] | [address] | | | | | [facility] | | | | | | [place], [place] | | | | | | [address] | | | | | | [phone] | | | +--------+ + + + [...] + | X-RAY SPINE | Routin | 04/17/2000 | | Results for this | | LUMBOSACRAL 4 VIEWS | e | 1:30 PM | | procedure are in the | | | | PST | | results section. | + +--------+ + + + documented in this encounter Results SPINE LUMBOSACRAL 4 VIEWS (04/17/2000 1:30 PM PST) + + + + + + | Component | Value | Ref Range | Performed | Pathologist | | | | | At | Signature | + + + + + + | SPINE, | Radiologist 1: | | | | | LUMBOSACRAL | JOSÉ MIGUEL BUTLER | | | | | , 4 VIEW | SPINE AP FLEXION AND | | | | | | EXTENSION: 04/17/00. | | | | | | DICTATED 04/20/00. | | | | | | COMPARISON: Prior | | | | | | jacket is not available | | | | | | for comparison at | | | | | | thistime. DISCUSSION: | | | | | | Noted is an L1 | | | | | | vertebral body fracture. | | | | | | There has | | | | | | beenposterior | | | | | | decompression. Posterior | | | | | | onesimo and pedicle screw | | | | | | fixation isseen spanning | | | | | | T11 through L3. There | | | | | | is no evidence for | | | | | | loosening offracturing | | | | | | of the hardware. The | | | | | | alignment appears | | | | | | stable. Flexionand | | | | | | extension, there is some | | | | | | limited range of | | | | | | motion. There | | | | | | isdegenerative disc | | | | | | space narrowing at L3-4 | | | | | | with a very minimal 1 | | | | | | mmretrolisthesis of L3 | | | | | | on L4. Disc space | | | | | | narrowing is noted at | | | | | | L4-5 andL5-S1 as well. | | | | | | Bilateral facet | | | | | | arthroplasties are seen | | | | | | at this level.Initial | | | | | | note is made of | | | | | | bilateral total hip | | | | | | arthroplasties. | | | | | | IMPRESSION: 1. The | | | | | | patient is status post | | | | | | T11 through L3 posterior | | | | | | onesimo andpedicle screw | | | | | | fixation for L1 | | | | | | vertebral body fracture. | | | | | | There is noevidence | | | | | | for subluxation on | | | | | | flexion or extension. 2. | | | | | | Degenerative disc | | | | | | disease from L3 through | | | | | | S1. END OF IMPRESSION: | | | | + + + + + + + + | Specimen | + + | | + + + +---------+ + + | Performing | Address | City/State/Zipcode | Phone Number | | Organization | | | | + +---------+ + + | [facility] DEPARTMENT | | | | | RADIOLOGY | | | | + +---------+ + + documented in this encounter Visit Diagnoses Not on filedocumented in this encounter"
--- OUTSIDE RECORDS SUMMARY | ~2019-03-30 | XMS | Encounter Summary ---
Demographics + + + | Address | [address] | | | [place] [address] | + + + | Home Phone [...] + + + | Author | [facility] | + + + | Organization | [facility] | + + + | Address | Unknown | + + + | Phone | Unavailable | + + + Support + + +---------+ + | Name | Relationship | Address | Phone | + + +---------+ + | Jeronimo Ortega | ECON | Unknown | | + + +---------+ + Care Team Providers + +------+ + | Care Word Processing Operator Name | Role | Phone | + +------+ + PCP | Unavailable | + +------+ + Encounter Details +--------+ + + + + | Date | Type | Department | Care Team | Description | +--------+ + + + + | 06/04/ | Hospital | Registration [id number] | Selvin Cerda MD | | | 2005 | Activity | [facility] | [address] | | | | | Dhiraj Mailcode: [id number] | [place], | | | | | [place], [place] | [place] [address] | | | | | [address] | [phone] | | | | | [phone] | | | +--------+ + + + [...] + +--------+ + + + | CT RECONSTRUCTION | Routin | 06/04/2004 | | Results for this | | [facility] | e | 11:35 AM | | procedure are in the | | | | PST | | results section. | + +--------+ + + + | CT SPINE LUMBAR W | Routin | 06/04/2004 | | Results for this | | CONTRAST | e | 11:35 AM | | procedure are in the | | | | PST | | results section. | + +--------+ + + + | X-RAY MYELOGRAM | Routin | 06/04/2004 | | Results for this | | LUMBOSACRAL | e | 11:03 AM | | procedure are in the | | | | PST | | results section. | + +--------+ + + + | X-RAY INJ MYELOGRAM | Routin | 06/04/2004 | | Results for this | | NON C1 OR C2 | e | 11:03 AM | | procedure are in the | | | | PST | | results section. | + +--------+ + + + documented in this encounter Results CT RECONSTRUCTION SAGITAL (06/04/2004 11:35 AM PST) + + + + + + | Component | Value | Ref Range | Performed | Pathologist | | | | | At | Signature | + + + + + + | CT | Radiologist 1: VICENTA | | | | | MUSTAPHA | SELVIN Herrera, | | | | | ION HONEY | M.D.-Radiologist 2: | | | | | | CHRIS SANTAMARIA | | | | | | MYELOGRAM WITH CT LUMBAR | | | | | | CT WITH SAGITTAL AND | | | | | | CORONALREFORMATIONS: | | | | | | 1.18.2004 COMPARISON(S): | | | | | | CT lumbar myelogram | | | | | | 3..1999. CLINICAL | | | | | | HISTORY/INDICATION(S): | | | | | | Low back pain, with | | | | | | radiculopathysymptoms. | | | | | | TECHNIQUE: PARQ was | | | | | | held with the patient. | | | | | | The patient | | | | | | waspositioned in the | | | | | | prone position on the | | | | | | fluoroscopy table | | | | | | andprepped and draped in | | | | | | a sterile fashion. 5 | | | | | | cc of local | | | | | | anesthetic(1% lidocaine) | | | | | | was given at the | | | | | | injection site. A 22 | | | | | | gauge needlewas used to | | | | | | perform lumbar puncture | | | | | | at the L4-5 level. | | | | | | Afterreturn of clear | | | | | | CSF, approximately 15 cc | | | | | | of Omnipaque 180 | | | | | | wereinjected | | | | | | intrathecally under | | | | | | fluoroscopic | | | | | | observation. | | | | | | Nocomplications were | | | | | | encountered. | | | | | | Fluroscopic spot | | | | | | radiographs | | | | | | wereobtained, and the | | | | | | patient was then sent to | | | | | | CT scanner for | | | | | | imagingof the lumbar | | | | | | spine. Axial images | | | | | | from level of the mid | | | | | | [id number] the sacrum | | | | | | were performed with | | | | | | axial 3 mm images | | | | | | andsagittal and coronal | | | | | | reformatted images | | | | | | reviewed. Staff | | | | | | physician, Dr. Cerda, | | | | | | was present during the | | | | | | criticalportions of the | | | | | | procedure. FINDINGS: | | | | | | MYELOGRAM: There is a | | | | | | chronic-appearing | | | | | | compression deformity | | | | | | ofL1 vertebral body. | | | | | | Regress demonstrate | | | | | | appropriate nerve | | | | | | rootexit points. | | | | | | Posterior fusion | | | | | | hardware is seen with | | | | | | paraspinalrods and | | | | | | pedicular screws and | | | | | | T11, T12, L2, and L3. CT | | | | | | MYELOGRAM: There is a | | | | | | chronic-appearing | | | | | | compression deformityof | | | | | | L1 vertebral body. | | | | | | There are extensive | | | | | | postsurgical | | | | | | changesincluding | | | | | | paraspinal rods and | | | | | | reticular screws and | | | | | | T11, T12, L2,and L3. | | | | | | The conus is located | | | | | | at L1. The dural sac | | | | | | terminates atL5-S1. | | | | | | There is a small | | | | | | amount of subdural | | | | | | contrast in the | | | | | | lowerlumbosacral region. | | | | | | At S1-2, there is a | | | | | | step off, | | | | | | correspondingto prior | | | | | | traumatic injury. | | | | | | Posterior osseous | | | | | | fusion from [id number] S1 | | | | | | is noted. The overall | | | | | | alignment | | | | | | isnormal-postoperative. | | | | | | T12-L1 through L3-4: | | | | | | Postsurgical changes | | | | | | without central canal | | | | | | orneural foramina | | | | | | stenoses.L4/5: | | | | | | Postsurgical changes and | | | | | | bilateral facet | | | | | | hypertrophy | | | | | | withoutcentral canal or | | | | | | neural foramina | | | | | | stenoses.L5/S1: | | | | | | Postsurgical changes | | | | | | without central canal or | | | | | | neuralforamina | | | | | | stenoses. IMPRESSION: 1. | | | | | | Extensive posterior | | | | | | hardware and osseous | | | | | | fusion changes | | | | | | innormal-postoperative | | | | | | alignment. 2. Widely | | | | | | patent central canal and | | | | | | neural foramina. 3. | | | | | | Chronic L1 compression | | | | | | deformity and S1-2 step | | | | | | off. | | | | + + + [...] | | + +---------+ + + CT SPINE LUMBAR W CONTRAST (06/04/2004 11:35 AM PST) + + + + + + | Component | Value | Ref Range | Performed | Pathologist | | | | | At | Signature | + + + + + + | CT LUMBAR | Radiologist 1: BURRY, | | | | | SPINE W | SELVIN T., | | | | | CONTRAST | M.D.-Radiologist 2: | | | | | | HINAYASMIN SAMSONERLUMBAR | | | | | | MYELOGRAM WITH CT LUMBAR | | | | | | CT WITH SAGITTAL AND | | | | | | CORONALREFORMATIONS: | | | | | | 1.18.2004 COMPARISON(S): | | | | | | CT lumbar myelogram | | | | | | 3.17.1999. CLINICAL | | | | | | HISTORY/INDICATION(S): | | | | | | Low back pain, with | | | | | | radiculopathysymptoms. | | | | | | TECHNIQUE: PARQ was | | | | | | held with the patient. | | | | | | The patient | | | | | | waspositioned in the | | | | | | prone position on the | | | | | | fluoroscopy table | | | | | | andprepped and draped in | | | | | | a sterile fashion. 5 | | | | | | cc of local | | | | | | anesthetic(1% lidocaine) | | | | | | was given at the | | | | | | injection site. A 22 | | | | | | gauge needlewas used to | | | | | | perform lumbar puncture | | | | | | at the L4-5 level. | | | | | | Afterreturn of clear | | | | | | CSF, approximately 15 cc | | | | | | of Omnipaque 180 | | | | | | wereinjected | | | | | | intrathecally under | | | | | | fluoroscopic | | | | | | observation. | | | | | | Nocomplications were | | | | | | encountered. | | | | | | Fluroscopic spot | | | | | | radiographs | | | | | | wereobtained, and the | | | | | | patient was then sent to | | | | | | CT scanner for | | | | | | imagingof the lumbar | | | | | | spine. Axial images | | | | | | from level of the mid | | | | | | [id number] the sacrum | | | | | | were performed with | | | | | | axial 3 mm images | | | | | | andsagittal and coronal | | | | | | reformatted images | | | | | | reviewed. Staff | | | | | | physician, Dr. Cerda, | | | | | | was present during the | | | | | | criticalportions of the | | | | | | procedure. FINDINGS: | | | | | | MYELOGRAM: There is a | | | | | | chronic-appearing | | | | | | compression deformity | | | | | | ofL1 vertebral body. | | | | | | Regress demonstrate | | | | | | appropriate nerve | | | | | | rootexit points. | | | | | | Posterior fusion | | | | | | hardware is seen with | | | | | | paraspinalrods and | | | | | | pedicular screws and | | | | | | T11, T12, L2, and L3. CT | | | | | | MYELOGRAM: There is a | | | | | | chronic-appearing | | | | | | compression deformityof | | | | | | L1 vertebral body. | | | | | | There are extensive | | | | | | postsurgical | | | | | | changesincluding | | | | | | paraspinal rods and | | | | | | reticular screws and | | | | | | T11, T12, L2,and L3. | | | | | | The conus is located | | | | | | at L1. The dural sac | | | | | | terminates atL5-S1. | | | | | | There is a small | | | | | | amount of subdural | | | | | | contrast in the | | | | | | lowerlumbosacral region. | | | | | | At S1-2, there is a | | | | | | step off, | | | | | | correspondingto prior | | | | | | traumatic injury. | | | | | | Posterior osseous | | | | | | fusion from [id number] S1 | | | | | | is noted. The overall | | | | | | alignment | | | | | | isnormal-postoperative. | | | | | | T12-L1 through L3-4: | | | | | | Postsurgical changes | | | | | | without central canal | | | | | | orneural foramina | | | | | | stenoses.L4/5: | | | | | | Postsurgical changes and | | | | | | bilateral facet | | | | | | hypertrophy | | | | | | withoutcentral canal or | | | | | | neural foramina | | | | | | stenoses.L5/S1: | | | | | | Postsurgical changes | | | | | | without central canal or | | | | | | neuralforamina | | | | | | stenoses. IMPRESSION: 1. | | | | | | Extensive posterior | | | | | | hardware and osseous | | | | | | fusion changes | | | | | | innormal-postoperative | | | | | | alignment. 2. Widely | | | | | | patent central canal and | | | | | | neural foramina. 3. | | | | | | Chronic L1 compression | | | | | | deformity and S1-2 step | | | | | | off. | | | | + + + + + + + + | Specimen | + + | | + + + +---------+ + + | Performing | Address | City/State/Zipcode | Phone Number | | Organization | | | | + +---------+ + + | [facility] | | | | | RADIOLOGY | | | | + +---------+ + + INJ MYELOGRAPHY NON C1 OR C2 (06/04/2004 11:03 AM PST) + + + + + + | Component | Value | Ref Range | Performed | Pathologist | | | | | At | Signature | + + + + + + | INJ | Radiologist 1: VICENTA, | | | | | MYELOGRAPHY | SELVIN Herrera, | | | | | NON C1 [place] | M.D.-Radiologist 2: | | | | | C2 | CHRIS SANTAMARIA | | | | | | MYELOGRAM WITH CT LUMBAR | | | | | | CT WITH SAGITTAL AND | | | | | | CORONALREFORMATIONS: | | | | | | 06.04.2004 COMPARISON(S): | | | | | | CT lumbar myelogram | | | | | | 08.02.1999. CLINICAL | | | | | | HISTORY/INDICATION(S): | | | | | | Low back pain, with | | | | | | radiculopathysymptoms. | | | | | | TECHNIQUE: PARQ was | | | | | | held with the patient. | | | | | | The patient | | | | | | waspositioned in the | | | | | | prone position on the | | | | | | fluoroscopy table | | | | | | andprepped and draped in | | | | | | a sterile fashion. 5 | | | | | | cc of local | | | | | | anesthetic(1% lidocaine) | | | | | | was given at the | | | | | | injection site. A 22 | | | | | | gauge needlewas used to | | | | | | perform lumbar puncture | | | | | | at the L4-5 level. | | | | | | Afterreturn of clear | | | | | | CSF, approximately 15 cc | | | | | | of Omnipaque 180 | | | | | | wereinjected | | | | | | intrathecally under | | | | | | fluoroscopic | | | | | | observation. | | | | | | Nocomplications were | | | | | | encountered. | | | | | | Fluroscopic spot | | | | | | radiographs | | | | | | wereobtained, and the | | | | | | patient was then sent to | | | | | | CT scanner for | | | | | | imagingof the lumbar | | | | | | spine. Axial images | | | | | | from level of the mid | | | | | | [id number] the sacrum | | | | | | were performed with | | | | | | axial 3 mm images | | | | | | andsagittal and coronal | | | | | | reformatted images | | | | | | reviewed. Staff | | | | | | physician, Dr. Cerda, | | | | | | was present during the | | | | | | criticalportions of the | | | | | | procedure. FINDINGS: | | | | | | MYELOGRAM: There is a | | | | | | chronic-appearing | | | | | | compression deformity | | | | | | ofL1 vertebral body. | | | | | | Regress demonstrate | | | | | | appropriate nerve | | | | | | rootexit points. | | | | | | Posterior fusion | | | | | | hardware is seen with | | | | | | paraspinalrods and | | | | | | pedicular screws and | | | | | | T11, T12, L2, and L3. CT | | | | | | MYELOGRAM: There is a | | | | | | chronic-appearing | | | | | | compression deformityof | | | | | | L1 vertebral body. | | | | | | There are extensive | | | | | | postsurgical | | | | | | changesincluding | | | | | | paraspinal rods and | | | | | | reticular screws and | | | | | | T11, T12, L2,and L3. | | | | | | The conus is located | | | | | | at L1. The dural sac | | | | | | terminates atL5-S1. | | | | | | There is a small | | | | | | amount of subdural | | | | | | contrast in the | | | | | | lowerlumbosacral region. | | | | | | At S1-2, there is a | | | | | | step off, | | | | | | correspondingto prior | | | | | | traumatic injury. | | | | | | Posterior osseous | | | | | | fusion from [id number] S1 | | | | | | is noted. The overall | | | | | | alignment | | | | | | isnormal-postoperative. | | | | | | T12-L1 through L3-4: | | | | | | Postsurgical changes | | | | | | without central canal | | | | | | orneural foramina | | | | | | stenoses.L4/5: | | | | | | Postsurgical changes and | | | | | | bilateral facet | | | | | | hypertrophy | | | | | | withoutcentral canal or | | | | | | neural foramina | | | | | | stenoses.L5/S1: | | | | | | Postsurgical changes | | | | | | without central canal or | | | | | | neuralforamina | | | | | | stenoses. IMPRESSION: 1. | | | | | | Extensive posterior | | | | | | hardware and osseous | | | | | | fusion changes | | | | | | innormal-postoperative | | | | | | alignment. 2. Widely | | | | | | patent central canal and | | | | | | neural foramina. 3. | | | | | | Chronic L1 compression | | | | | | deformity and S1-2 step | | | | | | off. | | | | + + + [...] | + +---------+ + + MYELOGRAPHY LUMBOSACRAL (06/04/2004 11:03 AM PST) + + + + + + | Component | Value | Ref Range | Performed | Pathologist | | | | | At | Signature | + + + + + + | MYELOGRAPHY | Radiologist 1: VICENTA | | | | | | SELVIN Herrera | | | | | LUMBOSACRAL | Williams-Radiologist 2: | | | | | | CHRIS SANTAMARIA | | | | | | MYELOGRAM WITH CT LUMBAR | | | | | | CT WITH SAGITTAL AND | | | | | | CORONALREFORMATIONS: | | | | | | 1..2004 COMPARISON(S): | | | | | | CT lumbar myelogram | | | | | | 3..1999. CLINICAL | | | | | | HISTORY/INDICATION(S): | | | | | | Low back pain, with | | | | | | radiculopathysymptoms. | | | | | | TECHNIQUE: PARQ was | | | | | | held with the patient. | | | | | | The patient | | | | | | waspositioned in the | | | | | | prone position on the | | | | | | fluoroscopy table | | | | | | andprepped and draped in | | | | | | a sterile fashion. 5 | | | | | | cc of local | | | | | | anesthetic(1% lidocaine) | | | | | | was given at the | | | | | | injection site. A 22 | | | | | | gauge needlewas used to | | | | | | perform lumbar puncture | | | | | | at the L4-5 level. | | | | | | Afterreturn of clear | | | | | | CSF, approximately 15 cc | | | | | | of Omnipaque 180 | | | | | | wereinjected | | | | | | intrathecally under | | | | | | fluoroscopic | | | | | | observation. | | | | | | Nocomplications were | | | | | | encountered. | | | | | | Fluroscopic spot | | | | | | radiographs | | | | | | wereobtained, and the | | | | | | patient was then sent to | | | | | | CT scanner for | | | | | | imagingof the lumbar | | | | | | spine. Axial images | | | | | | from level of the mid | | | | | | [id number] the sacrum | | | | | | were performed with | | | | | | axial 3 mm images | | | | | | andsagittal and coronal | | | | | | reformatted images | | | | | | reviewed. Staff | | | | | | physician, Dr. Cerda, | | | | | | was present during the | | | | | | criticalportions of the | | | | | | procedure. FINDINGS: | | | | | | MYELOGRAM: There is a | | | | | | chronic-appearing | | | | | | compression deformity | | | | | | ofL1 vertebral body. | | | | | | Regress demonstrate | | | | | | appropriate nerve | | | | | | rootexit points. | | | | | | Posterior fusion | | | | | | hardware is seen with | | | | | | paraspinalrods and | | | | | | pedicular screws and | | | | | | T11, T12, L2, and L3. CT | | | | | | MYELOGRAM: There is a | | | | | | chronic-appearing | | | | | | compression deformityof | | | | | | L1 vertebral body. | | | | | | There are extensive | | | | | | postsurgical | | | | | | changesincluding | | | | | | paraspinal rods and | | | | | | reticular screws and | | | | | | T11, T12, L2,and L3. | | | | | | The conus is located | | | | | | at L1. The dural sac | | | | | | terminates atL5-S1. | | | | | | There is a small | | | | | | amount of subdural | | | | | | contrast in the | | | | | | lowerlumbosacral region. | | | | | | At S1-2, there is a | | | | | | step off, | | | | | | correspondingto prior | | | | | | traumatic injury. | | | | | | Posterior osseous | | | | | | fusion from [id number] S1 | | | | | | is noted. The overall | | | | | | alignment | | | | | | isnormal-postoperative. | | | | | | T12-L1 through L3-4: | | | | | | Postsurgical changes | | | | | | without central canal | | | | | | orneural foramina | | | | | | stenoses.L4/5: | | | | | | Postsurgical changes and | | | | | | bilateral facet | | | | | | hypertrophy | | | | | | withoutcentral canal or | | | | | | neural foramina | | | | | | stenoses.L5/S1: | | | | | | Postsurgical changes | | | | | | without central canal or | | | | | | neuralforamina | | | | | | stenoses. IMPRESSION: 1. | | | | | | Extensive posterior | | | | | | hardware and osseous | | | | | | fusion changes | | | | | | innormal-postoperative | | | | | | alignment. 2. Widely | | | | | | patent central canal and | | | | | | neural foramina. 3. | | | | | | Chronic L1 compression | | | | | | deformity and S1-2 step | | | | | | off. | | | | + + + [...]
--- OUTSIDE RECORDS SUMMARY | ~2019-03-30 | XMS | Clinical Summary ---
Demographics + + + | Address | [address] | | | [place] [address] | + + + | Home Phone | | + + + | Preferred Language | Unknown | + + + | Marital Status | | + + + | Congregational Affiliation | CAT | + + + [...] Team Providers + +------+ + | Care Equine Breeder Name | Role | Phone | + +------+ + PCP | Unavailable | + +------+ + Source Comments ALEJA is fully live on both [facility] and [facility] Allergies + + + + + + | Active Allergy | Reactions | Severity | Noted | Comments | | | | | Date | | + + + + + + | Penicillins | | | 11/22/18 | | | | | | 97 | | + + + + + + | Sulfa (Sulfonamide | | | 11/22/18 | | | Antibiotics) | | | 97 | | + + + + + + Medications Not on file Active Problems Not on file Social History + +-------+ +--------+------+ | Tobacco [...] recent travel history available. | + + Last Filed Vital Signs Not on file Plan of Treatment + + + + + | Health Maintenance | Due Date | Last Done | Comments | + + + + + | Pneumococcal | | | | | vaccination (1 of 2 | 6 | | | | - PCV13) | | | | + + + + + | Influenza (Flu) | | | | | vaccination (#1) | 9 | | | + + + + + Results Not on filefrom Last 3 Months"
--- OUTSIDE RECORDS SUMMARY | ~2019-03-30 | XMS | Encounter Summary ---
Demographics + + + | Address | [address] | | | [place] [address] | + + + | Home Phone | | + + + | Preferred Language | Unknown | + + + | Marital Status | | + + + | Orthodox Affiliation | CAT | + + + [...] Team Providers + +------+ + | Care Airplane Pilot Crop Dusting Name | Role | Phone | + +------+ + PCP | Unavailable | + +------+ + Encounter Details +--------+ + + + + | Date | Type | Department | Care Team | Description | +--------+ + + + + | 03/07/ | Letter-[facility] | [facility] | Letter, | Letters | | 2003 | scribed | | Orthopedics | | +--------+ + + + + [...] as of this encounter Progress Notes Interface, Chief Investment Officer In - 12/15/2004 7:58 AM PDT [id number] 03/07/2004 03/07/2004 [id number] DILLON SILVAJORIE [facility] and [address] [address] , Department of Orthopedics, [facility] [employer] [id number] March 08, 2004 Vadim Zepeda M.D. [address] [place] [address] RE: FAY CARRANZA MR #: [id number] DOS: 03/07/[address] Granados: I saw Ms. Barger today in consultation regarding her left greater than right leg pain. As you know, this is a pleasant 64-year-old female who has a chief complaint of left distal thigh pain. She had bilateral iliotibial band releases recently, states that sutures were done on the left and not the right, and that she did very well initially, but now she is getting tightness and pain in the left thigh which she describes as feeling like her iliotibial band prior to release. Interestingly, she does note bilateral foot numbness up to about her ankles. She denies any weakness in the legs. She denies any bladder dysfunction. She has had left left knee swelling, as well as left calf swelling. This has been something relatively new for her. She has skin color changes in the left pretibial area. Diagnostically, she has had plain films of the spine as well as a myelogram. She has a lumbar fusion. It appears that she had a back fracture in 1963, with a relatively dense paralysis for about 3 to 4 weeks. She continues to have some weakness in the legs with right calf atrophy as compared to the left. Work/social history: She is retired. She does not smoke. She drinks occasional alcohol. Past medical history: She denies hypertension or diabetes. She has a heart arrhythmia. 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 She had iliotibial band releases in 2002. She also has had a spinal fusion as well as breast cancer. The breast cancer was treated with radiation therapy 14 years ago. Current medications: At this point she is on a muscle relaxant and a pain medication. Family history: Significant for heart disease, cancer, and diabetes. Review of systems: Checklist is completed in chart. Pertinent positives include a history of breast cancer. On physical examination today, the patient is alert, pleasant, cooperative, and oriented. She is in no acute distress. She does walk with a cane, has an antalgic-appearing gait, and has left calf swelling with right calf atrophy. She has 2+ pretibial edema on the left. She has a dusky appearance of the skin on the left. Homans' sign is negative. Pulses are not palpable on the right or left doral pedalis or posterior tibialis. Her strength appears normal in the bilateral lower extremities with the exception of slightly reduced right extensor hallucis longus strength. Her sensation is intact to pinprick. Plain films of the left knee do show some mild medial joint space narrowing. Assessment: A chief complaint of left distal thigh pain, which the patient describes as similar to her pain prior to her iliotibial band release. While she does complain of bilateral foot numbness, I do not get the sense that her symptoms are radicular in origin. She does have a history of a prior spinal fusion. There is some mild disc-space narrowing at the adjacent more distal levels, primarily L4-5 and L5-S1. There is not an MRI to review, there is perhaps some mild L4-5 neural foraminal narrowing, but I would not anticipate that this would account for the thigh pain. With the calf swelling that she has, deep vein thrombosis does need to be considered. She was sent to the [facility] today for a Duplex as well as ankle brachial indices. There was no deep vein thrombosis found on the left side. Ankle brachial indices were normal as per the preliminary telephone report. An incidental finding on the left was a approximately 2 x 2 cm popliteal cyst. Plain films of the hip and lumbar spine were also reviewed today. I do not appreciate prosthetic loosening. Finally, with her history of breast cancer, the possibility would be a metastases. At this point, this would seem unlikely but does need to be considered. Ms. Carranza does need to get to an appointment across town today and then is planning on going back to [place]. I have suggested that we wait on any further workup until I have a chance to talk to Dr. Granados. I would primarily be interested in his thoughts regarding the iliotibial band release and whether he thinks there is any chance of recurrent symptoms secondary to this. If he thinks that this is highly unlikely, then consideration of an MRI to evaluate a lumbosacral radiculopathy versus a bone scan to rule out any significant skeletal pathology could be considered. I discussed this with the patient, and we will plan on being in touch after I have had a chance to talk to Dr. Granados. Sincerely, Jordan Eller M.D. [facility] / [id number] / [id number] / [id number] / cc: Marc Granados M.D. [facility] Orthopedics and Rehabilitation documented i n this encounter Plan of Treatment Not on filedocumented as of this encounter Visit Diagnoses Not on filedocumented in this encounter"
--- OUTSIDE RECORDS SUMMARY | ~2019-03-30 | XMS | Encounter Summary ---
Demographics + + + | Address | [address] | | | [place] [address] | + + + | Home Phone | | + + + | Preferred Language | Unknown | + + + | Marital Status | | + + + | Christianity Affiliation | CAT | + + + [...] Team Providers + +------+ + | Care Dean Of Graduate Studies Name | Role | Phone | + +------+ + PCP | Unavailable | + +------+ + Encounter Details +--------+ + + + + | Date | Type | Department | Care Team | Description | +--------+ + + + + | 05/06/ | Office | [facility] | Note, [...] as of this encounter Progress Notes Interface, Wood Technologist In - 12/15/2004 1:34 AM PDT [id number] 05/06/2004 05/06/2004 [id number] DILLON RODRIGUEZRIE Clinic Date: 05/06/2004 Orthopedics Subjective: Mrs. Ortega returns to clinic today. Her chief compliant continues to be left lateral thigh pain. It is in a relatively focal area over the distal lateral thigh. She wonders if this is related to her ileo tibial band release she had. Of interest, she notes that at times this pain will start in the lateral thigh but radiate up the leg and in to the posterior lateral left buttock and into the lumbar spine. She has had a prior proximal lumbar spine surgery from Dr. James. I do wonder whether she has any degree of a proximal L2 or L3 left radiculopathy and have obtained an MRI of the lumbosacral spine. The distal neural foramen looked patent, although with the degree of artifact at the proximal levels, I think it is difficult to tell whether there is any significant compression. Assessment: Left lateral thigh pain. Etiology uncertain. I have discussed this with Dr. Granados. He does feel that there is some swelling of the left knee today. I discussed my thoughts regarding radicular pain. Before getting other studies, I am going to see if Dr. James can review the films to see what he can make of them. I will then be in contact with the patient. If Dr. James feels that additional work up needs to be considered regarding the L2 or L3 nerve roots then we can proceed with that. If not, then Dr. Granados would be interested in getting an MRI of the left knee and I can set that up. Mrs. Ortega understands this and will anticipate hearing from us after [facility] Jordan Eller M.D. GRACIELA/sarah P [id number] cc: MERLYN GRANADOS M.D. ORTHOPEDICS AND REHABILITATION. [facility]. CRISELDA JAMES M.D. ORTHOPEDICS AND REHABILITATION. [facility]. Electronically signed by Jordan Eller 08-02-2004 01:23:56 PM documented i n this encounter Plan of Treatment Not on filedocumented as of this encounter Visit Diagnoses Not on filedocumented in this encounter"
--- OUTSIDE RECORDS SUMMARY | ~2019-03-30 | XMS | Encounter Summary ---
Demographics + + + | Address | [address] | | | [place] [address] | + + + | Home Phone | | + + + | Preferred Language | Unknown | + + + | Marital Status | | + + + | Yazidism Affiliation | CAT | + + + [...] Team Providers + +------+ + | Care Registered Nurse Name | Role | Phone | + +------+ + PCP | Unavailable | + +------+ + Encounter Details +--------+ + + + + | Date | Type | Department | Care Team | Description | +--------+ + + + + | 06/04/ | Office | [facility] | Note, Orthopedics | Progress Note | | 2005 | Visit-Trans | | Clinic | | [...] as of this encounter Progress Notes Interface, Metallurgical Lab Technician In - 12/15/2004 12:05 AM PDT [id number] 06/04/2004 [id number] DILLON APONTE Clinic Date: 06/04/2004 Orthopedic Clinic Note Lindsey returns. She is almost five years out from pedicle subtraction osteotomy. She is complaining this time of persistent pain in her left lower extremity, which climbs up the leg. She had surgery by Dr. Granados in January, which unfortunately did not relieve the pain centered around the knee. It does radiate to her back. She denies new change of strength or weakness. The osteotomy, she states, did not help her much. She continues to feel imbalanced to her left side. X-rays demonstrate that the lumbar spine is still well-balanced in the sagittal plane and in coronal planes. She has had bilateral total hip replacements, one of which is new since I last saw her. MRI of the lumbar spine demonstrates L5-S1is very degenerative. 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 Her symptoms may be radicular in nature. I am going to recommend conservative measures. We are going to give her an epidural steroid injection to see if this gives her any relief as well as a Soma prescription. She is going to be traveling over the next two months. I will see her back on her return and we will determine how she does with respect to relief of pain from the epidural and see where her symptoms are at, at that time. Roque James M.D. RH/x45 P [id number] cc: Jordan Eller M.D., Department of Orthopedics and Rehabilitation, [facility]. documented i n this encounter Plan of Treatment Not on filedocumented as of this encounter Visit Diagnoses Not on filedocumented in this encounter"
--- OUTSIDE RECORDS SUMMARY | ~2019-03-30 | XMS | Encounter Summary ---
Demographics + + + | Address | [address] | | | [place] [address] | + + + | Home Phone | | + + + | Preferred Language | Unknown | + + + | Marital Status | | + + + | Hindu Affiliation | CAT | + + + [...] Team Providers + +------+ + | Care Developer Architect Name | Role | Phone | + +------+ + PCP | Unavailable | + +------+ + Encounter Details +--------+ + + + + | Date | Type | Department | Care Team | Description | +--------+ + + + + | 10/08/ | Results | [facility] | Lino Moore | | | 1999 | Only | [address] | MD Evin [address] | | | | | Genevieve Hearn Mailcode: | [address] [place] | | | | | [address] | [place] [address] | | | | | [address] | [phone] | | | | | [place] | | | | | | [address] | | | | | | [phone] | | | +--------+ + + + [...] + + | CHEST, 1 VIEW, | Urgent | 10/11/1999 | | Results for this | | PORTABLE | | 8:30 AM | | procedure are in the | | | | PDT | | results section. | + +--------+ + + + | CHEST, 1 VIEW, | Urgent | 10/10/1999 | | Results for this | | PORTABLE | | 4:43 AM | | procedure are in the | | | | PDT | | results section. | + +--------+ + + + | CHEST, 1 VIEW, | Urgent | 10/09/1999 | | Results for this | | PORTABLE | | 4:30 PM | | procedure are in the | | | | PDT | | results section. | + +--------+ + + + documented in this encounter Results CHEST, 1 VIEW, PORTABLE (10/11/1999 8:30 AM PDT) + + + + + + | Component | Value | Ref Range | Performed | Pathologist | | | | | At | Signature | + + + + + + | CHEST, 1 | Radiologist 1: ARTURO, | | | | | VIEW, | Williams MERCADO-Radiologist | | | | | PORTABLE | 2: CAESAR BELTRAN M.D. | | | | | | PORTABLE CHEST: | | | | | | 10/11/1999 Dictated | | | | | | 10/11/1999 COMPARISON: | | | | | | Comparison is made with | | | | | | prior study of | | | | | | 10/10/1999. FINDINGS: | | | | | | The visualized support | | | | | | equipment is unchanged. | | | | | | The bibasilarpulmonary | | | | | | opacities have | | | | | | increased, greatest on | | | | | | the right. The | | | | | | pleuralmargins are | | | | | | clear. There are no | | | | | | pleural effusions. The | | | | | | cardiomediastinal | | | | | | silhouette is within | | | | | | normal limits. There is | | | | | | nopneumothorax. | | | | | | IMPRESSION: Increasing | | | | | | bibasilar pulmonary | | | | | | opacities may represents | | | | | | atelectasis | | | | | | orpneumonia. END OF | | | | | | IMPRESSION: | | | | + + + + + + + + | Specimen | + + | | + + + +---------+ + + | Performing | Address | City/State/Zipcode | Phone Number | | Organization | | | | + +---------+ + + | [facility] DEPARTMENT OF | | | | | RADIOLOGY | | | | + +---------+ + + CHEST, 1 VIEW, PORTABLE (10/10/1999 4:43 AM PDT) + + + + + + | Component | Value | Ref Range | Performed | Pathologist | | | | | At | Signature | + + + + + + | CHEST, 1 | Radiologist 1: YUMIKO | | | | | Dina BINGHAM M.D.-Radiologist | | | | | PORTABLE | 2: CAESAR BELTRAN, | | | | | | WilliamsPORTABLE CHEST: | | | | | | 10/09/99 Dictated | | | | | | 10/10/99 COMPARISON: | | | | | | None. FINDINGS: A right | | | | | | internal jugular | | | | | | catheter is present with | | | | | | its tipprojecting in | | | | | | the superior vena cava. | | | | | | An endotracheal tube | | | | | | ispresent with its tip | | | | | | projecting 5 cm above | | | | | | the jagruti. A | | | | | | nasogastrictube is | | | | | | present, its tip appears | | | | | | to project in the | | | | | | distal esophagus.There | | | | | | is a small left pleural | | | | | | effusion. Moderate | | | | | | pulmonary | | | | | | vascularcongestion is | | | | | | present. There is no | | | | | | pneumothorax. | | | | | | IMPRESSION: 1. | | | | | | Nasogastric tube | | | | | | appears to be | | | | | | malpositioned with its | | | | | | tipprojecting in the | | | | | | distal esophagus. 2. | | | | | | Small left pleural | | | | | | effusion. 3. Moderate | | | | | | pulmonary vascular | | | | | | congestion. PORTABLE | | | | | | CHEST: 10/10/99 AT | | | | | | 0443 HOURS COMPARISON: | | | | | | Comparison is made | | | | | | with prior study of | | | | | | 10/09/99. FINDINGS: A | | | | | | nasogastric tube has | | | | | | been repositioned with | | | | | | its tip nowprojecting in | | | | | | the gastric body. A | | | | | | right internal jugular | | | | | | catheter andendotracheal | | | | | | tube are unchanged. A | | | | | | small left pleural | | | | | | effusion isunchanged. | | | | | | There is increased | | | | | | opacification in the | | | | | | left lower | | | | | | lobe.Bilateral | | | | | | paraspinous rods project | | | | | | over the lower thoracic | | | | | | spine.There are midline | | | | | | abdominal cutaneous | | | | | | surgical miranda. | | | | | | IMPRESSION: 1. | | | | | | Nasogastric tube | | | | | | repositioned with its | | | | | | tip now projecting in | | | | | | thegastric body. 2. | | | | | | Unchanged small left | | | | | | pleural effusion. 3. | | | | | | Increased left lower | | | | | | lobe pulmonary opacity | | | | | | may representatelectasis | | | | | | or pneumonia. END OF | | | | | | IMPRESSION: | | | | + + + + + + + + | Specimen | + + | | + + + +---------+ + + | Performing | Address | City/State/Zipcode | Phone Number | | Organization | | | | + +---------+ + + | [facility] DEPARTMENT OF | | | | | RADIOLOGY | | | | + +---------+ + + CHEST, 1 VIEW, PORTABLE (10/09/1999 4:30 PM PDT) + + + + + + | Component | Value | Ref Range | Performed | Pathologist | | | | | At | Signature | + + + + + + | CHEST, 1 | Radiologist 1: YUMIKO | | | | | ZACHERY, | Williams BARRAGAN-Radiologist | | | | | PORTABLE | 2: CAESAR BELTRAN, | | | | | | WilliamsPORTABLE CHEST: | | | | | | 10/09/99 Dictated | | | | | | 10/10/99 COMPARISON: | | | | | | None. FINDINGS: A right | | | | | | internal jugular | | | | | | catheter is present with | | | | | | its tipprojecting in | | | | | | the superior vena cava. | | | | | | An endotracheal tube | | | | | | ispresent with its tip | | | | | | projecting 5 cm above | | | | | | the jagruti. A | | | | | | nasogastrictube is | | | | | | present, its tip appears | | | | | | to project in the | | | | | | distal esophagus.There | | | | | | is a small left pleural | | | | | | effusion. Moderate | | | | | | pulmonary | | | | | | vascularcongestion is | | | | | | present. There is no | | | | | | pneumothorax. | | | | | | IMPRESSION: 1. | | | | | | Nasogastric tube | | | | | | appears to be | | | | | | malpositioned with its | | | | | | tipprojecting in the | | | | | | distal esophagus. 2. | | | | | | Small left pleural | | | | | | effusion. 3. Moderate | | | | | | pulmonary vascular | | | | | | congestion. PORTABLE | | | | | | CHEST: 10/10/99 AT | | | | | | 0443 HOURS COMPARISON: | | | | | | Comparison is made | | | | | | with prior study of | | | | | | 10/09/99. FINDINGS: A | | | | | | nasogastric tube has | | | | | | been repositioned with | | | | | | its tip nowprojecting in | | | | | | the gastric body. A | | | | | | right internal jugular | | | | | | catheter andendotracheal | | | | | | tube are unchanged. A | | | | | | small left pleural | | | | | | effusion isunchanged. | | | | | | There is increased | | | | | | opacification in the | | | | | | left lower | | | | | | lobe.Bilateral | | | | | | paraspinous rods project | | | | | | over the lower thoracic | | | | | | spine.There are midline | | | | | | abdominal cutaneous | | | | | | surgical miranda. | | | | | | IMPRESSION: 1. | | | | | | Nasogastric tube | | | | | | repositioned with its | | | | | | tip now projecting in | | | | | | thegastric body. 2. | | | | | | Unchanged small left | | | | | | pleural effusion. 3. | | | | | | Increased left lower | | | | | | lobe pulmonary opacity | | | | | | may representatelectasis | | | | | | or pneumonia. END OF | | | | | | IMPRESSION: | | | | + + + + + + + + | Specimen | + + | | + + + +---------+ + + | Performing | Address | City/State/Zipcode | Phone Number | | Organization | | | | + +---------+ + + | [facility] DEPARTMENT OF | | | | | RADIOLOGY | | | | + +---------+ + + documented in this encounter Visit Diagnoses Not on filedocumented in this encounter"
--- OUTSIDE RECORDS SUMMARY | ~2019-03-30 | XMS | Encounter Summary ---
Demographics + + + | Address | [address] | | | [place] [address] | + + + | Home Phone [...] Team Providers + +------+ + | Care Artificial Flowers Dyer Name | Role | Phone | + +------+ + PCP | Unavailable | + +------+ + Encounter Details +--------+ + + + + | Date | Type | Department | Care Team | Description | +--------+ + + + + | 10/03/ | Office | [facility] | Note, [...] as of this encounter Progress Notes Interface, Fresh Foods Technician In - 12/04/2005 3:06 AM PDTCLINIC DATE: 10/03/2002 ORTHOPEDIC CLINIC Lindsey indicates that release of her iliotibial band on the right side was a very significant benefit to her. She finds her leg to be less tight and less painful. She sleeps better, and she is quite enthusiastic about it. She, in fact, would like to have the other side done. Her wound is doing well, and I think we should give this some time to get her full benefit from this. I will plan to see her again on some Thursday in December 2002, and at that time, we can decide whether we should go ahead and do the other side. Marc Granados M.D. ERICK / [id number] / [id number] / [id number] / cc: Vadim Zepeda M.D. [address] [place] [id number] signed by Interface, Fresh Foods Technician In at 12/04/2005 3:06 AM PDTdocumented in this encounter Plan of Treatment Not on filedocumented as of this encounter Visit Diagnoses Not on filedocumented in this encounter"
--- OUTSIDE RECORDS SUMMARY | ~2019-03-30 | XMS | Encounter Summary ---
Demographics + + + | Address | [address] | | | [place] [address] | + + + | Home Phone | | + + + | Preferred Language | Unknown | + + + | Marital Status | | + + + | Mandaeism Affiliation | CAT | + + + [...] Team Providers + +------+ + | Care Hypertrichologist Name | Role | Phone | + +------+ + PCP | Unavailable | + +------+ + Encounter Details +--------+ + + + + | Date | Type | Department | Care Team | Description | +--------+ + + + + | 08/18/ | Office | [facility] | Note, [...] as of this encounter Progress Notes Interface, Skip Locator In - 12/04/2005 3:06 AM PDTCLINIC DATE: 08/18/2002 ORTHOPEDIC CLINIC This is a patient of Dr. Granados. [facility] called today, and they have the script from Dr. Granados for Valium #50, but he forgot to write the milligrams on it. Pharmacy was advised this was 5 mg. Ally Santana M.D. / [id number] / [id number] / [id number] / Tdocumented in this encounter Plan of Treatment Not on filedocumented as of this encounter Visit Diagnoses Not on filedocumented in this encounter"
--- OUTSIDE RECORDS SUMMARY | ~2019-03-30 | XMS | Encounter Summary ---
Demographics + + + | Address | [address] | | | [place] [address] | + + + | Home Phone [...] + + + | Author | [facility] | + + + | Organization | [facility] | + + + | Address | Unknown | + + + | Phone | Unavailable | + + + Support + + +---------+ + | Name | Relationship | Address | Phone | + + +---------+ + | Jeronimo Ortega | ECON | Unknown | | + + +---------+ + Care Team Providers + +------+ + | Care Assessment Expert Name | Role | Phone | + +------+ + PCP | Unavailable | + +------+ + Encounter Details +--------+ + + + + | Date | Type | Department | Care Team | Description | +--------+ + + + + | 11/21/ | Office | General Internal | Note, Outpatient | Progress Note | | 1996 | Visit-Trans | Medicine [address] | Clinic | | | | [address] | [address] | | | | | | Mailcode: L475 | | | | | | Outpatient Clinic | | | | | | [facility], [address] | | | | | | [place], [place] | | | | | | [address] | | | | | | [phone] | | | +--------+ + + + [...] as of this encounter Progress Notes Interface, Air Control Electronics Operator In - 07/10/2006 5:07 AM PST CLINIC DATE: 11/21/96 PRE-ADMISSION HISTORY AND PHYSICAL EXAMINATION The patient is a 56-year-old woman who has a history of lower extremity neurologic abnormalities after a spine injury sustained in a horse accident in 1963. Since that time she has had an abnormal gait pattern and developed osteoarthritis in both hips. Left hip is more troubling to her, and she has pain even while walking across the room. She has some symptoms of numbness into her lower extremities that have been persistent since the horse accident that have not been progressive. She has no apparent weakness though, in the extremity. She does have some bladder decreased control which is more like overflowing incontinence by history. It seems that she had an indwelling catheter for over two months during her initial procedure and injury in 1963, and may have had some damage to the urethra and sphincter at that time. Again, there has been no progression of this problem. She has had increasing severity of her discomfort in her left hip over the last year, and presents now for total hip arthroplasty of her left hip. PAST MEDICAL HISTORY: 1. Osteoarthritis. 2. Status post spine injury 1963 from horse riding accident. 3. Right breast cancer, 1993. PAST SURGICAL HISTORY: Status post lumbar surgery 1963, breast lumpectomy and XRT 1993; appendectomy. MEDICATIONS: tamoxifen BID ,aspirin prn, Ultram prn. ALLERGIES: PENICILLIN, SULFA drug gives rash and pruritus. SOCIAL HISTORY: The patient used to work in daycare, is retired now. Smoking: she has greater than 15 to 20 smoking history, stopped approximately 15 years ago. Alcohol: patient drinks one to two beers a night. FAMILY HISTORY: No history of bleeding diaphysis or coagulation problems. No history of early coronary disease. REVIEW OF SYSTEMS: Pulmonary, no cough, hemoptysis or shortness of breath. Cardiovascular - no chest pain, palpations or angina. GI no or . PHYSICAL EXAMINATION: The patient is comfortable, well-appearing. Blood pressure 140/80, heart rate 88, respiration 20, temperature 96.3. HEENT: PERRLA, ____teric. Oropharynx clear. Neck is supple, full range of motion. Lungs are clear to auscultation bilaterally, no wheezes, rales or consolidation. Back is nontender. Cardiovascular is regular rate and rhythm, no murmur. Abdomen is flat, soft, nontender. Extremities: Lower extremities are warm and well-perfused. Left lower extremity has 1+ pretibial edema. Right lower extremity has no edema. DP on the left is 4+ and PT 3+ pulse. Motor is 5/5 in both lower extremities with normal EHL and plantar and dorsiflexion, normal quadriceps and hamstring force. Neurologic: patient is alert and oriented, motor is 5/5 in all four extremities. Gait is narrow-based with slightly internally rotated right lower extremity with deliberate gait. Deep tendon reflexes are 2+ bilaterally at the patella and Achilles, brisk reflexes, no clonus. Sensation to soft touch is reportedly intact but somewhat difficult to gain from the patient, as she says it has been slightly abnormal since her accident. ASSESSMENT AND PLAN: 1) Osteoarthritis. The patient will undergo total hip arthroplasty of the left hip. 2) Pre-operative evaluation. The patient will have laboratory studies sent pre-operatively. 3) Consent is signed, with the risks, benefits and alternatives explained and questions answered. The patient desires to proceed. 4) Urologic. Patient with some bladder control problems in the past, which appear to be more of a stress type incontinence. We will check a urinalysis today as the baseline. 5) Pre-operative evaluation will be a CBC, hematocrit, EKG and chest x-ray, given the patient's smoking history in the past. Eatson Ibarra M.D. Resident, Orthopedics for Marc Granados M.D. Professor, Orthopedics and Rehabilitation MOHSEN/vanna P documented in this encounter Plan of Treatment Not on filedocumented as of this encounter Visit Diagnoses Not on filedocumented in this encounter"
--- OUTSIDE RECORDS SUMMARY | ~2019-03-30 | XMS | Encounter Summary ---
Demographics + + + | Address | [address] | | | [place] [address] | + + + | Home Phone [...] Team Providers + +------+ + | Care Compensation Expert Name | Role | Phone | + +------+ + PCP | Unavailable | + +------+ + Encounter Details +--------+ + + + + | Date | Type | Department | Care Team | Description | +--------+ + + + + | 10/15/ | Discharge | | Summary, Discharge | D/C Summary ODDS | | 2000 | Summary-Tra | | | | | [...] as of this encounter Discharge Summaries Interface, Saturator In - 04/04/2006 5:07 AM PST [place] [address] [place], [place] [address] [facility] MEDICAL SUMMARY OF HOSPITALIZATION Med Rec No: [id number] Admission Date: 10/09/1999 Name: Lindsey Ortega Discharge Date: 10/16/1999 ATTENDING PHYSICIAN: Roque James M.D. PRINCIPLE FINAL DIAGNOSIS: Thoracolumbar kyphosis. ADDITIONAL DIAGNOSES: 1. Hypothermia. 2. Anemia. 3. Coagulopathy. 4. Anaphylaxis secondary to blood products. PRINCIPLE PROCEDURE PERFORMED: L1 osteotomy and fusion of T 11 and L3. ADDITIONAL PROCEDURES: 1. Intensive Care Unit (ICU) admission. 2. Blood product transfusion. REASON FOR ADMISSION: This is a 59-year-old female with a thoracolumbar kyphosis who was unresponsive to conservative measures to correct her spinal deformity. She presented for elective surgical correction of her kyphosis. HOSPITAL COURSE: The patient was admitted and taken to the operating room on October 09, 1999, where she underwent a L1 osteotomy and fusion of T 11 and L3. She had a large estimated blood loss of approximately 4,500 centimeters intraoperatively. She was resuscitated intraoperatively with two units of plasma and a significant amount of LR and four units of packed red blood cells (PRBC). She was transferred to the Intensive Care Unit (ICU) postoperatively for further resuscitation. There was a question of anaphylactic reaction secondary to blood product administration. The patients blood pressure dropped precipitously, and she had a septic hemodynamic parameters. She was treated aggressively for this with volume, pressors, and a transfused medicine consultation was obtained. The patient was eventually resuscitated and made it through this crisis and was extubated on postoperative day three. She was hemodynamically stable and was transferred to the brooks. She was awake, moving all extremities, with no neurologic deficits. She was fitted with a thoracolumbar orthosis (TLSO) on postoperative day number three and transferred to the chair. X-rays were taken after getting upright. These were read as stable by the staff surgeon. Physical and occupational therapy consultations were obtained. A spinal computed tomography (CT) was also taken on October 14, 1999, and this was demonstrating satisfactory postoperative changes. She was quite motivated and eager for discharge and was eventually cleared by physical therapy for discharge on October 16, 1999. DISPOSITION: She was discharged to home with home health services for physical therapy. DISCHARGE INSTRUCTIONS: DISCHARGE MEDICATIONS: 1. Oxycodone, 5-15 mg., p.o.q. three hours p.r.n. 2. All usual medications. 3. She will have physical and occupational therapy consultations at home. DIET: She is to resume her usual diet. ACTIVITY: Not dictated. FOLLOW UP: She will follow up in the Orthopedic Clinic with Roque James M.D. in approximately six weeks to have her wound and progress checked. Alicia Poole M.D. Roque James M.D. [id number] signed by Interface, Saturator In at 04/04/2006 5:07 AM PSTdocume nted in this encounter Plan of Treatment Not on filedocumented as of this encounter Visit Diagnoses Not on filedocumented in this encounter"
--- OUTSIDE RECORDS SUMMARY | ~2019-03-30 | XMS | Encounter Summary ---
Demographics + + + | Address | [address] | | | [place] [address] | + + + | Home Phone [...] + + + | Author | [facility] | + + + | Organization | [facility] | + + + | Address | Unknown | + + + | Phone | Unavailable | + + + Support + + +---------+ + | Name | Relationship | Address | Phone | + + +---------+ + | Jeronimo Ortega | ECON | Unknown | | + + +---------+ + Care Team Providers + +------+ + | Care Bench Assembler Operator Name | Role | Phone | + +------+ + PCP | Unavailable | + +------+ + Encounter Details +--------+ + + + + | Date | Type | Department | Care Team | Description | +--------+ + + + + | 11/05/ | Discharge | Allergy Clinic at | Summary, Discharge | D/C Summary ODDS | | 1997 | Summary-Tra | [facility] | | | | | [address] | [address] | | | | | | Mailcode: [id number] | | | | | | [address] | | | | | | [place], | | | | | | [place] [address] | | | | | | [phone] | | | +--------+ + + + [...] as of this encounter Discharge Summaries Interface, Fish Rod Maker In - 06/06/2006 7:43 AM PST [address] [address] [facility] MEDICAL SUMMARY OF HOSPITALIZATION Med Rec No.: [id number] Admission Date: 11/02/97 Name: Lindsey Ortega Discharge Date: 11/05/97 STAFF PHYSICIAN: Marc Granados M.D. Professor, Department of Orthopaedics and Rehabilitation PRINCIPAL FINAL DIAGNOSIS: Osteoarthritis of the right hip. ADDITIONAL DIAGNOSIS(ES): 1. Status post horseback riding accident in 1963 with spine/pelvic trauma. 1.1 Resulting bilateral degenerative joint disease. 1.2 Status post left total hip arthroplasty in November of 1996. 2. Postoperative decrease in hematocrit. PRINCIPAL PROCEDURE: Right total hip arthroplasty. ADDITIONAL PROCEDURE(S): 1. Packed red blood cell transfusion (four units). 2. Physical Therapy consultation. REASON FOR ADMISSION: The patient is a 58-year-old female with a history of spine and pelvic trauma in 1963 resulting from a horseback riding accident. This resulted in lower extremity sensory changes and some bladder dysfunction. She subsequently developed bilateral degenerative joint disease in her hips. This has caused her significant pain and decrease in her activities. She underwent left total hip arthroplasty in November of 1996 with good relief of her symptoms. She presents now with persistent pain in her right hip and limited range of motion. X-ray reveals degenerative changes of the right hip. PHYSICAL EXAMINATION: GENERAL: This is a pleasant female. She has an old clavicle fracture on the right with a deformity. HEART AND LUNGS: Normal. EXTREMITIES: Examination of the right lower extremity revealed limited abduction to approximately 15 degrees before pain. She also had decreased internal and external rotation at the hip. Given the presence of severe symptomatic degenerative joint disease, the decision was made to take the patient to the operating room for right total hip arthroplasty. HOSPITAL COURSE: The patient was taken to the operating room where a right total hip arthroplasty was performed. The patient tolerated the procedure without complications. The estimated blood loss was approximately 500 cc and a Hemovac was placed prior to closing. The patient was transferred to the regular hospital brooks postoperatively for observation. Over the first 24 hours, she had approximately 320 cc out her Hemovac drain. A hematocrit was checked postoperatively and was noted to be 28. This was repeated in the morning of postoperative day one and was noted to be 20. She was asymptomatic with hematocrit of 20; however, given her age and the trend of decreasing hematocrit, the patient was transfused two units of packed red blood cells. This resulted in an increase in her hematocrit to 23.9. She had some hypotension postoperatively and low urine output which responded to fluid and blood transfusion. On postoperative day two, again her hematocrit had only increased to 24, and she was therefore transfused two additional units of packed red blood cells. Her Hemovac had put out 250 cc and was removed on postoperative day number two. The fourth unit of packed red blood cells resulted in an increase in her hematocrit to 35. On postoperative day number two, her dressings were removed, and her incision was intact and clean without signs of erythema. She had a mild amount of bloody drainage from the drain site as well as the staple line. Her motor and sensation was intact in her lower extremity, and her foot was well perfused. A Physical Therapy consultation was obtained, and the patient progressed very well with weightbearing as tolerated on the right lower extremity. The patient was eager to go home and was therefore discharged on postoperative day number three after being cleared by Physical Therapy. Her dressing was changed and there was a scant amount of serosanguinous drainage. She was advised to return to clinic or the emergency department if the drainage persisted or if she developed any signs and symptoms of a wound infection. CONDITION ON DISCHARGE: Stable. DISCHARGE MEDICATION(S): 1. Oxycodone 10 mg p.o. q.3-4h. p.r.n. pain. 2. Colace 100 mg p.o. b.i.d. DISCHARGE INSTRUCTION(S): Activity: Weightbearing as tolerated on the right lower extremity with total hip precautions. Diet: Normal. Followup: The patient was scheduled to follow up with Dr. Granados in the Orthopedic Clinic on November 15, 1997. Bonny Melara M.D. Resident, Surgery Marc Granados M.D. Professor, Department of Orthopaedics and Rehabilitation TORRES/albert A cc: documented in this encounter Plan of Treatment Not on filedocumented as of this encounter Visit Diagnoses Not on filedocumented in this encounter"
--- OUTSIDE RECORDS SUMMARY | ~2019-03-30 | XMS | Encounter Summary ---
Demographics + + + | Address | [address] | | | [place] [address] | + + + | Home Phone | | + + + | Preferred Language | Unknown | + + + | Marital Status | | + + + | Episcopalian Affiliation | CAT | + + + | Race | White | + + + | Ethnic Group | Not or | + + + Author + + + | Author | [facility] | + + + | Organization | [facility] | + + + | Address | Unknown | + + + | Phone | Unavailable | + + + Support + + +---------+ + | Name | Relationship | Address | Phone | + + +---------+ + | Jeronimo Ortega | ECON | Unknown | | + + +---------+ + Care Team Providers + +------+ + | Care Butt Sawyer Name | Role | Phone | + +------+ + PCP | Unavailable | + +------+ + Encounter Details +--------+ + + + + | Date | Type | Department | Care Team | Description | +--------+ + + + + | 05/29/ | Office | General Internal | Note, Outpatient | Progress Note | | 1997 | Visit-Trans | Medicine [address] | Clinic | | | | [address] | [address] | | | | | | Mailcode: [id number] | | | | | | Outpatient Clinic | | | | | | [facility], [address] | | | | | | [place], [place] | | | | | | [address] | | | | | | [phone] | | | +--------+ + + + [...] of this encounter Progress Notes Interface, Supervisor [employer] In - 06/22/2006 2:25 AM PST CLINIC DATE: 05/29/97 Lindsey returns about six months after her total hip replacement. She is doing pretty well, and is interested in having her other side done. On her operated side she can abduct about 40 degrees. She externally rotates about 30 degrees with her hip flexed, but she externally rotates only to 0 with her hip extended. Flexion and extension is good, and she does not have a hip flexion contracture. On her opposite side, abduction is only about 10 degrees and is painful. Rotation externally is to about -10 degrees and is painful. Flexion and extension are pretty good, and she doesn't have a significant hip flexion contracture. I obtained x-rays of her femurs. Her operated side is doing satisfactorily. Her non-operated side demonstrates inferior osteoarthritis. Overall, she is clearly better on the opposite, operated side. She does have a small amount of thigh pain. We will plan to proceed with surgery, and I will have Klaudia give them a call to schedule it. Marc Granados M.D. Professor, Department of Orthopaedics and Rehabilitation ERICK/vanna P documented in this encounter Plan of Treatment Not on filedocumented as of this encounter Visit Diagnoses Not on filedocumented in this encounter"
--- OUTSIDE RECORDS SUMMARY | ~2019-03-30 | XMS | Encounter Summary ---
Demographics + + + | Address | [address] | | | [place] [address] | + + + | Home Phone | | + + + | Preferred Language | Unknown | + + + | Marital Status | | + + + | Jewish Affiliation | CAT | + + + | Race | White | + + + | Ethnic Group | Not or | + + + Author + + + | Author | [facility] | + + + | Organization | [facility] | + + + | Address | Unknown | + + + | Phone | Unavailable | + + + Support + + +---------+ + | Name | Relationship | Address | Phone | + + +---------+ + | Jeronimo Ortega | ECON | Unknown | | + + +---------+ + Care Team Providers + +------+ + | Care Supervisor Hard Candy Name | Role | Phone | + +------+ + PCP | Unavailable | + +------+ + Encounter Details +--------+ + + + + | Date | Type | Department | Care Team | Description | +--------+ + + + + | 11/01/ | Results | Registration [id number] | | | | 1997 | Only | [address] | | | | | | [address] Mailcode: [id number] | | | | | | [place], [place] | | | | | | [address] | | | | | | [phone] | | | +--------+ + + + [...] | CBC TESTS 2 | Routin | 11/04/1997 | | Results for this | | | e | 6:50 AM | | procedure are in the | | | | PDT | | results section. | + +--------+ + + + | CBC TESTS 2 | Routin | 11/03/1997 | | Results for this | | | e | 6:00 PM | | procedure are in the | | | | PDT | | results section. | + +--------+ + + + | CHEMISTRY TESTS 4 | Routin | 11/03/1997 | | Results for this | | | e | 7:13 AM | | procedure are in the | | | | PDT | | results section. | + +--------+ + + + | CBC TESTS 2 | Routin | 11/03/1997 | | Results for this | | | e | 7:13 AM | | procedure are in the | | | | PDT | | results section. | + +--------+ + + + | CBC TESTS 2 | Routin | 11/03/1997 | | Results for this | | | e | 5:15 AM | | procedure are in the | | | | PDT | | results section. | + +--------+ + + + | TRANSFUSION MEDICINE | Routin | 11/02/1997 | | Results for this | | TESTS | e | 6:45 PM | | procedure are in the | | | | PDT | | results section. | + +--------+ + + + | CBC TESTS 2 | Routin | 11/02/1997 | | Results for this | | | e | 5:45 PM | | procedure are in the | | | | PDT | | results section. | + +--------+ + + + | CBC TESTS 2 | Routin | 11/02/1997 | | Results for this | | | e | 11:00 AM | | procedure are in the | | | | PDT | | results section. | + +--------+ + + + | CHEMISTRY TESTS 4 | Routin | 11/01/1997 | | Results for this | | | e | 4:52 PM | | procedure are in the | | | | PDT | | results section. | + +--------+ + + + | CBC TESTS 2 | Routin | 11/01/1997 | | Results for this | | | e | 4:52 PM | | procedure are in the | | | | PDT | | results section. | + +--------+ + + + documented in this encounter Results CBC TESTS 2 (11/04/1997 6:50 AM PDT) + + + + + + | Component | Value | Ref Range | Performed | Pathologist | | | | | At | Signature | + + + + + + | HEMATOCRIT | 32.7 (L) | % | | | + + + + + + + + | Specimen | + + | | + + + + + + + | Performing | Address | City/State/Zipcode | Phone Number | | Organization | | | | + + + + + | [facility] | [address] | [place] [address] | | | PATHOLOGY | [address] | | | + + + + + CBC TESTS 2 (11/03/1997 6:00 PM PDT) + + + + + + | Component | Value | Ref Range | Performed | Pathologist | | | | | At | Signature | + + + + + + | HEMATOCRIT | 35.2 (L) | % | | | + + + + + + + + | Specimen | + + | | + + + + + + + | Performing | Address | City/State/Zipcode | Phone Number | | Organization | | | | + + + + + | [facility] | [address] | [place] [address] | | | PATHOLOGY | [address] | | | + + + + + CHEMISTRY TESTS 4 (11/03/1997 7:13 AM PDT) + + + + + [...] + + + + | POTASSIUM, | 4.2 | mmol/l | | | | PLASMA [...] + + + | BUN, PLASMA | 7. | mg/dL | | | | (LAB) | | | | | + + + + + + | CREATININE | 0.6 (L) | mg/dL | | | | PLASMA | | | | | | (LAB) | | | | | + + + + + + | GLUCOSE, | 120. (H) | mg/dL | | | | [...] + + + + + | [facility] | [address] | [place] [address] | | | PATHOLOGY | [address] | | | + + + + + CBC TESTS 2 (11/03/1997 7:13 AM PDT) + + + + + + | Component | Value | Ref Range | Performed | Pathologist | | | | | At | Signature | + + + + + + | WHITE CELL | 5.6 | K/CU MM | | | | COUNT | | | | | + + + + + + | RED CELL | 2.84 (L) | M/CU MM | | | | COUNT | | | | | + + + + + + | HEMOGLOBIN | 9.2 (L) | GM/DL | | | + + + + + + | HEMATOCRIT | 26.5 (L) | % | | | + + + + + + | HEMATOCRIT | DUPLICATE ORDER | % | | | + + + + + + | MCV | 93.1 | FL | | | + + + + + + | MCH | 32.5 (H) | PG | | | + + + + + + | MCHC | 34.9 (H) | GM/DL | | | + + + + + + | RDW | 19.2 (H) | % | | | + + + + + + | PLATELET | 94. (L) | K/CU MM | | | [...] + + + + + | [facility] DEPARTMENT | [address] | [place] [address] | | | PATHOLOGY | [address] | | | + + + + + CBC TESTS 2 (11/03/1997 5:15 AM PDT) + + + + + + | Component | Value | Ref Range | Performed | Pathologist | | | | | At | Signature | + + + + + + | HEMATOCRIT | 23.9 (L) | % | | | + + + + + + + + | Specimen | + + | | + + + + + + + | Performing | Address | City/State/Zipcode | Phone Number | | Organization | | | | + + + + + | [facility] | [address] | [place] [address] | | | PATHOLOGY | [address] | | | + + + + + TRANSFUSION MEDICINE TESTS (11/02/1997 6:45 PM PDT) + + + + + [...] + + + + + | [facility] | [address] | [place], [place] [address] | | | PATHOLOGY | [address] | | | + + + + + CBC TESTS 2 (11/02/1997 5:45 PM PDT) + + + + + + | Component | Value | Ref Range | Performed | Pathologist | | | | | At | Signature | + + + + + + | HEMATOCRIT | 20.8 (L) | % | | | + + + + + + + + | Specimen | + + | | + + + + + + + | Performing | Address | City/State/Zipcode | Phone Number | | Organization | | | | + + + + + | [facility] | [address] | [place] [address] | | | PATHOLOGY | [address] | | | + + + + + CBC TESTS 2 (11/02/1997 11:00 AM PDT) + + + + + + | Component | Value | Ref Range | Performed | Pathologist | | | | | At | Signature | + + + + + + | HEMATOCRIT | 28.7 (L) | % | | | + + + + + + + + | Specimen | + + | | + + + + + + + | Performing | Address | City/State/Zipcode | Phone Number | | Organization | | | | + + + + + | [facility] | [address] | [place] [address] | | | PATHOLOGY | [address] | | | + + + + + CBC TESTS 2 (11/01/1997 4:52 PM PDT) + + + + + + | Component | Value | Ref Range | Performed | Pathologist | | | | | At | Signature | + + + + + + | WHITE CELL | 4.4 | K/CU MM | | | | COUNT | | | | | + + + + + + | RED CELL | 3.58 (L) | M/CU MM | | | | COUNT | | | | | + + + + + + | HEMOGLOBIN | 12.9 | GM/DL | | | + + + + + + | HEMATOCRIT | 37.3 | % | | | + + + + + + | MCV | 104.2 (H) | FL | | | + + + + + + | MCH | 36. (H) | PG | | | + + + + + + | MCHC | 34.5 (H) | GM/DL | | | + + + + + + | RDW | 11.4 (L) | % | | | + + + + + + | PLATELET | 155. | K/CU MM | | | | [...] + + + + + | [facility] | [address] | [place] [address] | | | PATHOLOGY | [address] | | | + + + + + CHEMISTRY TESTS 4 (11/01/1997 4:52 PM PDT) + + + + + [...] + + + + | POTASSIUM, | 3.9 | mmol/l | | | | PLASMA | | | | | | (LAB) | | | | | + + + + + + | CHLORIDE, | 99. | mmol/l | | | | PLASMA | | | | | | (LAB) | | | | | + + + + + + | TOTAL CO2, | 29. | mmol/l | | | | PLASMA | | | | | | (LAB) | | | | | + + + + + + | BUN, PLASMA | 9. | mg/dL | | | | (LAB) | | | | | + + + + + + | CREATININE | 1. | mg/dL | | | | PLASMA | | | | | | (LAB) | | | | | + + + + + + | GLUCOSE, | 101. | mg/dL | | | | PLASMA | | | | | | (LAB) | | | | | + + + + + + | CALCIUM, | 10. | mg/dL | | | | PLASMA | | | | | | (LAB) | | | | | + + + + + + | PHOSPHORUS, | 3.4 | mg/dL | | | | PLASMA | | | | | | (LAB) | | | | | + + + + + + | TOTAL | 6.7 | GM/DL | | | | PROTEIN, | | | | | | PLASMA | | | | | | (LAB) | | | | | + + + + + + + + | Specimen | + + | | + + + + + + + | Performing | Address | City/State/Zipcode | Phone Number | | Organization | | | | + + + + + | [facility] | [address] | [place] [address] | | | PATHOLOGY | [address] | | | + + + + + documented in this encounter Visit Diagnoses Not on filedocumented in this encounter"
--- OUTSIDE RECORDS SUMMARY | ~2019-03-30 | XMS | Encounter Summary ---
Demographics + + + | Address | [address] | | | [place] [address] | + + + | Home Phone | | + + + | Preferred Language | Unknown | + + + | Marital Status | | + + + | Alevism Affiliation | CAT | + + + | Race | White | + + + | Ethnic Group | Not or | + + + Author + + + | Author | [facility] | + + + | Organization | [facility] | + + + | Address | Unknown | + + + | Phone | Unavailable | + + + Support + + +---------+ + | Name | Relationship | Address | Phone | + + +---------+ + | Jeronimo Ortega | ECON | Unknown | | + + +---------+ + Care Team Providers + +------+ + | Care Parking Patroller Name | Role | Phone | + +------+ + PCP | Unavailable | + +------+ + Encounter Details +--------+ + + + + | Date | Type | Department | Care Team | Description | +--------+ + + + + | 07/16/ | Office | [facility] | Note, Outpatient | Progress Note | | 1998 | Visit-Trans | MEDICINE | Clinic | [...] as of this encounter Progress Notes Interface, Home Theater Installer In - 05/13/2006 1:06 AM PSTCLINIC DATE: 07/16/1998 Lindsey is seen on followup. 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 She seems to be doing pretty well. She did have a bad fall and had multiple bruises, but apparently that is all resolving. She walks with a walker when she is out and about and without one at home. Examination of her hips discloses that she has full flexion and extension. She has good adduction and about 45 degrees of abduction bilaterally. Rotation is about 30 degrees internal and external with her hip flexed. With the hips extended she cannot externally rotate much at all. X-rays suggest that there is no clear evidence of loosening. Likewise I am not absolutely certain that there is ingrowth. There is nothing to do at this point and we will plan to review her again in about February. Marc Granados M.D. ERICK/ernesto P cc: Sayra rachel in this encounter Plan of Treatment Not on filedocumented as of this encounter Visit Diagnoses Not on filedocumented in this encounter"
--- OUTSIDE RECORDS SUMMARY | ~2019-03-30 | XMS | Encounter Summary ---
Demographics + + + | Address | [address] | | | [place] [address] | + + + | Home Phone [...] Team Providers + +------+ + | Care Chief Controller Tower Name | Role | Phone | + +------+ + PCP | Unavailable | + +------+ + Encounter Details +--------+ + + + + | Date | Type | Department | Care Team | Description | +--------+ + + + + | 08/18/ | Office | [facility] | Note, [...] as of this encounter Progress Notes Interface, Patch Washer In - 04/09/2006 1:09 AM PSTCLINIC DATE: 08/19/1999 ORTHOPEDIC CLINIC SUBJECTIVE: Lindsey returns. She is a 59-year-old woman referred to me initially by Dr. [place] Granados. She has been evaluated by neurology and is currently undergoing blood labs as a part of her evaluation for sense of her progressive weakness. Again, reviewing her history, she believes that two to three years ago, she fell when she tripped over a cat and suffered what appears to have been her pelvic fracture. This was not treated at the time of the injury. She has had no other complaints of note. Really, examining her and discussing with her, she does have extensive kyphosis and tipping forward with ambulation, which requires her to flex her hips and knees, and I think is contributing to her lower extremity weakness complaints. PHYSICAL EXAMINATION: The range of motion of her hips is fully normal. She does walk with a crouched gait. Review of the CT scan with reconstructions does confirm the S1 fracture with kyphosis at that location. There does not appear to be neurologic compression either there or at the upper fracture at L1. The scoliosis view obtained today demonstrates that she has 4 inches anterior to S1 at the T1 level on the secondary sagittal plane. 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 She is going to finish her neurologic workup. At this point, she, I think is a candidate for an L1 osteotomy. This would be performed either as an anterior and posterior procedure or as an L1 subtraction osteotomy. She is going to undergo medical clearance for this. I think that she does desire to proceed with the surgery as described. We will go ahead and schedule her for 3-4 units of autologous blood in addition to the medical clearance. She will call if further concerns arise. Roque James M.D. / HS [id number] / [id number] / [id number] / [id number] cc: Marc Granados M.D. 1: 09 AM PSTInterface, Patch Washer In - 04/09/2006 1:09 AM PSTCLINIC DATE: 08/19/1999 ORTHOPEDIC CLINIC SUBJECTIVE: This patient was seen in followup. She has been seen by Dr. Pitt and is also being considered for spine surgery by Dr. James. PHYSICAL EXAMINATION: Today, her right hip internally and externally rotates 30 degrees in flexion and internally and externally rotates 20 degrees in extension. The left hip internally and externally rotates 20 degrees in flexion and externally rotates 25 degrees in extension and 0 degrees of internal rotation. She reports some muscle pain in her left thigh but does not report any pain up around her hips. She walks toeing in as she has for quite some time. She maintains when she does therapy and stretches out, she walks better. Her suggested that she, in fact, is gradually decreasing her ability to ambulate distances and be on her feet. This is a very difficult problem and for the moment, I do not know anything orthopedically to do. I do think that her hips are functioning pretty well, but she may require other treatment. PLAN: I plan to see her after the other issues have been worked up. Marc Granados M.D. [facility] / BEBA [id number] / [id number] / [id number] / [id number] Tdocumented in this encounter Plan of Treatment Not on filedocumented as of this encounter Visit Diagnoses Not on filedocumented in this encounter"
--- OUTSIDE RECORDS SUMMARY | ~2019-03-30 | XMS | Encounter Summary ---
Demographics + + + | Address | [address] | | | [place] [address] | + + + | Home Phone | | + + + | Preferred Language | Unknown | + + + | Marital Status | | + + + | Yazidi Affiliation | CAT | + + + | Race | White | + + + | Ethnic Group | Not or | + + + Author + + + | Author | [facility] | + + + | Organization | [facility] | + + + | Address | Unknown | + + + | Phone | Unavailable | + + + Support + + +---------+ + | Name | Relationship | Address | Phone | + + +---------+ + | Jeronimo Ortega | ECON | Unknown | | + + +---------+ + Care Team Providers + +------+ + | Care Contract Administrative Assistant Name | Role | Phone | + +------+ + PCP | Unavailable | + +------+ + Encounter Details +--------+ + + + + | Date | Type | Department | Care Team | Description | +--------+ + + + + | 05/29/ | Office | [facility] | Note, [...] as of this encounter Progress Notes Interface, Engine Room Helper In - 12/14/2004 4:57 PM PDTClinic Date: 05/29/2003 Danica Portillo is seen in followup of release of her iliotibial band on the left side that was done in last summer. She reports that the stitch tore, and she had infection in the wound that cleared up and that is no longer an issue with her. She is complaining of some back pain and some pain behind her hips, particularly on the right side. On my examination, she is tender over her greater trochanter, and she is also tender over the right ischium. She does report pain after sitting. The range of motion of both of hips seems quite good. Her iliotibial bands are less tight than they were prior to surgery; and although she is having more complaints, I do not find evidence physically that she is worsening. She reports a V-shaped area of pain emanating across her low back that starts about the lower end of her surgical incision in the spine and part of her pain is probably from her spine. In any event, she is going to give me a report in about 6 weeks as to her progress, and I plan to see her in about 6 months unless surgeries, and I should see her sooner. Marc Granados M.D. ERICK / BEBA [id number] / [id number] / [id number] / cc: Vadim Zepeda M.D. [address] [place] [id number] signed by Interface, Engine Room Helper In at 12/14/2004 4:57 PM PDTdocumented in this encounter Plan of Treatment Not on filedocumented as of this encounter Visit Diagnoses Not on filedocumented in this encounter"
--- OUTSIDE RECORDS SUMMARY | ~2019-03-30 | XMS | Encounter Summary ---
Demographics + + + | Address | [address] | | | [place] [address] | + + + | Home Phone [...] Team Providers + +------+ + | Care Dry Wall Finisher Name | Role | Phone | + +------+ + PCP | Unavailable | + +------+ + Encounter Details +--------+ + + + + | Date | Type | Department | Care Team | Description | +--------+ + + + + | 11/15/ | Office | General Internal | Note, Outpatient | Progress Note | | 1997 | Visit-Trans | Medicine [address] | Clinic | | | | [address] | [address] | | | | | | Mailcode: [id number] | | | | | | Outpatient Clinic | | | | | | [facility], [address] | | | | | | [place], [place] | | | | | | [address] | | | | | | [phone] | | | +--------+ + + + [...] as of this encounter Progress Notes Interface, Apartment Leasing Specialist In - 06/03/2006 1:00 AM PST CLINIC DATE: 11/15/97 She is doing well post-op total hip replacement. The range of motion of her operated hip includes 90 degrees of flexion, about 20 degrees of abduction, 30 degrees of internal rotation, and 10 degrees of external rotation. This is not as much external rotation as is present on the opposite side, but I think it will gradually stretch out. She is still a little tender. Her wound is healed. Her miranda are removed. She is pursuing a nice rehab program on her own. She should return in four weeks, at which time we will get x-rays of her hip: Ap and roll-out lateral on the right side. Marc Granados M.D. Professor, Department of Orthopaedics and Rehabilitation ERICK/vanna P documented in this encounter Plan of Treatment Not on filedocumented as of this encounter Visit Diagnoses Not on filedocumented in this encounter"
--- OUTSIDE RECORDS SUMMARY | ~2019-03-30 | XMS | Encounter Summary ---
Demographics + + + | Address | [address] | | | [place] [address] | + + + | Home Phone | | + + + | Preferred Language | Unknown | + + + | Marital Status | | + + + | Spiritism Affiliation | CAT | + + + | Race | White | + + + | Ethnic Group | Not or | + + + Author + + + | Author | [facility] | + + + | Organization | [facility] | + + + | Address | Unknown | + + + | Phone | Unavailable | + + + Support + + +---------+ + | Name | Relationship | Address | Phone | + + +---------+ + | Jeronimo Ortega | ECON | Unknown | | + + +---------+ + Care Team Providers + +------+ + | Care Assistant Professor Of Mathematics Name | Role | Phone | + +------+ + PCP | Unavailable | + +------+ + Encounter Details +--------+ + + + + | Date | Type | Department | Care Team | Description | +--------+ + + + + | 10/08/ | Office | [facility] | Note, [...] as of this encounter Progress Notes Interface, Scrap Preparation Supervisor In - 04/06/2006 5:08 AM PSTCLINIC DATE: 10/09/1999 INTRAOPERATIVE SENSORY-EVOKED POTENTIAL AND PEDICLE SCREW STIMULATION REPORT Intraoperative SEP testing was performed on October 09, 1999, during a posterior spinal fusion with instrumentation for scoliosis. SEP testing was performed to provide the surgeon with interactive feedback on the functional state of the somatosensory pathway from the posterior tibial nerves through the dorsal columns to the primary somatosensory cortices. In addition, placement of pedicle screws were evaluated using pedicle screw stimulation. Lower extremity SEPs were recorded from Fpz-Cz', C3'-C4', and Fpz-C7 while stimulating the left or right posterior tibial nerve at the ankle using constant current of 40 mA at a rate of 7.1 per second. The anesthesiologists were informed of the testing. SEP baseline recordings were taken following induction to general anesthesia. SEPs were then monitored throughout the surgery. Pedicle screw stimulation was performed after pedicle screws were placed into position and before attachment to instruments. An insulated ball-tip probe was used for stimulation with a return lead placed in the muscle next to the screws stimulated. TEST RESULTS: Baseline SEPs were of normal amplitude and latency bilaterally and adequate for monitoring purposes. At closing, the SEPs were equivalent to baseline recordings except for changes that can be attributed directly to accumulative effects of the volatile anesthetic inhalation. EMG response thresholds to electrical stimulation of pedicle screws are as following in milliamps: LEFT SIDE RIGHT SIDE T11 greater than 30 greater than 30 T12 greater than 30 greater than 30 L2 greater than 30 25 L3 greater than 30 28 INTERPRETATION: Compromised sensory pathway function is usually represented by delayed potential latencies and significantly decreased potential and amplitudes. The SEP monitoring results, in this case, indicate that function of the sensory pathways from the posterior tibial nerves to the somatosensory cortices was not disrupted as a result of the surgery. Clinical literature indicated that pedicle screw stimulation thresholds of less than 10 mA results in increased possibility of postoperative symptoms related to nerve root irritation. The EMG threshold values for the pedicle screw's test in this case indicate that the screw placement was good. This intraoperative SEP and a pedicle screw stimulation study was requested by Dr. Roque James from the Department of Orthopedics. Total test time was four hours. Lionel Del Cid M.D. NASMI / BEBA [id number] / [id number] / [id number] / [id number] cc: Roque James M.D. Department of Orthopedics [id number] signed by Interface, Scrap Preparation Supervisor In at 04/06/2006 5:08 AM PSTdocume nted in this encounter Plan of Treatment Not on filedocumented as of this encounter Visit Diagnoses Not on filedocumented in this encounter"
--- OUTSIDE RECORDS SUMMARY | ~2019-03-30 | XMS | Encounter Summary ---
Demographics + + + | Address | [address] | | | [place] [address] | + + + | Home Phone | | + + + | Preferred Language | Unknown | + + + | Marital Status | | + + + | Confucianism Affiliation | CAT | + + + | Race | White | + + + | Ethnic Group | Not or | + + + Author + + + | Author | [facility] | + + + | Organization | [facility] | + + + | Address | Unknown | + + + | Phone | Unavailable | + + + Support + + +---------+ + | Name | Relationship | Address | Phone | + + +---------+ + | Jeronimo Ortega | ECON | Unknown | | + + +---------+ + Care Team Providers + +------+ + | Care Armhole Sewer Name | Role | Phone | + +------+ + PCP | Unavailable | + +------+ + Encounter Details +--------+ + + + + | Date | Type | Department | Care Team | Description | +--------+ + + + + | 11/02/ | Results | Orthopaedics at | Marc Granados MD | | | 1996 | Only | [facility] [address] | [address] | | | | | [address] | [address] [place], | | | | | Mailcode: PV430 | [place] [address] | | | | | [facility] | | | | | | [place], [place] | | | | | | [address] | | | | | | [phone] | | | +--------+ + + + [...] | PELVIS, 1 VIEW, | Urgent | 11/02/1997 | | Results for this | | PORTABLE | | 11:15 AM | | procedure are in the | | | | PDT | | results section. | + +--------+ + + + | SURGICAL PATHOLOGY | Routin | 11/02/1997 | | Results for this | | | e | | | procedure are in the | | | | | | results section. | + +--------+ + + + documented in this encounter Results PELVIS, 1 VIEW, PORTABLE (11/02/1997 11:15 AM PDT) + + + + + + | Component | Value | Ref Range | Performed | Pathologist | | | | | At | Signature | + + + + + + | PELVIS, 1 | Radiologist 1: STEFANIE | | | | | ZACHERY, | Williams NEGRO-Radiologist | | | | | PORTABLE | 2: ROBERTA BARTH, | | | | | | WilliamsPORTABLE PELVIS: | | | | | | 11/02/97. Dictated: | | | | | | 11/03/97. Comparison | | | | | | is made with May 29 | | | | | | 1997 and November 22, 1996. | | | | | | FINDINGS: The bones | | | | | | are diffusely | | | | | | osteopenic. A left | | | | | | total hiparthroplasty | | | | | | appears unchanged in | | | | | | alignment. In the | | | | | | interval sincethe prior | | | | | | study, a right total hip | | | | | | arthroplasty has been | | | | | | performed.Alignment is | | | | | | near anatomic. There | | | | | | is no evidence of | | | | | | fracture.Surgical drain | | | | | | is in place adjacent to | | | | | | the arthroplasty. Skin | | | | | | staplesare evident | | | | | | laterally. IMPRESSION: | | | | | | Right total hip | | | | | | arthroplasty. Near | | | | | | anatomic alignment. END | | | | | | OF IMPRESSION: | | | | + + + + + + + + | Specimen | + + | | + + + +---------+ + + | Performing | Address | City/State/Zipcode | Phone Number | | Organization | | | | + +---------+ + + | [facility] DEPARTMENT OF | | | | | RADIOLOGY | | | | + +---------+ + + SURGICAL PATHOLOGY (11/02/1997) + + + + + + | [...] | PATHOLOGY | | | | Patient age: 57 | | | | | | year old woman | | | | | | Patient History: NONE | | | | | | PROVIDED GROSS | | | | | | DESCRIPTION | | | | | | Specimens Received: 1 | | | | | | specimen in formalin | | | | | | #1 RIGHT FEMORAL | | | | | | HEAD: Received in | | | | | | formalin is a 4.5 x 4.5 | | | | | | x 4.5 cm.femoral head | | | | | | with up to 1.3 cm. of | | | | | | attached femoral neck. | | | | | | There is asmall amount | | | | | | of soft tissue attached | | | | | | at the junction of the | | | | | | head andneck, some of | | | | | | which has a lobular, | | | | | | papillary appearance. | | | | | | The articularsurface | | | | | | ranges from smooth, saini, | | | | | | to nodular, saini-red | | | | | | with foci of paletan | | | | | | eburnation comprising | | | | | | less than 5% of the | | | | | | articular surface. | | | | | | Themargin is clean | | | | | | cut. The specimen | | | | | | is sectioned revealing | | | | | | the bone underlying the | | | | | | area ofeburnation to the | | | | | | indurated, pale saini | | | | | | with a distinct cyst | | | | | | having amucoid cut | | | | | | surface measuring 0.2 | | | | | | cm. in greatest | | | | | | dimension. | | | | | | Theremaining | | | | | | trabecular bone is firm, | | | | | | arora yellow. No | | | | | | other suspiciouslesions | | | | | | are noted. | | | | | | CASSETTE INDEX:A, soft | | | | | | tissue, RSB, bone, RS, | | | | | | DECALCIFICATION | | | | | | REQUESTED All | | | | | | tissue sections taken | | | | | | are submitted for | | | | | | microscopic | | | | | | evaluation.LL/CC/JK/f | | | | | | FINAL | | | | | | DIAGNOSIS#1 RIGHT | | | | | | FEMORAL HEAD: | | | | | | DEGENERATIVE JOINT | | | | | | DISEASE Note: In | | | | | | the absence of clinical | | | | | | history, the diagnosis | | | | | | is based ongross and/or | | | | | | histologic findings | | | | | | only. Case | | | | | | reviewed by: Bryan | | | | | | Huong, Student | | | | | | FellowCase staffed by: | | | | | | Barrett Rushing, | | | | | | M.D. :dj | | | | | | My electronic signature | | | | | | indicates that I have | | | | | | personally reviewed | | | | | | alldiagnostic slides, | | | | | | the gross and/or | | | | [...] | + + + + + | [facility] | [address] | [place] [address] | | | PATHOLOGY | [address] | | | + + + + + documented in this encounter Visit Diagnoses Not on filedocumented in this encounter"
--- OUTSIDE RECORDS SUMMARY | ~2019-03-30 | XMS | Encounter Summary ---
Demographics + + + | Address | [address] | | | [place] [address] | + + + | Home Phone | | + + + | Preferred Language | Unknown | + + + | Marital Status | | + + + | Presybeterian Affiliation | CAT | + + + [...] Team Providers + +------+ + | Care Technical Asst Name | Role | Phone | + +------+ + PCP | Unavailable | + +------+ + Encounter Details +--------+ + + + + | Date | Type | Department | Care Team | Description | +--------+ + + + + | 11/10/ | Office | [facility] | Note, [...] as of this encounter Progress Notes Interface, Sales Team Manager In - 04/04/2006 5:07 AM PSTCLINIC DATE: 11/11/1999 ORTHOPEDIC CLINIC The patient called today requesting a refill of her pain medication, Vicodin. The patient has a followup appointment on November 22, 1999, and wanted to know if she can have enough to last until she sees Dr. James here in clinic. This was okayed by Dr. Roque James; Vicodin one to two every 4 to 6 hours p.r.n., quantity of 40 with zero refills. This was called in to [facility] at [phone]. Deven Gilliam M.A. Roque James M.D. THOMAS / BEBA [id number] / [id number] / [id number] / [id number] Tdocumented in this encounter Plan of Treatment Not on filedocumented as of this encounter Visit Diagnoses Not on filedocumented in this encounter"
--- OUTSIDE RECORDS SUMMARY | ~2019-03-30 | XMS | Encounter Summary ---
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 She is having absolutely no pain in her hip. It does not dislocate, and it does not cause any difficulty that I am aware of. She has a good range of motion of her hip on both sides. She is complaining of pain in both thighs. The pain is both anterior and lateral, goes down to the knees, and this is associated with palpable increased motor tone. She has an extraordinarily tight iliotibial band on both sides, but tighter on the right side where she has more pain. It is tempting to think that release of her iliotibial band might relieve this pain, but it is difficult to know for sure. I have suggested to her that she be on a stretching program, and we would reevaluate her hips toward the end the summer. Overall, things are going well for her, and I am very pleased with her progress to date. Marc Granados M.D. ERICK / BEBA [id number] / [id number] / [id number] / [id number] Tdocumented in this encounter Plan of Treatment Not on filedocumented as of this encounter Visit Diagnoses Not on filedocumented in this encounter"
--- OUTSIDE RECORDS SUMMARY | ~2019-03-30 | XMS | Encounter Summary ---
Demographics + + + | Address | [address] | | | [place] [address] | + + + | Home Phone [...] Team Providers + +------+ + | Care Pharmacist'S Aide Name | Role | Phone | + +------+ + PCP | Unavailable | + +------+ + Encounter Details +--------+ + + + + | Date | Type | Department | Care Team | Description | +--------+ + + + + | 01/16/ | Office | [facility] | Note, [...] as of this encounter Progress Notes Interface, Brush Sander In - 03/29/2006 5:15 AM PSTCLINIC DATE: 01/17/2000 ORTHOPEDIC CLINIC SUBJECTIVE: Mrs. Ortega returns. She is now three months out from a lumbar extension osteotomy. She states that her lower extremity symptoms are essentially changed. She does notice a significant straightening and is very happy with the outcome from her surgery. She does still have some difficulty walking, although overall this is significantly improved as well. She has not yet freed herself from the walker but is hopeful to do so. Her main complaints today involve irritation at the waistline as well as the pain radiating under the 12th rib. Overall, her pain has been improving. She has been off the brace now for approximately one month ago. There are no other complaints of note. PHYSICAL EXAMINATION: Neurologic exam is unchanged. Her wound is fully healed. She does nearly come to a horizontal stand with the straightening of the knees and hips. X-rays demonstrate a good maintenance and correction with interval healing. In fact, I believe she is solidly fused at this point. ASSESSMENT: Mrs. Ortega is doing well status post an L1 eggshell osteotomy. RECOMMENDATION: Physical therapy to improve her leg strength as well as her pain relief at the mid thoracolumbar junction. I am also going to give her some Flexeril for medication. She is going to be traveling to [place] in March. I would like to see her back in approximately 3 months to see how she is doing with physical therapy regimen. She will call if further concerns arise. Roque James M.D. / BEBA [id number] / [id number] / [id number] / cc: Theo Atwood M.D. [address], [address] [id number] signed by Interface, Brush Sander In at 03/29/2006 5:15 AM PSTdocumented in this encounter Plan of Treatment Not on filedocumented as of this encounter Visit Diagnoses Not on filedocumented in this encounter"
--- OUTSIDE RECORDS SUMMARY | ~2019-03-30 | XMS | Encounter Summary ---
Demographics + + + | Address | [address] | | | [place] [address] | + + + | Home Phone [...] Team Providers + +------+ + | Care Emd Special Education Teacher Name | Role | Phone | + +------+ + PCP | Unavailable | + +------+ + Encounter Details +--------+ + + + + | Date | Type | Department | Care Team | Description | +--------+ + + + + | 11/07/ | Office | [facility] | Note, [...] as of this encounter Progress Notes Interface, Dyed Yarn Operator In - 12/15/2004 6:22 AM PDTClinic Date: 11/08/2003 Orthopedic Lindsey is doing pretty well. Her iliotibial band releases have been helpful to her, and they are not tender at all. She reports deep posterior clicking in the right hip when she flexes and extends it. I am unable to palpate that, but there is no reason to think she is subluxing or dislocating her hip. It does not seem to be painful. The big issue today is that her left lower extremity is swollen, apparently it was extremely swollen at one time, and she was diagnosed as having cellulitis, put on the antibiotics, and it is improved, but it still is quite swollen. The swelling goes above her knee where she has 1 inch larger than on the opposite side. I do not think it involves the knee joint itself. Just above her ankle, she has an area that is a bit thickened and where she has pitting edema. She has heat in the soft tissue, and I think she probably still has some residual cellulitis. I was concerned about whether she might have a DVT and sent her to the Vascular Lab who found no evidence of DVT. I have chosen to put her back on Keflex for 10 days to see if this will not help the cellulitis issue. Assuming that helps, then she is to use elastic hose to keep down the swelling, and I gave her an appointment for 1 month to be seen if necessary. She will let me know. Marc Granados M.D. ERICK / BEBA [id number] / [id number] / [id number] / [id number] cc: Vadim Zepeda M.D. [address] [place], [place] [id number] signed by Interface, Dyed Yarn Operator In at 12/15/2004 6:2 2 AM PDTdocumented in this encounter Plan of Treatment Not on filedocumented as of this encounter Visit Diagnoses Not on filedocumented in this encounter"
--- OUTSIDE RECORDS SUMMARY | ~2019-03-30 | XMS | Encounter Summary ---
Demographics + + + | Address | [address] | | | [place] [address] | + + + | Home Phone | | + + + | Preferred Language | Unknown | + + + | Marital Status | | + + + | Restorationist Affiliation | CAT | + + + [...] Team Providers + +------+ + | Care Residential Advisor Name | Role | Phone | + +------+ + PCP | Unavailable | + +------+ + Encounter Details +--------+ + + + + | Date | Type | Department | Care Team | Description | +--------+ + + + + | 01/29/ | Results | Orthopaedics at | Marc Granados MD | | | 1996 | Only | [facility] [address] | [address] | | | | | [address] | [address] [place], | | | | | Mailcode: [address] | [place] [address] | | | | | [facility] | | | | | | [place], [place] | | | | | | [address] | | | | | | [phone] | | | +--------+ + + + [...] | FEMUR, 2 VIEWS | Routin | 01/29/1998 | | Results for this | | | e | 11:30 AM | | procedure are in the | | | | PDT | | results section. | + +--------+ + + + documented in this encounter Results FEMUR, 2 VIEWS (01/29/1998 11:30 AM PDT) + + + + + + | Component | Value | Ref Range | Performed | Pathologist | | | | | At | Signature | + + + + + + | FEMUR, 2 | Radiologist 1: GALDINO, | | | | | VIEWS | COREEN Sargent M.D. RIGHT | | | | | | HIP: [id number]: | | | | | | 01-31-98 Comparison | | | | | | to 05-29-97. FINDINGS: | | | | | | There is a right hip | | | | | | total arthroplasty with | | | | | | uncementedcomponents in | | | | | | place. The femur is | | | | | | positioned slightly in | | | | | | varusrelative to the | | | | | | femoral component. The | | | | | | acetabular component is | | | | | | 25%uncovered relative | | | | | | to the superior | | | | | | acetabular ilium. The | | | | | | prostheticfemoral head | | | | | | is centrally positioned | | | | | | in the acetabulum. | | | | | | There is nofracture | | | | | | noted. IMPRESSION: No | | | | | | gross abnormality noted. | | | | | | END OF IMPRESSION: | | | | + + + + + + + + | Specimen | + + | | + + + +---------+ + + | Performing | Address | City/State/Zipcode | Phone Number | | Organization | | | | + +---------+ + + | [facility] DEPARTMENT OF | | | | | RADIOLOGY | | | | + +---------+ + + documented in this encounter Visit Diagnoses Not on filedocumented in this encounter"
--- OUTSIDE RECORDS SUMMARY | ~2019-03-30 | XMS | Encounter Summary ---
Demographics + + + | Address | [address] | | | [place] [address] | + + + | Home Phone [...] Team Providers + +------+ + | Care Globe Tester Name | Role | Phone | + [...]
--- OUTSIDE RECORDS SUMMARY | ~2019-03-30 | XMS | Clinical Summary ---
Demographics + + + | Address | [address] | | | [place] [address] | + + + | Home Phone | | + + + | Preferred Language | Unknown | + + + | Marital Status | | + + + | Bahai Affiliation | 1041 | + + + | Race | Unknown | + + + | Ethnic Group | Unknown | + + + Author + + + | Author | [facility] | | | and [place] | + + + | Organization | [facility] | | | and [place] | [...] Team Providers + +------+ + | Care Pharmaceutical Physician Name | Role | Phone | + +------+ + | Theo Atwood DO | PCP | | + +------+ + Allergies Not on File Medications Not on file Active Problems Not [...] | + + + + + | Breast Cancer | | | | | Screening | 6 | | | + + + + + | Vaccine: | | | | | Pneumococcal 65+ (1 | 6 | | | | of 2 - PCV13) | | | | + + + + + | Vaccine: Zoster (2 | | 03/31/2012 | | | of 3) | 3 | | | + + + + + | Vaccine: | | 03/09/2013 | | | Dtap/Tdap/Td (1 - | 3 | | | | Tdap) | | | | + + + + + | Vaccine: Influenza | | 04/06/2014, 03/09/2013, | | | (#1) | 9 | 02/02/2012, Additional history | | | | | exists | | + + + + + Results Not on filefrom Last 3 Months Insurance + +--------+ +--------+ +---------+--------+ | Payer | Benefi | Subscriber | Effect | Phone | Address | Type | | | t Plan | ID | mt | | | | | | / | | Dates | | | | | | Group | | | | | | + +--------+ +--------+ +---------+--------+ | MEDICARE | MEDICA | [id number] | 01/17/20 | [phone] | | Medica | | | RE | | 06-Pre | 5 | | re | | | PART A | | sent | | | | | | AND B | | | | | | + +--------+ +--------+ +---------+--------+ + +--------+ +--------+ + + | Guarantor Name | Accoun | Relation to | Date | Phone | Billing Address | | | t Type | Patient | of | | | | | | | | | | + +--------+ +--------+ + + | Lindsey Ortega | Person | Self [birth year] | [address] | | | al/Fam | | 1940 | [phone] | [place], [place] | | | renetta | | | [address] (Home) | [phone] | + +--------+ +--------+ + +"
--- OUTSIDE RECORDS SUMMARY | ~2019-03-30 | XMS | Encounter Summary ---
Demographics + + + | Address | [address] | | | [place] [address] | + + + | Home Phone [...] Team Providers + +------+ + | Care Hosiery Mender Name | Role | Phone | + +------+ + PCP | Unavailable | + +------+ + Encounter Details +--------+ + + + + | Date | Type | Department | Care Team | Description | +--------+ + + + + | 05/17/ | Procedure - | | Record, Operation | Operative Report | | 2001 | | | | | | | Transcribed | | | | +--------+ + + [...] + + | OPERATION RECORD | | 05/17/2002 | | Results for this | | | | | | procedure are in the | | | | | | results section. | + +--------+ + + + documented in this encounter Results OPERATION RECORD (05/17/2002) + + | Transcriptions | + + | Interface, Tassel Snipper In - 11/16/2005 3:11 AM PDT | | 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 Right hip revision total hip | | arthroplasty.2. Bipolar prosthesis.SPECIMEN(S) REMOVED:None | | dictated.ANESTHESIA:Lumbosacral block with catheter and a general endotracheal | | anesthesia.ESTIMATED BLOOD LOSS:150 cc.FINDINGS:Scar and bursa which signify that she | | has been dislocating. She was stablethrough full range of motion preoperatively once | | asleep.COMPLICATIONS:None apparent.COMPONENTS:DePuy self-centering bipolar head, inner | | diameter 28, outer diameter 61,articulus ball 28 mm diameter with a +8.5 | | DePuy.INDICATIONS:Ms. Ortega is a 62-year-old female who had a total hip arthroplasty | | aboutsix years ago. She has a spinal cord injury and has muscle imbalance. Shehas had | | multiple dislocations. It was felt she was indicated for arevision total hip | | arthroplasty or a revision to a bipolar prosthesis. Shesigned a consent for the | | above-mentioned procedure after a PARQ conferencewas held.PROCEDURE:The patient was | | correctly identified in the preoperative holding area andshe was taken to the | | operating room and placed in a supine position afterhaving received a lumbosacral | | block in the preoperative holding area. Shewas then given a general endotracheal | | anesthesia by the anesthesiologistand moved to the lateral position using the | | lateral positioner. Her bonyprominences were all well-padded and she was aligned | | while on the table.Her right leg was then prepped and draped in the usual sterile | | fashion.Utilizing her previous incision, the incision was made down through skinand | | subcutaneous tissue with a 10 blade. The cautery was used down to andthrough the | | iliotibial (IT) band. The posterior capsule was notwell-attached and there was | | an area of bursa which was excised. There wassignificant scar tissue. The remainder | | of the posterior capsule was takendown with cautery and the hip was dislocated. The | | 28 mm femoral head wasremoved and the cautery was used to clean off the outer edge | | of theacetabulum.The Wing acetabular removal set was used to free the acetabular | | cup fromthe bone. This took very little extra bone and came out as one solid piecewith | | the liner and cup. The acetabulum was thoroughly irrigated. A holewas drilled to | | determine the depth with the drill and then it was reamedfrom 58 to 61 mm. The | | bipolar trial was placed and the +5 head was placed.The hip was relocated and taken | | through a range of motion. It was felt rodriguez stable, but in 90 degrees of flexion | | and 45 degrees of internalrotation. The neck impinged on the bipolar head. | | Therefore, we trialed an8.5 head and did not have this impingement and felt to be more | | stable. Shewas able to get out to full extension. She did not have much | | externalrotation preoperatively. We therefore did a limited anterior release whichgave | | her better external rotation, but maintained her stability.The trial components were all | | removed and the acetabulum was thoroughlyirrigated. We noted that the bone was | | very thin at the bottom of theacetabulum. The final prosthesis which was a 61 | | outer diameter bipolarwith a 28 mm inner diameter and a 28 ball with an 8.5 length was | | placed onthe previous femoral stem which was solid. This was reduced and | | againtaken through a range of motion and felt to be very stable. The Hemovacwas | | inserted and the IT band was closed with 0 interrupted Vicryl sutures.The posterior | | capsule was not repaired. The subcutaneous tissue was closedwith 2-0 Vicryl interrupted | | sutures and the skin was closed with miranda.Xeroform, 4 x 4 and ABD and tape were | | placed and the drain was secured.The patient then had an abduction pillow placed | | and was returned to thesupine position and extubated. She was taken to the | | postanesthesia careunit in stable condition, neurovascularly intact.COMPLICATIONS:None | | apparent.POSTOPERATIVE PLAN:Partial weightbearing right hip with a walker. She will | | have posterior hipprecautions and an abduction pillow. She will have a physical | | therapyconsult for mobilization. She will have aspirin, sequential | | compressiondevices (SCDs) and thromboembolic disease (DELMI) hose and early | | mobilizationfor deep venous thrombosis (DVT) prophylaxis. Her Hemovac will | | remainuntil there is less than 30 cc of shift andher antibiotics will continue for 24 | | hours. She has a lumbar blockcatheter by anesthesia and will supplement this | | with a SENIOR DATA MINING ANALYST. She shouldfollow-up with Dr. Granados in two weeks.Nica Gomez M.D. | | Marc Granados M.D.JM:xt4D: 05/17/2002T: 05/17/[id number] | | | |Utilizing her previous incision, the incision was made down through skin | |and subcutaneous tissue with a 10 blade. The cautery was used down to and | |through the iliotibial (IT) band. The posterior capsule was not | |well-attached and there was an area of bursa which was excised. There was | |significant scar tissue. The remainder of the posterior capsule was taken | |down with cautery and the hip was dislocated. The 28 mm femoral head was | |removed and the cautery was used to clean off the outer edge of the | |acetabulum. | | | |The Wing acetabular removal set was used to free the acetabular cup from | |the bone. This took very little extra bone and came out as one solid piece | |with the liner and cup. The acetabulum was thoroughly irrigated. A hole | |was drilled to determine the depth with the drill and then it was reamed | |from 58 to 61 mm. The bipolar trial was placed and the +5 head was placed. | |The hip was relocated and taken through a range of motion. It was felt to | |be stable, but in 90 degrees of flexion and 45 degrees of internal | |rotation. The neck impinged on the bipolar head. Therefore, we trialed an | |8.5 head and did not have this impingement and felt to be more stable. She | |was able to get out to full extension. She did not have much external | |rotation preoperatively. We therefore did a limited anterior release which | |gave her better external rotation, but maintained her stability. | | | |The trial components were all removed and the acetabulum was thoroughly | |irrigated. We noted that the bone was very thin at the bottom of the | |acetabulum. The final prosthesis which was a 61 outer diameter bipolar | |with a 28 mm inner diameter and a 28 ball with an 8.5 length was placed on | |the previous femoral stem which was solid. This was reduced and again | |taken through a range of motion and felt to be very stable. The Hemovac | |was inserted and the IT band was closed with 0 interrupted Vicryl sutures. | |The posterior capsule was not repaired. The subcutaneous tissue was closed | |with 2-0 Vicryl interrupted sutures and the skin was closed with miranda. | |Xeroform, 4 x 4 and ABD and tape were placed and the drain was secured. | |The patient then had an abduction pillow placed and was returned to the | |supine position and extubated. She was taken to the postanesthesia care | |unit in stable condition, neurovascularly intact. | | | |COMPLICATIONS: | |None apparent. | | | |POSTOPERATIVE PLAN: | |Partial weightbearing right hip with a walker. She will have posterior hip | |precautions and an abduction pillow. She will have a physical therapy | |consult for mobilization. She will have aspirin, sequential compression | |devices (SCDs) and thromboembolic disease (DELMI) hose and early mobilization | |for deep venous thrombosis (DVT) prophylaxis. Her Hemovac will remain | |until there is less than 30 cc of shift and | | | | | | | | | | | | | | | | | | | |her antibiotics will continue for 24 hours. She has a lumbar block | |catheter by anesthesia and will supplement this with a SENIOR DATA MINING ANALYST. She should | |follow-up with Dr. Granados in two weeks. | | | | | | | |Nica Gomez M.D. Marc Granados M.D. | | | |JM:[id number] | | | | | [phone] | + + documented in this encounter Visit Diagnoses Not on filedocumented in this encounter"
--- OUTSIDE RECORDS SUMMARY | ~2019-03-30 | XMS | Encounter Summary ---
Demographics + + + | Address | [address] | | | [place] [address] | + + + | Home Phone | | + + + | Preferred Language | Unknown | + + + | Marital Status | | + + + | Spiritism Affiliation | CAT | + + + | Race | White | + + + | Ethnic Group | Not or | + + + Author + + + | Author | [facility] | + + + | Organization | [facility] | + + + | Address | Unknown | + + + | Phone | Unavailable | + + + Support + + +---------+ + | Name | Relationship | Address | Phone | + + +---------+ + | Jeronimo Ortega | ECON | Unknown | | + + +---------+ + Care Team Providers + +------+ + | Care Gasoline Power Shovel Operator Name | Role | Phone | + +------+ + PCP | Unavailable | + +------+ + Encounter Details +--------+ + + + + | Date | Type | Department | Care Team | Description | +--------+ + + + + | 11/21/ | Office | [facility] | Note, [...] as of this encounter Progress Notes Interface, Exceptional Student Education Teacher In - 04/02/2006 5:08 AM PSTCLINIC DATE: 11/22/1999 ORTHOPEDIC CLINIC SUBJECTIVE: The patient returns. She is now six weeks out from an L1 osteotomy. She has noticed improved positioning imbalance. She continues to improve well and has had minimal backache currently. She has had no neurologic symptoms. There has been no other concern of note. PHYSICAL EXAMINATION: MUSCULOSKELETAL: The wound is fully healed. NEUROLOGIC: She is completely intact with no change in the lower extremity strength. She does have improvement in her sagittal plane alignment as well demonstrated in clinic today with flexion of the knees and hips. X-rays obtained today demonstrate only a 5-degree kyphosis at the L1 fracture which has reduced approximately 30 degrees from preoperatively. There is no hardware complication. Overall, things appear unchanged. ASSESSMENT: The patient is doing very well status post lumbar closing wedge osteotomy. RECOMMENDATION: Continue increase in activity. She is going to stop using the brace at this point. I will have her return to clinic in approximately two months. She is going to stop using the brace except for when she is ambulating outside of her house at this point. I will have her return to clinic in two months for repeat clinical evaluation. On her returning, we will obtain AP and lateral flexion and extension views of lumbar spine. Roque James M.D. MORELIA / BEBA [id number] / [id number] / [id number] / Tdocumented in this encounter Plan of Treatment Not on filedocumented as of this encounter Visit Diagnoses Not on filedocumented in this encounter"
--- OUTSIDE RECORDS SUMMARY | ~2019-03-30 | XMS | Encounter Summary ---
Demographics + + + | Address | [address] | | | [place] [address] | + + + | Home Phone | | + + + | Preferred Language | Unknown | + + + | Marital Status | | + + + | Druze Affiliation | CAT | + + + | Race | White | + + + | Ethnic Group | Not or | + + + Author + + + | Author | [facility] | + + + | Organization | [facility] | + + + | Address | Unknown | + + + | Phone | Unavailable | + + + Support + + +---------+ + | Name | Relationship | Address | Phone | + + +---------+ + | Jeronimo Ortega | ECON | Unknown | | + + +---------+ + Care Team Providers + +------+ + | Care Brick Carrier Name | Role | Phone | + +------+ + PCP | Unavailable | + +------+ + Encounter Details +--------+ + + + + | Date | Type | Department | Care Team | Description | +--------+ + + + + | 10/31/ | Office | [facility] | Note, [...] as of this encounter Progress Notes Interface, Field Crew Chief In - 04/04/2006 5:07 AM PSTCLINIC DATE: 11/01/1999 ORTHOPEDIC CLINIC The patient called today requesting a medication refill for pain medication. The patient stated that she has been on oxycodone and has started to have an allergic reaction to it, and she wanted to discontinue it and try something else. I spoke with Dr. James who advised switching to Vicodin on one to two p.o. every 4 to 6 hours p.r.n., quantity of 40 with zero refills. This was called in to [facility] at [phone]. The patient stated that she has tried Benadryl in the past and wanted to know if she could take some of that to help with the itching. I advised her to go ahead and try Benadryl to help ease the itching. I asked her to follow up with me if the itching continues and does not get better over the weekend, and if it is severe, to go to the ER to be evaluated. Deven Gilliam M.A. Roque James M.D. THOMAS / BEBA [id number] / [id number] / [id number] / [id number] Tdocumented in this encounter Plan of Treatment Not on filedocumented as of this encounter Visit Diagnoses Not on filedocumented in this encounter"
--- OUTSIDE RECORDS SUMMARY | ~2019-03-30 | XMS | Encounter Summary ---
Demographics + + + | Address | [address] | | | [place] [address] | + + + | Home Phone | | + + + | Preferred Language | Unknown | + + + | Marital Status | | + + + | Pentecostal Affiliation | 1041 | + + + | Race | Unknown | + + + | Ethnic Group | Unknown | + + + Author + + + | Author | [facility] | | | and [place] | + + + | Organization | [facility] | | | and [place] [...] Team Providers + +------+ + | Care Management Sme Name | Role | Phone | + +------+ + PCP | Unavailable | + +------+ + Encounter Details +--------+ + + + + | Date | Type | Department | Care Team | Description | +--------+ + + + + | 05/16/ | Hospital | [facility] | | | | 1991 - | Encounter | [facility] | | | | | | [facility]ENTER [address] | | | | 08/15/ | | [place] | | | | 1992 | | [address] | | | | | | [phone] | | | +--------+ + + + [...]
--- OUTSIDE RECORDS SUMMARY | ~2019-03-30 | XMS | Encounter Summary ---
Demographics + + + | Address | [address] | | | [place] [address] | + + + | Home Phone | | + + + | Preferred Language | Unknown | + + + | Marital Status | | + + + | Latter-Day Affiliation | CAT | + + + | Race | White | + + + | Ethnic Group | Not or | + + + Author + + + | Author | [facility] | + + + | Organization | [facility] | + + + | Address | Unknown | + + + | Phone | Unavailable | + + + Support + + +---------+ + | Name | Relationship | Address | Phone | + + +---------+ + | Jeronimo Ortega | ECON | Unknown | | + + +---------+ + Care Team Providers + +------+ + | Care Lead Oxide Mill Tender Name | Role | Phone | + +------+ + PCP | Unavailable | + +------+ + Encounter Details +--------+ + + + + | Date | Type | Department | Care Team | Description | +--------+ + + + + | 01/29/ | Office | [facility] | Note, Outpatient | Progress Note | | 1997 | Visit-Trans | MEDICINE | Clinic | [...] as of this encounter Progress Notes Interface, Long Distance Operator In - 05/29/2006 1:02 AM PSTCLINIC DATE: 01/29/98 SUBJECTIVE: Lindsey Ortega is doing very well post total hip replacement. PHYSICAL EXAMINATION: She has pretty symmetrical range of motion. She has limited internal rotation in both hips. I think this is related to her neuromuscular pre-existing problems. Her wounds are well healed. Her hips are not hurting her, although she does have some discomfort from time to time. X-RAYS: AP and roll out lateral of her hips demonstrate excellent in-growth on the previously operated side and no evidence of loosening on the more recently operated side, and it is too early to prove that she has ingrowth. ASSESSMENT AND PLAN: She really is doing very nicely and is quite happy. She has been fishing and plans to go to [place] shortly. She was given prescription for Vicodin for discomfort when it occurs, and I plan to see her back in about six months for re-evaluation. Marc Granados M.D. Professor, Department of Orthopaedics and Rehabilitation ERICK/ernesto P cc: documente d in this encounter Plan of Treatment Not on filedocumented as of this encounter Visit Diagnoses Not on filedocumented in this encounter"
--- OUTSIDE RECORDS SUMMARY | ~2019-03-30 | XMS | Encounter Summary ---
Demographics + + + | Address | [address] | | | [place] [address] | + + + | Home Phone | | + + + | Preferred Language | Unknown | + + + | Marital Status | | + + + | Bahai Affiliation | CAT | + + + | Race | White | + + + | Ethnic Group | Not or | + + + Author + + + | Author | [facility] | + + + | Organization | [facility] | + + + | Address | Unknown | + + + | Phone | Unavailable | + + + Support + + +---------+ + | Name | Relationship | Address | Phone | + + +---------+ + | Jeronimo Ortega | ECON | Unknown | | + + +---------+ + Care Team Providers + +------+ + | Care Tobacco Feeder Catcher Name | Role | Phone | + +------+ + PCP | Unavailable | + +------+ + Encounter Details +--------+ + + + + | Date | Type | Department | Care Team | Description | +--------+ + + + + | 06/09/ | Office | [facility] | Note, [...] as of this encounter Progress Notes Nannette, Master Planner In - 11/16/2005 3:11 AM PDTCLINIC DATE: 06/09/2002 ORTHOPEDIC CLINIC Lindsey seen in followup of conversion of a total hip to a reamed bipolar. She is still having pain around the hip, but this seems to gradually be getting better. She is walking with a walker. She is 3 weeks postoperative. Her miranda are removed. I anticipate that she should remain partial weightbearing for another few weeks, and we will plan to see her back at that time before they leave for the [facility]. Marc Granados M.D. ERICK / BEBA [id number] / [id number] / [id number] / [id number] Tdocumented in this encounter Plan of Treatment Not on filedocumented as of this encounter Visit Diagnoses Not on filedocumented in this encounter"
--- OUTSIDE RECORDS SUMMARY | ~2019-03-30 | XMS | Encounter Summary ---
Demographics + + + | Address | [address] | | | [place] [address] | + + + | Home Phone | | + + + | Preferred Language | Unknown | + + + | Marital Status | | + + + | Temple Affiliation | CAT | + + + [...] Team Providers + +------+ + | Care Top Polisher Name | Role | Phone | + +------+ + PCP | Unavailable | + +------+ + Encounter Details +--------+ + + + + | Date | Type | Department | Care Team | Description | +--------+ + + + + | 12/12/ | Office | General Internal | Note, Outpatient | Progress Note | | 1996 | Visit-Trans | Medicine [address] | Clinic | | | | [address] | [address] | | | | | | Mailcode: [id number] | | | | | | Outpatient Clinic | | | | | | [facility], [address] | | | | | | [place], [place] | | | | | | [address] | | | | | | [phone] | | | +--------+ + + + [...] as of this encounter Progress Notes Interface, Packer Fuser In - 07/10/2006 5:07 AM PST CLINIC DATE: 12/12/96 Lindsey is seen following her total hip replacement. She is doing pretty well. She would like some different pain medications and will let me know the medication she wishes to have. We can phone this to the [facility] at [phone]. Her bladder has returned to its normal function. She gets up about three to four times per night, but apparently this is her steady state. She has some swelling in her limb, but I do not find any major tenderness. I sent her to the vascular lab and they do not find any evidence of obstructive disease in the veins in her leg. She has been advised to wear elastic stockings. I plan to see her back in six weeks at which time we will re-x-ray her operated hip and check her again. Lindsey has a pretty unusual range of motion of her hips and even after a total hip replacement she remains limited in rotation indicating that this is a muscle problem. Marc Granados M.D. Professor, Orthopedics and Rehabilitation ERICK/ernesto A cc: [place] FAX: [phone] documented in this encounter Plan of Treatment Not on filedocumented as of this encounter Visit Diagnoses Not on filedocumented in this encounter"
--- OUTSIDE RECORDS SUMMARY | ~2019-03-30 | XMS | Encounter Summary ---
Demographics + + + | Address | [address] | | | [place] [address] | + + + | Home Phone | | + + + | Preferred Language | Unknown | + + + | Marital Status | | + + + | Jain Affiliation | CAT | + + + | Race | White | + + + | Ethnic Group | Not or | + + + Author + + + | Author | [facility] | + + + | Organization | [facility] | + + + | Address | Unknown | + + + | Phone | Unavailable | + + + Support + + +---------+ + | Name | Relationship | Address | Phone | + + +---------+ + | Jeronimo Ortega | ECON | Unknown | | + + +---------+ + Care Team Providers + +------+ + | Care Steam Flattener Name | Role | Phone | + +------+ + PCP | Unavailable | + +------+ + Encounter Details +--------+ + + + + | Date | Type | Department | Care Team | Description | +--------+ + + + + | 03/07/ | Results | [facility] | Jordan Eller MD | | | 2003 | Only | & Rehabilitation | [address] | | | | | [address] | [place], | | | | | [place] Mailcode: | [place] [address] | | | | | [address] [facility] | [phone] | | | | | [place], | | | | | | [place] [address] | | | | | | [phone] | | | +--------+ + + + [...] + +--------+ + + + | MRI SPINE LUMBAR WWO | Routin | 05/06/2004 | | Results for this | | CONTR | e | 11:10 AM | | procedure are in the | | | | PST | | results section. | + +--------+ + + + | X-RAY SPINE | Routin | 03/07/2004 | | Results for this | | LUMBOSACRAL 2 VIEWS | e | 11:46 AM | | procedure are in the | | | | PDT | | results section. | + +--------+ + + + | X-RAY PELVIS 1 VIEW | Routin | 03/07/2004 | | Results for this | | | e | 11:46 AM | | procedure are in the | | | | PDT | | results section. | + +--------+ + + + | X-RAY FEMUR 2 VIEWS | Routin | 03/07/2004 | | Results for this | | LEFT | e | 11:46 AM | | procedure are in the | | | | PDT | | results section. | + +--------+ + + + documented in this encounter Results MRI SPINE LUMBAR WWO CONTR (05/06/2004 11:10 AM PST) + + + + + + | Component | Value | Ref Range | Performed | Pathologist | | | | | At | Signature | + + + + + + | MR LUMBAR | Radiologist 1: VICENTA, | | | | | SPINE WWO | SELVIN Herrera M.D.MRI SCAN OF | | | | | CONTR | THE LUMBAR SPINE WITH | | | | | | AND WITHOUT CONTRAST: | | | | | | 05/06/2004 Dictated | | | | | | 05/06/2004 REASON FOR | | | | | | EXAMINATION: | | | | | | Radiculopathy. History | | | | | | of prior surgery. | | | | | | COMPARISON: | | | | | | Prior MRI scan | | | | | | performed 08/20/1999 | | | | | | andplain film of the | | | | | | lumbar spine dated | | | | | | 03/07/2004. The | | | | | | patient had aprevious | | | | | | compression fracture at | | | | | | L1, revealed on the | | | | | | prior MRI. Onthe | | | | | | current examination, | | | | | | there has been posterior | | | | | | fixation withpedicle | | | | | | screws, which are seen | | | | | | at T11-12, L2, and L3. | | | | | | TECHNIQUE: | | | | | | Sagittal and | | | | | | axial T1 and T2 | | | | | | weightedimages, axial T1 | | | | | | weighted images both | | | | | | before and after | | | | | | contrast,sagittal T1 | | | | | | following contrast. | | | | | | FINDINGS: | | | | | | The pedicle | | | | | | screws are once again | | | | | | seen [id number], L2 and | | | | | | L3. Moderate old | | | | | | compression fracture of | | | | | | L1 withoutobvious | | | | | | encroachment upon the | | | | | | dural sac. Far | | | | | | sagittal images | | | | | | revealfaint | | | | | | neuroforamen. T11-12 and | | | | | | T12-L1 demonstrate no | | | | | | visible encroachment | | | | | | upon theneuroforamen or | | | | | | exit foramen, although | | | | | | there is obscuration to | | | | | | somedegree by the | | | | | | pedicle screws. At the | | | | | | L1 level, the | | | | | | compressionfracture is | | | | | | seen. There is no | | | | | | encroachment upon the | | | | | | central canal,although | | | | | | the foramen does appear | | | | | | open. L1-2 likewise | | | | | | shows some obscuration | | | | | | of the foramen, but no | | | | | | centralcanal stenosis | | | | | | can be seen. L2-3 shows | | | | | | no significant | | | | | | encroachments. L3-4 | | | | | | shows patent central | | | | | | canal neuroforamen. | | | | | | There is a normal | | | | | | discand normal central | | | | | | canal and exit foramen. | | | | | | L4-5 reveals no | | | | | | significant | | | | | | encroachments. L5-S1 | | | | | | reveals degenerative | | | | | | facet changes | | | | | | bilaterally, but | | | | | | noencroachments upon | | | | | | neural structures. | | | | | | Sagittal view reveals an | | | | | | offset at S1-2. This | | | | | | is unchanged from | | | | | | theolder examinations. | | | | | | The overall alignment of | | | | | | the spine is improved | | | | | | since the | | | | | | olderexamination that | | | | | | was preoperative, and | | | | | | there is widening of the | | | | | | canalposteriorly, where | | | | | | there has been surgery. | | | | | | IMPRESSION: 1. | | | | | | Posterior fixation T11 | | | | | | through L3. 2. Old | | | | | | compression fracture of | | | | | | L1, unchanged. 3. | | | | | | Degenerative facet | | | | | | disease, L5-S1. 4. | | | | | | Offset at S1-2, which is | | | | | | unchanged. 5. No | | | | | | central canal or exit | | | | | | foraminal encroachment | | | | | | is seen, | | | | | | althoughvisualization is | | | | | | compromised somewhat by | | | | | | the artifact from the | | | | | | pediclescrews. END OF | | | | | | IMPRESSION: | | | | + + + + + + + + | Specimen | + + | | + + + +---------+ + + | Performing | Address | City/State/Zipcode | Phone Number | | Organization | | | | + +---------+ + + | [facility] | | | | | RADIOLOGY | | | | + +---------+ + + SPINE LUMBOSACRAL 2 VIEWS (03/07/2004 11:46 AM PDT) + + + + + + | Component | Value | Ref Range | Performed | Pathologist | | | | | At | Signature | + + + + + + | SPINE | Radiologist 1: | | | | | LUMBOSACRAL | ERIK-DARIUS ACOSTA, | | | | | 2 VIEWS | M.D.LUMBOSACRAL SPINE - | | | | | | FRONTAL AND LATERAL | | | | | | VIEWS: 03/07/2004 | | | | | | Dictated 03/07/2004 | | | | | | COMPARISON: 01/17/2000 | | | | | | and 04/17/2000. | | | | | | FINDINGS: Again noted | | | | | | is a compression | | | | | | deformity of the L1 | | | | | | vertebralbody with | | | | | | greater than 50% height | | | | | | loss, unchanged from the | | | | | | priorstudy. The | | | | | | posterior fixation with | | | | | | bilateral rods and | | | | | | screwsextending into the | | | | | | T11, T12, L2, and L3 | | | | | | vertebral bodies | | | | | | appearsunchanged. | | | | | | There is no evidence | | | | | | of hardware loosening or | | | | | | failure.The alignment | | | | | | of the vertebral bodies | | | | | | remains intact. | | | | | | Multileveldegenerative | | | | | | disc disease is present | | | | | | which appears to have | | | | | | progressedslightly since | | | | | | the 1999 radiographs | | | | | | and is most prominent at | | | | | | the L3-4,L4-5, and | | | | | | L5-S1 levels. The 1 mm | | | | | | retrolisthesis of L3 on | | | | | | L4 is againnoted and is | | | | | | unchanged from the | | | | | | prior study. Sclerosis | | | | | | is seen in the facet | | | | | | joints at the L4-5 and | | | | | | L5-S1 levels.Minimal | | | | | | degenerative findings | | | | | | are seen in the | | | | | | sacroiliac | | | | | | jointsbilaterally. | | | | | | Again noted are | | | | | | bilateral hip | | | | | | arthroplasties. | | | | | | IMPRESSION: 1. | | | | | | Posterior fixation | | | | | | from T11 through L3, | | | | | | without | | | | | | radiographicevidence of | | | | | | change. 2. | | | | | | Degenerative disc and | | | | | | facet disease from L3 to | | | | | | S1, as described. 3. | | | | | | No change in alignment | | | | | | in the lumbosacral | | | | | | spine. END OF | | | | | | IMPRESSION: | | | | + + + + + + + + | Specimen | + + | | + + + +---------+ + + | Performing | Address | City/State/Zipcode | Phone Number | | Organization | | | | + +---------+ + + | [facility] OF | | | | | RADIOLOGY | | | | + +---------+ + + PELVIS 1 VIEW (03/07/2004 11:46 AM PDT) + + + + + + | Component | Value | Ref Range | Performed | Pathologist | | | | | At | Signature | + + + + + + | PELVIS 1 | Radiologist 1: | | | | | VIEW | ERIK-DARIUS ACOSTA, | | | | | | M.D.PELVIS - SINGLE HIP | | | | | | CENTERED FRONTAL VIEW: | | | | | | 03/07/2004 Dictated | | | | | | 03/07/2004 COMPARISON: | | | | | | 07/14/2002. FINDINGS: | | | | | | On the right, again | | | | | | noted is a bipolar right | | | | | | hiparthroplasty which | | | | | | is in near anatomic | | | | | | alignment, unchanged | | | | | | inappearance since the | | | | | | prior study. | | | | | | Dystrophic | | | | | | ossifications arelocated | | | | | | adjacent to the greater | | | | | | and lesser trochanters. | | | | | | There is noevidence | | | | | | of loosening or failure | | | | | | of the components. On | | | | | | the left, again noted is | | | | | | a noncemented left | | | | | | total hip | | | | | | arthroplastywithout | | | | | | change in alignment or | | | | | | evidence of | | | | | | complications. | | | | | | Dystrophicossification | | | | | | s are again seen along | | | | | | the lateral aspect of | | | | | | thehip and proximal | | | | | | femur. The healed | | | | | | inferior left pubic | | | | | | ramus fracture appears | | | | | | stable. Thereis no | | | | | | evidence of new | | | | | | fractures or | | | | | | complications. | | | | | | IMPRESSION: 1. | | | | | | Noncemented right | | | | | | bipolar hip arthroplasty | | | | | | in near | | | | | | anatomicalignment, | | | | | | without evidence of | | | | | | hardware loosening or | | | | | | failure. 2. | | | | | | Noncemented left total | | | | | | hip arthroplasty in | | | | | | normal | | | | | | postoperativealignment, | | | | | | without evidence of | | | | | | hardware loosening or | | | | | | failure. 3. Unchanged, | | | | | | healed left inferior | | | | | [...] | + +---------+ + + | [facility] DEPARTMENT OF | | | | | RADIOLOGY | | | | + +---------+ + + FEMUR 2 VIEWS LEFT (03/07/2004 11:46 AM PDT) + + + + + + | Component | Value | Ref Range | Performed | Pathologist | | | | | At | Signature | + + + + + + | FEMUR 2 | Radiologist 1: | | | | | VIEWS LEFT | DARIUS DAVIDSON, | | | | | | M.D.LEFT FEMUR - FRONTAL | | | | | | AND LATERAL VIEWS: | | | | | | 03/07/2004 Dictated | | | | | | 03/07/2004 COMPARISON: | | | | | | 02/19/2004 and | | | | | | 07/14/2002. FINDINGS: | | | | | | Again noted is a left | | | | | | total hip arthroplasty | | | | | | withnoncemented | | | | | | components, in near | | | | | | anatomic alignment. | | | | | | Heterotopicossificatio | | | | | | ns are again seen along | | | | | | the lateral aspect of | | | | | | the jointspace and | | | | | | proximal femur. The | | | | | | healed left inferior | | | | | | pubic ramusfracture is | | | | | | unchanged in appearance. | | | | | | Limited evaluation of | | | | | | the left knee | | | | | | demonstrates normal | | | | | | anatomicalignment. | | | | | | There are | | | | | | tricompartment | | | | | | degenerative | | | | | | findingswhich do not | | | | | | appear to have changed | | | | | | since the prior study. | | | | | | IMPRESSION: 1. Left | | | | | | noncemented total hip | | | | | | arthroplasty, without | | | | | | evidence ofhardware | | | | | | loosening or failure, as | | | | | | described. 2. Healed | | | | | | fracture of the left | | | | | | inferior pubic ramus, | | | | | | without change. 3. | | | | | | Dystrophic | | | | | | ossifications adjacent | | | | | | to the left proximal | | | | | | femur, asdescribed. 4. | | | | | | Limited evaluation of | | | | | | the left knee | | | | | | demonstrating | | | | | | tricompartmentdegenerati | | | | | | ve findings without | | | | | | abnormal alignment. | | | | | | END OF IMPRESSION: | | | | + + + + + + + + | Specimen | + + | | + + + +---------+ + + | Performing | Address | City/State/Zipcode | Phone Number | | Organization | | | | + +---------+ + + | [facility] DEPARTMENT | | | | | RADIOLOGY | | | | + +---------+ + + documented in this encounter Visit Diagnoses Not on filedocumented in this encounter"
--- OUTSIDE RECORDS SUMMARY | ~2019-03-30 | XMS | Encounter Summary ---
Demographics + + + | Address | [address] | | | [place] [address] | + + + | Home Phone | | + + + | Preferred Language | Unknown | + + + | Marital Status | | + + + | Confucianist Affiliation | [id number] | + + + | Race | Unknown | + + + | Ethnic Group | Unknown | + + + Author + + + | Author | [facility] | | | and [place] | + + + | Organization | [facility] | | | and [place] [...] Team Providers + +------+ + | Care Escrow Clerk Name | Role | Phone | + +------+ + PCP | Unavailable | + +------+ + Encounter Details +--------+ + + + + | Date | Type | Department | Care Team | Description | +--------+ + + + + | 11/02/ | Hospital | [facility] | | | | 1991 - | Encounter | [facility] | | | | | | CENTER [address] | | | | 04/02/ | | [place] | | | | 1991 | | [address] | | | | | | [phone] | | | +--------+ + + + [...]
--- OUTSIDE RECORDS SUMMARY | ~2019-03-30 | XMS | Encounter Summary ---
Demographics + + + | Address | [address] | | | [place] [address] | + + + | Home Phone [...] Team Providers + +------+ + | Care Customs Officer Name | Role | Phone | + +------+ + PCP | Unavailable | + +------+ + Encounter Details +--------+ + + + + | Date | Type | Department | Care Team | Description | +--------+ + + + + | 08/21/ | Transcribed | | Dictation, Other | [...] as of this encounter Progress Notes Interface, Warp Dyeing Vat Tender In - 04/09/2006 1:09 AM [facility] [place] [address] [address] or August 22, 1999 Roque James M.D. [facility] Orth[facility], [id number] [place] [address] RE: FAY CARRANZA MR #: [id number] Dear Dr. James: Consultation for evaluation of thigh numbness. HISTORY OF PRESENT ILLNESS: According to the patient, she is a 60-year-old female who was in her usual state of health until October of 1998 when she had a right hip replacement. She was recovering nicely from that when in December 1998 she began to complain of progressive numbness from her waist down to her knees, bilateral, symmetric. She did not have any worsening of bowel or bladder symptoms, no weakness. She says that her symptoms are not improving with exercise. She is here today partly because she is wondering if physical therapy will make it worse or better. She has no symptoms from the waist up. REVIEW OF SYSTEMS: She denies any headache, any visual changes, any diplopia. She denies numbness of her face or arms. She has no facial weakness, no problems chewing, no dysphagia, no aphagia (receptive or expressive), no dysarthria, no neck pain, no arm weakness. She has had bladder and bowel incontinence since 1962, and she has some myalgias on the left thigh compared to the right. 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 She also has as a complication of that, back pain and bowel and bladder incontinence. In 1965, she had a lumbar fusion. In 1997, she had a pelvic fracture, and then in 1997 she had a left hip replacement, in 1998 a right hip replacement. She had breast cancer with negative nodes and a lumpectomy with radiation eight years ago. ALLERGIES: PENICILLIN AND SULFA CAUSES A RASH. MEDICATIONS: Her only medications are multivitamins. SOCIAL HISTORY: She lives with her , and she has not had any international travel. She quit smoking 20 years ago. She drinks approximately two beers a day. She uses no illicit drugs. FAMILY HISTORY: Negative for any syndromes of muscle or nerve problems. She has one child who is 37. She has never had miscarriages. She does not have any boys. PHYSICAL EXAMINATION: VITAL SIGNS: Weight 139, blood pressure 140/76. NEUROLOGICAL: Mental status: She is a very good historian. She is alert and oriented x 3, fully cooperative and answers questions appropriately. From her history, she has a good remote and recent memory, good concentration. Her speech is fluent without dysarthria or aphagia. Cranial nerves: Her pupils are equally round and reactive to light. Extraocular muscles are intact. She has no facial sensation abnormalities, no facial droop, palate upgoing, tongue midline. Motor: She has right lower extremity, calf and thigh atrophy, which she states is chronic since 1967. She has 5/5 strength of her deltoids, biceps, triceps, wrist extensors, interossei assurance auditor, iliopsoas, quadriceps, and hamstrings. She has 4+/5 bilateral strength of tibialis anterior and gastrocnemius and 4/5 strength of bilateral extensor hallucis longus muscles. Deep tendon reflexes are 3+ bilaterally for biceps, brachioradialis, 2+ bilaterally for patellar. Achilles reflexes are absent. Toes are neutral. Sensory: She is numb to pinprick and light touch over her anterior medial and lateral thighs to the knees and bilateral feet to ankles. She has decreased vibratory sensation at the toes, but normal proprioception. Her gait demonstrates bilateral inward toeing. Her gait seems somewhat spastic with a narrow base, and she walks with what looks like a mild either limp or pelvic weakness. She also has hyperextension at her knee. IMPRESSION: This is a 59-year-old female with a complicated history of very old paraplegia most likely causing upper motor neuron signs in her lower extremities, as well as a left and right hip replacement in the last two years. 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 Other than that, it does not seem that the patient has had an obvious new myelopathy, radiculopathy, or peripheral neuropathy. Patient has had an electromyography which looks like a very good study recently, and there is no need to repeat that at this time. We have sent off labs that can put people at more risk for compression neuropathies (thyroid-stimulating hormone, thyroxin, urine protein electrophoresis, serum protein electrophoresis, sedimentation rate). Also it would be reasonable to obtain magnetic resonance imaging of the patient's lumbosacral spine to help look at the anatomy of the nerves better. At this point, it would be most reasonable to have the patient follow up in October 1999 to assure that there is no progressive weakness or other neurological abnormalities. Sincerely, Emily Moya M.D.Ronald Streeter M.D. Chief Neurology Director Investment BankingManganese Wheeler, Neurology [facility] / [id number] / [id number] / [id number] / [id number] C: 08/26/1999 [facility] [id number] signed by Interface, Warp Dyeing Vat Tender In at 04/09/2006 1:09 AM PSTdocume nted in this encounter Plan of Treatment Not on filedocumented as of this encounter Visit Diagnoses Not on filedocumented in this encounter"
--- OUTSIDE RECORDS SUMMARY | ~2019-03-30 | XMS | Encounter Summary ---
Demographics + + + | Address | [address] | | | [place] [address] | + + + | Home Phone [...] Team Providers + +------+ + | Care Assembler [employer] Name | Role | Phone | + +------+ + PCP | Unavailable | + +------+ + Encounter Details +--------+ + + + + | Date | Type | Department | Care Team | Description | +--------+ + + + + | 09/06/ | Results | Orthopaedics at | Marc Granados MD | | | 2001 | Only | [facility] [address] | [address] | | | | | [address] | [place], | | | | | Mailcode: [address] | [place] [address] | | | | | Phys[facility] [address] | | | | | | [place], [place] | | | | | | [address] | | | | | | [phone] | | | +--------+ + + + [...] X-RAY PELVIS 1 VIEW | Routin | 09/06/2001 | | Results for this | | | e | 2:54 PM | | procedure are in the | | | | PDT | | results section. | + +--------+ + + + | HIP, 1 VIEW | Routin | 09/06/2001 | | Results for this | | | e | 2:49 PM | | procedure are in the | | | | PDT | | results section. | + +--------+ + + + documented in this encounter Results PELVIS 1 VIEW (09/06/2001 2:54 PM PDT) + + + + + + | Component | Value | Ref Range | Performed | Pathologist | | | | | At | Signature | + + + + + + | PELVIS 1 | Radiologist 1: SAURABH, | | | | | VIEW | Williams ALDRIDGEAP HIPS | | | | | | CENTERED PELVIS AND | | | | | | LATERAL VIEWS OF BOTH | | | | | | HIPS: 09/06/2001 | | | | | | Dictated 09/08/2001 | | | | | | COMPARISON: 07/16/1998. | | | | | | FINDINGS: The patient is | | | | | | status post bilateral | | | | | | noncemented total | | | | | | hiparthroplasties. | | | | | | There is no evidence | | | | | | of dislocation. There | | | | | | is up to2 mm | | | | | | periprosthetic lucency | | | | | | at the medial and distal | | | | | | aspects of thefemoral | | | | | | components bilaterally. | | | | | | This was not | | | | | | definitely evident | | | | | | onprior examination. | | | | | | There is no evidence | | | | | | of acetabular cup | | | | | | loosening. There is an | | | | | | old healed fracture of | | | | | | the left inferior pubic | | | | | | ramus.There are foci of | | | | | | heterotopic ossification | | | | | | adjacent to both hips. | | | | | | IMPRESSION: 1. 1.5-2.0 | | | | | | mm periprosthetic | | | | | | lucencies associated | | | | | | with the femoralstem | | | | | | components of both total | | | | | | hip arthroplasties, | | | | | | suggesting | | | | | | thepossibility of | | | | | | loosening. 2. 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 3. | | | | | | Old healed left | | | | | | inferior pubic ramus | | | | | | fracture. END OF | | | | | [...] | | | + +---------+ + + HIP, 1 VIEW (09/06/2001 2:49 PM PDT) + + + + + + | Component | Value | Ref Range | Performed | Pathologist | | | | | At | Signature | + + + + + + | HIP, 1 VIEW | Radiologist 1: SAURABH | | | | | | [place] ALDRIDGEAP HIPS | | | | | | CENTERED PELVIS AND | | | | | | LATERAL VIEWS OF BOTH | | | | | | HIPS: 09/06/2001 | | | | | | Dictated 09/08/2001 | | | | | | COMPARISON: 07/16/1998. | | | | | | FINDINGS: The patient is | | | | | | status post bilateral | | | | | | noncemented total | | | | | | hiparthroplasties. | | | | | | There is no evidence | | | | | | of dislocation. There | | | | | | is up to2 mm | | | | | | periprosthetic lucency | | | | | | at the medial and distal | | | | | | aspects of thefemoral | | | | | | components bilaterally. | | | | | | This was not | | | | | | definitely evident | | | | | | onprior examination. | | | | | | There is no evidence | | | | | | of acetabular cup | | | | | | loosening. There is an | | | | | | old healed fracture of | | | | | | the left inferior pubic | | | | | | ramus.There are foci of | | | | | | heterotopic ossification | | | | | | adjacent to both hips. | | | | | | IMPRESSION: 1. 1.5-2.0 | | | | | | mm periprosthetic | | | | | | lucencies associated | | | | | | with the femoralstem | | | | | | components of both total | | | | | | hip arthroplasties, | | | | | | suggesting | | | | | | thepossibility of | | | | | | loosening. 2. 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 3. | | | | | | Old healed left | | | | | | inferior pubic ramus | | | | | | fracture. END OF | | | | | [...]
--- OUTSIDE RECORDS SUMMARY | ~2019-03-30 | XMS | Encounter Summary ---
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 Her wound is well healed. She walks in a walker. 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 The range of motion of her right hip is quite good with excellent flexion, extension, abduction, and adduction, and she also has fairly good rotation. I do not get the sense that these movements cause pain in her hip except in the adductor region; she seems to have some tenderness in that area with movement of her hip. I had no reason to believe that the socket would be moving along with her. She has been given some Valium to take at night when she has little bit of muscle spasm. She will do that and continue her regular exercise program. I anticipate seeing her again in about 6 to 8 weeks when they return to [place]. Overall, she has a good result although has some residual discomfort. Marc Granados M.D. ERICK / BEBA [id number] / [id number] / [id number] / [id number] Tdocumented in this encounter Plan of Treatment Not on filedocumented as of this encounter Visit Diagnoses Not on filedocumented in this encounter"
--- OUTSIDE RECORDS SUMMARY | ~2019-03-30 | XMS | Encounter Summary ---
Demographics + + + | Address | [address] | | | [place] [address] | + + + | Home Phone [...] Team Providers + +------+ + | Care Nurse Discharge Planner Name | Role | Phone | + +------+ + PCP | Unavailable | + +------+ + Encounter Details +--------+ + + + + | Date | Type | Department | Care Team | Description | +--------+ + + + + | 04/25/ | Office | [facility] | Note, Orthopedics | Progress Note | | 2001 | Visit-Trans | | Clinic | | [...] as of this encounter Progress Notes Interface, Forest Nursery Worker In - 12/13/2005 3:07 AM PDTCLINIC DATE: 04/25/2002 ORTHOPEDIC CLINIC Lindsey Ortega has had her third dislocation to the right hip. The first two came up when she markedly flexed her hip, and the last one came up when she simply twisted in the kitchen, so it would appear that she is getting easier to dislocate. Review of her x-rays do not indicate any clear malposition of the components. When she walks, she has a pretty distorted walk because of some muscle imbalance in her legs. Lindsey had a spinal cord injury some years ago and has incomplete bowel and bladder control and incomplete motor control in her lower extremities, and I think this is the basic etiology of her problem. I have recommended that we explore her hip with the idea if there is an obvious cause for the dislocation that can be fixed, then we do that; otherwise, we would convert her to a reamed bipolar prosthesis. She is interested in that, and I will give her a call and make arrangements. Marc Granados M.D. ERICK / BEBA [id number] / [id number] / [id number] / [id number] Tdocumented in this encounter Plan of Treatment Not on filedocumented as of this encounter Visit Diagnoses Not on filedocumented in this encounter"
--- OUTSIDE RECORDS SUMMARY | ~2019-03-30 | XMS | Encounter Summary ---
Demographics + + + | Address | [address] | | | [place] [address] | + + + | Home Phone | | + + + | Preferred Language | Unknown | + + + | Marital Status | | + + + | Roman Catholic Affiliation | CAT | + + [...] Team Providers + +------+ + | Care Roller Leveler Name | Role | Phone | + +------+ + PCP | Unavailable | + +------+ + Encounter Details +--------+ + + + + | Date | Type | Department | Care Team | Description | +--------+ + + + + | 09/20/ | Procedure - | | Record, Operation | Operative Report | | 2002 | | | | | | | [...] + + | OPERATION RECORD | | 09/20/2002 | | Results for this | | | | | | procedure are in the | | | | | | results section. | + +--------+ + + + documented in this encounter Results OPERATION RECORD (09/20/2002) + + | Transcriptions | + + | Interface, Medical Researcher In - 12/04/2005 3:06 AM PDT | | [place] [address] | | [place], [place] [address] | | [facility] RECORDMed Rec No.: | | [id number] Date: 09/20/2002Name: EarnestjunKady michelPiperSANFORDSOY SURGEON: | | Marc Granados M.D.MARKETING DEVELOPMENT REPRESENTATIVE(S): Binu Damon, | | WilliamsPOSTOPERATIVE DIAGNOSIS(ES):Tight iliotibial band right lower extremity.PROCEDURE(S) | | PERFORMED:Release of iliotibial band right lower extremity (Roselia | | procedure).ANESTHESIA:Laryngeal mask airway.COMPLICATIONS:None.ESTIMATED BLOOD | | LOSS:Minimal.SPECIMEN(S):None.DRAINS:None.PLAN:The patient will be weight-bearing as | | tolerated. She will return to clinicin one month for an evaluation.INDICATIONS:The | | patient is a 63-year-old female with a history of a right total hiparthroplasty which | | was revised to a reamed bipolar after multipledislocations. She has been diagnosed as | | having a very tight iliotibialband and was indicated for a release of her iliotibial | | band.PROCEDURE:The patient was positioned in a lateral position using the beanbag. | | Wemade sure to pad down the knee and ankle with gel rolls. We also placed agel roll in | | the proximal thorax. We then prepped with DuraPrep and anextremity sheet making an | | approximately 4 cm longitudinal incision over themiddle of the distal iliotibial band | | which was palpably very tight. Wedissected straight down to the iliotibial band and | | placed a self-retainingretractor. Next, the Isa dissector was placed under the | | iliotibial bandfrom posterior to anterior. Once this was elevated we used the | | Boviecautery to release the iliotibial band. We then encountered a tight bandthat was | | slightly deeper and we isolated this carefully using a Metzenbaumscissors followed by a | | Isa dissector. This, too, was then released. Wenoted that her leg was now more | | easily placed into adduction, that is tosay we re-performed the Fabricio test and she was | | less tight.We then irrigated the wound with normal saline and closed using 2-0 | | Vicrylfollowed by a 4-0 Vicryl in a running subcuticular stitch. There were noapparent | | complications with the procedure. Dr. Granados was scrubbed andparticipated in the entire | | case. She will go home today and follow up inone month for reevaluation.Binu Melissa | | Williams Damon M.D.BP/X65D:09/20/2002T:09/20/[id number]: | |Minimal. | | | |SPECIMEN(S):None. | |DRAINS: | |None. | | | |PLAN: | |The patient will be weight-bearing as tolerated. She will return to clinic | |in one month for an evaluation. | | | |INDICATIONS: | |The patient is a 63-year-old female with a history of a right total hip | |arthroplasty which was revised to a reamed bipolar after multiple | |dislocations. She has been diagnosed as having a very tight iliotibial | |band and was indicated for a release of her iliotibial band. | | | |PROCEDURE: | |The patient was positioned in a lateral position using the beanbag. We | |made sure to pad down the knee and ankle with gel rolls. We also placed a | |gel roll in the proximal thorax. We then prepped with DuraPrep and an | |extremity sheet making an approximately 4 cm longitudinal incision over the | |middle of the distal iliotibial band which was palpably very tight. We | |dissected straight down to the iliotibial band and placed a self-retaining | |retractor. Next, the Isa dissector was placed under the iliotibial band | |from posterior to anterior. Once this was elevated we used the Bovie | |cautery to release the iliotibial band. We then encountered a tight band | |that was slightly deeper and we isolated this carefully using a Metzenbaum | |scissors followed by a Isa dissector. This, too, was then released. We | |noted that her leg was now more easily placed into adduction, that is to | |say we re-performed the Fabricio test and she was less tight. | | | |We then irrigated the wound with normal saline and closed using 2-0 Vicryl | |followed by a 4-0 Vicryl in a running subcuticular stitch. There were no | |apparent complications with the procedure. Dr. Granados was scrubbed and | |participated in the entire case. She will go home today and follow up in | |one month for reevaluation. | | | | | | | |Binu Damon M.D. Marc Granados M.D. | | | |BP/X65D:09/20/2002T:09/20/2002 | | | | | |[id number] | | | |cc: | + + documented in this encounter Visit Diagnoses Not on filedocumented in this encounter"
--- OUTSIDE RECORDS SUMMARY | ~2019-03-30 | XMS | Encounter Summary ---
Demographics + + + | Address | [address] | | | [place] [address] | + + + | Home Phone [...] + + | Author | [facility] | + + + | Organization | [facility] | + + + | Address | Unknown | + + + | Phone | Unavailable | + + + Support + + +---------+ + | Name | Relationship | Address | Phone | + + +---------+ + | Jeronimo Ortega | ECON | Unknown | | + + +---------+ + Care Team Providers + +------+ + | Care Chiller Hand Name | Role | Phone | [...] as of this encounter Progress Notes Interface, Clinical Account Executive In - 12/15/2004 12:05 AM PDT [id number] 05/06/2004 05/06/2004 [id number] [facility] Date: 05/06/2004 Orthopedic Clinic Note Lindsey came in today but primarily to see Dr. Eller. She is having pain around her left knee. I discussed the issue with Dr. Eller. She is going to continue his present workup and I will see her after he is finish if the etiology of her pain has not been ascertained. If there is no further understanding, I would like to obtain an MRI of her left knee. I would like not to bill her today for an evaluation, as she was basically seen by Dr. Eller. Marc Granados M.D. RKMellissa/x45 A [id number] cc: Electronically signed by Marc Granados 05-21-2004 12:58:51 PM documented i n this encounter Plan of Treatment Not on filedocumented as of this encounter Visit Diagnoses Not on filedocumented in this encounter"
--- OUTSIDE RECORDS SUMMARY | ~2019-03-30 | XMS | Encounter Summary ---
Demographics + + + | Address | [address] | | | [place] [address] | + + + | Home Phone | | + + + | Preferred Language | Unknown | + + + | Marital Status | | + + + | Denominational Affiliation | CAT | + + + [...] Team Providers + +------+ + | Care Refueling Rampman Name | Role | Phone | + +------+ + PCP | Unavailable | + +------+ + Encounter Details +--------+ + + + + | Date | Type | Department | Care Team | Description | +--------+ + + + + | 10/08/ | Procedure - | | Record, Operation | Operative Report | | 2000 | | | | | | | [...] + + | OPERATION RECORD | | 10/09/1999 | | Results for this | | | | | | procedure are in the | | | | | | results section. | + +--------+ + + + documented in this encounter Results OPERATION RECORD (10/09/1999) + + | Transcriptions | + + | Interface, Culvert Installer In - 04/04/2006 5:07 AM PST | | [place] [address] | | [place], [place] [address] | | [facility] RECORDMed Rec No.: | | [id number] Date: 10/09/1999Name: Jerilyn OrtegaManolo SURGEON: | | Roque James M.D.LINUX UNIX ENGINEER: Humberto | | Williams CisnerosPRE-OPERATIVE DIAGNOSIS:Lumbar kyphosis status post posterior fusion for | | an L1 burst fracture.POST-OPERATIVE DIAGNOSIS:Lumbar kyphosis status post posterior | | fusion for an L1 burst fracture.PRINCIPAL PROCEDURE:Posterior osteotomy, L1 level | | (eggshell procedure).ADDITIONAL PROCEDURES:1) T11 to L3 fusion.2) Segmental | | instrumentation T11 to L3.3) Right iliac crest bone graft.ANESTHESIA:General | | anesthesia.SPECIMENS:None dictated.COMPLICATIONS:There were no | | complications.INDICATIONS:The patient has been followed in my clinic for approximately | | three months.She is a 60-year-old woman who is status post a fracture of the L1 | | vertebraa number of years ago. This healed in a position of approximately | | 33degrees of kyphosis. She experienced a neurologic dysfunction as a resultof this, | | but gradually recovered good motor function in her lowerextremities and was | | ambulatory for a number of years. She thensubsequently suffered a fracture of | | the sacrum and pelvis, which wasapparently untreated. This produced additional | | kyphosis between the S1 andS2 levels.As the result of the kyphosis at L1 and in her | | sacrum, she now has lost theability to stand upright in neutral position and has had | | progressive painand sense of weakness due to the need for a crouched gait with flexion | | ofthe hips and knees. She has had hip replacements, which did not correctthe | | situation. She was evaluated both with electromyography (EMG) as wellas with | | computerized tomography myelogram, which demonstrated thestructural lesion as | | described. The electromyography showed multiple nerveroot involvement, likely due to | | the original injury at L1 but showed noevidence of progression or neurologic | | dysfunction as a result of the pelvicfracture. She was therefore indicated for a | | corrective extension osteotomythrough the L1 vertebra in order to correct the 33-degree | | kyphosis at thatlevel and restore neutral alignment so that she improved her | | sagittalbalance.The nature of the operation was discussed with her, including the risks | | ofworsened neurologic injury, non-union, loss of fixation, spinal cord injurywith | | complete paraplegia due to either manipulation around the spinal cordor due to | | hardware complications, bone graft site complications, woundinfection or hematoma, | | as well as anesthetic risks such as heart attack,stroke, seizure, blood clot and | | pulmonary embolus as well as reaction toanesthesia all with potential fatal outcomes. | | She understood the nature ofthe operation and desired to proceed as described. | | Consent was freelysigned.DESCRIPTION OF PROCEDURE:The patient brought to the Operating | | Room and placed on the table in supineposition. General anesthesia was induced. The | | patient was then rotated inthe prone position. Spinal cord monitoring leads were | | placed. Theposterior aspect of the thoracolumbar spine was then prepped and draped | | insterile fashion.Posterior approach to the thoracolumbar spine was performed. A | | checklateral radiograph was obtained at the determined level. We then proceededwith | | posterior osteotomy of the L1 vertebra. This included a removal ofthe lamina and | | spinous processes posteriorly throughout their entirety. Michelle also performed a | | resection of the pars, both superior and inferior tothe L1 pedicle.Once this had | | performed, we entered the L1 pedicle as a working tunnelinitially with a bur | | followed by a curette. Prior to completion of theosteotomy, we proceeded with | | placement of hardware. This was chosen in theform of pedicle screws in the T11 and T12 | | vertebra as well as in the L2 andL3 vertebra. These were performed under fluoroscopic | | guidance throughout.We also performed laminotomies at the T11 and T12 levels and | | palpated thepedicles directly at those levels to ensure avoidance of entry into | | thecanal medially.All screws were placed under AP, lateral and bullseye fluoroscopic | | views aswell as the direct visualization of the pedicles described. No | | screwappeared to enter the canal. All screws were placed in standard fashionwith | | probing of the pedicle following burring of the entry point using apedicle finder. We | | then tapped and then placed 5 millimeter screws in T11and T12 and 6.0 millimeter | | diameter screws in L2 and L3. All screws wereseen to be within the pedicle diameter | | on repeat fluoroscopic views. Finalfilms were obtained demonstrating appropriate | | locations throughout.Once the eight screws were placed as described, we proceed with | | completionof the osteotomy. We placed progressively larger curved curettes down | | theworking canals of the pedicles and removed cortical cancellous bone in awedge | | shaped fashion concentrating on the posterior vertebral wall. We alsoused the down | | biting curette to remove the cancellous bone away from theposterior wall of the | | vertebral body.Once this had been completed in a wedge shaped fashion from the | | posterioraspect of the body all the way to the anterior wall of the vertebral body,we | | then gently broke the posterior wall of the body using the down bitingcurette and | | tamped this into the defect created. As we completed this, wegradually collapsed the | | pedicles onto themselves so that the nerve rootswere fully free at the L1 level with | | no possibility for intrusion upon thenerve roots with closure of the osteotomy.At this | | point, we fit our rods to the screws described and then collapsedthe osteotomy | | posteriorly. We brought fluoroscopy back to the room tocheck the correction, | | which was excellent and appeared to correct [id number] kyphosis based on | | preoperative measurements to neutral alignment.Once we had done this, we fixed the rods | | into position at all eight screwswith provisional tightening.Following this, we | | harvested a right iliac crest bone graft in standardfashion. Posterior approach to | | the iliac crest was performed and corticalcancellous graft was removed using a | | combination of osteotomes, curettesand gouges. Once sufficient bone graft had been | | removed, this was mixedwith 30 cc of cortical cancellous allograft and freeze-dried | | allograft andone package of DynaGraft.Following this, we returned to the osteotomy | | location. The posteriorelements were decorticated the level of the osteotomy and | | the bone graftwas packed into the bony interstices throughout, both at the | | posteriorelements and spinous processes from T11 through L3 as well as directly atthe | | osteotomy site itself. It should be noted that fusion was alreadypresent at the | | posterior aspects of the L1 to L3 vertebrae as well as atthe T12 to L1 vertebrae. | | However, we extended this fusion as describedwith the improvement in the fixation | | and extension of bone graft to allaspects of the posterior elements.Following this, | | the wound was copiously irrigated with normal saline. Wethen closed in layers over a | | medium Hemovac drain using 0 Vicryl for thedeep fascia, 2-0 Vicryl for the | | subcutaneous tissues and 4-0 Maxon in arunning subcuticular stitch for the skin. | | There were no complications.Spinal cord monitoring leads were unchanged throughout | | the procedure. Inaddition, we used pedicle screw stimulations at all eight pedicle | | screws,which all were above the 15 milliamps threshold, indicating that all screwswere | | in safe locations. Final radiographs demonstrated the correctiondescribed and | | appropriate screw placement at every level.ATTENDING SURGEON'S ATTESTATION:Pursuant to | | Federal Medicare billing regulations, I certify I was presentand scrubbed throughout. | | Roque James M.D.RH:x63D: 10/20/1999T: | | 10/22/[id number]: | |All screws were placed under AP, lateral and bullseye fluoroscopic views as | |well as the direct visualization of the pedicles described. No screw | |appeared to enter the canal. All screws were placed in standard fashion | |with probing of the pedicle following burring of the entry point using a | |pedicle finder. We then tapped and then placed 5 millimeter screws in T11 | |and T12 and 6.0 millimeter diameter screws in L2 and L3. All screws were | |seen to be within the pedicle diameter on repeat fluoroscopic views. Final | |films were obtained demonstrating appropriate locations throughout. | | | |Once the eight screws were placed as described, we proceed with completion | |of the osteotomy. We placed progressively larger curved curettes down the | |working canals of the pedicles and removed cortical cancellous bone in a | |wedge shaped fashion concentrating on the posterior vertebral wall. We also | |used the down biting curette to remove the cancellous bone away from the | |posterior wall of the vertebral body. | | | |Once this had been completed in a wedge shaped fashion from the posterior | |aspect of the body all the way to the anterior wall of the vertebral body, | |we then gently broke the posterior wall of the body using the down biting | |curette and tamped this into the defect created. As we completed this, we | |gradually collapsed the pedicles onto themselves so that the nerve roots | |were fully free at the L1 level with no possibility for intrusion upon the | |nerve roots with closure of the osteotomy. | | | |At this point, we fit our rods to the screws described and then collapsed | |the osteotomy posteriorly. We brought fluoroscopy back to the room to | |check the correction, which was excellent and appeared to correct the | |33-degree kyphosis based on preoperative measurements to neutral alignment. | |Once we had done this, we fixed the rods into position at all eight screws | |with provisional tightening. | | | |Following this, we harvested a right iliac crest bone graft in standard | |fashion. Posterior approach to the iliac crest was performed and cortical | |cancellous graft was removed using a combination of osteotomes, curettes | |and gouges. Once sufficient bone graft had been removed, this was mixed | |with 30 cc of cortical cancellous allograft and freeze-dried allograft and | |one package of DynaGraft. | | | |Following this, we returned to the osteotomy location. The posterior | |elements were decorticated the level of the osteotomy and the bone graft | |was packed into the bony interstices throughout, both at the posterior | |elements and spinous processes from T11 through L3 as well as directly at | |the osteotomy site itself. It should be noted that fusion was already | |present at the posterior aspects of the L1 to L3 vertebrae as well as at | |the T12 to L1 vertebrae. However, we extended this fusion as described | |with the improvement in the fixation and extension of bone graft to all | |aspects of the posterior elements. | | | |Following this, the wound was copiously irrigated with normal saline. We | |then closed in layers over a medium Hemovac drain using 0 Vicryl for the | |deep fascia, 2-0 Vicryl for the subcutaneous tissues and 4-0 Maxon in a | |running subcuticular stitch for the skin. There were no complications. | |Spinal cord monitoring leads were unchanged throughout the procedure. In | |addition, we used pedicle screw stimulations at all eight pedicle screws, | |which all were above the 15 milliamps threshold, indicating that all screws | |were in safe locations. Final radiographs demonstrated the correction | |described and appropriate screw placement at every level. | | | |ATTENDING SURGEON'S ATTESTATION: | |Pursuant to Federal Medicare billing regulations, I certify I was present | |and scrubbed throughout. | | | | | | | | Roque James M.D. | | | |RH:x63 | | | | | | | | | |[id number] | | | |CC: | + + documented in this encounter Visit Diagnoses Not on filedocumented in this encounter"
--- OUTSIDE RECORDS SUMMARY | ~2019-03-30 | XMS | Encounter Summary ---
Demographics + + + | Address | [address] | | | [place] [address] | + + + | Home Phone | | + + + | Preferred Language | Unknown | + + + | Marital Status | | + + + | Gnosticist Affiliation | 1041 | + + + | Race | Unknown | + + + | Ethnic Group | Unknown | + + + Author + + + | Author | [facility] | | | and [place] | + + + | Organization | [facility] | | | and [place] | + + + | Address | Unknown | + + + | Phone | Unavailable | + + + Support + + +---------+ + | Name | Relationship | Address | Phone | + + +---------+ + | Warner Robinsnile Tinocojunanand | ECON | Unknown | | + + +---------+ + Care Team Providers + +------+ + | Care Rn Immunology Name | Role | Phone | + +------+ + PCP | Unavailable | + +------+ + Encounter Details +--------+ + + + + | Date | Type | Department | Care Team | Description | +--------+ + + + + | 05/01/ | [facility] | [facility]INA | Kurtis Ashley | | | 2000 | Encounter | [facility] | [address] | | | | | [address] | [place] | | | | | [place], | [address] | | | | | [place] [address] | [phone] | | | | | [phone] | | | +--------+ + + + [...]
--- OUTSIDE RECORDS SUMMARY | ~2019-03-30 | XMS | Encounter Summary ---
Demographics + + + | Address | [address] | | | [place] [address] | + + + | Home Phone | | + + + | Preferred Language | Unknown | + + + | Marital Status | | + + + | Buddhist Affiliation | CAT | + + + [...] Team Providers + +------+ + | Care Rate And Cost Analyst Name | Role | Phone | + +------+ + PCP | Unavailable | + +------+ + Encounter Details +--------+ + + + + | Date | Type | Department | Care Team | Description | +--------+ + + + + | 11/07/ | Orders Only | | Lab, Vascular [...] + + | VASCULAR FLOW | | 11/08/2003 | | | | IMAGING, NONCARDIAC | | | | | | - VASC LAB | | | | | + +--------+ + + + documented in this encounter Visit Diagnoses Not on filedocumented in this encounter"
--- OUTSIDE RECORDS SUMMARY | ~2019-03-30 | XMS | Encounter Summary ---
Demographics + + + | Address | [address] | | | [place] [address] | + + + | Home Phone | | + + + | Preferred Language | Unknown | + + + | Marital Status | | + + + | Religion Affiliation | CAT | + + + [...] Team Providers + +------+ + | Care Home Visitor Home Base Head Start Name | Role | Phone | + +------+ + PCP | Unavailable | + +------+ + Encounter Details +--------+ + + + + | Date | Type | Department | Care Team | Description | +--------+ + + + + | 02/18/ | Office | [facility] | Note, [...] as of this encounter Progress Notes Interface, Computer Applications Instructor In - 04/25/2006 1:12 AM PSTCLINIC DATE: 02/18/1999 ORTHOPEDIC CLINIC Lindsey is now 20 months since her last hip replacement and 14 months since her right hip replacement. They seem to be doing pretty well, clinically. Her complaint today is that when she walks with a cane, her left leg turns in. When she walks with her walker, her legs track forward quite nicely. Examination shows that on both hips, she does not externally rotate well, in fact, only a few degrees. This has been present since the very beginning. I think it at least in part relates to the amount of abnormal motor control she has. I have suggested that she see a physical therapist in [place] for a few visits to see if they have any suggestions in regard to how she walks and see if it could be improved. Otherwise, I do not have any particular solution for her problem right now. I plan to hear from the physical therapist and then decide when I should next see her. We are making an appointment for another six months, however, because I think her hips need to be x-rayed at that time. Marc Granados MD RKMellissa / [id number] / [id number] / [id number] / cc: Vadim Zepeda MD [address] [place], [place] [id number] signed by Interface, Computer Applications Instructor In at 04/25/2006 1:12 AM PSTdocumented in this encounter Plan of Treatment Not on filedocumented as of this encounter Visit Diagnoses Not on filedocumented in this encounter"
--- OUTSIDE RECORDS SUMMARY | ~2019-03-30 | XMS | Encounter Summary ---
Demographics + + + | Address | [address] | | | [place] [address] | + + + | Home Phone [...] + + + | Author | [facility] | + + + | Organization | [facility] | + + + | Address | Unknown | + + + | Phone | Unavailable | + + + Support + + +---------+ + | Name | Relationship | Address | Phone | + + +---------+ + | Jeronimo Ortega | ECON | Unknown | | + + +---------+ + Care Team Providers + +------+ + | Care Demonstrator Knitting Name | Role | Phone | + +------+ + PCP | Unavailable | + +------+ + Encounter Details +--------+ + + + + | Date | Type | Department | Care Team | Description | +--------+ + + + + | 05/19/ | DELETED | Preoperative | Consult, | ANESTHESIA/SEDATION | | 2002 | TRANSCRIPTI | Medicine Clinic at | Anesthesia [address] | | | | ON | [facility] 4th Floor [address] | | | | | [address] | [address] [place], [place] | | | | | Mailcode: [facility] | [id number] | | | | | [facility] | | | | | | and Healing, | | | | | | [facility] 1,4th Floor | | | | | | [place], [place] | | | | | | [address] | | | | | | [phone] | | | +--------+ + + + [...]
--- OUTSIDE RECORDS SUMMARY | ~2019-03-30 | XMS | Encounter Summary ---
Demographics + + + | Address | [address] | | | [place] [address] | + + + | Home Phone [...] Team Providers + +------+ + | Care Airline Dispatcher Name | Role | Phone | + +------+ + PCP | Unavailable | + +------+ + Encounter Details +--------+ + + + + | Date | Type | Department | Care Team | Description | +--------+ + + + + | 07/04/ | Office | General Internal | Note, Outpatient | Progress Note | | 1997 | Visit-Trans | Medicine [address] | Clinic | | | | [address] | [address] | | | | | | Mailcode: L475 | | | | | | Outpatient Clinic | | | | | | [facility], [address] | | | | | | [place], [place] | | | | | | [address] | | | | | | [phone] | | | +--------+ + + + [...] as of this encounter Progress Notes Interface, Perishable Fruit Inspector In - 06/19/2006 3:01 AM PST NON-VISIT NOTE: 07/04/97 She called in wanting a refill on her Ultram. Dr. Tao okayed this prescription for Ultram, one twice a day, tabs #100, in Dr. Granados' absence. It was called to her pharmacy at: [phone]. Glenn Dorantes R.N. Nurse Rubber Vulcanizing Machine Operator, Orthopedics DN/egl A documented in this encounter Plan of Treatment Not on filedocumented as of this encounter Visit Diagnoses Not on filedocumented in this encounter"
--- OUTSIDE RECORDS SUMMARY | ~2019-03-30 | XMS | Encounter Summary ---
Demographics + + + | Address | [address] | | | [place] [address] | + + + | Home Phone | | + + + | Preferred Language | Unknown | + + + | Marital Status | | + + + | Jainism Affiliation | CAT | + + + | Race | White | + + + | Ethnic Group | Not or | + + + Author + + + | Author | [facility] | + + + | Organization | [facility] | + + + | Address | Unknown | + + + | Phone | Unavailable | + + + Support + + +---------+ + | Name | Relationship | Address | Phone | + + +---------+ + | Jeronimo Ortega | ECON | Unknown | | + + +---------+ + Care Team Providers + +------+ + | Care Frame Straightener Name | Role | Phone | + +------+ + PCP | Unavailable | + +------+ + Encounter Details +--------+ + + + + | Date | Type | Department | Care Team | Description | +--------+ + + + + | 04/17/ | Office | [facility] | Note, [...] as of this encounter Progress Notes Interface, Maintenance Scheduler In - 03/23/2006 5:10 AM PSTCLINIC DATE: 04/17/2000 ORTHOPEDIC CLINIC SUBJECTIVE: The patient returns. She is now 6 months out from her lumbar subtraction osteotomy. She is doing extremely well. She has had significant improvement in her symptoms of thoracolumbar back pain with her physical therapy program. She has had no other complaints of note. OBJECTIVE: On physical exam, she is unchanged. Neurologically she is unchanged. Her balance remains quite good. DIAGNOSTIC DATA: X-rays demonstrate solid fusion with no hardware complications. ASSESSMENT: The patient has done very well status post thoracolumbar eggshell osteotomy. RECOMMENDATION: Continued activity as tolerated. I am going to have her continue in Physical Therapy once a month. I would like to have her return to clinic in approximately one year. I think she is going to be seeing Dr. Theo Atwood, and I am hopeful that he can obtain x-rays there and just send these to me through the mail. This would be an AP and lateral flexion-extension view of the lumbar spine. She will contact me if further difficulties arise. Roque James M.D. / [id number] / [id number] / [id number] / [id number] cc: Theo Atwood M.D. [address] [place] [id number] signed by Interface, Maintenance Scheduler In at 03/23/2006 5:10 AM PSTdocumented in this encounter Plan of Treatment Not on filedocumented as of this encounter Visit Diagnoses Not on filedocumented in this encounter"
--- OUTSIDE RECORDS SUMMARY | ~2019-03-30 | XMS | Encounter Summary ---
Demographics + + + | Address | [address] | | | [place] [address] | + + + | Home Phone | | + + + | Preferred Language | Unknown | + + + | Marital Status | | + + + | Baptist Affiliation | CAT | + + + [...] Team Providers + +------+ + | Care Baton Twirler Name | Role | Phone | + +------+ + PCP | Unavailable | + +------+ + Encounter Details +--------+ + + + + | Date | Type | Department | Care Team | Description | +--------+ + + + + | 12/23/ | Procedure - | | Record, Operation [...] + + | OPERATION RECORD | | 12/23/2002 | | Results for this | | | | | | procedure are in the | | | | | | results section. | + +--------+ + + + documented in this encounter Results OPERATION RECORD (12/23/2002) + + | Transcriptions | + + | Interface, Elevator Examiner And Adjuster In - 11/08/2005 1:09 AM PDT | | [address] [address] | | [place], [place] [address] | | [facility] Rec No[facility] | | [id number] Date: 12/23/2002Name: Andria Ortega | | SURGEON: Marc Granados M.D.HAIR DRESSER(S): Barrett | | Williams EstevesPREOPERATIVE DIAGNOSIS(ES):Tight left iliotibial band.POSTOPERATIVE | | DIAGNOSIS(ES):Tight left iliotibial band.PROCEDURES PERFORMED:Release of left iliotibial | | band.ANESTHESIA:Monitored anesthesia care.ESTIMATED BLOOD LOSS:20 cc.TOURNIQUET | | TIME:Not used.COMPLICATIONS:None apparent.FINDINGS:There was a fairly tight left | | iliotibial band distally and some other tightareas of fascia which were | | released.SPECIMENS:INDICATIONS:Ms. Ortega is a 62-year-old female with a history of | | right total hipreplacement and right iliotibial band release. She had good relief | | fromher right iliotibial band release recently and was having similar symptomson the | | left side and desired the same procedure there. She was thusindicated for a left | | iliotibial band release.PROCEDURE:Ms. Ortega was correctly identified and brought to | | the Operating Room.She was placed supine on the table, and sedation and monitored | | anesthesiacare were administered by the Anesthesia Service. The left lower extremitywas | | prepped and draped in the usual sterile manner using Betadine. A bumpwas placed under | | the left hip, and a stockinette with Coban was placedaround the the left foot. A 5-cm | | longitudinal incision was made on thedistal aspect of the left lateral thigh over the | | iliotibial band. Sharpdissection was carried through the skin and subcutaneous tissue. | | Weitlanerretractor was used to hold the wound open. Bovie electrocautery was usedto | | obtain hemostasis and to divide some of the subcutaneous fat tissue.Once the iliotibial | | band was encountered, Adson elevator was used toidentify the iliotibial band and was | | placed underneath it from anteriorposterior. The Bovie electrocautery was then used to | | divide the iliotibialband transversely. A few other palpable areas of tight fascia were | | alsoreleased with the Bovie. Once this was completed, it appeared that theiliotibial | | band had lengthened approximately 2 cm and was palpably lesstight. There was | | improvement in the Fabricio's test as well. The wound wasthen thoroughly irrigated and | | closed in a standard manner using 2-0 Vicrylfor the subcutaneous layer and 4-0 Vicryl | | for a subcuticular stitch.Steri-Strips, Xeroform, and a sterile dressings were placed | | over this. Thedrapes were then taken down, and she was taken to the Recovery Room | | instable condition.POSTOPERATIVE PLAN:She will be admitted to the Short Stay Unit for | | routine postoperative care.She can be weightbearing as tolerated. She should change the | | dressing inapproximately 3 days and keep the wound clean and dry for the next 7 days.We | | will see her back in clinic at her scheduled appointment. Aprescription for morphine | | sulfate immediate release was given to her, 10 mgp.o. q.4h. #40.Barrett Esteves, | | Hudson Granados M.D.BHAVANA / [id number] / [id number] / [id number] / [id number]: 12/23/2002T: | | 12/23/2002 | | | |SPECIMENS: | | | |INDICATIONS: | |Ms. Ortega is a 62-year-old female with a history of right total hip | |replacement and right iliotibial band release. She had good relief from | |her right iliotibial band release recently and was having similar symptoms | |on the left side and desired the same procedure there. She was thus | |indicated for a left iliotibial band release. | | | |PROCEDURE: | |Ms. Ortega was correctly identified and brought to the Operating Room. | |She was placed supine on the table, and sedation and monitored anesthesia | |care were administered by the Anesthesia Service. The left lower extremity | |was prepped and draped in the usual sterile manner using Betadine. A bump | |was placed under the left hip, and a stockinette with Coban was placed | |around the the left foot. A 5-cm longitudinal incision was made on the | |distal aspect of the left lateral thigh over the iliotibial band. Sharp | |dissection was carried through the skin and subcutaneous tissue. Weitlaner | |retractor was used to hold the wound open. Bovie electrocautery was used | |to obtain hemostasis and to divide some of the subcutaneous fat tissue. | |Once the iliotibial band was encountered, Adson elevator was used to | |identify the iliotibial band and was placed underneath it from anterior | |posterior. The Bovie electrocautery was then used to divide the iliotibial | |band transversely. A few other palpable areas of tight fascia were also | |released with the Bovie. Once this was completed, it appeared that the | |iliotibial band had lengthened approximately 2 cm and was palpably less | |tight. There was improvement in the Fabricio's test as well. The wound was | |then thoroughly irrigated and closed in a standard manner using 2-0 Vicryl | |for the subcutaneous layer and 4-0 Vicryl for a subcuticular stitch. | |Steri-Strips, Xeroform, and a sterile dressings were placed over this. The | |drapes were then taken down, and she was taken to the Recovery Room in | |stable condition. | | | |POSTOPERATIVE PLAN: | |She will be admitted to the Short Stay Unit for routine postoperative care. | |She can be weightbearing as tolerated. She should change the dressing in | |approximately 3 days and keep the wound clean and dry for the next 7 days. | |We will see her back in clinic at her scheduled appointment. A | |prescription for morphine sulfate immediate release was given to her, 10 mg | |p.o. q.4h. #40. | | | | | | | | | |Barrett Esteves M.D. | | | | | | | |Marc Granados M.D. | | | |[facility] / [facility] | |[id number] / [id number] / [id number] / [id number] | | | | | + + documented in this encounter Visit Diagnoses Not on filedocumented in this encounter"
--- OUTSIDE RECORDS SUMMARY | ~2019-03-30 | XMS | Encounter Summary ---
Demographics + + + | Address | [address] | | | [place] [address] | + + + | Home Phone | | + + + | Preferred Language | Unknown | + + + | Marital Status | | + + + | Holiness Affiliation | CAT | + + + [...] Team Providers + +------+ + | Care Polymerization Helper Name | Role | Phone | + +------+ + PCP | Unavailable | + +------+ + Encounter Details +--------+ + + + + | Date | Type | Department | Care Team | Description | +--------+ + + + + | 11/22/ | Procedure - | [facility] | Record, Operation | Operative Report | | 1996 | | [place] [phone] | | | | | Transcribed | [address] | | | | | | Mailcode: [place] | | | | | [facility] | | | | | | Healing, [address] | | | | | | [place], [place] | | | | | | [address] | | | | | | [phone] | | | +--------+ + + + [...] + + | OPERATION RECORD | | 11/22/1996 | | Results for this | | | | 12:00 AM | | procedure are in the | | | | PDT | | results section. | + +--------+ + + + documented in this encounter Results OPERATION RECORD (11/22/1996 12:00 AM PDT) + + | Procedure Note | + + | 11/22/1996 12:00 AM PDT [place] | | [facility] | | [address] [place] [address] | | [facility] | | | | OPERATION RECORD | | | | Med Rec No.: [id number] Date: 11/22/96 | | | | Name: Lindsey Ortega | | | | | | ATTENDING SURGEON: Marc Granados M.D. | | Professor, Orthopedics and Rehabilitation | | | | ROOFER APPLICATOR(S): German Almaguer M.D. | | Resident, Orthopedic Surgery | | | | POSTOPERATIVE DIAGNOSIS(ES): Osteoarthritis, left hip. | | | | ANESTHETIC: General endotracheal. | | | | OPERATION(S) PERFORMED: Left total hip arthroplasty, with | | Prodigy/Depuy system. 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 | | She states that she has pain in her bilateral hips, left greater than right, | | as well as overall decreased ambulation. Her physical examination and x-ray | | have also confirmed this. She is scheduled for the above stated operation. | | | | FINDINGS: The following components were used of the | | MadeiraMadeiraigy/Depuy system: A 13.5 mm femoral | | stem, with 28-mm head +12. | | We used a 56-mm Duraloc pronged acetabular component, with a 10 degree | | plastic insert. | | | | SPECIMEN(S) REMOVED: As below. | | | | PROCEDURE: The patient was correctly identified, and | | brought to the Operating Room and laid | | supine, and induced with general | | endotracheal anesthesia, with endotracheal tube intubation. She was switched | | into a left-side up, lateral decubitus position, using the Bowman hip | | roe. Actually, a roll was also positioned underneath her right axilla. | | She had her left lower extremity prepped and draped in a sterile fashion. | | She then had a longitudinal incision over her proximal femur, over the | | greater trochanter, and curving into her buttocks in a standard fashion. | | Dissection was carried through skin and subcutaneous tissues, then the | | tensor fasciolidae was split longitudinally, and this was carried down to | | the gluteus maximum fibers. Dissecting down, the piriform was isolated. | | This was taken down, and at the time tagged. We also released some of her | | gluteal sling, as well as then her short external rotators. | | | | With overall retraction, we were able to visualize at this time the femoral | | neck. We made a first very proximal neck cut, but because she was still | | somewhat tight, we then proceeded on with an anterior release slightly to | | help with her overall mobility. We made a more significant cut, using the | | template on the femoral neck, and this was done at this time. Both the | | femoral head as well as the remaining bone was removed at this time. The | | acetabulum was explored, and the soft tissues removed and placed into Roach | | retractors. We were able to visualize the acetabulum better. At this time, | | we removed all of the soft tissues and capsule around the acetabulum. | | Rongeurs were used to remove the soft tissue as well as the trans-acetabular | | ligament. | | | | Next, we started with the reamers, reaming with a #49 first, and we used | | stepped increments to #55. After this, we had good bleeding bone with an | | outer aspect devoid. We tried a #56 which was deemed adequate. We inserted | | an acetabular component of a 58 variety, with pronged inserts. We felt good | | overall apposition. We put in a trial insert at this time. We then | | approached the femoral canal by removing the anterior aspect off the | | superior portion of the piriformis fossa to be able to gain better access. | | Using the initial reamer, we gained access and went down through the femoral | | canal. Using a #9-mm straight reamer, going up to a #13, we subsequently | | reamed the femoral canal. After this, we tried the initial rasp of 13.5 | | which was small, and medial offset. This fit well. We curetted the bone | | slightly and also used the shaver over the anterior surface. We removed any | | other cortical bone that was not needed at this time. | | | | We placed the trial as well as the +5 femoral head. This appeared to | | dislocate easily with reduction maneuvers. We then went up to an 8.5, and | | subsequently to a 12-mm head length. This appeared to have good fixation. | | We also went to the 10-degree Duraloc lipped liner at this time, which also | | showed good reduction. We irrigated the femoral canal after the components | | were removed. We inserted the appropriate stem as listed above with good | | fit. We placed a trial +12 head into the 10-degree Duraloc liner, which was | | now inserted into the acetabular component. We had good motion with no | | dislocation. We accepted this, and placed the final 28+12 femoral head into | | place. With this, we placed her through a range of motion again, and we | | irrigated the wounds. We placed a medium Hemovac, and attached both | | piriformis and slight amount of the gluteal sling. With this done, we | | closed the tensor fasciolidae with #2 Tevdek in an interrupted pattern. We | | closed the subcutaneous tissues with 0 Vicryl suture and 2-0 Vicryl in the | | more superficial layer. We closed the skin with miranda. Xeroform and 4x4s | | were applied. The patient was also placed on an abduction pillow. She was | | switched over to a supine position and extubated. She was awakened and | | taken to the Post Anesthesia Care Unit in stable condition. | | | | | | PLANS: Postoperative plans is that the patient will | | be weight-bearing as tolerated on the left | | lower extremity. She | | will follow total hip protocol. She should receive the 48 hours of | | intravenous antibiotics, and otherwise watch her hematocrit. She will | | follow-up in approximately two weeks for staple removal, and then in six | | weeks for routine examination and x-ray. | | | | | | | | German Almaguer M.D. | | Resident, Orthopedic Surgery | | Marc rGanados M.D. | | Professor, Orthopedics and Rehabilitation | | SAWYER /danyelle | | | | P | | C: 12/12/96 rc | | | | cc: | | | | | | CRISELDA KRUEGER MD | | [address] [facility] [address] | | [place] [address] | | | + + documented in this encounter Visit Diagnoses Not on filedocumented in this encounter"
--- OUTSIDE RECORDS SUMMARY | ~2019-03-30 | XMS | Encounter Summary ---
Demographics + + + | Address | [address] [facility] | | | [place] [address] | + + + | Home Phone [...] Team Providers + +------+ + | Care Interior Painter Name | Role | Phone | + +------+ + PCP | Unavailable | + +------+ + Encounter Details +--------+ + + + + | Date | Type | Department | Care Team | Description | +--------+ + + + + | 05/27/ | Results | Orthopaedics at | Marc Granados MD | | | 1999 | Only | [facility] [address] | [address] | | | | | [address] | [address] [place] [place], | | | | | Mailcode: [address] | [place] [address] | | | | | [facility] | | | | | | [place], [place] | | | | | | [address] | | | | | | [phone] | | | +--------+ + + + [...] | + +--------+ + + + | SPINE, LUMBOSACRAL, | Routin | 05/27/1999 | | Results for this | | 2 VIEWS | e | 11:55 AM | | procedure are in the | | | | PST | | results section. | + +--------+ + + + documented in this encounter Results SPINE, LUMBOSACRAL, 2 VIEWS (05/27/1999 11:55 AM PST) + + + + + + | Component | Value | Ref Range | Performed | Pathologist | | | | | At | Signature | + + + + + + | SPINE, | Radiologist 1: STEFANIE, | | | | | LUMBOSACRAL | [facility] NEGROLUMBAR SPINE | | | | | , 2 VIEWS | TWO VIEWS: 05/27/99 | | | | | | at 1155 hours. | | | | | | Dictated 08/19/99. | | | | | | FINDINGS: There is | | | | | | compression with | | | | | | anterior wedging and | | | | | | loss ofapproximately 60% | | | | | | of the vertical height | | | | | | anteriorly of L1. | | | | | | There isincrease in | | | | | | the thoracolumbar | | | | | | kyphosis, which measures | | | | | | 33 degrees.The patient | | | | | | has had a laminectomy of | | | | | | L1. There is severe | | | | | | degenerativechange at | | | | | | the L4-5 and L5-S1 facet | | | | | | joints, with sclerosis | | | | | | andhypertrophic spurring | | | | | | at those levels. | | | | | | There has also been a | | | | | | fracturethrough the body | | | | | | of S2 with 1 cm | | | | | | anterior placement of | | | | | | thecephalad fragment in | | | | | | relation to the caudad | | | | | | fragment. There | | | | | | isincrease in the lumbar | | | | | | lordosis. The joints | | | | | | are maintained. | | | | | | IMPRESSION: 1. Chronic | | | | | | compression with | | | | | | anterior wedging in the | | | | | | body of L1 | | | | | | withassociated increase | | | | | | in the thoracolumbar | | | | | | kyphosis. 2. Previous | | | | | | laminectomy of L1. 3. | | | | | | Severe facet | | | | | | degenerative at L4-5 and | | | | | | L5-S1. 4. Spurring | | | | | | throughout the lumbar | | | | | | spine. 5. Previous | | | | | | fracture through the | | | | | | body of S2 with | | | | | | anteriordisplacement of | | | | | | the cephalad fragment. | | | | | | 6. Increase in the | | | | | | lumbar lordosis. END | | | | | | OF IMPRESSION: | | | | + + + + + + + + | Specimen | + + | | + + + +---------+ + + | Performing | Address | City/State/Zipcode | Phone Number | | Organization | | | | + +---------+ + + | [facility] DEPARTMENT OF | | | | | RADIOLOGY | | | | + +---------+ + + documented in this encounter Visit Diagnoses Not on filedocumented in this encounter"
--- OUTSIDE RECORDS SUMMARY | ~2019-03-30 | XMS | Encounter Summary ---
Demographics + + + | Address | [address] | | | [place] [address] | + + + | Home Phone | | + + + | Preferred Language | Unknown | + + + | Marital Status | | + + + | Uatsdin Affiliation | CAT | + + + | Race | White | + + + | Ethnic Group | Not or | + + + Author + + + | Author | [facility] | + + + | Organization | [facility] | + + + | Address | Unknown | + + + | Phone | Unavailable | + + + Support + + +---------+ + | Name | Relationship | Address | Phone | + + +---------+ + | Jeronimo Ortega | ECON | Unknown | | + + +---------+ + Care Team Providers + +------+ + | Care Sustainable Agriculture Specialist Name | Role | Phone | + +------+ + PCP | Unavailable | + +------+ + Encounter Details +--------+ + + + + | Date | Type | Department | Care Team | Description | +--------+ + + + + | 05/29/ | Results | Orthopaedics at | Marc Granados MD | | | 1997 | Only | [facility] [address] | [address] | | | | | [address] | [address] [place], | | | | | Mailcode: [address] | [place] [address] | | | | | [facility] [address] | | | | | | [place], [place] | | | | | | [address] | | | | | | [phone] | | | +--------+ + + + [...] | FEMUR, 2 VIEWS | Routin | 05/29/1997 | | Results for this | | | e | 12:00 PM | | procedure are in the | | | | PST | | results section. | + +--------+ + + + documented in this encounter Results FEMUR, 2 VIEWS (05/29/1997 12:00 PM PST) + + + + + + | Component | Value | Ref Range | Performed | Pathologist | | | | | At | Signature | + + + + + + | FEMUR, 2 | Radiologist 1: JAMAL | | | | | RYAN | Quintin CARPENTER | | | | | | Williams-Radiologist 2: | | | | | | Quintin BERRY | | | | | | FAY GAMBLE | | | | | | | | | | | | | | | | | | FEMUR, | | | | | | TWO VIEWS BILATERAL ON | | | | | | 05/29/97DICTATED ON | | | | | | 05/30/97 HISTORY: A | | | | | | 57-year-old status post | | | | | | total hip arthroplasty | | | | | | on the leftpresents with | | | | | | right hip pain. | | | | | | Comparison is made with | | | | | | January 30, 1997 and | | | | | | November 22, 1996. FINDINGS: | | | | | | There is status post | | | | | | total hip arthroplasty | | | | | | on the left | | | | | | withacetabular cup and | | | | | | noncemented femoral | | | | | | component. There is | | | | | | noevidence of hardware | | | | | | loosening . Mild | | | | | | heterotopic bone | | | | | | formation insoft tissue | | | | | | adjacent to the greater | | | | | | trochanter is noted. | | | | | | There is anold fracture | | | | | | of the inferior pubic | | | | | | ramus . On the right, | | | | | | there is slight | | | | | | subchondral sclerosis of | | | | | | the hip joint,joint | | | | | | space narrowing and | | | | | | osteophytic formation | | | | | | consistent | | | | | | withdegenerative joint | | | | | | disease. IMPRESSION:1. | | | | | | No radiographic evidence | | | | | | for loosening of the | | | | | | left total | | | | | | hiparthroplasty.2. | | | | | | Degenerative joint | | | | | | disease of the right | | | | | | hip. END OF IMPRESSION: | | | | + + + + + + + + | Specimen | + + | | + + + +---------+ + + | Performing | Address | City[facility]State[facility] | Phone Number | | Organization | | | | + +---------+ + + | [facility] DEPARTMENT | | | | | RADIOLOGY | | | | + +---------+ + + documented in this encounter Visit Diagnoses Not on filedocumented in this encounter"
[~2019-03-30 07:45] MED LIST changes: +CALCIUM 600 +1 EA13 PO; +CENTRUM SILVER1 EAC3 PO; +DOXYCYCLINE HY100 MG PO; +METRONIDAZOLE500 MG PO; +PROTONIX20 MG PO; +VITAMIN B-121000 MCG PO
[2019-03-30] MEDS ORDERED: KEFLEX500 MG PO (08:01)
--- NOTE | 2019-03-30 11:15 | NUR ---
[facility] IN PAC[facility] AWAKE C/O SORE ABD 05/27. ANESTHESIA GAVE IV MEDICATION. 1105 OXYGEN REMOVED. SATS 99% ON RA. 1115 RESTING. REU.
--- NOTE | 2019-03-30 11:40 | NUR ---
PT RECEIVED FROM PACU. PT TRANSFERED SELF TO BED. PT ON ROOM AIR, LUNG SOUNDS CLEAR, O2 SATS 98%. BOWEL TONES ACTIVE, DENIES NAUSEA, ASSISTED TO ORDER CLEAR LIQUID DIET. PT WITH ABD DRESSING CDI. PAIN 2/10. PT HYPERTENSIVE. PT REPORT OF NUMBNESS TO BLE, AT BASELINE, HX MS, CMS OTHERWISE INTACT, SCDS IN PLACE. D5LR INFUSING AT 75 ML/HR. DISCUSSED PLAN OF CARE FOR THE DAY AND POST-OP EDUCATION. SPOUSE AT BEDSIDE. PT DENIES OTHER NEEDS AT THIS TIME.
--- NOTE | 2019-03-30 12:01 | NUR ---
DR. PUGA CALLED, DISCUSSED HYPERTENSION AND METOPROLOL ORDER TO START TONIGHT, OK TO START NOW.
--- NOTE | 2019-03-30 14:00 | NUR ---
PT RESTING IN BED, PT CONTINUES TO BE HYPERTENISVE, RECEIVED METOPROLOL, WILL CONTINUE TO MONITOR. PT RATING PAIN 2/10. PT EATING CLEAR LIQUID DIET. PT DENIES OTHER NEEDS AT THIS TIME, SPOUSE AT BEDSIDE.
--- NOTE | 2019-03-30 17:15 | NUR ---
PT ASSISTED BACK TO BED, SBA STAND PIVOT. PT RATIGN INCREASED PAIN WITH MOVEMENT BUT PAIN CONTINUES TO BE TOLERABLE, DISCUSSED PAIN MANAGEMENT WITH PT. PT DENIES OTHER NEEDS AT THIS TIME.
--- NOTE | 2019-03-30 17:17 | NUR ---
1645 Pt resting in room, following infrumbilical hernia repair. 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 Pt states she cooks, cleans, and does laundry using her wc. Has double canes she uses when preparing dinner. Has DME at home and denies need or further. Plans on discharging home when released and leaving for [place], [place] in the next 2 weeks for the winter. Does not have a current PCP, but has an appt. to [facility] Ibrahim 09/06/19 when she returns from [place]. Will use urgent care until care established.
--- NOTE | 2019-03-30 19:29 | NUR ---
c/o abd pain, medicated with tylenol 650 mg po . abd dressing inplace, ice to area, IVF infusing, scds in place, F?C patent. on room air. no c/o n/v. call light and fluids at bedside. visiting
--- NOTE | 2019-03-30 20:01 | EKG ---
[facility] [address] [place], [place] [address] Signed Normal sinus rhythm Left axis deviation Right bundle branch block Possible Lateral infarct (cited on or before 28-MAR-2019) Abnormal ECG When compared with ECG of 28-MAR-2019 09:34, Questionable change in initial forces of Lateral leads Confirmed by ASHLEY APODACA MD ([id number]) on 03/30/2019 8:01:28 PM Electronically Signed By: ASHLEY APODACA MD 03/30/192000 PATIENT NAME: FAY CARRANZA MARIAMA Electrocardiogram DATE OF : 42 PHYSICIAN: ASHLEY APODACA MD REPORT #: [id number] REPORT IS CONFIDENTIAL AND NOT TO BE RELEASED WITHOUT AUTHORIZATION
--- NOTE | 2019-03-30 21:14 | NUR ---
coop with assessment. no further c/o pain. abd dressing cdi. ice to abd ivf infusing, f/c patent, sdcs in place, awaker. fresh fluids given, no n/v
--- NOTE | 2019-03-30 21:28 | NUR ---
ROUNDED CHARGE. PATIENT IS RESTING IN BED. PATIENT REPORTS CONCERNS OF NOT BEING ABLE TO SLEEP. NOTIFIED ASHLEY LUJAN. PATIENT DENIES ANY FURTHER COMMENTS, QUESTIONS OR CONCERNS. CALL LIGHT IN REACH.
--- NOTE | 2019-03-30 23:27 | NUR ---
c/o 07/25 abd cramping, medicated with Toradol 15mg IV. abd dressing CDI, priscila bowel tones, ice to area. continues to deny passing gas, tolerating fluids well, IVF infusing, f/c patent, scds in place. Pt alert and oriented. Call light and fluids at bedside
--- NOTE | 2019-03-31 01:06 | NUR ---
PT IN BED, C/O NOT BEING ABLE TO SLEEP, DENIES C/O PAIN AT THIS TIME, "THE IV MED HELPED ME, THANK YOU". ABD DRESSING CDI, HEA BOWEL TONES. DENIES PASSING GAS, F/C PATENT, SCDS IN PLACE. AWAKE, ALERT AND ORIENTED
--- NOTE | 2019-03-31 04:29 | NUR ---
PT HAS BEEN AWAKE HALF THIS SHIFT. WAS MEDICATED WITH TORADOL X1 AND SCHEDULED TYLENOL PER ABD PAIN. ABD DRESSING CDI, HEA BOWEL TONES, STATES SHE IS NOT PASSING GAS YET, F/C PATENT, DRAINING YELLOW URINE., PT SELF CATHS AT HOME, WILL ASSESS F/C NEED IN AM AND DC IF PT ABLE TO SELF CATH SHE IS BEING DC IN AM, SCDS IN PLACE. TOLERATING DIET WELL, PT HAS MS BUT IS ABLE TO REPOSITIONING
--- NOTE | 2019-03-31 06:01 | NUR ---
PT DECLINES TO HAVE F/C DC'D AT THIS TIME, " I SELF CATH AT HOME" STATES. hELPS WITH REPOSITION IN BED, COOP WITH VITALS, F/C DRAINING DARK YELLOW URINE. TOLERATING SIPS OF WATER WELL, NO C/O PAIN, NO N/V. PT AWARE THAT SHE WILL BE DC'D THIS AM, TO BRING W/C FROM HOME PRIOR TO DC.
--- NOTE | 2019-03-31 06:07 | OR ---
[facility] [address] [place], [place] [address] Signed DATE OF OPERATION: 03/30/2019 SURGEON: Poornima Puga MD PREOPERATIVE DIAGNOSIS: Periumbilical reducible incisional hernia (3 cm). POSTOPERATIVE DIAGNOSIS: Periumbilical reducible incisional hernia (3 cm). PROCEDURE PERFORMED: Periumbilical incisional herniorrhaphy with intraabdominal Ventralex mesh (8 cm). ESTIMATED BLOOD LOSS: None. INDICATIONS: Fay is a 79-year-old lady with multiple sclerosis. I have known Fay and her for many years. She does use a cane to walk, but also uses a front wheeled walker if she wants to go longer distances. She came to us last year with a necrotic gallbladder and we placed our drain laparoscopically. She was quite septic, but she did make it through that. She had been down to [place] to see the hepatobiliary surgeon and underwent rather difficult laparoscopic cholecystectomy a number of weeks later. She had been doing fine, but then noticed some swelling and sense of fullness and pain at the umbilicus and just slightly below into the right of the umbilicus. She has had a previous lower infraumbilical midline incision and on her laparoscopic cholecystectomy in [place], they went through the umbilicus at the 6 o'clock position. She has developed a hernia in this area. It is about 3 cm in diameter. As soon as you release the finger, the bowel comes back through that area. She still remains quite active and her of course is with her on a day-to-day basis. She had asked if I could repair that to improve her quality of life. In the meantime, she undergoes self catheterization. She had been on Cipro and nitrofurantoin for recent urinary tract infection. She had a sense of fullness in the bladder. We repeated the urinalysis preoperatively and she grew out E coli greater than 100,000 colony-forming units. We called in nitrofurantoin and she has been on that for couple of days. The E coli is sensitive to the nitrofurantoin. In the office, I gave Fay a brochure on hernias. We looked at that together in detail. She understands the nature of an incisional hernia. She understands the primary suture repair versus mesh repair. We did review the expected intraop and postop course. There is risk to surgery including, but not limited to bleeding, infection, scarring, change in contour of the skin, damage to Electronically Signed By: POORNIMA PUGA MD 03/31/19 0607 PATIENT NAME: FAY CARRANZA [facility] OPERATIVE REPORT DATE OF : 42 REPORT #: [id number] PHYSICIAN: POORNIMA PUGA MD PCP: BRIGITTE DUBON MD REPORT IS CONFIDENTIAL AND NOT TO BE RELEASED WITHOUT AUTHORIZATION [facility] [address] [place], [place] [address] Signed bowel, infection of mesh requiring removal, recurrent hernias, and chronic pain. She had expressed understanding and wished to proceed. Because of her fairly advanced multiple sclerosis, we wanted to keep her in the hospital at least overnight because of the general anesthetic and paralysis of her muscles. She and her had expressed understanding and wished to proceed. PROCEDURE NOTE: I met with Fya and her in our preop area. We were all able to easily identify the hernia. We marked it appropriately. After this, Fay was taken into the operating room and placed in a supine position under general endotracheal tube anesthesia. She was given preoperative antibiotics along with subcutaneous heparin. SCDs were utilized. Briceño catheter was then inserted with return of clear yellow urine. She was then prepped and draped in the usual sterile fashion. We utilized her previous infraumbilical midline incision. We developed that over about 3 cm. We went down around the hernia and excised the entire hernia sac and passed it off the field. We left the umbilical skin attached to the midline fascia. She had just a few adhesions on the right side of the hernia defect from the omentum. We took those down with the cautery. There was just a small opening in the omentum, so we closed it with a running 2-0 PDS suture. After this, we chose our 8 cm round Ventralex mesh and we placed that in the abdomen, brought it up, flushed against the posterior abdominal wall. The omentum was between the mesh and the bowel. We then closed her fascial defect transversely with a running #1 Prolene suture. Several passes of the suture went through the tab on the mesh to keep it centered and in place. The tab was then cut flush with the abdominal wall and discarded. We then injected local anesthetic into the abdominal wall and subcutaneous tissues. The wound was irrigated and suctioned out until clear. The dermis was closed with interrupted 3-0 subcuticular Monocryl sutures. The skin edges were reapproximated with a running 5-0 fast absorbing plain gut suture. Dry gauze and tape were then applied. Fay was awakened from anesthesia, extubated in the OR, and taken to recovery room in stable condition. We did notice her systolic blood pressures running in the 170s. She told us she thought her blood pressure was fine and she has stopped taking her metoprolol. Consequently, we are going to resume that after surgery. Poornima Puga MD ALB/MODL /[id number] Electronically Signed By: POORNIMA PUGA MD 03/31/19 0607 PATIENT NAME: FAY CARRANZA [facility] OPERATIVE REPORT DATE OF : 42 REPORT #: [id number] PHYSICIAN: POORNIMA PUGA MD PCP: BRIGITTE DUBON MD REPORT IS CONFIDENTIAL AND NOT TO BE RELEASED WITHOUT AUTHORIZATION [address] [address] Signed cc: MD Poornima Pan MD Copies: BRIGITTE DUBON MD, ANDREW L MD ~ Electronically Signed By: POORNIMA PUGA MD 03/31/19 0607 PATIENT NAME: FAY CARRANZA [facility] OPERATIVE REPORT DATE OF : 42 REPORT #: [id number] PHYSICIAN: POORNIMA PUGA MD PCP: BRIGITTE DUBON MD REPORT IS CONFIDENTIAL AND NOT TO BE RELEASED WITHOUT AUTHORIZATION
--- NOTE | 2019-03-31 07:05 | NUR ---
BEDSIDE HANDOFF REPORT RECEIVED FROM SALES REPRESENTATIVE RURAL POWER RN. PT RESTING IN BED. PLAN FOR DC THIS MORNING. PT DENIES NEEDS AT THIS TIME.
[2019-03-31] MEDS ORDERED: TYLENOL EXTRA500 MG PO (08:05)
[2019-03-31] MEDS ORDERED: METOPROLOL TART25 MG PO (08:12)
[2019-03-31] MEDS ORDERED: MACROBID 100 M100 MG PO (08:57)
--- NOTE | 2019-03-31 08:59 | NUR ---
MED REC COMPLETE
--- NOTE | 2019-03-31 10:00 | NUR ---
DISCHARGE INSTRUCTIONS COMPLETED WITH PT AND SPOUSE, MEDICATIONS REVIEWED. PT INSTRUCTED TO CONTINUE METOPROLOL AND TO CHECK BP DAILY AND TO KEEP RECORDS FOR ESTABLISHING CARE IN [place]. IV CATH RMEOVED, TIP INTACT. MCNEAL CATH REMOVED, PT STRAIGHT CATHS AT BASELINE, FEELS COMFORTABLE WIHT RETURNING TO NORMAL STRAIGHT CATHS. PT ABLE TO AMBULATE IN [place] WITH NURSE AID AND FWW. PT DRESSED, BELONGINGS RETURNED. PT PROVIDED WITH ICE PACK BAGS. DISCUSSED SHOWERING AND WOUND CARE. FOLLOW UP APPOINTMENT SWITCHED TO APR 07 AT 1245PM DUE TO PLANS OF LEAVING FOR [place]. PT ESCORTED TO LOBBY WITH NURSE AIDE, SPOUSE TO DRIVE PT HOME.
--- NOTE | 2019-04-01 06:31 | DS ---
[facility] [address] [place], [place] [address] Signed ADMISSION DATE: 03/30/2019 DISCHARGE DATE: 03/31/2019 FINAL DIAGNOSES: 1. Periumbilical trocar site incisional hernia. 2. Urinary tract infection. 3. Hypertension. 4. Gastroesophageal reflux disease. PROCEDURE: Primary incisional herniorrhaphy with intraabdominal Ventralex mesh. HISTORY OF PRESENT ILLNESS: Fay is a 79-year-old female with a long history of multiple sclerosis. She has to use a cane and a walker to ambulate. Her has been very helpful to her over the years. They generally go to [place] for the winter. Last year, in 2018, she came in septic with necrotic gallbladder. She had laparoscopic drainage of the gallbladder. Later, she had laparoscopic cholecystectomy with her hepatobiliary surgeon in [place]. She came to me with a week or two history of swelling and pain at slightly below the umbilicus. We found that she had a hernia in that area. From what we can tell in physical exam was probably small bowel. Consequently, we made plans to bring her to the operating room to repair that. She reminded me that every winter she and her go to [place] and return when the weather is good in the spring. HOSPITAL COURSE: Fay was taken into the operating room yesterday and she indeed had about a 3 cm typical trocar site incisional hernia in the inferior side of the umbilicus. We reduced the small bowel and few adhesions to the omentum and placed our 8 cm Ventralex mesh and closed the defect over the mesh. We had kept her here at the hospital overnight because of her fairly significant multiple sclerosis. We noted preoperatively, intraoperatively, and postoperatively that she indeed has hypertension with systolic blood pressures in the 160s to 180s. She told me she has medication at home, but never takes it because she thought her blood pressure was fine. In the record, she is on metoprolol, so we gave her some metoprolol last night and this morning. She also worries about her acid reflux and we did give her some Protonix this morning before breakfast. Her exam is healing quite nicely. There are no local signs or symptoms of infection of course. She told me she has a special shower at home, she is just going to wait and take her shower with the help of her at home. Otherwise, we are going to release her from care. DISCHARGE PLANS AND MEDICATIONS: Electronically Signed By: POORNIMA PUGA MD 04/01/19 0631 PATIENT NAME: FAY CARRANZA [facility] DISCHARGE SUMMARY DATE OF : 42 REPORT #: [id number] PHYSICIAN: POORNIMA PUGA MD PCP: BRIGITTE IBRAHIM MD REPORT IS CONFIDENTIAL AND NOT TO BE RELEASED WITHOUT AUTHORIZATION [address] [address] Signed Fay is going to be discharged to home with no new prescriptions. She uses Tylenol for pain and an ice pack and she has done quite well. She has multiple allergies including narcotics in that regard. Also, she has to do self catheterization because of the multiple sclerosis. She had a sense of fullness and sure enough she had Escherichia coli in the urine. It is sensitive to the nitrofurantoin and she has already had a couple of days of that and she will finish it when she gets home. We did provide it to her here in the hospital as well. I reviewed with her and with Fay both that she needs to resume her blood pressure medications at home. They are going to see me in the office in a few days and then head for [place] for the winter. I encouraged both Fay and her to find a primary care provider in [place] to monitor her chronic medical issues including this high blood pressure. She is scheduled to see Dr. Ibrahim here in town, but she is yet to make an appointment. She thought she would do that when she got back from [place] in a few months. In the meantime, she can continue a regular diet. She can leave the incision open to air and shower and bathe as usual. With her MS and her need for a cane and a walker, we are not going to provide her any restrictions after the surgery. She should do just fine. She has expressed understanding and agrees to above plan. Poornima Puga MD ALB/MODL /[id number] cc: MD Poornima Pan MD Copies: BRIGITTE IBRAHIM MD, ANDREW L MD ~ Electronically Signed By: POORNIMA PUGA MD 04/01/19 0631 PATIENT NAME: FAY CARRANZA [facility] DISCHARGE SUMMARY DATE OF : 42 REPORT #: [id number] PHYSICIAN: POORNIMA PUGA MD PCP: BRIGITTE IBRAHIM MD REPORT IS CONFIDENTIAL AND NOT TO BE RELEASED WITHOUT AUTHORIZATION
== END 2019-03-31 10:00 | disposition home or self-care (01) ==
LOC: DS 07:45 → MS 10:00 → DS 11:39 → MS 11:40
PROVIDERS: ADMIT Colon & Rectal Surgery
PROC: 0WUF0JZ Supplement Abdominal Wall with Synthetic Substitute, Open Approach (ICD-10-PCS; principal; 2019-03-30 09:15)
DX: K43.2 Incisional hernia without obstruction or gangrene (principal); G35 Multiple sclerosis; N39.0 Urinary tract infection, site not specified; B96.20 Unspecified Escherichia coli [E. coli] as the cause of diseases classified elsewhere; I10 Essential (primary) hypertension; K21.9 Gastro-esophageal reflux disease without esophagitis
CPT/HCPCS: 00750; 93005; 93010; 96372; 96374; C1781; G0378; J0131; J0330; J0690; J1100; J1644; J1650; J1885; J2250; J2405; J2704; J3010; J7121